=== PATIENT | female | born 1945 | race Caucasian/White ===

== ENCOUNTER 2016-06-12 14:18 | Observation (INO) | payer MEDICARE ==
[2016-06-12 16:12] LABS: BASOPHIL % 0.7 % (0.0-0.4); Granulocytes % 63.4 % (36.0-66.0); Lymphocytes % 27.2 % (24.0-44.0); Mean Cell Volume 90.8 fl (78-100); Mean Corpuscular Hemoglobin 29.2 pg (26-32); Mean Platelet Volume 9.6 fl (6-9.5); Monocytes % 7.7 % (0.0-12.0); Platelet Count 362 K/mm3 (150-450); Red Cell Distribution Width 12.6 % (11.5-14.0); White Blood Count 5.7 K/mm3 (4.0-10.5)
[2016-06-12] MEDS: ROCEPHIN 1 Gm-D5w 50 ml Bag** 50 ML IV SCH (16:35)
[2016-06-12] MEDS: Sodium Chloride 0.9% W/ 20 mEq KCl/LITER 1,000 ML IV SCH (16:36)
[2016-06-12 16:40] LABS: ALBUMIN 3.3 g/dL (3.4-5.0); ALKALINE PHOSPHATASE 83 U/L (46-116); ANION GAP 11.7 MEQ/L (5-15); BILIRUBIN,TOTAL 0.2 mg/dL (0.2-1.0); BLOOD UREA NITROGEN 15 mg/dL (9-20); CHLORIDE 104 mEq/L (98-107); Carbon Dioxide 27.9 mEq/L (21-32); Glucose 104 MG/DL (70-110); PHOSPHOROUS 2.4 mg/dL (2.6-4.7); Potassium 3.7 mEq/L (3.5-5.1); SGOT/AST 17 U/L (15-37); SGPT/ALT 12 U/L (12-78); SODIUM 140 mEq/L (136-145)
[2016-06-12] MEDS ORDERED: xanAX 0.25 MG PO PRN (16:51)
[2016-06-12] MEDS ORDERED: Ventolin Hfa MDI IH SCH (17:00)
[2016-06-12] MEDS ORDERED: MEDICATION INTERVENTION MC PRN (17:15)
[2016-06-12] MEDS: Zithromax 500 MG/ 250 ML NaCl Premix 250 ML IV SCH (18:09)
[2016-06-12] MEDS: PROVENTIL COMMON CANISTER IH SCH (19:00)
[2016-06-12] MEDS: CEPACOL SORE THROAT LOZENGE PO PRN (20:54)
[2016-06-12] MEDS: Pepcid 20 MG PO SCH (20:55)
[2016-06-12] MEDS ORDERED: NON-FORMULARY ITEM (Ropinirole Hcl [Ropinirole Hcl] 1 MG) PO SCH (22:00)
[2016-06-12] MEDS ORDERED: DESYREL 50 MG PO SCH (22:00)
[2016-06-12] MEDS ORDERED: Requip 0.5 MG PO SCH (22:00)
--- NOTE | 2016-06-12 22:23 | XRAY ---
Exam: Two-view chest from 06/12/2016. Comparison: Two-view chest from 02/16/2010. Indication: Possible pneumonia, cough, history of non-Hodgkin's lymphoma. Findings: Upright PA and lateral chest films were obtained. There is mild hyperinflation of the lungs. The heart size is normal. New mild left infrahilar airspace disease is seen which is probably due to left lower lobe pneumonia. Follow-up films are recommended to ensure complete resolution. A small calcified granuloma is seen within the peripheral left upper lung field representing no change from 02/16/2010. The remainder of the lung murray appears clear. No vascular congestion is seen. No pneumothorax or pleural effusion is seen. Mild lower thoracic dextroscoliosis is seen centered near the thoracolumbar junction. Impression: 1. New focal airspace disease is seen within the posterior left infrahilar projection, likely due to left lower lobe pneumonia. Follow-up to complete resolution is recommended. 2. There appears to be some hyperinflation of the lungs. Correlate clinically regarding COPD. 3. No other acute cardiopulmonary disease is seen.
[2016-06-13] MEDS: Sodium Chloride 0.9% W/ 20 mEq KCl/LITER 1,000 ML IV SCH (06:13)
[2016-06-13] MEDS: PROVENTIL COMMON CANISTER IH SCH ×2 (06:56→10:35)
[2016-06-13 07:14] VITALS: O2SAT 96
--- NOTE | 2016-06-13 08:51 | XRAY ---
Exam: CT of the chest without and with 80 ML's of Isovue 370 contrast from 06/12/2016. Comparison: Two-view chest from 06/12/2016. Indication: Clinical concern for pneumonia, cough, history of non-Hodgkin's lymphoma. Technique: Axial images were obtained through the chest both without and following 80 cc IV injection of Isovue-370 contrast material. Reconstructed coronal and sagittal images were created and reviewed. Findings: Some scattered small granulomatous calcifications are seen in the right side within the superior mediastinum, the AP window on the left, and the left hilum. I also note a 6 mm calcified granuloma within the left upper lobe. The thyroid gland is only partially seen but no gross abnormality is seen of the visualized portion. The central vessels enhance well. No abnormal soft tissue mediastinal or perihilar lymphadenopathy is seen. The heart size is normal without pericardial effusion. The lung murray reveal no pneumothorax or pleural effusion. The central airways appear open. Within the posterior aspect of the left lower lobe there is a small to moderate sized air space infiltrate containing air bronchograms measuring about 4.1 cm in width, 3.4 cm in AP depth, and a maximum of 7.1 cm in height on the axial and sagittal images, respectively. It is likely that this is due to left lower lobe pneumonia. I would recommend follow-up studies to ensure complete resolution and completely exclude any possibility of underlying mass lesion. There is some minimal scarring/atelectasis at the anterior left lung base. Minor biapical pleural thickening is seen. No suspicious soft tissue lung nodularity is seen. No acute process is seen within the visualized upper abdomen. The adrenal glands appear unremarkable. There is a punctate nonobstructing stone within the upper pole of the right kidney. An apparent cyst measuring +8.4 Hounsfield units on the noncontrast study and +11.0 Hounsfield units on the postcontrast study is seen within the medial aspect of the upper pole of the left kidney. No other significant abnormality is seen within the upper abdomen. The skeleton reveals mild dextroscoliosis centered near the thoracolumbar junction. There is incidental note of a vertebral body hemangioma within the right aspect of L1. Impression: 1. Focal airspace disease containing air bronchograms are seen within the posterior aspect of the left lower lobe. This is most suggestive of pneumonia. Follow-up is recommended to document complete resolution and rule out the possibility of an underlying mass. 2. Old healed granulomatous disease. 3. Nonobstructive punctate stone within the upper pole of the right kidney. 4. Apparent 2.9 cm in diameter upper pole left renal cyst.
[2016-06-13] MEDS: CEPACOL SORE THROAT LOZENGE PO PRN (09:06)
[2016-06-13] MEDS: Pepcid 20 MG PO SCH (09:06)
[2016-06-13] MEDS: ROCEPHIN 1 Gm-D5w 50 ml Bag** 50 ML IV SCH (09:07)
[2016-06-13] MEDS ORDERED: SYNTHROID 25 MCG PO SCH (10:00)
[2016-06-13] MEDS ORDERED: SYNTHROID 50 MCG PO SCH (10:00)
[2016-06-13] MEDS ORDERED: NORVASC 5 MG PO SCH (10:00)
[2016-06-13] MEDS ORDERED: NON-FORMULARY ITEM (Phentermine Hcl [Adipex-P] 37.5 MG) PO SCH (10:00)
[2016-06-13] MEDS ORDERED: NON-FORMULARY ITEM (Amlodipine Besylate [Amlodipine Besylate] 2.5 MG) PO SCH (10:00)
[2016-06-13] MEDS: Zithromax 500 MG/ 250 ML NaCl Premix 250 ML IV SCH (10:06)
--- NOTE | 2016-06-13 10:32 | PCM.SSS ---
History of Present Illness - Chief Complaint Chief Complaint: pneumonia History of Present Illness: is a 71 year old female.came to office with c/o fever, chills, left side chest wall pain and shortness of breath - Review of Systems Constitutional: No Fever, No Chills Eyes: No Symptoms Ears, Nose, & Throat: No Symptoms Respiratory: Cough, Short Of Breath, Wheezing Cardiac: Chest Pain, No Edema, No Syncope Abdominal/Gastrointestinal: No Abdominal Pain, No Nausea, No Vomiting, No Diarrhea Genitourinary Symptoms: No Dysuria Musculoskeletal: No Back Pain, No Neck Pain Skin: No Rash Neurological: No Dizziness, No Focal Weakness, No Sensory Changes Psychological: No Symptoms Endocrine: No Symptoms Hematologic/Lymphatic: No Symptoms Immunological/Allergic: No Symptoms Medications & Allergies Home Medications: Home Medication List Albuterol Sulfate [Proair Hfa] 1 puff IN QID 07/24/11 [History Confirmed ] Famotidine 20 mg [Pepcid 20 MG] 1 tab PO BID 07/24/11 [History Confirmed 06/12/16] Trazodone HCl 50 mg [Desyrel 50 mg] 100 mg PO HS 10/27/15 [History Confirmed 06/12/16] Alprazolam 0.25 mg [xanAX 0.25 MG] 0.25 mg PO DAILY PRN 06/12/16 [History Confirmed 06/12/16] Amlodipine Besylate 2.5 mg PO DAILY 06/12/16 [History Confirmed 06/12/16] Levothyroxine Sodium 25 Mcg [Synthroid 25 Mcg] 50 mcg PO DAILY 06/12/16 [ History Confirmed 06/12/16] Phentermine HCl [Adipex-P] 37.5 mg PO DAILY 06/12/16 [History Confirmed 06/12/16 ] Ropinirole HCl 1 mg PO HS 06/12/16 [History Confirmed 06/12/16] Levofloxacin [Levaquin] 500 mg PO DAILY #10 tablet 06/13/16 [Rx] Allergies/Adverse Reactions: Allergies Allergy/AdvReac Type Severity Reaction Status Date / Time No Known Drug Allergies Allergy Verified 10/27/15 08:49 - Past Medical History Past Medical History: Yes Neurological History: No Pertinent History ENT History: No Pertinent History Cardiac History: No Pertinent History Respiratory History: COPD Endocrine Medical History: Hypothyroidism Musculoskelatal History: Osteoporosis GI Medical History: GERD History: No Pertinent History Pyscho-Social History: No Pertinent History Reproductive Disorders: No Pertinent History Comment: hx of abdominal cancer 2005 - Female History Are you now?: No - Past Surgical History Past Surgical History: Yes Neuro Surgical History: No Pertinent History Cardiac History: No Pertinent History Respiratory Surgery: No Pertinent History GI Surgical History: No Pertinent History Genitourinary Surgical Hx: No Pertinent History Musculskeletal Surgical Hx: No Pertinent History Female Surgical History: Hysterectomy Other Surgical History: cvl port placed and removed, abdominal surgery for cancer - Social History Smoking Status: Never smoker Exposure to second hand smoke: Yes Alcohol: None Drug Use: none - Physical Exam Vital Signs: Vital Signs - 24 hr Temp Pulse Resp BP Pulse Ox 06/13/16 08:00 18 06/13/16 07:13 98.4 F 84 18 106/63 96 06/13/16 06:57 74 16 98 06/13/16 04:00 98.3 F 89 16 110/68 97 06/12/16 23:24 98.0 F 71 16 120/68 97 06/12/16 19:26 98.3 F 74 17 126/71 97 06/12/16 19:00 72 16 97 06/12/16 15:57 77 18 99 General Appearance: no apparent distress, alert Neurologic Exam: alert, oriented x 3, cooperative, normal mood/affect, nml cerebellar function, nml station & gait, sensation nml, No motor deficits Eye Exam: PERRL/EOMI, eyes nml inspection Ears, Nose, Throat Exam: normal ENT inspection, TMs normal, pharynx normal, moist mucous membranes Neck Exam: normal inspection, non-tender, supple, full range of motion Respiratory Exam: diminished breath sounds (left lower lobes), rhonchi, wheezing , No respiratory distress Cardiovascular Exam: regular rate/rhythm, normal heart sounds, normal peripheral pulses Gastrointestinal/Abdomen Exam: soft, normal bowel sounds, No tenderness, No mass Back Exam: normal inspection, normal range of motion, No CVA tenderness, No vertebral tenderness Extremity Exam: normal inspection, normal range of motion, pelvis stable Skin Exam: normal color, warm, dry, No rash Lymphatic Exam: No adenopathy Results - Labs Lab/Micro Results: Lab Results-Last 24 Hours 06/12/16 06/12/16 Range/Units 15:40 15:40 WBC 5.7 (4.0-10.5) K/mm3 RBC 3.80 L (4.1-5.4) M/mm3 Hgb 11.1 L (12.0-16.0) gm/dl Hct 34.5 L (35-47) % MCV 90.8 (78-100) fl MCH 29.2 (26-32) pg MCHC 32.2 (32-36) g/dl RDW 12.6 (11.5-14.0) % Plt Count 362 (150-450) K/mm3 MPV 9.6 H (6-9.5) fl Gran % 63.4 (36.0-66.0) % Lymphocytes % 27.2 (24.0-44.0) % Monocytes % 7.7 (0.0-12.0) % Eosinophils % 1.0 (0.00-5.0) % Basophils % 0.7 (0.0-0.4) % Basophils # 0.04 (0-0.4) Sodium 140 (136-145) mEq/L Potassium 3.7 (3.5-5.1) mEq/L Chloride 104 (98-107) mEq/L Carbon Dioxide 27.9 (21-32) mEq/L Anion Gap 11.7 (5-15) MEQ/L BUN 15 (9-20) mg/dL Creatinine 0.88 (0.55-1.30) mg/dl Estimated GFR > 60 ML/MIN Glucose 104 (70-110) MG/DL Calcium 8.6 (8.5-10.1) mg/dL Phosphorus 2.4 L (2.6-4.7) mg/dL Total Bilirubin 0.2 (0.2-1.0) mg/dL AST 17 (15-37) U/L ALT 12 (12-78) U/L Alkaline Phosphatase 83 (46-116) U/L Serum Total Protein 7.0 (6.4-8.2) gm/dL Albumin 3.3 L (3.4-5.0) g/dL - Radiology Impressions Radiology Exams & Impressions: Radiology Procedures Category Date Time Status CHEST 2 VIEWS (PA AND LAT) Stat Exams 06/12/16 15:57 Completed CHEST W/WO CONTRAST [CT] Urgent Exams 06/12/16 16:20 Completed - Other Procedures and Tests Respiratory Therapy 06/12/16 19:00 Respiratory MDI 07,11,15,19 Assessment/Plan (1) Pneumonia Current Visit: Yes Status: Acute Qualifiers: Pneumonia type: due to unspecified organism Laterality: left Lung location: lower lobe of lung Qualified Code(s): J18.1 - Lobar pneumonia, unspecified organism Code(s): J18.9 - PNEUMONIA, UNSPECIFIED ORGANISM Hospital Summary - Hospital Course Hospital Course: Chief Complaint Diagnosis pneumonia Allergies Allergy/AdvReac Type Severity Reaction Status Date / Time No Known Drug Allergies Allergy Verified 10/27/15 08:49 Vital Signs (Last 24 hours) Temp Pulse Resp BP Pulse Ox 06/13/16 08:00 18 06/13/16 07:13 98.4 F 84 18 106/63 96 06/13/16 06:57 74 16 98 06/13/16 04:00 98.3 F 89 16 110/68 97 06/12/16 23:24 98.0 F 71 16 120/68 97 06/12/16 19:26 98.3 F 74 17 126/71 97 06/12/16 19:00 72 16 97 06/12/16 15:57 77 18 99 Home Medications Medication Instructions Recorded Confirmed Last Taken Type Alprazolam 0.25 mg [xanAX 0.25 0.25 mg PO DAILY PRN 06/12/16 06/12/16 History MG] Amlodipine Besylate 2.5 mg PO DAILY 06/12/16 06/12/16 06/12/16 History Levothyroxine Sodium 25 Mcg 50 mcg PO DAILY 06/12/16 06/12/16 06/12/16 History [Synthroid 25 Mcg] Phentermine HCl [Adipex-P] 37.5 mg PO DAILY 06/12/16 06/12/16 06/11/16 History Ropinirole HCl 1 mg PO HS 06/12/16 06/12/16 06/11/16 History Current Medications Generic Name Dose Route Start Last Admin Trade Name Freq PRN Reason Stop Dose Admin Albuterol Sulfate 2 puff 06/12/16 19:00 06/13/16 06:56 Proventil Common Canister IH 07/12/16 18:59 2 puff QIDRT JACOB Administration Alprazolam 0.25 mg 06/12/16 16:51 Xanax 0.25 Mg PO 07/12/16 16:50 DAILY PRN ANXIETY Amlodipine Besylate 2.5 mg 06/13/16 10:00 06/13/16 09:04 Norvasc 5 Mg PO 07/13/16 09:59 2.5 mg DAILY JACOB Administration Famotidine 20 mg 06/12/16 22:00 06/13/16 09:06 Pepcid 20 Mg PO 07/12/16 21:59 20 mg BID JACOB Administration Ceftriaxone Sodium/Dextrose 50 mls @ 100 mls/hr 06/12/16 16:00 06/13/16 09:07 Rocephin 1 Gm-D5w 50 Ml Bag IV 07/12/16 15:59 100 mls/hr Q24H10 JACOB Administration Azithromycin 250 mls @ 125 mls/hr 06/12/16 16:15 06/13/16 10:06 Zithromax 500 Mg/ 250 Ml Nacl Premix IV 07/12/16 16:14 125 mls/hr DAILY JACOB Administration Potassium Chloride/Sodium Chloride 1,000 mls @ 100 mls/hr 06/12/16 16:00 06:13 Sodium Chloride 0.9% W/ 20 Meq Kcl/Liter IV 07/12/16 15:59 100 mls/hr .Q10H JACOB Administration Levothyroxine Sodium 50 mcg 06/13/16 10:00 06/13/16 09:06 Synthroid 50 Mcg PO 07/13/16 09:59 50 mcg DAILY JACOB Administration Ropinirole HCl 1 mg 06/12/16 22:00 06/12/16 20:58 Requip 0.5 Mg PO 07/12/16 21:59 Not Given HS JACOB Throat Lozenges 15 mg 06/12/16 16:46 06/13/16 09:06 Cepacol Sore Throat Lozenge PO 07/12/16 16:45 15 mg PRN PRN Administration COUGH Trazodone HCl 100 mg 06/12/16 22:00 06/12/16 20:55 Desyrel 50 Mg PO 07/12/16 21:59 100 mg HS JACOB Administration Intake & Output (Last 24 hours) 06/10/16 06/11/16 06/12/16 06/13/16 11:59 11:59 11:59 11:59 Intake Total 1257 Balance 1257 Weight 48.988 kg Microbiology Results (Last 24 hours) 06/12/16 16:20 Blood - Pending 06/12/16 16:20 Blood Blood Culture - Pending 06/12/16 15:40 Blood - Pending 06/12/16 15:40 Blood Blood Culture - Pending Laboratory Results (Last 24 hours) 06/12/16 06/12/16 15:40 15:40 WBC 5.7 RBC 3.80 L Hgb 11.1 L Hct 34.5 L MCV 90.8 MCH 29.2 MCHC 32.2 RDW 12.6 Plt Count 362 MPV 9.6 H Gran % 63.4 Lymphocytes % 27.2 Monocytes % 7.7 Eosinophils % 1.0 Basophils % 0.7 Basophils # 0.04 Sodium 140 Potassium 3.7 Chloride 104 Carbon Dioxide 27.9 Anion Gap 11.7 BUN 15 Creatinine 0.88 Estimated GFR > 60 Glucose 104 Calcium 8.6 Phosphorus 2.4 L Total Bilirubin 0.2 AST 17 ALT 12 Alkaline Phosphatase 83 Serum Total Protein 7.0 Albumin 3.3 L Orders (Last 24 hours) Category Date Time Status Up Ad [place] TOLERATED Activity 06/12/16 15:57 Active Admission/Status Order ROUTINE Care 06/12/16 15:57 Active IV Insertion ROUTINE Care 06/12/16 15:57 Active Implement Pneumonia Pathway ROUTINE Care 06/12/16 15:57 Active Miscellaneous Nursing Order ROUTINE Care 06/12/16 15:57 Active Food Specialist/Discharge Plan Cons 06/12/16 15:30 Active Nutritional Admission Screen Diet 06/12/16 15:30 Active Regular Diet Diet 06/12/16 Dinner Completed Regular Diet Diet 06/13/16 Breakfast Active CHEST 2 VIEWS (PA AND LAT) Stat Exams 06/12/16 15:57 Completed CHEST W/WO CONTRAST [CT] Urgent Exams 06/12/16 16:20 Completed BLOOD CULTURE Stat Lab 06/12/16 16:20 Received CBC W DIFF Stat Lab 06/12/16 15:40 Completed COMPREHENSIVE/RENAL Routine Lab 06/12/16 15:40 Completed Albuterol Common Canister [Proventil Common Canister Med 06/12/16 19:00 Active ] 2 puff IH QIDRT Alprazolam 0.25 mg [xanAX 0.25 MG] Med 06/12/16 16:51 Active 0.25 mg PO DAILY PRN Amlodipine Besylate 5 mg [Norvasc 5 mg] Med 06/13/16 10:00 Active 2.5 mg PO DAILY Azithromycin 500 mg/250 ml [Zithromax 500 MG/ 250 ML Med 06/12/16 16:15 Active NaCl Premix] 250 ml IV DAILY Benzocaine/Menthol [Cepacol Sore Throat Lozenge] Med 06/12/16 16:46 Active 15 mg PO PRN PRN Ceftriaxone 1 GM/50 ML PREMIX* [ROCEPHIN 1 Gm-D5w 50 ml Med 06/12/16 16:00 Active Bag] 50 ml IV Q24H10 Famotidine 20 mg [Pepcid 20 MG] Med 06/12/16 22:00 Active 20 mg PO BID Levothyroxine Sodium 50 Mcg [Synthroid 50 Mcg] Med 06/13/16 10:00 Active 50 mcg PO DAILY Medication Intervention Med 06/12/16 17:15 Active 0 each MC PRN PRN NaCl 0.9% 1000 ml + KCl 20 Meq [Sodium Chloride 0.9% W/ Med 06/12/16 16:00 Active 20 mEq KCl/LITER] 1,000 ml IV 100 mls/hr Ropinirole HCl 0.5 mg [Requip 0.5 MG] Med 06/12/16 22:00 Active 1 mg PO HS Trazodone HCl 50 mg [Desyrel 50 mg] Med 06/12/16 22:00 Active 100 mg PO HS OT Screen per Nursing Assess OT 06/12/16 15:30 Active PT Screen per Nursing Assess ONCE PT 06/12/16 15:30 Completed Respiratory MDI 07,11,15,19 RT 06/12/16 19:00 Active Respiratory Therapy Consult ROUTINE RT 06/12/16 15:[address] Screen per Nursing Assess Ther 06/12/16 15:30 Active Patient Care Notes (Last 24 hours) 06/12/16 22:35 Nursing Note by Jony Saez Pt very reluctant to drink bowel prep. Frequently encouraging pt to drink it and explaining why it is necessary. Initialized on 06/12/16 22:35 - END OF NOTE Patient wants to go home, made aware of her diagnosis of pneumonia. strongly advised to take antibiotics for next 10 days. follow up with Dr Sienna David in 1 week - Vitals & Intake/Output Vital Signs: Vital Signs Temperature 98.4 F 06/13/16 07:13 Pulse Rate 84 06/13/16 07:13 Respiratory Rate 18 06/13/16 08:00 Blood Pressure 106/63 06/13/16 07:13 O2 Sat by Pulse Oximetry 96 06/13/16 07:13 Intake & Output: Intake & Output 06/10/16 06/11/16 06/12/16 06/13/16 11:59 11:59 11:59 11:59 Intake Total 1257 Balance 1257 Weight 48.988 kg - Lab Result Diagrams: 06/12/16 15:40 06/12/16 15:40 Lab Results-Last 24 Hrs: Lab Results-Last 24 Hours 06/12/16 06/12/16 Range/Units 15:40 15:40 WBC 5.7 (4.0-10.5) K/mm3 RBC 3.80 L (4.1-5.4) M/mm3 Hgb 11.1 L (12.0-16.0) gm/dl Hct 34.5 L (35-47) % MCV 90.8 (78-100) fl MCH 29.2 (26-32) pg MCHC 32.2 (32-36) g/dl RDW 12.6 (11.5-14.0) % Plt Count 362 (150-450) K/mm3 MPV 9.6 H (6-9.5) fl Gran % 63.4 (36.0-66.0) % Lymphocytes % 27.2 (24.0-44.0) % Monocytes % 7.7 (0.0-12.0) % Eosinophils % 1.0 (0.00-5.0) % Basophils % 0.7 (0.0-0.4) % Basophils # 0.04 (0-0.4) Sodium 140 (136-145) mEq/L Potassium 3.7 (3.5-5.1) mEq/L Chloride 104 (98-107) mEq/L Carbon Dioxide 27.9 (21-32) mEq/L Anion Gap 11.7 (5-15) MEQ/L BUN 15 (9-20) mg/dL Creatinine 0.88 (0.55-1.30) mg/dl Estimated GFR > 60 ML/MIN Glucose 104 (70-110) MG/DL Calcium 8.6 (8.5-10.1) mg/dL Phosphorus 2.4 L (2.6-4.7) mg/dL Total Bilirubin 0.2 (0.2-1.0) mg/dL AST 17 (15-37) U/L ALT 12 (12-78) U/L Alkaline Phosphatase 83 (46-116) U/L Serum Total Protein 7.0 (6.4-8.2) gm/dL Albumin 3.3 L (3.4-5.0) g/dL - Radiology Exams Ordered Rad Exams-Entire Visit: Radiology Procedures Category Date Time Status CHEST 2 VIEWS (PA AND LAT) Stat Exams 06/12/16 15:57 Completed CHEST W/WO CONTRAST [CT] Urgent Exams 06/12/16 16:20 Completed - Procedures and Test Procedures and Tests throughout Hospitalization: Therapy Orders & Screens 06/12/16 15:30 OT Screen per Nursing Assess Comment: Protocol Order Physician Instructions: Greater than 3 points order OT Admission Screening Reason For Exam: Triggered on Admission Diagnosis: pneumonia Open Wound/Cellutlitis/Pressure Ulcers: No Acute Fx/ORIF/Change in wt bearing status: No Severe MUSCULOSKELETAL pain: Yes ADL Dysfunction: No Acute CVA w/Hemiparesis/Hemiplegia: No Decreased Functional Mobility/Strength: Yes Sprain/Strain: No Acute Post-op Mobility Dysfunction: No Total Points: 6 PT Screen per Nursing Assess ONCE Comment: Protocol Order Physician Instructions: Greater than 3 points order PT Admission Screenin Reason For Exam: Triggered on Admission Diagnosis: pneumonia Open Wound/Cellutlitis/Pressure Ulcers: No Acute Fx/ORIF/Change in wt bearing status: No Severe MUSCULOSKELETAL pain: Yes ADL Dysfunction: No Acute CVA w/Hemiparesis/Hemiplegia: No Decreased Functional Mobility/Strength: Yes Sprain/Strain: No Acute Post-op Mobility Dysfunction: No Total Points: 6 ST Screen per Nursing Assess Comment: Protocol Order Physician Instructions: Greater than [address] Admission Screening Reason For Exam: Triggered on Admission Diagnosis: pneumonia CVA/Dyshpagia/Aphasia: No Cognitive Deficits: No Dehydration/Nutrition Deficit: Yes Reflux: Yes Oral-Motor Difficulties: No Pneumonia: Yes Intermediate Resident: No Total Points: 13 06/12/16 15:57 Respiratory Therapy Consult ROUTINE Comment: Reason For Exam: Diagnosis: pneumonia 06/12/16 19:00 Respiratory MDI 07,,15,19 Comment: Advair 115/21 2 puffs BID Diagnosis: pneumonia - Discharge Discharge Date: 06/13/16 Disposition: Home, Self-Care Condition: Stable Prescriptions: New Levofloxacin [Levaquin] 500 mg PO DAILY #10 tablet Continue Albuterol Sulfate [Proair Hfa] 1 puff IN QID Famotidine 20 mg [Pepcid 20 MG] 1 tab PO BID Trazodone HCl 50 mg [Desyrel 50 mg] 100 mg PO HS Levothyroxine Sodium 25 Mcg [Synthroid 25 Mcg] 50 mcg PO DAILY Alprazolam 0.25 mg [xanAX 0.25 MG] 0.25 mg PO DAILY PRN PRN Reason: Anxiety Amlodipine Besylate 2.5 mg PO DAILY Ropinirole HCl 1 mg PO HS Phentermine HCl [Adipex-P] 37.5 mg PO DAILY Instructions: Pneumonia -- Adult Additional Instructions: please follow up with Dr Sienna David in 1 week. If symptoms get worse call office or go to ER Follow up with: SRINI DAVID MD [Primary Care Provider] - 1 Week
[2016-06-13 11:07] VITALS: BP 116/61; PULSE 90
== END 2016-06-13 12:30 | disposition home or self-care (01) ==
LOC: MED SURG 14:18
PROVIDERS: ADMIT General Practice; ATTEND General Practice
DX: J15.8 Pneumonia due to other specified bacteria (principal); J44.9 Chronic obstructive pulmonary disease, unspecified; C85.13 Unspecified B-cell lymphoma, intra-abdominal lymph nodes; E03.9 Hypothyroidism, unspecified; M81.0 Age-related osteoporosis without current pathological fracture; K21.9 Gastro-esophageal reflux disease without esophagitis; Z85.028 Personal history of other malignant neoplasm of stomach
CPT/HCPCS: 36415; 71020; 71270; 80053; 84100; 85025; 87040; 94640; 94760; G0378; J0456; J0696; A9270-GY

== ENCOUNTER 2018-07-11 18:31 | Emergency (ER) | payer MEDICARE ==
--- NOTE | 2018-07-11 19:16 | ERPHSYRPT ---
- History of Present Illness Time Seen by Provider: 07/11/18 19:16 Historian: patient, family Exam Limitations: no limitations Physician History: 73 y/o white female pt of dr. david presents with several day h/o constipation. pt was seen at [facility] ED on saturday07/07/18 because of associated abd pain and n/v. work up included ct scan abd/pelvis and lab work. pt was seen by pcp on 07/08/18. pt has been using once daily stool softener, mag citrate drank slowly, fleets enema and rectal suppository. pt states her pain has improved, she is able to eat and drink, she is passing small amts of stool and flatus. pt states she has vaginal and rectal prolapses intermittently. pt unsure about ever seeing a new patient escort. Timing/Duration: day(s) (several ) Activities at Onset: none Quality: cramping Abdominal Pain Onset Location: other (pelvic) Pain Radiation: no radiation Severity of Pain-Max: moderate Severity of Pain-Current: mild Modifying Factors: Improves With: nothing. Worsens With: vomiting Associated Symptoms: denies symptoms Previous symptoms: same symptoms as today Allergies/Adverse Reactions: No Known Drug Allergies Allergy (Verified 07/11/18 19:15) Home Medications: Trazodone HCl 50 mg [Desyrel 50 mg] 100 mg PO HS 10/27/15 [History] Alprazolam 0.25 mg [xanAX 0.25 MG] 0.25 mg PO DAILY PRN 06/12/16 [History] Amlodipine Besylate 2.5 mg PO DAILY 06/12/16 [History] Levothyroxine Sodium 25 Mcg [Synthroid 25 Mcg] 50 mcg PO DAILY 06/12/16 [ History] Ropinirole HCl 1 mg PO HS 06/12/16 [History] Diclofenac Sodium Gel [Voltaren GEL] 1 applic TOP UD 11/29/17 [History] Naproxen Sodium 220 mg [Aleve 220 MG] 2 tab PO DAILY PRN 11/29/17 [History ] Nitroglycerin 0.4 mg (Ed) [Nitrostat 0.4 MG (ED)] 0.4 mg SL UD 11/29/17 [ History] Omeprazole 40 mg PO DAILY 11/29/17 [History] Pregabalin 50 mg [Lyrica 50MG] 50 mg PO BID 11/29/17 [History] Hx Tetanus, Diphtheria Vaccination/Date Given: Yes Hx Influenza Vaccination/Date Given: No Hx Pneumococcal Vaccination/Date Given: No - Review of Systems Constitutional: No Symptoms Eyes: No Symptoms Ears, Nose, & Throat: No Symptoms Respiratory: No Symptoms Cardiac: No Symptoms Abdominal/Gastrointestinal: Abdominal Pain (pelvic), Constipation, No Nausea, No Vomiting Genitourinary Symptoms: No Symptoms Musculoskeletal: No Symptoms Skin: No Symptoms Neurological: No Symptoms Psychological: No Symptoms Endocrine: No Symptoms Hematologic/Lymphatic: No Symptoms Immunological/Allergic: No Symptoms All Other Systems: Reviewed and Negative - Past Medical History Pertinent Past Medical History: Yes Neurological History: No Pertinent History ENT History: No Pertinent History Cardiac History: Angina, Hypertension Respiratory History: COPD Endocrine Medical History: Hypothyroidism Musculoskeletal History: Osteoporosis GI Medical History: GERD History: No Pertinent History Psycho-Social History: Anxiety, Depression Female Reproductive Disorders: No Pertinent History Other Medical History: hx of abdominal cancer 2005. restless legs - Past Surgical History Past Surgical History: Yes Neuro Surgical History: No Pertinent History Cardiac: No Pertinent History Respiratory: No Pertinent History Gastrointestinal: No Pertinent History Genitourinary: No Pertinent History Musculoskeletal: No Pertinent History Female Surgical History: Hysterectomy, Tubal Ligation Other Surgical History: cvl port placed and removed, abdominal surgery for cancer - Social History Smoking Status: Never smoker Exposure to second hand smoke: Yes Drug Use: none - Nursing Vital Signs Nursing Vital Signs: Initial Vital Signs Temperature 98.4 F 07/11/18 19:23 Pulse Rate 63 07/11/18 19:23 Respiratory Rate 20 07/11/18 19:23 Blood Pressure 113/70 07/11/18 19:23 O2 Sat by Pulse Oximetry 100 07/11/18 19:23 Pain Scale Pain Intensity 7 - Physical Exam General Appearance: no apparent distress, alert, anxiety Eye Exam: PERRL/EOMI, eyes nml inspection Ears, Nose, Throat Exam: normal ENT inspection, moist mucous membranes Neck Exam: normal inspection, non-tender, supple, full range of motion Respiratory Exam: normal breath sounds, lungs clear, airway intact, No chest tenderness, No respiratory distress Cardiovascular Exam: regular rate/rhythm, normal heart sounds, normal peripheral pulses Gastrointestinal/Abdomen Exam: soft, normal bowel sounds, tenderness (mild suprapubic) Pelvic Exam: not done Rectal Exam: not done Back Exam: normal inspection, normal range of motion, No CVA tenderness, No vertebral tenderness Extremity Exam: normal inspection, normal range of motion, pelvis stable Neurologic Exam: alert, oriented x 3, cooperative, 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 as 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 Skin Exam: normal color, warm, dry Lymphatic Exam: No adenopathy SpO2 Interpretation: normal O2 Delivery: Room Air - Course Nursing assessment & vital signs reviewed: Yes Ordered Tests: Active Orders 24 hr Category Date Time Status Enema STAT Care 07/11/18 20:21 Active KUB Stat Exams 07/11/18 20:03 Taken Medication Summary Discontinued Medications Generic Name Dose Route Start Last Admin Trade Name Freq PRN Reason Stop Dose Admin Magnesium Citrate 296 ml 07/11/18 20:22 Citroma 296 Ml PO 07/11/18 20:23 STAT ONE Magnesium Citrate Confirm 07/11/18 20:29 Citroma 296 Ml Administered 07/11/18 20:30 Dose 296 ml .ROUTE .STK-MED ONE - Progress Progress: unchanged Progress Note: 07/11/18 20:32 kub-mod stool throughout colon; air in rectum. i reviewed the workup performed at [facility] ed on 07/07/18 07/11/18 20:33 pt sx have actually improved. no evidence of obstruction. will be more aggressive in outpt treatment of her constipation 07/11/18 20:34 Counseled pt/family regarding: diagnosis, need for follow-up, rad results - Departure Departure Disposition: Home Clinical Impression: Constipation Condition: Stable Critical Care Time: No Referrals: SRINI DAVID MD [Primary Care Provider] - Additional Instructions: be more aggressive in your treatment of your constipation. continue your stool softener. use magnesium citrate and fleets enema as discussed two times daily. continue your lubiprostone. additionally use rectal suppositories. follow up with primary doctor for further management including referral to new patient escort and physician support coordinator as needed.
[2018-07-11 19:33] VITALS: O2SAT 100
[2018-07-11] MEDS ORDERED: CITROMA 296 ML PO ONE (20:22)
[2018-07-11] MEDS ORDERED: CITROMA 296 ML ONE (20:29)
[2018-07-11 20:41] VITALS: BP 115/66; PULSE 68
--- NOTE | 2018-07-11 21:46 | XRAY ---
Indication: Constipation. Comparison: None KUB nonacute and nonobstructed with mild scattered colonic fecal debris. Solid organs unremarkable. Osseous structures intact with mild lumbar degenerative changes and dextroscoliosis. Impression: Mild fecal stasis without obstruction.
== END 2018-07-11 20:44 | disposition home or self-care (01) ==
LOC: ED 18:31
DX: K59.00 Constipation, unspecified (principal); I10 Essential (primary) hypertension; J44.9 Chronic obstructive pulmonary disease, unspecified; E03.9 Hypothyroidism, unspecified; M81.0 Age-related osteoporosis without current pathological fracture; F41.8 Other specified anxiety disorders; K21.9 Gastro-esophageal reflux disease without esophagitis; Z79.899 Other long term (current) drug therapy; Z85.038 Personal history of other malignant neoplasm of large intestine
CPT/HCPCS: 74018; 99283; A9270-GY

== ENCOUNTER 2018-07-23 11:32 | Day surgery (SDC) | payer MEDICARE ==
--- NOTE | 2018-07-23 13:40 | XRAY ---
Indication: Right SI joint injection. Intraoperative fluoroscopy was provided for 9 seconds. 2 digital spot images submitted for interpretation demonstrates posterior needle tip projecting over the inferior right SI joint. Correlate with intraoperative findings/report.
--- NOTE | 2018-07-23 13:52 | XRAY ---
9 seconds fluoroscopy time in surgery for right SI joint injection
== END 2018-07-23 13:00 | disposition home or self-care (01) ==
LOC: SDC-PAIN 11:32
PROVIDERS: ATTEND Psychiatry & Neurology Pain Medicine
DX: M46.1 Sacroiliitis, not elsewhere classified (principal); M53.3 Sacrococcygeal disorders, not elsewhere classified; J44.9 Chronic obstructive pulmonary disease, unspecified; Z79.899 Other long term (current) drug therapy
CPT/HCPCS: 72020; 77002; G0260; 27096

== ENCOUNTER 2018-08-13 13:30 | Day surgery (SDC) | payer MEDICARE ==
[2018-08-13] MEDS ORDERED: Depo-Medrol 40 MG/ML IM ONE (13:31)
[2018-08-13] MEDS ORDERED: Sodium Chloride 0.9(Preservative Free) 10 ML IJ ONE (13:31)
[2018-08-13] MEDS ORDERED: DIPRIVAN 200 MG/20 ML IV ONE (14:09)
[2018-08-13] MEDS ORDERED: Ketamine HCl 50 MG/ML ONE (14:09)
[2018-08-13] MEDS ORDERED: MORPHINE SULFATE 10 MG/ML ONE (14:30)
[2018-08-13] MEDS ORDERED: Lactated Ringers 1,000 ML IV ONE (14:34)
[2018-08-13] MEDS ORDERED: DILAUDID 2 MG INJECTION ONE (14:41)
--- NOTE | 2018-08-13 16:45 | XRAY ---
Indication: Right L4-L5 and L5-S1 transforaminal MIKAEL. Intraoperative fluoroscopy was provided for 22 seconds. 2 digital spot images submitted for interpretation demonstrates posterior needle tips projecting over the expected right L4 and L5 nerve roots. Small amount of contrast injected for needle tip placement. Correlate with intraoperative findings/report.
--- NOTE | 2018-08-13 16:46 | XRAY ---
22 seconds of fluoroscopy was used in surgery for right L4-L5 and L5-S1 transforaminal MIKAEL.
== END 2018-08-13 15:05 | disposition home or self-care (01) ==
LOC: SDC-PAIN 13:30
PROVIDERS: ATTEND Psychiatry & Neurology Pain Medicine
DX: M54.16 Radiculopathy, lumbar region (principal); J44.9 Chronic obstructive pulmonary disease, unspecified; M81.0 Age-related osteoporosis without current pathological fracture
CPT/HCPCS: 64483; 64484; 72020; 77003; 99100; J1030; J1170; J2270; J2704; Q9966

== ENCOUNTER 2019-07-06 14:46 | Observation (INO) | payer MEDICARE ==
[2019-07-06 15:55] LABS: Hematocrit 33.6 % (35-47); Hemoglobin 10.8 gm/dl (12.0-16.0); Mean Cell Volume 91.6 fl (78-100); Mean Corpuscular Hemoglobin 29.4 pg (26-32); Mean Corpuscular Hgb Concent. 32.1 g/dl (32-36); Mean Platelet Volume 10.6 fl (7.5-11.0); Platelet Count 203 K/mm3 (150-450); Red Blood Count 3.67 M/mm3 (4.1-5.4); Red Cell Distribution Width 12.7 % (11.5-14.0); White Blood Count 5.5 K/mm3 (4.0-10.5)
[2019-07-06] MEDS ORDERED: Phenergan 25 MG INJ IM PRN (16:04)
[2019-07-06] MEDS ORDERED: MORPHINE SULFATE 2 MG INJ IV PRN (16:05)
[2019-07-06] MEDS ORDERED: PHENERGAN 25 MG PO PRN (16:08)
[2019-07-06 16:11] LABS: ALBUMIN 4.1 g/dL (3.5-5.0); ALKALINE PHOSPHATASE 60 U/L (38-126); BLOOD UREA NITROGEN 24 mg/dL (7-17); CHLORIDE 102 mmol/L (98-107); Carbon Dioxide 29 mmol/L (22-30); Creatinine 1 0.64 mg/dL (0.52-1.04); Glucose 98 mg/dL (74-106); Potassium 4.1 mmol/L (3.5-5.1); SGOT/AST 21 U/L (14-36); SGPT/ALT 10 U/L (0-35); SODIUM 138 mmol/L (137-145)
[2019-07-06] MEDS: Sodium Chloride 0.9% 1000 ML 1,000 ML IV SCH (16:14)
[2019-07-06] MEDS ORDERED: Sodium Chloride 0.9% 1000 ML 1,000 ML IV SCH (16:15)
[2019-07-06] MEDS: Requip 0.5 MG PO SCH (21:03)
[2019-07-06] MEDS: DESYREL 50 MG PO SCH (21:03)
[2019-07-06] MEDS: Lyrica 50MG PO SCH (21:03)
[2019-07-06] MEDS ORDERED: NON-FORMULARY ITEM (Ropinirole Hcl [Ropinirole Hcl] 1 MG) PO SCH (22:00)
[2019-07-07] MEDS: Sodium Chloride 0.9% 1000 ML 1,000 ML IV SCH ×2 (03:08→21:25)
--- NOTE | 2019-07-07 08:54 | HP ---
CHIEF COMPLAINT: Nausea. HISTORY OF PRESENT ILLNESS: The patient is a 74 year-old white female, a patient of Dr. Pelaez, who presented to the hospital for direct admission from Dr. Paniagua's office. The patient reports she has had issues with nausea. She does have some choking with foods and has apparently history of esophageal web. She reports that she does not remember ever being dilated before but said that her chart history reports that she has had this procedure previously performed. The patient has history non-Hodgkin's lymphoma dating back to 2005 and has been in remission. She has seen Dr. Walls recently and has decided that she needs a whole body scan to be completed the patient reports next month but the patient due to her current feelings wishes to proceed with having this done now. PAST MEDICAL/SURGICAL HISTORY: Otherwise significant for hysterectomy, tonsillectomy, EGD, bronchoscopy, colonoscopy. She apparently had back surgery. She was hospitalized for pneumonia once before. HOME MEDICATIONS: Includes amlodipine 2.5 mg a day, levothyroxine 25 mcg daily, omeprazole 40 mg a day, Lyrica 100 mg b.i.d., Phenergan PRN, ropinirole 1 mg at night and trazodone 100 mg at night. ALLERGIES: NKDA. PHYSICAL EXAMINATION: HEENT: Normocephalic, atraumatic. Pupils equal round reactive to light. Extraocular movements intact. Oropharynx is pink and moist. NECK: Supple without lymphadenopathy, thyromegaly or JVD. CHEST: Clear to auscultation. HEART: Regular rate and rhythm. ABDOMEN: Soft. No palpable masses. EXTREMITIES: Without cyanosis, clubbing or edema. NEUROLOGIC: The patient is alert and oriented x3. No focal deficits were noted. LAB DATA AND TESTS: Revealed comprehensive metabolic panel which was entirely normal. She had a CBC showing a white count 5,500, hemoglobin slightly low at 10.8 and a PLT count 203,000. ASSESSMENT: A patient with nausea. She has been admitted to the hospital for surgical consultation and possible stretching of her esophageal web. Further work up will now include her whole body scan CT with and without contrast of chest, abdomen and pelvis due to history of non-Hodgkin's lymphoma worrisome for possible recurrence. We will check sedimentation rate, CRP, TSH, T4, amylase and lipase.
[2019-07-07 09:43] LABS: T4 (Thyroxine) 9.56 ug/dL (5.53-10.96); TSH, 3RD Generation 0.869 mIU/L (0.47-4.68)
[2019-07-07] MEDS ORDERED: NON-FORMULARY ITEM (Amlodipine Besylate [Amlodipine Besylate] 2.5 MG) PO SCH (10:00)
[2019-07-07] MEDS ORDERED: NON-FORMULARY ITEM (Omeprazole [Omeprazole] 40 MG) PO SCH (10:00)
[2019-07-07] MEDS ORDERED: SYNTHROID 25 MCG PO SCH (10:00)
[2019-07-07] MEDS: NORVASC 5 MG PO SCH (10:08)
[2019-07-07] MEDS: SYNTHROID 50 MCG PO SCH (10:08)
[2019-07-07] MEDS: Lyrica 50MG PO SCH ×2 (10:09→21:25)
[2019-07-07] MEDS: Protonix 40MG Tablet PO SCH (10:09)
[2019-07-07 10:23] LABS: Appearance CLEAR (CLEAR); Bacteria RARE /HPF (NEGATIVE); Bilirubin NEGATIVE (NEGATIVE); Blood NEGATIVE Ery/ul (0-5); Glucose NEGATIVE (NEGATIVE); Ketones NEGATIVE (NEGATIVE); Leukocyte Esterase NEGATIVE (NEGATIVE); Nitrite NEGATIVE (NEGATIVE); Protein,Urine Dip NEGATIVE (Negative); RBC 0-2 /HPF (0-2); Specific Gravity 1.011 (1.005-1.025); Urobilinogen NEGATIVE mg/dL (0-1); WBC 0-2 /HPF (0-5)
--- NOTE | 2019-07-07 10:32 | XRAY ---
Indication: History non-Hodgkin's lymphoma. Multiple contiguous axial images obtained through the chest prior to and following 80 cc Isovue-370 contrast as ordered. Comparison: June 12, 2016. Lungs inflated again with minimal biapical fibrosis/scarring. New minimal left base dependent atelectasis. Stable small left upper lobe and tiny right middle lobe calcified granulomas. Also stable tiny left lateral gutter noncalcified nodule probably granulomatous. No new suspicious pulmonary mass, infiltrate, or effusion. Heart is not enlarged. Aorta is normal in course and caliber. Stable small left perihilar calcified nodes. No pathologic mediastinal/hilar/axillary lymphadenopathy. Bony thorax intact again with minimal degenerative changes throughout the spine. CT abdomen/pelvis reported separately. Impression: 1. Stable minimal pulmonary fibrosis/scarring and old granulomatous disease. 2. Remaining CT chest with and without contrast exam is negative.
--- NOTE | 2019-07-07 10:40 | XRAY ---
Indication: History non-Hodgkin's lymphoma. Multiple contiguous axial images obtained through the abdomen and pelvis prior to and following 80 cc Isovue-370 contrast as ordered. Comparison: January 25, 2006. CT chest reported separately. Noncontrasted images demonstrates 4 mm nonobstructing calculus not seen on comparison study but unchanged with respect to CT chest June 12, 2016. No other pathologic visceral calcifications/calculi. Noncontrasted stomach and bowel loops appear nonobstructed. Again previous hysterectomy. No free fluid/air. Postcontrast images demonstrate normal visceral enhancement and renal excretion. Enlarging 4 cm left mid renal cyst and new 6 mm left mid renal cortical cyst. Remaining liver, gallbladder, pancreas, spleen, adrenal glands, kidneys, ureters, and bladder appear unremarkable. Minimal aortic calcifications without aneurysm/dissection. No pathologic mesenteric, retroperitoneal, or inguinal lymphadenopathy. Osseous structures intact with no mild degenerative changes throughout the lumbar spine. New mild dextrorotoscoliosis centered at L1-L2. No ventral or inguinal hernias. Impression: 1. New nonobstructing right renal micro-calculus and new/enlarging left renal cysts. Findings similar in appearance to more recent CT chest June 12, 2016. 2. New dextrorotoscoliosis. 3. Remaining CT abdomen/pelvis with and without contrast exam is negative.
[2019-07-07] MEDS ORDERED: Naprosyn 500 MG PO SCH (11:30)
[2019-07-07] MEDS ORDERED: Naprosyn 500 MG PO PRN (11:48)
[2019-07-07] MEDS: DESYREL 50 MG PO SCH (21:25)
[2019-07-07] MEDS: Requip 0.5 MG PO SCH (21:26)
[2019-07-08] MEDS ORDERED: Lactated Ringers 1,000 ML IV SCH (08:30)
[2019-07-08] MEDS ORDERED: Xylocaine-Mpf 2% 5 Ml Vial ONE (12:07)
[2019-07-08] MEDS ORDERED: DIPRIVAN 200 MG/20 ML IV ONE (12:07)
[2019-07-08 13:28] VITALS: BP 108/68; PULSE 65; O2SAT 100
--- NOTE | 2019-07-08 13:40 | OP ---
SURGERY DATE/TIME: 07/08/2019 1221 PREOPERATIVE DIAGNOSIS: Dysphagia. POSTOPERATIVE DIAGNOSIS: Dysphagia and mild gastritis. PROCEDURE: EGD. SURGEON: Patricio Jane M.D. ANESTHESIA: MAC. SPECIMENS: Antral biopsy for histology and Helicobacter pylori. INDICATIONS: The patient is a 74 year-old female complaining of abdominal pain, nausea, vomiting and dysphagia. Feels like food is getting stuck substernally. She reports these episodes occur with solid foods when she does not chew well. They have all spontaneously passed. She does not remember having a dilatation in the past. However it is documented in the chart. However, I do not have the endoscopy report. Risk of infection, bleeding, perforation, recurrence were discussed with the patient and she elected to proceed. FINDINGS: Mild to moderate antral gastritis. Biopsies taken for histology and Helicobacter pylori. Duodenum is normal. The rest of the stomach was normal. There was a small sliding-type hiatal hernia. There was no esophageal stricture. 18 balloon was passed throughout the esophagus without resistance at all. DESCRIPTION OF PROCEDURE: The patient was brought to the endoscopy suite. She was positioned. Time out was performed. MAC anesthesia was induced. Endoscope was introduced through the mouth. Cords were normal. It was advanced to the esophagus. Scope was advanced to the duodenum, D3 to D1 were normal. Antrum showed mild to moderate gastritis with erythema without ulceration. Antral biopsy was taken for histology and Helicobacter pylori. Scope was retroflexed. There were no other lesions in the stomach. The rest of the stomach was normal. The gastroesophageal junction was at about 40 cm. Z-line was at about 37 cm. There was a small sliding-type hiatal hernia. There is no esophagitis. Due to the patient's convincing symptoms, 18 mm balloon was passed and inflated. There was absolutely no resistance throughout the esophagus. There was no stricture. The esophagus was normal. The scope was advanced. The scope was then advanced to the stomach. Stomach was suctioned and then the scope withdrawn. The patient tolerated the procedure well and was then taken to recovery in stable condition.
[2019-07-08] MEDS: Lyrica 50MG PO SCH (13:51)
[2019-07-08] MEDS: NORVASC 5 MG PO SCH (13:51)
[2019-07-08] MEDS: Protonix 40MG Tablet PO SCH (13:51)
[2019-07-08] MEDS: SYNTHROID 50 MCG PO SCH (13:51)
== END 2019-07-08 14:20 | disposition home or self-care (01) ==
LOC: MED SURG 15:19
PROVIDERS: ADMIT General Practice; ATTEND Family Medicine
DX: R11.2 Nausea with vomiting, unspecified (principal); K22.2 Esophageal obstruction; R13.10 Dysphagia, unspecified; K29.70 Gastritis, unspecified, without bleeding; K44.9 Diaphragmatic hernia without obstruction or gangrene; R10.9 Unspecified abdominal pain; Z85.72 Personal history of non-Hodgkin lymphomas; Z79.899 Other long term (current) drug therapy
CPT/HCPCS: 36415; 43249; 71270; 74178; 80053; 81001; 82150; 83690; 84436; 84443; 85027; 85652; 86140; 93268; G0378; 88305; 99100; C1726; J2704; A9270-GY

== ENCOUNTER 2020-01-27 07:41 | Day surgery (SDC) | payer MEDICARE ==
[2020-01-27] MEDS ORDERED: Depo-Medrol 40 MG/ML IM ONE (07:42)
[2020-01-27] MEDS ORDERED: Sodium Chloride 0.9(Preservative Free) 10 ML IJ ONE (07:42)
[2020-01-27] MEDS ORDERED: BUPIVACAINE 0.5% VIAL IJ ONE (07:42)
[2020-01-27] MEDS ORDERED: Ketamine HCl 50 MG/ML ONE (10:47)
[2020-01-27] MEDS ORDERED: DIPRIVAN 200 MG/20 ML IV ONE (10:47)
--- NOTE | 2020-01-27 12:25 | XRAY ---
Indication: Right L4-S1 transforaminal MIKAEL. Intraoperative fluoroscopy was provided for 34 seconds. 4 digital spot images submitted for interpretation demonstrates posterior needle tips projecting over the expected right L4 and L5 nerve roots. Small amount of contrast injected for needle tip placement. Correlate with intraoperative findings/report.
--- NOTE | 2020-01-27 12:28 | XRAY ---
34 seconds fluoroscopy time in surgery for right L4-S1 transforaminal MIKAEL.
--- NOTE | 2020-01-27 12:38 | XRAY ---
19 seconds fluoroscopy time in surgery for bilateral SI joint injections.
--- NOTE | 2020-01-27 12:38 | XRAY ---
Indication: Bilateral SI joint injection. Intraoperative fluoroscopy was provided for 19 seconds. 4 digital spot images submitted for interpretation demonstrates posterior needle tip projecting over the inferior left and right SI joint. Correlate with intraoperative findings/report.
[2020-01-27] MEDS ORDERED: Lactated Ringers 1,000 ML IV ONE (16:06)
== END 2020-01-27 11:22 | disposition home or self-care (01) ==
LOC: SDC-PAIN 07:41
PROVIDERS: ATTEND Psychiatry & Neurology Pain Medicine
DX: M46.1 Sacroiliitis, not elsewhere classified (principal); M54.16 Radiculopathy, lumbar region; J44.9 Chronic obstructive pulmonary disease, unspecified; M81.0 Age-related osteoporosis without current pathological fracture; C85.90 Non-Hodgkin lymphoma, unspecified, unspecified site; Z79.899 Other long term (current) drug therapy
CPT/HCPCS: 27096; 64483; 64484; 72100; 72202; 77002; 77003; 96365; 99211; G0260; 99100; J1030; J1439; J2704; Q9966

== ENCOUNTER 2020-02-03 10:43 | Emergency (ER) | payer MEDICARE ==
--- NOTE | 2020-02-03 10:54 | ERPHSYRPT ---
- History of Present Illness Time Seen by Provider: 02/03/20 10:54 Historian: patient Exam Limitations: clinical condition Physician History: This is a 74-year-old white female who presents to the emergency department from her home with complaints of several episodes of watery diarrhea that began this morning. Patient states that she is never had anything like this before. Patient states that she has not taken any new medications. She has not had any traveling outside [place]. She does not drink well water and she has not been drinking out of lakes or streams or been camping. She is not on any antibiotics and has not been on any antibiotics recently. Patient lives alone. She has no known exposures to any individuals with similar symptoms or with fl ulike symptoms. Patient has history of gastroesophageal reflux disease, hypertension, anxiety and hypothyroidism. She has associated crampy abdominal pain. She denies vomiting. She has no shortness of breath and denies chest pain. Timing/Duration: today, sudden, worse Activities at Onset: none Quality: cramping Abdominal Pain Onset Location: generalized abdomen Pain Radiation: no radiation Severity of Pain-Max: mild Severity of Pain-Current: mild Modifying Factors: Improves With: nothing Associated Symptoms: diarrhea Previous symptoms: no prior history Allergies/Adverse Reactions: No Known Drug Allergies Allergy (Verified 01/27/20 07:57) Home Medications: Trazodone HCl 50 mg [Desyrel 50 mg] 150 mg PO HS 10/27/15 [History] Amlodipine Besylate 2.5 mg PO DAILY 06/12/16 [History] Levothyroxine Sodium 25 Mcg [Synthroid 25 Mcg] 50 mcg PO DAILY 06/12/16 [History] Ropinirole HCl 1 mg PO HS PRN PRN 06/12/16 [History] Omeprazole 40 mg PO DAILY 11/29/17 [History] Pregabalin 50 mg [Lyrica 50MG] 100 mg PO BID 11/29/17 [History] Albuterol Sulfate [Albuterol Sulfate Hfa] 2 puff IH Q4HPRN PRN 12/14/19 [History] Zoledronic Acid/Mannitol&Water [Reclast 5 mg/100 ml Solution] 5 mg IV UD 12/14/19 [History] Docusate Sodium [Dok] 100 mg PO BID 01/27/20 [History] Phentermine HCl [Adipex-P] 37.5 mg PO DAILY PRN PRN 01/27/20 [History] Hx Tetanus, Diphtheria Vaccination/Date Given: Yes Hx Influenza Vaccination/Date Given: No Hx Pneumococcal Vaccination/Date Given: No Travel Risk - International Travel Have you traveled outside of the country in past 3 weeks: No - Coronavirus Screening Are you exhibiting any of the following symptoms?: No Close contact with a COVID-19 positive Pt in past 14-21 Days: No - Review of Systems Constitutional: No Symptoms Eyes: No Symptoms Ears, Nose, & Throat: No Symptoms Respiratory: No Symptoms Cardiac: No Symptoms Abdominal/Gastrointestinal: Abdominal Pain, Diarrhea Genitourinary Symptoms: No Symptoms Musculoskeletal: No Symptoms Skin: No Symptoms Neurological: No Symptoms Psychological: No Symptoms Endocrine: No Symptoms Hematologic/Lymphatic: No Symptoms Immunological/Allergic: No Symptoms All Other Systems: Reviewed and Negative - Past Medical History Pertinent Past Medical History: Yes Neurological History: No Pertinent History ENT History: No Pertinent History Cardiac History: Angina, Hypertension Respiratory History: COPD Endocrine Medical History: Hypothyroidism Musculoskeletal History: Arthritis, Osteoporosis GI Medical History: GERD History: No Pertinent History Psycho-Social History: Anxiety, Depression Female Reproductive Disorders: No Pertinent History Other Medical History: Non-Hodjkins lymphoma in remission. restless legs - Past Surgical History Past Surgical History: Yes Neuro Surgical History: No Pertinent History Cardiac: No Pertinent History Respiratory: No Pertinent History Gastrointestinal: No Pertinent History Genitourinary: No Pertinent History Musculoskeletal: No Pertinent History Female Surgical History: Hysterectomy, Tubal Ligation Other Surgical History: cvl port placed and removed - Social History Smoking Status: Never smoker Exposure to second hand smoke: No Drug Use: none Patient Lives Alone: No - Nursing Vital Signs Nursing Vital Signs: Initial Vital Signs Temperature 98.6 F 02/03/20 10:47 Pulse Rate 84 02/03/20 10:47 Respiratory Rate 24 02/03/20 10:47 Blood Pressure 131/63 02/03/20 10:47 O2 Sat by Pulse Oximetry 100 02/03/20 10:47 Pain Scale Pain Intensity 0 - Physical Exam General Appearance: no apparent distress, alert, anxiety Eye Exam: PERRL/EOMI, eyes nml inspection Ears, Nose, Throat Exam: normal ENT inspection, moist mucous membranes Neck Exam: normal inspection, non-tender, supple, full range of motion Respiratory Exam: normal breath sounds, lungs clear, airway intact, No chest tenderness, No respiratory distress Cardiovascular Exam: regular rate/rhythm, normal heart sounds, normal peripheral pulses Gastrointestinal/Abdomen Exam: soft, normal bowel sounds, tenderness (Mild diffuse), No guarding, No rebound Pelvic Exam: not done Rectal Exam: not done Back Exam: normal inspection, normal range of motion, No CVA tenderness, No vertebral tenderness Extremity Exam: normal inspection, normal range of motion, pelvis stable Neurologic Exam: alert, oriented x 3, cooperative, rate supervisor II-XII nml as tested, normal mood/affect, nml cerebellar function, nml station & gait, sensation nml Skin Exam: normal color, warm, dry Lymphatic Exam: No adenopathy SpO2 Interpretation: normal O2 Delivery: Room Air - Course Nursing assessment & vital signs reviewed: Yes Ordered Tests: Active Orders 24 hr Category Date Time Status IV Insertion STAT Care 02/03/20 10:55 Active ABDOMEN AND PELVIS W/0 CONTRAS [CT] Stat Exams 02/03/20 11:44 Completed AMYLASE Stat Lab 02/03/20 11:00 Completed BLOOD CULTURE Stat Lab 02/03/20 10:00 Received CBC W DIFF Stat Lab 02/03/20 11:00 Completed CMP Stat Lab 02/03/20 11:00 Completed INFLUENZA A+B FRANCIS Stat Lab 02/03/20 11:58 Completed LIPASE Stat Lab 02/03/20 11:00 Completed Lactic Acid Stat Lab 02/03/20 11:14 Completed Manual Differential NC Stat Lab 02/03/20 11:00 Completed Donley Screen Stat Lab 02/03/20 Completed UA W/RFX UR CULTURE Stat Lab 02/03/20 10:55 Completed Medication Summary Generic Name Dose Route Start Last Admin Trade Name Freq PRN Reason Stop Dose Admin Sodium Chloride 1,000 mls @ 100 mls/hr 02/03/20 11:00 02/03/20 11:09 Sodium Chloride 0.9% 1000 Ml IV 03/04/20 10:59 100 mls/hr .Q10H JACOB Administration Metronidazole 500 mg 02/03/20 13:26 Flagyl 500 Mg PO 02/03/20 13:27 STAT ONE Lab/Rad Data: Laboratory Result Diagrams 02/03/20 11:00 02/03/20 11:00 Laboratory Results 1202/03/20 02/03/20 Range/Units Unknown 11:58 11:14 WBC (4.0-10.5) K/mm3 RBC (4.1-5.4) M/mm3 Hgb (12.0-16.0) gm/dl Hct (35-47) % MCV (78-100) fl MCH (26-32) pg MCHC (32-36) g/dl RDW (11.5-14.0) % Plt Count (150-450) K/mm3 MPV (7.5-11.0) fl Segmented Neutrophils (36.0-66.0) % Band Neutrophils (0.0-2.0) % Lymphocytes (Manual) (24-44) % Monocytes (Manual) (0.0-12.0) % Platelet Estimate (NORMAL) RBC Morphology Sodium (137-145) mmol/L Potassium (3.5-5.1) mmol/L Chloride (98-107) mmol/L Carbon Dioxide (22-30) mmol/L Anion Gap (5-15) MEQ/L BUN (7-17) mg/dL Creatinine (0.52-1.04) mg/dL Estimated GFR ML/MIN Glucose (74-106) mg/dL Lactic Acid 0.7 (0.4-2.0) Calcium (8.4-10.2) mg/dL Total Bilirubin (0.2-1.3) mg/dL AST (14-36) U/L ALT (0-35) U/L Alkaline Phosphatase (38-126) U/L Serum Total Protein (6.3-8.2) g/dL Albumin (3.5-5.0) g/dL Amylase (30-110) U/L Lipase (23-300) U/L Urine Color (YELLOW) Urine Appearance (CLEAR) Urine pH (5-6) Ur Specific [place] (1.005-1.025) Urine Protein (Negative) Urine Ketones (NEGATIVE) Urine Blood (0-5) Ranjeet/ul Urine Nitrite (NEGATIVE) Urine Bilirubin (NEGATIVE) Urine Urobilinogen (0-1) mg/dL Ur Leukocyte Esterase (NEGATIVE) Urine WBC (Auto) (0-5) /HPF Urine RBC (Auto) (0-2) /HPF U Epithel Cells (Auto) (FEW) /HPF Urine Bacteria (Auto) (NEGATIVE) /HPF Urine Mucus (Auto) (NEGATIVE) /HPF Urine Culture Reflexed (NO) Urine Glucose (NEGATIVE) mg/dL Monoscreen NEGATIVE (Negative) Influenza Type A Ag NEGATIVE (NEGATIVE) Influenza Type B Ag NEGATIVE (NEGATIVE) 02/03/20 02/03/20 02/03/20 Range/Units 11:00 11:00 10:55 WBC 15.9 H (4.0-10.5) K/mm3 RBC 3.82 L (4.1-5.4) M/mm3 Hgb 11.3 L (12.0-16.0) gm/dl Hct 35.0 (35-47) % MCV 91.6 (78-100) fl MCH 29.6 (26-32) pg MCHC 32.3 (32-36) g/dl RDW 13.7 (11.5-14.0) % Plt Count 213 (150-450) K/mm3 MPV 11.1 H (7.5-11.0) fl Segmented Neutrophils 83 H (36.0-66.0) % Band Neutrophils 2 (0.0-2.0) % Lymphocytes (Manual) 9 L (24-44) % Monocytes (Manual) 6 (0.0-12.0) % Platelet Estimate NORMAL (NORMAL) RBC Morphology NORMAL Sodium 137 (137-145) mmol/L Potassium 3.7 (3.5-5.1) mmol/L Chloride 106 (98-107) mmol/L Carbon Dioxide 24 (22-30) mmol/L Anion Gap 10.0 (5-15) MEQ/L BUN 18 H (7-17) mg/dL Creatinine 0.65 (0.52-1.04) mg/dL Estimated GFR > 60.0 ML/MIN Glucose 103 (74-106) mg/dL Lactic Acid (0.4-2.0) Calcium 8.6 (8.4-10.2) mg/dL Total Bilirubin 0.60 (0.2-1.3) mg/dL AST 22 (14-36) U/L ALT 11 (0-35) U/L Alkaline Phosphatase 79 (38-126) U/L Serum Total Protein 7.2 (6.3-8.2) g/dL Albumin 4.3 (3.5-5.0) g/dL Amylase 82 (30-110) U/L Lipase 100 (23-300) U/L Urine Color YELLOW (YELLOW) Urine Appearance CLEAR (CLEAR) Urine pH 5.0 (5-6) Ur Specific [place] 1.013 (1.005-1.025) Urine Protein NEGATIVE (Negative) Urine Ketones NEGATIVE (NEGATIVE) Urine Blood MODERATE (0-5) Ranjeet/ul Urine Nitrite NEGATIVE (NEGATIVE) Urine Bilirubin NEGATIVE (NEGATIVE) Urine Urobilinogen NEGATIVE (0-1) mg/dL Ur Leukocyte Esterase NEGATIVE (NEGATIVE) Urine WBC (Auto) 0-2 (0-5) /HPF Urine RBC (Auto) 3-5 (0-2) /HPF U Epithel Cells (Auto) NONE (FEW) /HPF Urine Bacteria (Auto) NONE (NEGATIVE) /HPF Urine Mucus (Auto) SLIGHT (NEGATIVE) /HPF Urine Culture Reflexed NO (NO) Urine Glucose NEGATIVE (NEGATIVE) mg/dL Monoscreen (Negative) Influenza Type A Ag (NEGATIVE) Influenza Type B Ag (NEGATIVE) - Progress Progress: improved, re-examined Progress Note: 02/03/20 13:27 CAT scan of the abdomen pelvis shows mild fluid distended distal small bowel loops with: And fluid leveling ileus versus enterocolitis. Counseled pt/family regarding: lab results, diagnosis, need for follow-up - Departure Departure Disposition: Home Clinical Impression: Enterocolitis Condition: Stable Critical Care Time: No Referrals: SRINI DAVID MD [Primary Care Provider] - Additional Instructions: Drink plenty of fluids. Take your medication as prescribed. Follow-up with the lab at the [facility] with your stool specimen. Prescriptions: Metronidazole 500 mg [Flagyl 500 MG] 500 mg PO TID #21 tablet
[2020-02-03 10:55] VITALS: BP 131/63; O2SAT 100
[2020-02-03] MEDS ORDERED: Sodium Chloride 0.9% 1000 ML 1,000 ML IV SCH (11:00)
[2020-02-03] MEDS ORDERED: Sodium Chloride 0.9% 1000 ML 1,000 ML ONE (11:01)
[2020-02-03 11:22] LABS: ALBUMIN 4.3 g/dL (3.5-5.0); ALKALINE PHOSPHATASE 79 U/L (38-126); AMYLASE 82 U/L (30-110); BLOOD UREA NITROGEN 18 mg/dL (7-17); CHLORIDE 106 mmol/L (98-107); Calcium 8.6 mg/dL (8.4-10.2); Carbon Dioxide 24 mmol/L (22-30); Creatinine 1 0.65 mg/dL (0.52-1.04); EST GLOMERULAR FILTRATION RATE > 60.0 ML/MIN; Glucose 103 mg/dL (74-106); LIPASE 100 U/L (23-300); Potassium 3.7 mmol/L (3.5-5.1); SGOT/AST 22 U/L (14-36); SGPT/ALT 11 U/L (0-35); SODIUM 137 mmol/L (137-145); Total Protein 7.2 g/dL (6.3-8.2)
[2020-02-03 11:24] LABS: Hemoglobin 11.3 gm/dl (12.0-16.0); Mean Cell Volume 91.6 fl (78-100); Mean Corpuscular Hemoglobin 29.6 pg (26-32); Mean Corpuscular Hgb Concent. 32.3 g/dl (32-36); Mean Platelet Volume 11.1 fl (7.5-11.0); Platelet Count 213 K/mm3 (150-450); Red Blood Count 3.82 M/mm3 (4.1-5.4); Red Cell Distribution Width 13.7 % (11.5-14.0); White Blood Count 15.9 K/mm3 (4.0-10.5)
--- NOTE | 2020-02-03 11:57 | XRAY ---
Indication: Constant diarrhea. Multiple contiguous axial images obtained through the abdomen and pelvis without contrast as ordered. Comparison: July 07, 2019. Lung bases are clear. Heart is not enlarged. Noncontrasted stomach and bowel loops appear nonobstructed. Appendix not seen. There is now mild fluid distended distal small bowel loops and colon with fluid leveling, ileus versus enterocolitis. No free fluid/air. Stable nonobstructing right renal micro-calculus, 4 cm left renal cyst, and previous hysterectomy. Remaining liver, gallbladder, pancreas, spleen, adrenal glands, kidneys, ureters, and bladder appear unremarkable for noncontrast exam. Stable minimal aortic calcifications without AAA. Osseous structures intact again with mild degenerative changes throughout the spine and mild dextroscoliosis. Impression: 1. New mild fluid distended distal small bowel loops and colon with fluid leveling, ileus versus enterocolitis. 2. Stable nonobstructing right renal micro-calculus, left renal cyst, and chronic bony findings. 3. Remaining CT abdomen/pelvis without contrast exam is negative.
[2020-02-03 12:20] LABS: BAND 2 % (0.0-2.0); Lymphocytes 9 % (24-44); Monocyte 6 % (0.0-12.0); Neutrophils 83 % (36.0-66.0); Platelet Estimate NORMAL (NORMAL); Total Cells Counted 100
[2020-02-03 12:35] LABS: INFLUENZA A NEGATIVE (NEGATIVE); INFLUENZA B NEGATIVE (NEGATIVE)
[2020-02-03 12:58] LABS: Appearance CLEAR (CLEAR); Bilirubin NEGATIVE (NEGATIVE); Blood MODERATE Ery/ul (0-5); Glucose NEGATIVE (NEGATIVE); Ketones NEGATIVE (NEGATIVE); Leukocyte Esterase NEGATIVE (NEGATIVE); Mucus SLIGHT /HPF (NEGATIVE); Nitrite NEGATIVE (NEGATIVE); Protein,Urine Dip NEGATIVE (Negative); Specific Gravity 1.013 (1.005-1.025); Urobilinogen NEGATIVE mg/dL (0-1); WBC 0-2 /HPF (0-5)
[2020-02-03 13:02] VITALS: PULSE 78
[2020-02-03] MEDS ORDERED: Flagyl 500 MG PO ONE (13:26)
[2020-02-03] MEDS ORDERED: Flagyl 500 MG ONE (13:28)
== END 2020-02-03 13:57 | disposition home or self-care (01) ==
LOC: ED 10:43
DX: K52.9 Noninfective gastroenteritis and colitis, unspecified (principal); E03.9 Hypothyroidism, unspecified; Z79.899 Other long term (current) drug therapy; I10 Essential (primary) hypertension; F41.9 Anxiety disorder, unspecified; J44.9 Chronic obstructive pulmonary disease, unspecified; M81.0 Age-related osteoporosis without current pathological fracture
CPT/HCPCS: 36000; 36415; 74176; 80053; 81001; 82150; 83605; 83690; 85025; 86308; 87040; 87400; 96360; 96361; 99284; A9270-GY

== ENCOUNTER 2020-02-16 07:20 | Emergency (ER) | payer MEDICARE ==
--- NOTE | 2020-02-16 07:34 | ERPHSYRPT ---
- History of Present Illness Time Seen by Provider: 02/16/20 07:34 Source: patient Exam Limitations: no limitations Physician History: This is a 74-year-old white female who was seen here on 02/03/2020 with complaints of diarrhea and was diagnosed with distal small bowel enterocolitis. She was treated with Flagyl. She specifically states that she no longer has the diarrhea. The patient now states that she has had body aches for over 2 months. During her visit here in the emergency department on 02/03/2020, she had a negative mono screen, a negative influenza a and B screening. Patient has not been exposed to anyone with COVID-19 as far as she is aware. Patient denies chest pain. She denies cough. She denies fever. She did not follow-up with her primary care physician as instructed but did keep an appointment with her pain specialist on 02/11/2020. Patient has a history of hypothyroidism, hypertension, COPD, gastroesophageal reflux disease, anxiety issues and restless leg syndrome. Patient states that nothing has changed in her medication regimen. Timing/Duration: other (At least 2 months) Cough Quality/Degree: no cough Possible Cause: chronic episodes Modifying Factors: Improves With: nothing Associated Symptoms: muscle aches, No fever, No chills, No chest pain/soreness, No cough, No shortness of breath Allergies/Adverse Reactions: No Known Drug Allergies Allergy (Verified 01/27/20 07:57) Home Medications: Trazodone HCl 50 mg [Desyrel 50 mg] 150 mg PO HS 10/27/15 [History] Amlodipine Besylate 2.5 mg PO DAILY 06/12/16 [History] Levothyroxine Sodium 25 Mcg [Synthroid 25 Mcg] 50 mcg PO DAILY 06/12/16 [History] Ropinirole HCl 1 mg PO HS PRN PRN 06/12/16 [History] Omeprazole 40 mg PO DAILY 11/29/17 [History] Pregabalin 50 mg [Lyrica 50MG] 100 mg PO BID 11/29/17 [History] Albuterol Sulfate [Albuterol Sulfate Hfa] 2 puff IH Q4HPRN PRN 12/14/19 [History] Zoledronic Acid/Mannitol&Water [Reclast 5 mg/100 ml Solution] 5 mg IV UD 12/14/19 [History] Docusate Sodium [Dok] 100 mg PO BID 01/27/20 [History] Phentermine HCl [Adipex-P] 37.5 mg PO DAILY PRN PRN 01/27/20 [History] Hx Tetanus, Diphtheria Vaccination/Date Given: Yes Hx Influenza Vaccination/Date Given: No Hx Pneumococcal Vaccination/Date Given: No Travel Risk - International Travel Have you traveled outside of the country in past 3 weeks: No - Coronavirus Screening Are you exhibiting any of the following symptoms?: No Close contact with a COVID-19 positive Pt in past 14-21 Days: No - Review of Systems Constitutional: No Symptoms Eyes: No Symptoms Ears, Nose, & Throat: No Symptoms Respiratory: No Symptoms Cardiac: No Symptoms Abdominal/Gastrointestinal: No Symptoms Genitourinary Symptoms: No Symptoms Musculoskeletal: Arthralgias, Myalgias Skin: No Symptoms Neurological: No Symptoms Psychological: No Symptoms Endocrine: No Symptoms Hematologic/Lymphatic: No Symptoms Immunological/Allergic: No Symptoms All Other Systems: Reviewed and Negative - Past Medical History Pertinent Past Medical History: Yes Neurological History: No Pertinent History ENT History: No Pertinent History Cardiac History: Angina, Hypertension Respiratory History: COPD Endocrine Medical History: Hypothyroidism Musculoskeletal History: Arthritis, Osteoporosis GI Medical History: GERD History: No Pertinent History Psycho-Social History: Anxiety, Depression Female Reproductive Disorders: No Pertinent History Other Medical History: Non-Hodjkins lymphoma in remission. restless legs - Past Surgical History Past Surgical History: Yes Neuro Surgical History: No Pertinent History Cardiac: No Pertinent History Respiratory: No Pertinent History Gastrointestinal: No Pertinent History Genitourinary: No Pertinent History Musculoskeletal: No Pertinent History Female Surgical History: Hysterectomy, Tubal Ligation Other Surgical History: cvl port placed and removed - Social History Smoking Status: Never smoker Exposure to second hand smoke: No Drug Use: none Patient Lives Alone: No - Nursing Vital Signs Nursing Vital Signs: Initial Vital Signs Temperature 99.0 F 02/16/20 07:50 Pulse Rate 84 02/16/20 07:50 Respiratory Rate 20 02/16/20 07:50 Blood Pressure 110/78 02/16/20 07:50 O2 Sat by Pulse Oximetry 100 02/16/20 07:50 Pain Scale Pain Intensity [Anterior/ 4 Posterior Generalized] Pain Intensity 0 - Physical Exam General Appearance: no apparent distress, alert, anxiety Eye Exam: PERRL/EOMI, eyes nml inspection Ears, Nose, Throat Exam: normal ENT inspection, moist mucous membranes Neck Exam: normal inspection, non-tender, supple, full range of motion Respiratory Exam: normal breath sounds, lungs clear, airway intact, No chest tenderness, No respiratory distress Cardiovascular Exam: regular rate/rhythm, normal heart sounds, normal peripheral pulses Gastrointestinal/Abdomen Exam: soft, normal bowel sounds, No tenderness Pelvic Exam: not done Rectal Exam: not done Back Exam: normal inspection, normal range of motion, No CVA tenderness, No vertebral tenderness Extremity Exam: normal inspection, normal range of motion, pelvis stable Neurologic Exam: alert, oriented x 3, cooperative, music adapter II-XII nml as tested, nml cerebellar function, nml station & gait, sensation nml Skin Exam: normal color, warm, dry Lymphatic Exam: No adenopathy SpO2 Interpretation: normal O2 Delivery: Room Air - Course Nursing assessment & vital signs reviewed: Yes Ordered Tests: Active Orders 24 hr Category Date Time Status IV Insertion STAT Care 02/16/20 07:53 Active AMYLASE Stat Lab 02/16/20 08:00 Completed CBC W DIFF Stat Lab 02/16/20 08:00 Completed CMP Stat Lab 02/16/20 08:00 Completed LIPASE Stat Lab 02/16/20 08:00 Completed Lactic Acid Stat Lab 02/16/20 07:53 Completed T4 (Thyroxine) Stat Lab 02/16/20 08:00 Completed TSH [TSH, 3RD Generation] Stat Lab 02/16/20 08:00 Completed UA W/RFX UR CULTURE Stat Lab 02/16/20 09:59 Completed Medication Summary Discontinued Medications Generic Name Dose Route Start Last Admin Trade Name Davon PRN Reason Stop Dose Admin Sodium Chloride 1,000 mls @ 999 mls/hr 02/16/20 07:53 02/16/20 09:03 Sodium Chloride 0.9% 1000 Ml IV 02/16/20 08:53 Infused .Q1H1M STA Infusion Sodium Chloride Confirm 02/16/20 07:58 Sodium Chloride 0.9% 1000 Ml Administered 02/16/20 07:59 Dose 1,000 mls @ ud .ROUTE .STK-MED ONE Lab/Rad Data: Laboratory Result Diagrams 02/16/20 08:00 02/16/20 08:00 Laboratory Results 02/16/20 02/16/2020 Range/Units 09:59 08:00 08:00 WBC (4.0-10.5) K/mm3 RBC (4.1-5.4) M/mm3 Hgb (12.0-16.0) gm/dl Hct (35-47) % MCV (78-100) fl MCH (26-32) pg MCHC (32-36) g/dl RDW (11.5-14.0) % Plt Count (150-450) K/mm3 MPV (7.5-11.0) fl Gran % (36.0-66.0) % Eos # (Auto) (0-0.5) Absolute Lymphs (auto) (1.0-4.6) Absolute Monos (auto) (0.0-1.3) Lymphocytes % (24.0-44.0) % Monocytes % (0.0-12.0) % Eosinophils % (0.00-5.0) % Basophils % (0.0-0.4) % Absolute Granulocytes (1.4-6.9) Basophils # (0-0.4) Sodium (137-145) mmol/L Potassium (3.5-5.1) mmol/L Chloride (98-107) mmol/L Carbon Dioxide (22-30) mmol/L Anion Gap (5-15) MEQ/L BUN (7-17) mg/dL Creatinine (0.52-1.04) mg/dL Estimated GFR ML/MIN Glucose (74-106) mg/dL Lactic Acid (0.4-2.0) Calcium (8.4-10.2) mg/dL Total Bilirubin (0.2-1.3) mg/dL AST (14-36) U/L ALT (0-35) U/L Alkaline Phosphatase (38-126) U/L Serum Total Protein (6.3-8.2) g/dL Albumin (3.5-5.0) g/dL Amylase (30-110) U/L Lipase (23-300) U/L Thyroxine (T4) 9.78 (5.53-10.96) ug/dL TSH 3rd Generation 0.577 (0.47-4.68) mIU/L Urine Color YELLOW (YELLOW) Urine Appearance CLEAR (CLEAR) Urine pH 6.0 (5-6) Ur Specific [place] 1.011 (1.005-1.025) Urine Protein NEGATIVE (Negative) Urine Ketones NEGATIVE (NEGATIVE) Urine Blood SMALL (0-5) Ranjeet/ul Urine Nitrite NEGATIVE (NEGATIVE) Urine Bilirubin NEGATIVE (NEGATIVE) Urine Urobilinogen NEGATIVE (0-1) mg/dL Ur Leukocyte Esterase SMALL (NEGATIVE) Urine WBC (Auto) 0-2 (0-5) /HPF Urine RBC (Auto) 0-2 (0-2) /HPF U Epithel Cells (Auto) RARE (FEW) /HPF Urine Bacteria (Auto) NONE (NEGATIVE) /HPF Urine Mucus (Auto) SLIGHT (NEGATIVE) /HPF Urine Culture Reflexed NO (NO) Urine Glucose NEGATIVE (NEGATIVE) mg/dL 02/16/20 02/16/20 02/16/20 Range/Units 08:00 08:00 07:53 WBC 4.9 (4.0-10.5) K/mm3 RBC 4.30 (4.1-5.4) M/mm3 Hgb 12.9 (12.0-16.0) gm/dl Hct 40.3 (35-47) % MCV 93.7 (78-100) fl MCH 30.0 (26-32) pg MCHC 32.0 (32-36) g/dl RDW 15.2 H (11.5-14.0) % Plt Count 174 (150-450) K/mm3 MPV 10.5 (7.5-11.0) fl Gran % 64.0 (36.0-66.0) % Eos # (Auto) 0.07 (0-0.5) Absolute Lymphs (auto) 1.23 (1.0-4.6) Absolute Monos (auto) 0.46 (0.0-1.3) Lymphocytes % 24.9 (24.0-44.0) % Monocytes % 9.3 (0.0-12.0) % Eosinophils % 1.4 (0.00-5.0) % Basophils % 0.4 (0.0-0.4) % Absolute Granulocytes 3.15 (1.4-6.9) Basophils # 0.02 (0-0.4) Sodium 138 (137-145) mmol/L Potassium 4.0 (3.5-5.1) mmol/L Chloride 104 (98-107) mmol/L Carbon Dioxide 30 (22-30) mmol/L Anion Gap 7.8 (5-15) MEQ/L BUN 20 H (7-17) mg/dL Creatinine 0.71 (0.52-1.04) mg/dL Estimated GFR > 60.0 ML/MIN Glucose 95 (74-106) mg/dL Lactic Acid 0.9 (0.4-2.0) Calcium 8.5 (8.4-10.2) mg/dL Total Bilirubin 0.40 (0.2-1.3) mg/dL AST 23 (14-36) U/L ALT 21 (0-35) U/L Alkaline Phosphatase 46 (38-126) U/L Serum Total Protein 7.0 (6.3-8.2) g/dL Albumin 4.1 (3.5-5.0) g/dL Amylase 94 (30-110) U/L Lipase 196 (23-300) U/L Thyroxine (T4) (5.53-10.96) ug/dL TSH 3rd Generation (0.47-4.68) mIU/L Urine Color (YELLOW) Urine Appearance (CLEAR) Urine pH (5-6) Ur Specific [place] (1.005-1.025) Urine Protein (Negative) Urine Ketones (NEGATIVE) Urine Blood (0-5) Ranjeet/ul Urine Nitrite (NEGATIVE) Urine Bilirubin (NEGATIVE) Urine Urobilinogen (0-1) mg/dL Ur Leukocyte Esterase (NEGATIVE) Urine WBC (Auto) (0-5) /HPF Urine RBC (Auto) (0-2) /HPF U Epithel Cells (Auto) (FEW) /HPF Urine Bacteria (Auto) (NEGATIVE) /HPF Urine Mucus (Auto) (NEGATIVE) /HPF Urine Culture Reflexed (NO) Urine Glucose (NEGATIVE) mg/dL - Progress Progress: unchanged Air Movement: good Blood Culture(s) Obtained: No Antibiotics given: No Counseled pt/family regarding: lab results, diagnosis, need for follow-up - Departure Departure Disposition: Home Clinical Impression: Generalized body aches Condition: Stable Critical Care Time: No Referrals: SRINI DAVID MD [Primary Care Provider] - Additional Instructions: Drink plenty of fluids. Call your primary care doctor today to make arrangements for follow-up appointment. Quarantine yourself until you receive the results of your COVID-19 test. Use Tylenol and ibuprofen for pain control if you are not allergic or there is no contraindications to taking these medications.
[2020-02-16] MEDS ORDERED: Sodium Chloride 0.9% 1000 ML 1,000 ML IV STA (07:53)
[2020-02-16] MEDS ORDERED: Sodium Chloride 0.9% 1000 ML 1,000 ML ONE (07:58)
[2020-02-16 08:26] LABS: Absolute Neutrophil Ct (ANC) 3.15 (1.4-6.9); BASOPHIL % 0.4 % (0.0-0.4); Basophil (Absolute #) 0.02 (0-0.4); Eosinophil % 1.4 % (0.00-5.0); Eosinophil (Absolute #) 0.07 (0-0.5); Hematocrit 40.3 % (35-47); Hemoglobin 12.9 gm/dl (12.0-16.0); Lymphocyte (Absolute #) 1.23 (1.0-4.6); Lymphocytes % 24.9 % (24.0-44.0); Mean Cell Volume 93.7 fl (78-100); Mean Platelet Volume 10.5 fl (7.5-11.0); Monocyte (Absolute #) 0.46 (0.0-1.3); Monocytes % 9.3 % (0.0-12.0); Platelet Count 174 K/mm3 (150-450); Red Cell Distribution Width 15.2 % (11.5-14.0); White Blood Count 4.9 K/mm3 (4.0-10.5)
[2020-02-16 08:34] LABS: ALBUMIN 4.1 g/dL (3.5-5.0); ALKALINE PHOSPHATASE 46 U/L (38-126); AMYLASE 94 U/L (30-110); ANION GAP 7.8 MEQ/L (5-15); BLOOD UREA NITROGEN 20 mg/dL (7-17); CHLORIDE 104 mmol/L (98-107); Calcium 8.5 mg/dL (8.4-10.2); Carbon Dioxide 30 mmol/L (22-30); Creatinine 1 0.71 mg/dL (0.52-1.04); EST GLOMERULAR FILTRATION RATE > 60.0 ML/MIN; Glucose 95 mg/dL (74-106); LIPASE 196 U/L (23-300); SGOT/AST 23 U/L (14-36); SGPT/ALT 21 U/L (0-35); SODIUM 138 mmol/L (137-145)
[2020-02-16 10:04] VITALS: BP 101/66; PULSE 59; O2SAT 94
[2020-02-16 10:17] LABS: Appearance CLEAR (CLEAR); Bilirubin NEGATIVE (NEGATIVE); Blood SMALL Ery/ul (0-5); Epithelial Cells RARE /HPF (FEW); Glucose NEGATIVE (NEGATIVE); Ketones NEGATIVE (NEGATIVE); Leukocyte Esterase SMALL (NEGATIVE); Mucus SLIGHT /HPF (NEGATIVE); Nitrite NEGATIVE (NEGATIVE); Protein,Urine Dip NEGATIVE (Negative); RBC 0-2 /HPF (0-2); Specific Gravity 1.011 (1.005-1.025); Urobilinogen NEGATIVE mg/dL (0-1); WBC 0-2 /HPF (0-5)
== END 2020-02-16 10:45 | disposition home or self-care (01) ==
LOC: ED 07:20
DX: M79.18 Myalgia, other site (principal); I10 Essential (primary) hypertension; E03.9 Hypothyroidism, unspecified; J44.9 Chronic obstructive pulmonary disease, unspecified; K21.9 Gastro-esophageal reflux disease without esophagitis; F41.9 Anxiety disorder, unspecified; G25.81 Restless legs syndrome; Z79.899 Other long term (current) drug therapy
CPT/HCPCS: 36000; 36415; 80053; 81001; 82150; 83605; 83690; 84436; 84443; 85025; 96360; 99284; U0003; 96374

== ENCOUNTER 2020-12-28 11:49 | Day surgery (SDC) | payer MEDICARE ==
[2020-12-28] MEDS ORDERED: Depo-Medrol 40 MG/ML IM ONE (11:50)
[2020-12-28] MEDS ORDERED: BUPIVACAINE 0.5% VIAL IJ ONE (11:50)
[2020-12-28] MEDS ORDERED: DIPRIVAN 200 MG/20 ML IV ONE (14:30)
[2020-12-28] MEDS ORDERED: Lactated Ringers 1,000 ML IV ONE (14:39)
--- NOTE | 2020-12-28 15:01 | XRAY ---
Indication: Bilateral SI joint injections. Intraoperative fluoroscopy provided for 19 seconds. 4 digital spot images submitted for interpretation demonstrates posterior needle tip projecting over the inferior left and right SI joint. Correlate with intraoperative findings/report.
--- NOTE | 2020-12-28 15:18 | XRAY ---
19 seconds fluoroscopy time in surgery for injections of both SI joints.
== END 2020-12-28 14:53 | disposition home or self-care (01) ==
LOC: SDC-PAIN 11:49
PROVIDERS: ATTEND Psychiatry & Neurology Pain Medicine
DX: M46.1 Sacroiliitis, not elsewhere classified (principal); Z79.899 Other long term (current) drug therapy
CPT/HCPCS: 27096; 72202; 77002; G0260; 99100; J1030; J2704

== ENCOUNTER 2021-01-25 12:27 | Day surgery (SDC) | payer MEDICARE ==
[2021-01-25] MEDS ORDERED: Depo-Medrol 40 MG/ML IM ONE (12:28)
[2021-01-25] MEDS ORDERED: BUPIVACAINE 0.5% VIAL IJ ONE (12:28)
[2021-01-25] MEDS ORDERED: DIPRIVAN 200 MG/20 ML IV ONE (14:26)
[2021-01-25] MEDS ORDERED: Lactated Ringers 1,000 ML IV ONE (15:01)
--- NOTE | 2021-01-25 16:44 | XRAY ---
Indication: Bilateral SI joint injection. Intraoperative fluoroscopy provided for 17 seconds. 4 digital spot image submitted for interpretation demonstrates posterior needle tip projecting over the inferior left and right SI joint. Correlate with intraoperative findings/report.
--- NOTE | 2021-01-25 16:44 | XRAY ---
17 seconds fluoroscopy time in surgery for bilateral injections of the SI joints.
== END 2021-01-25 14:50 | disposition home or self-care (01) ==
LOC: SDC-PAIN 12:27
PROVIDERS: ATTEND Psychiatry & Neurology Pain Medicine
DX: M46.1 Sacroiliitis, not elsewhere classified (principal); I10 Essential (primary) hypertension; J44.9 Chronic obstructive pulmonary disease, unspecified; Z79.899 Other long term (current) drug therapy
CPT/HCPCS: 27096; 72202; 77002; G0260; 99100; J1030; J2704

== ENCOUNTER 2021-04-03 10:19 | Day surgery (SDC) | payer MEDICARE ==
--- NOTE | 2021-04-03 08:21 | HP ---
DATE OF SURGERY: 04/03/2021 HISTORY OF PRESENT ILLNESS: The patient is a 75-year-old with history of non-Hodgkin's lymphoma, has had some upper abdomen/epigastric area pain. Given the lymphoma and history of epigastric pain, she is in need of follow up upper endoscopy for further evaluation. PAST MEDICAL HISTORY: Hypothyroidism, depression, anxiety, asthma, arthritis, chronic obstructive pulmonary disease. History of mesentery mass and history of non-Hodgkin's lymphoma diagnosed in the past. PAST SURGICAL HISTORY: Hysterectomy. Port in the past. Bronchoscopy in the past. Back surgery in the past. Tubal ligation. Hysterectomy. MEDICATIONS: Sulcralfate, omeprazole, Claritin, amlodipine, ProAir HFA, Reclast, olanzapine, levothyroxine, vitamin B12, Linzess. ALLERGIES: NKDA. FAMILY HISTORY: Negative for stomach or esophageal cancer. SOCIAL HISTORY: Alcohol use but denies abuse. REVIEW OF SYSTEMS: Fourteen systems reviewed per admission assessment. No chest pain or palpitations. Other systems negative or noncontributory as above and per preadmission questionnaire. PHYSICAL EXAMINATION: GENERAL: No acute distress. HEENT: Sclerae nonicteric. NECK: No JVD. CHEST: Equal excursion. CVS: Regular rate and rhythm. ABDOMEN: Soft. No peritoneal signs. EXTREMITIES: No significant edema. NEURO: Alert, oriented, moving extremities symmetrically. PSYCH: Appropriate mood and affect. IMPRESSION: Epigastric pain, history of non-Hodgkin's lymphoma. She is in need of upper endoscopy possible biopsy. Risks and benefits explained in detail including but not limited to bleeding or infection, risk of bowel injury or perforation possibly requiring open procedure, risk of missed or nondiagnosis or incomplete exam possibly requiring barium swallow, other studies or procedures. General risk of anesthesia or sedation, but not limited to, consent obtained. Will proceed with EGD possible biopsy as an outpatient under MAC anesthesia.
[2021-04-03] MEDS ORDERED: Lactated Ringers 1,000 ML IV ONE (10:55)
[2021-04-03] MEDS ORDERED: Lactated Ringers 1,000 ML IV SCH (11:00)
[2021-04-03] MEDS ORDERED: Xylocaine-Mpf 2% 5 Ml Vial ONE (11:46)
[2021-04-03] MEDS ORDERED: DIPRIVAN 200 MG/20 ML IV ONE (11:46)
[2021-04-03 13:55] VITALS: BP 141/85; PULSE 78; O2SAT 99
--- NOTE | 2021-04-04 08:03 | OP ---
SURGERY DATE/TIME: 04/03/2021 1145 PREOPERATIVE DIAGNOSES: 1) History of non-Hodgkin's lymphoma. 2) Epigastric pain, need for upper endoscopy. 3) ASA Class III. POSTOPERATIVE DIAGNOSES: 1) Mild gastric erythema, path pending for Helicobacter pylori. 2) Small gastric polyp. 3) Small raised lesion distal esophagus above a normal appearing Z-line. PROCEDURES: 1) EGD with cold biopsy of small bowel to evaluate for celiac sprue. 2) Cold biopsy of the antrum to evaluate for Helicobacter pylori and path. 3) Cold biopsy of the gastric body and small gastric polyp. 4) Cold biopsy of raised lesion distal esophagus. 5) Random cold biopsies of mid esophagus to evaluate for eosinophilic esophagitis. SURGEON: Dr. Chidi Storm. ANESTHESIA: MAC. ESTIMATED BLOOD LOSS: Minimal. INDICATIONS: As noted above. Risks and benefits explained in detail and not limited to and consent obtained. DESCRIPTION OF PROCEDURE AND FINDINGS: The patient is taken to the endoscopy room. MAC anesthesia introduced. After official time out and no disagreement with planned procedure, a bite block positioned. Video gastroscope easily passed down the esophagus to the third portion of duodenum. Third, second and first portion of the duodenum fairly unremarkable. No signs of any ulcers or masses, maybe a little bit of flattening of the fold. Cold biopsy taken to evaluate for celiac sprue to evaluate other causes of her epigastric pain. The scope is pulled back in the stomach. She had some mild gastric erythema. There were no signs of any ulcers or erosions. Cold biopsy taken to evaluate for path and Helicobacter pylori. On retroflex the gastroesophageal junction is fairly snug against the scope. There is no evidence of any large hiatal hernia. The scope is straightened. Small gastric polyp in the gastric body. Cold biopsy taken to remove the gastric polyp and biopsy for path. Good hemostasis noted. The scope is pulled back up to the gastroesophageal junction about 37 cm. On the esophageal side there is just a small, vague, raised lesion which is removed with cold biopsy forceps. Good hemostasis noted. The remainder of the esophagus is grossly unremarkable, some random cold biopsies with no gross mucosal lesions. Random cold biopsies taken in the mid esophagus to evaluate for eosinophilic esophagitis. There was no family in the waiting room to discuss the findings with when I finished the case. I will see her back in the office next week.
== END 2021-04-03 12:55 | disposition home or self-care (01) ==
LOC: SDC 10:19
PROVIDERS: ATTEND Surgery
DX: K31.89 Other diseases of stomach and duodenum (principal); K31.7 Polyp of stomach and duodenum; Z85.72 Personal history of non-Hodgkin lymphomas; K29.50 Unspecified chronic gastritis without bleeding
CPT/HCPCS: 88305; 99100; J2704

== ENCOUNTER 2021-04-26 11:48 | Day surgery (SDC) | payer MEDICARE ==
[2021-04-26] MEDS ORDERED: BUPIVACAINE 0.5% VIAL IJ ONE (11:49)
[2021-04-26] MEDS ORDERED: Sodium Chloride 0.9(Preservative Free) 10 ML IJ ONE (11:49)
[2021-04-26] MEDS ORDERED: Depo-Medrol 40 MG/ML IM ONE (11:49)
[2021-04-26] MEDS ORDERED: DIPRIVAN 200 MG/20 ML IV ONE (14:07)
[2021-04-26] MEDS ORDERED: Lactated Ringers 1,000 ML IV ONE (14:07)
--- NOTE | 2021-04-26 16:55 | XRAY ---
Indication: Right SI joint injection. Intraoperative fluoroscopy provided for 15 seconds. 2 digital spot image submitted for interpretation demonstrates posterior needle tip projecting over the inferior right SI joint. Correlate with intraoperative findings/report. Incidental retained colonic barium from recent esophagram.
--- NOTE | 2021-04-26 16:55 | XRAY ---
Indication: Right L4-S1 transforaminal MIKAEL. Intraoperative fluoroscopy provided for 33 seconds. 4 digital spot image submitted for interpretation demonstrates posterior needle tips projecting over the expected right L4 and L5 nerve roots. Small amount of contrast injected for needle tip placement. Correlate with intraoperative findings/report.
--- NOTE | 2021-04-26 17:04 | XRAY ---
33 seconds fluoroscopy time in surgery for L4-S1 transforaminal MIKAEL.
--- NOTE | 2021-04-26 17:05 | XRAY ---
15 seconds fluoroscopy time in surgery for injection of the right SI joint.
== END 2021-04-26 14:40 | disposition home or self-care (01) ==
LOC: SDC-PAIN 11:48
PROVIDERS: ATTEND Psychiatry & Neurology Pain Medicine
DX: M54.16 Radiculopathy, lumbar region (principal); M46.1 Sacroiliitis, not elsewhere classified; Z79.899 Other long term (current) drug therapy
CPT/HCPCS: 27096; 64483; 64484; 72020; 72100; 77002; 77003; G0260; 99100; J1030; J2704; Q9966

== ENCOUNTER 2021-05-11 10:14 | Observation (INO) | payer MEDICARE ==
[2021-05-11] MEDS ORDERED: BABY ASPIRIN 81 MG CHEW PO ONE (10:20)
[2021-05-11] MEDS ORDERED: Ativan 2 MG/1 ML VIAL IV ONE (10:27)
[2021-05-11] MEDS ORDERED: BABY ASPIRIN 81 MG CHEW ONE (10:28)
[2021-05-11] MEDS ORDERED: Ativan 2 MG/1 ML VIAL ONE (10:28)
[2021-05-11 10:40] LABS: INR 0.98 (0.8-3.0); PROTIME 11.6 SECONDS (9.4-12.5)
[2021-05-11 10:43] LABS: PTT 28.3 SECONDS (25.1-36.5)
--- NOTE | 2021-05-11 10:46 | XRAY ---
Indication: Chest pain and short of breath. Comparison: June 12, 2016. Portable chest again demonstrates normal heart and lungs with incidental tiny left upper lung calcified granulomas. Bony thorax intact again with mild osteopenia and degenerative changes. No new/acute findings.
--- NOTE | 2021-05-11 10:50 | ERPHSYRPT ---
- History of Present Illness Historian: patient Exam Limitations: no limitations Patient Subjective Stated Complaint: Chest pain Triage Nursing Assessment: Patient brought back to ED via w/c and transferred self to bed. Patient A+O X3. Patient's skin pink, warm and dry. Patient complains of mid chest pain constant sharp pain 10/10. Patient states she also has pain to her head and right ear. Lungs clear a/p vicki. Heart tones audible. Physician History: 76 yo wf w mid-sternal sharp chest pain x 90 minutes. Pain is 10 on scale accompanied by dyspnea wo N/V/Diaphoresis. Pt denies h/o DE but does have mild CAD per recent cath. Pt has HTN but denies hyperlipidemia/DM/tobacco use. Pain does not radiate, and nothing makes it better or worse. Timing/Duration: other (90 min) Activities at Onset: emotional stress Quality: sharpness, stabbing Location: substernal Chest Pain Radiation: no radiation Severity of Pain-Max: severe Severity of Pain-Current: severe Modifying Factors: Worsens With: antacids, breathing, coughing, defecating, eating, exertion, lying down, morphine, movement, nitroglycerin, oxygen, palpation, rest, aspirin, sitting up, change in position Associated Symptoms: shortness of breath, No nausea, No vomiting, No palpitations, No heartburn, No abdominal pain, No cough, No hurts to breathe, No diaphoresis, No chills, No fever, No fatigue, No weakness, No swelling/lump in chest, No syncope, No rash, No headache, No dizziness, No edema, No back pain Prior Chest Pain/Cardiac Workup: cardiac cath Nitro Today/Relief: no nitro taken today Aspirin Treatment Today: no aspirin today Allergies/Adverse Reactions: No Known Drug Allergies Allergy (Verified 05/11/21 10:36) Home Medications: Amlodipine Besylate 2.5 mg PO DAILY 06/12/16 [History] Omeprazole 40 mg PO DAILY 11/29/17 [History] Albuterol Sulfate [Albuterol Sulfate Hfa] 2 puff IH Q4HPRN PRN 12/14/19 [Hist ory] Docusate Sodium [Dok] 100 mg PO BID 01/27/20 [History] Nitroglycerin 0.4 mg Tablet [Nitrostat 0.4 MG Tablet] 0.4 mg SL Q5MIN PRN MR X 3 PRN 03/29/21 [History] AMITRIPTYLINE HCL 50 mg Tab [AMITRIPTYLINE HCL 50 mg Tablet] 50 mg PO HS 04/03/21 [History] Hx Tetanus, Diphtheria Vaccination/Date Given: Yes Hx Influenza Vaccination/Date Given: No Hx Pneumococcal Vaccination/Date Given: No Immunizations Up to Date: Yes Travel Risk - International Travel Have you traveled outside of the country in past 3 weeks: No - Coronavirus Screening Are you exhibiting any of the following symptoms?: No Close contact with a COVID-19 positive Pt in past 14-21 Days: No - Vaccine Status Have you recieved a Covid-19 vaccination: No - Review of Systems Constitutional: No Symptoms Eyes: No Symptoms Ears, Nose, & Throat: No Symptoms Respiratory: No Symptoms Cardiac: Chest Pain Abdominal/Gastrointestinal: No Symptoms Genitourinary Symptoms: No Symptoms Musculoskeletal: No Symptoms Skin: No Symptoms Neurological: No Symptoms Psychological: No Symptoms Endocrine: No Symptoms Hematologic/Lymphatic: No Symptoms Immunological/Allergic: No Symptoms - Past Medical History Pertinent Past Medical History: Yes Neurological History: No Pertinent History ENT History: No Pertinent History Cardiac History: Angina, Hypertension Respiratory History: COPD Endocrine Medical History: Hypothyroidism Musculoskeletal History: Arthritis, Osteoporosis GI Medical History: GERD History: No Pertinent History Psycho-Social History: Anxiety, Depression Female Reproductive Disorders: No Pertinent History Other Medical History: Non-Hodjkins lymphoma in remission. restless legs - Past Surgical History Past Surgical History: Yes Neuro Surgical History: No Pertinent History Cardiac: No Pertinent History, Cardiac Catheterization Respiratory: No Pertinent History Gastrointestinal: No Pertinent History Genitourinary: No Pertinent History Musculoskeletal: No Pertinent History Female Surgical History: Hysterectomy, Tubal Ligation Other Surgical History: cvl port placed and removed. heart cath no stents placed 2020 - Social History Smoking Status: Never smoker Exposure to second hand smoke: Yes Drug Use: none Patient Lives Alone: Yes Significant Family History: no pertinent family hx - Nursing Vital Signs Nursing Vital Signs: Initial Vital Signs Temperature 98.2 F 05/11/21 10:16 Pulse Rate 92 H 05/11/21 10:16 Respiratory Rate 18 05/11/21 10:16 Blood Pressure 126/90 05/11/21 10:16 O2 Sat by Pulse Oximetry 100 05/11/21 10:16 Pain Scale Pain Intensity 0 WNL - Physical Exam General Appearance: no apparent distress, anxiety (Very anxious) Eye Exam: PERRL/EOMI, eyes nml inspection Ears, Nose, Throat Exam: normal ENT inspection, TMs normal, pharynx normal, mo ist mucous membranes Neck Exam: normal inspection, non-tender, supple, full range of motion, No meningismus, No mass, No Brudzinski, No Kernig's, No carotid bruit Respiratory Exam: normal breath sounds, lungs clear, airway intact, No respiratory distress Cardiovascular Exam: regular rate/rhythm, normal heart sounds, normal peripheral pulses, capillary refill <2 sec, No murmur Gastrointestinal/Abdomen Exam: soft, normal bowel sounds, No tenderness Back Exam: normal inspection, normal range of motion, No CVA tenderness Extremity Exam: normal inspection, normal range of motion Neurologic Exam: alert, oriented x 3, cooperative, entertainment dancer II-XII nml as tested, normal mood/affect, nml cerebellar function, sensation nml Skin Exam: normal color, warm, dry Lymphatic Exam: No adenopathy SpO2 Interpretation: normal SpO2: 100 O2 Delivery: Room Air - Course Nursing assessment & vital signs reviewed: Yes EKG Interpreted by Me: RATE (NSR/R94/Qwaves 3-AVF/Borderline prolonged QTc/No acute ST segment changes) - Radiology Exams Chest X-ray Interpretation: Discussed w/ radiologist (CXR neg per Rad) Ordered Tests: Active Orders 24 hr Category Date Time Status EKG-ER Only STAT Care 05/11/21 10:20 Completed IV Insertion STAT Care 05/11/21 10:20 Completed Heart-Healthy Diet Diet 05/11/21 Dinner Active CHEST 1 VIEW (PORTABLE) Stat Exams 05/11/21 10:20 Completed CBC W DIFF Stat Lab 05/11/21 10:27 Completed CMP Stat Lab 05/11/21 10:27 Completed LIPID PROFILE AM.LAB Lab 05/12/21 04:00 Ordered NT PRO BNP Stat Lab 05/11/21 10:27 Completed PROTIME WITH INR Stat Lab 05/11/21 10:27 Completed PTT Stat Lab 05/11/21 10:27 Completed TROPONIN Q3H Lab 05/11/21 10:30 Completed TROPONIN Q3H Lab 05/11/21 13:05 Completed TROPONIN Q3H Lab 05/11/21 16:28 Completed TROPONIN Q3H Lab 05/11/21 19:30 Ordered TROPONIN Q3H Lab 05/11/21 22:30 Ordered Transfer Order Routine Transfer 05/11/21 Completed Medication Summary Generic Name Dose Route Start Last Admin Trade Name Freq PRN Reason Stop Dose Admin Acetaminophen 650 mg 05/11/21 13:55 Acetaminophen 325 Mg Tablet PO 06/10/21 13:54 Q4H PRN PRN PAIN AND/OR FEVER Al Hydrox/Mg Hydrox/Simethicone 30 ml 05/11/21 13:55 Mag Hydrox/Al Hydrox/Simeth 30 Ml Udcup PO 06/10/21 13:54 Q4H PRN PRN INDIGESTION Albuterol Sulfate 2 puff 05/11/21 17:09 Albuterol Common Canister Inhaler IH 06/10/21 17:08 Q4HPRN PRN SHORTNESS OF BREATH Amitriptyline HCl 50 mg 05/11/21 22:00 Amitriptyline Hcl 50 Mg Tablet PO 06/10/21 21:59 HS JACOB Amlodipine Besylate 2.5 mg 05/12/21 10:00 Amlodipine Besylate 5 Mg Tablet PO 06/11/21 09:59 DAILY JACOB Aspirin 325 mg 05/12/21 10:00 Aspirin 325 Mg Tablet.Ec PO 06/11/21 09:59 DAILY JACOB Enoxaparin Sodium 40 mg 05/11/21 16:00 05/11/21 17:25 Enoxaparin Sodium 40 Mg/0.4 Ml Syringe SQ 06/10/21 15:59 40 mg DAILY JACOB Administration Magnesium Hydroxide 30 - 60 ml 05/11/21 13:55 Magnesium Hydroxide 30 Ml Udcup PO 06/10/21 13:54 QDP PRN CONSTIPATION Morphine Sulfate 2 mg 05/11/21 13:55 Morphine Sulfate 2 Mg/Ml Inj IV 05/16/21 13:54 .Q15MIN PRN PRN CHEST PAIN Nitroglycerin 0.4 mg 05/11/21 13:55 Nitroglycerin 0.4 Mg Tablet Bottle SL 06/10/21 13:54 .Q5MIN PRN CHEST PAIN Nitroglycerin 0.4 mg 05/11/21 17:00 Nitroglycerin 0.4 Mg Tablet Bottle SL 06/10/21 16:59 Q5MIN PRN MR X 3 PRN CHEST PAIN Ondansetron HCl 4 mg 05/11/21 13:55 Ondansetron Hcl 4 Mg/2 Ml Vial IV 06/10/21 13:54 Q4H PRN PRN NAUSEA/VOMITING Pantoprazole Sodium 40 mg 05/12/21 10:00 Protonix (Pantoprazole) 40 Mg Tablet PO 06/11/21 09:59 DAILY JACOB Senna/Docusate Sodium 2 udtab 05/11/21 13:55 Senna/Docusate Sodium 1 Udtab Tablet PO 06/10/21 13:54 BID PRN PRN CONSTIPATION Discontinued Medications Generic Name Dose Route Start Last Admin Trade Name Freq PRN Reason Stop Dose Admin Aspirin 324 mg 05/11/21 10:20 05/11/21 10:30 Aspirin 81 Mg Tab.Chew PO 05/11/21 10:21 324 mg STAT ONE Administration Aspirin Confirm 05/11/21 10:28 Aspirin 81 Mg Tab.Chew Administered 05/11/21 10:29 Dose 324 mg .ROUTE .STK-MED ONE Lorazepam 0.5 mg 05/11/21 10:27 05/11/21 10:30 Lorazepam 2 Mg/1 Ml 2 Mg Vial IV 05/11/21 10:28 0.5 mg STAT ONE Administration Lorazepam Confirm 05/11/21 10:28 Lorazepam 2 Mg/1 Ml 2 Mg Vial Administered 05/11/21 10:29 Dose 2 mg .ROUTE .STK-MED ONE Lab/Rad Data: Laboratory Result Diagrams 05/11/21 10:27 05/11/21 10:27 Laboratory Results 05/11/21 05/11/21 05/11/21 Range/Units 14:03 13:05 10:30 WBC (4.0-10.5) K/mm3 RBC (4.1-5.4) M/mm3 Hgb (12.0-16.0) gm/dl Hct (35-47) % MCV (78-100) fl MCH (26-32) pg MCHC (32-36) g/dl RDW (11.5-14.0) % Plt Count (150-450) K/mm3 MPV (7.5-11.0) fl Gran % (36.0-66.0) % Eos # (Auto) (0-0.5) Absolute Lymphs (auto) (1.0-4.6) Absolute Monos (auto) (0.0-1.3) Lymphocytes % (24.0-44.0) % Monocytes % (0.0-12.0) % Eosinophils % (0.00-5.0) % Basophils % (0.0-0.4) % Absolute Granulocytes (1.4-6.9) Basophils # (0-0.4) PT (9.4-12.5) SECONDS INR (0.8-3.0) APTT (25.1-36.5) SECONDS Sodium (137-145) mmol/L Potassium (3.5-5.1) mmol/L Chloride (98-107) mmol/L Carbon Dioxide (22-30) mmol/L Anion Gap (5-15) MEQ/L BUN (7-17) mg/dL Creatinine (0.52-1.04) mg/dL Estimated GFR ML/MIN Glucose (74-106) mg/dL Calcium (8.4-10.2) mg/dL Total Bilirubin (0.2-1.3) mg/dL AST (14-36) U/L ALT (0-35) U/L Alkaline Phosphatase (38-126) U/L Troponin I < 0.012 < 0.012 (0.000-0.034) ng/mL NT-Pro-B Natriuret Pep (0-1800) pg/mL Serum Total Protein (6.3-8.2) g/dL Albumin (3.5-5.0) g/dL Influenza Type A Ag NEGATIVE (NEGATIVE) Influenza Type B Ag NEGATIVE (NEGATIVE) RSV (PCR) NEGATIVE (Negative) SARS-CoV-2 (PCR) NEGATIVE (NEGATIVE) 05/11/21 05/11/21 05/11/21 Range/Units 10:27 10:27 10:27 WBC 8.7 (4.0-10.5) K/mm3 RBC 4.17 (4.1-5.4) M/mm3 Hgb 13.2 (12.0-16.0) gm/dl Hct 40.2 (35-47) % MCV 96.4 (78-100) fl MCH 31.7 (26-32) pg MCHC 32.8 (32-36) g/dl RDW 13.1 (11.5-14.0) % Plt Count 273 (150-450) K/mm3 MPV 10.8 (7.5-11.0) fl Gran % 72.6 H (36.0-66.0) % Eos # (Auto) 0.07 (0-0.5) Absolute Lymphs (auto) 1.66 (1.0-4.6) Absolute Monos (auto) 0.65 (0.0-1.3) Lymphocytes % 19.0 L (24.0-44.0) % Monocytes % 7.4 (0.0-12.0) % Eosinophils % 0.8 (0.00-5.0) % Basophils % 0.2 (0.0-0.4) % Absolute Granulocytes 6.34 (1.4-6.9) Basophils # 0.02 (0-0.4) PT 11.6 (9.4-12.5) SECONDS INR 0.98 (0.8-3.0) APTT 28.3 (25.1-36.5) SECONDS Sodium 141 (137-145) mmol/L Potassium 4.1 (3.5-5.1) mmol/L Chloride 109 H (98-107) mmol/L Carbon Dioxide 25 (22-30) mmol/L Anion Gap 11.8 (5-15) MEQ/L BUN 17 (7-17) mg/dL Creatinine 0.67 (0.52-1.04) mg/dL Estimated GFR > 60.0 ML/MIN Glucose 94 (74-106) mg/dL Calcium 9.1 (8.4-10.2) mg/dL Total Bilirubin 0.70 (0.2-1.3) mg/dL AST 22 (14-36) U/L ALT 15 (0-35) U/L Alkaline Phosphatase 101 (38-126) U/L Troponin I (0.000-0.034) ng/mL NT-Pro-B Natriuret Pep 256 (0-1800) pg/mL Serum Total Protein 6.9 (6.3-8.2) g/dL Albumin 4.2 (3.5-5.0) g/dL Influenza Type A Ag (NEGATIVE) Influenza Type B Ag (NEGATIVE) RSV (PCR) (Negative) SARS-CoV-2 (PCR) (NEGATIVE) - Progress Progress: improved Air Movement: good Progress Note: 05/11/21 13:[address] P[place]agua 324 ASA po upon arrival 0.5 IV Ativan 05/11/21 18:27 Pain greatly improved before admit Counseled pt/family regarding: lab results, diagnosis, need for follow-up, rad results - Departure Departure Disposition: Observation Clinical Impression: Chest pain Qualifiers: Chest pain type: precordial pain Qualified Code(s): R07.2 - Precordial pain Condition: Stable Critical Care Time: Yes Critical Care Time(excluding separately billable procedures): Critical 30-74 mins
[2021-05-11 10:52] LABS: Absolute Neutrophil Ct (ANC) 6.34 (1.4-6.9); Basophil (Absolute #) 0.02 (0-0.4); Eosinophil % 0.8 % (0.00-5.0); Eosinophil (Absolute #) 0.07 (0-0.5); Hematocrit 40.2 % (35-47); Hemoglobin 13.2 gm/dl (12.0-16.0); Lymphocyte (Absolute #) 1.66 (1.0-4.6); Mean Cell Volume 96.4 fl (78-100); Mean Corpuscular Hemoglobin 31.7 pg (26-32); Mean Corpuscular Hgb Concent. 32.8 g/dl (32-36); Mean Platelet Volume 10.8 fl (7.5-11.0); Monocyte (Absolute #) 0.65 (0.0-1.3); Monocytes % 7.4 % (0.0-12.0); Neutrophil % 72.6 % (36.0-66.0); Platelet Count 273 K/mm3 (150-450); Red Blood Count 4.17 M/mm3 (4.1-5.4); Red Cell Distribution Width 13.1 % (11.5-14.0); White Blood Count 8.7 K/mm3 (4.0-10.5)
[2021-05-11 10:59] LABS: ALBUMIN 4.2 g/dL (3.5-5.0); ALKALINE PHOSPHATASE 101 U/L (38-126); ANION GAP 11.8 MEQ/L (5-15); BLOOD UREA NITROGEN 17 mg/dL (7-17); CHLORIDE 109 mmol/L (98-107); Calcium 9.1 mg/dL (8.4-10.2); Carbon Dioxide 25 mmol/L (22-30); Creatinine 1 0.67 mg/dL (0.52-1.04); EST GLOMERULAR FILTRATION RATE > 60.0 ML/MIN; Glucose 94 mg/dL (74-106); NT PRO BNP 256 pg/mL (0-1800); Potassium 4.1 mmol/L (3.5-5.1); SGOT/AST 22 U/L (14-36); SGPT/ALT 15 U/L (0-35); SODIUM 141 mmol/L (137-145); Total Protein 6.9 g/dL (6.3-8.2)
[2021-05-11] MEDS ORDERED: TYLENOL 325 MG PO PRN (13:55)
[2021-05-11] MEDS ORDERED: Senokot-S Tablet PO PRN (13:55)
[2021-05-11] MEDS ORDERED: Zofran 4 MG/2 ML VIAL IV PRN (13:55)
[2021-05-11] MEDS ORDERED: MILK OF MAGNESIA 30 ML PO PRN (13:55)
[2021-05-11] MEDS ORDERED: MAALOX ES 30 ML UNIT DOSE PO PRN (13:55)
[2021-05-11] MEDS ORDERED: MORPHINE SULFATE 2 MG INJ IV PRN (13:55)
[2021-05-11] MEDS ORDERED: Nitrostat 0.4 MG Tablet SL PRN ×2 (13:55→17:00)
[2021-05-11 14:42] LABS: INFLUENZA A NEGATIVE (NEGATIVE); INFLUENZA B NEGATIVE (NEGATIVE); RESPIRATORY SYNCTIAL VIRUS NEGATIVE (Negative); SARS-CoV-2 Xpert Express NEGATIVE (NEGATIVE)
[2021-05-11] MEDS ORDERED: Ventolin Hfa MDI IH PRN (17:00)
[2021-05-11] MEDS ORDERED: VENTOLIN COMMON CANISTER IH PRN (17:09)
[2021-05-11] MEDS: ENOXAPARIN SODIUM SQ SCH (17:25)
--- NOTE | 2021-05-11 18:15 | PCM.HP ---
History of Present Illness - Chief Complaint Chief Complaint: chest pain rule out, PR History of Present Illness: is a 76 year old female.c/o mid-sternal sharp chest pain x 90 minutes. Pain is 10 on scale accompanied by dyspnea wo N/V/Diaphoresis. Pt denies h/o PR but does have mild CAD per recent cath. Pt has HTN but denies hyperlipidemia/DM/tobacco use. Pain does not radiate, and nothing makes it better or worse. Timing/Duration: other (90 min) Activities at Onset: emotional stress Quality: sharpness, stabbing Location: substernal Chest Pain Radiation: no radiation Severity of Pain-Max: severe Severity of Pain-Current: severe Modifying Factors: Worsens With: antacids, breathing, coughing, defecating, eating, exertion, lying down, morphine, movement, nitroglycerin, oxygen, palpation, rest, aspirin, sitting up, change in position Associated Symptoms: shortness of breath, No nausea, No vomiting, No palpitations, No heartburn, No abdominal pain, No cough, No hurts to breathe, No diaphoresis, No chills, No fever, No fatigue, No weakness, No swelling/lump in chest, No syncope, No rash, No headache, No dizziness, No edema, No back pain Prior Chest Pain/Cardiac Workup: cardiac cath Nitro Today/Relief: no nitro taken today Aspirin Treatment Today: no aspirin today - Review of Systems Constitutional: No Fever, No Chills Eyes: No Symptoms Ears, Nose, & Throat: No Symptoms Respiratory: No Cough, No Short Of Breath Cardiac: Chest Pain, No Edema, No Syncope Abdominal/Gastrointestinal: No Abdominal Pain, No Nausea, No Vomiting, No Diarrhea Genitourinary Symptoms: No Dysuria Musculoskeletal: No Back Pain, No Neck Pain Skin: No Rash Neurological: No Dizziness, No Focal Weakness, No Sensory Changes Psychological: No Symptoms Endocrine: No Symptoms Hematologic/Lymphatic: No Symptoms Immunological/Allergic: No Symptoms Medications & Allergies Home Medications: Home Medication List Amlodipine Besylate 2.5 mg PO DAILY 06/12/16 [History Confirmed 05/11/21] Omeprazole 40 mg PO DAILY 11/29/17 [History Confirmed 05/11/21] Albuterol Sulfate [Albuterol Sulfate Hfa] 2 puff IH Q4HPRN PRN 12/14/19 [History Confirmed 05/11/21] Docusate Sodium [Dok] 100 mg PO BID 01/27/20 [History Confirmed 05/11/21] Nitroglycerin 0.4 mg Tablet [Nitrostat 0.4 MG Tablet] 0.4 mg SL Q5MIN PRN MR X 3 PRN 03/29/21 [History Confirmed 05/11/21] AMITRIPTYLINE HCL 50 mg Tab [AMITRIPTYLINE HCL 50 mg Tablet] 50 mg PO HS 04/03/21 [History Confirmed 05/11/21] Allergies/Adverse Reactions: Allergies Allergy/AdvReac Type Severity Reaction Status Date / Time No Known Drug Allergies Allergy Verified 05/11/21 10:36 - Past Medical History Past Medical History: Yes Neurological History: No Pertinent History ENT History: No Pertinent History Cardiac History: Angina, Hypertension Respiratory History: COPD Endocrine Medical History: No Pertinent History Musculoskelatal History: Arthritis, Osteoporosis GI Medical History: GERD History: No Pertinent History Pyscho-Social History: Anxiety, Depression Reproductive Disorders: No Pertinent History Comment: Non-Hodjkins lymphoma in remission. restless legs. cataract surgery - 2 years ago - Female History Are you now?: No - Past Surgical History Past Surgical History: Yes Neuro Surgical History: No Pertinent History Cardiac History: No Pertinent History, Cardiac Catheterization Respiratory Surgery: No Pertinent History GI Surgical History: No Pertinent History Genitourinary Surgical Hx: No Pertinent History Musculskeletal Surgical Hx: No Pertinent History Female Surgical History: Hysterectomy, Tubal Ligation Other Surgical History: cvl port placed and removed. heart cath no stents placed 2020 - Social History Smoking Status: Never smoker Exposure to second hand smoke: Yes Alcohol: Daily Drug Use: none Significant Family History: no pertinent family hx - Physical Exam Vital Signs: Vital Signs - 24 hr Temp Pulse Resp BP Pulse Ox 05/11/21 15:22 98.2 F 82 18 113/66 98 05/11/21 15:19 97.5 F 75 20 114/68 99 05/11/21 15:09 82 18 113/66 98 05/11/21 13:57 100 05/11/21 13:05 91 H 22 105/81 05/11/21 12:03 77 23 105/81 98 05/11/21 11:18 77 22 108/78 98 05/11/21 10:16 98.2 F 92 H 18 126/90 100 General Appearance: no apparent distress, alert Neurologic Exam: alert, oriented x 3, cooperative, normal mood/affect, nml cerebellar function, nml station & gait, sensation nml, No motor deficits Eye Exam: PERRL/EOMI, eyes nml inspection Ears, Nose, Throat Exam: normal ENT inspection, TMs normal, pharynx normal, moist mucous membranes Neck Exam: normal inspection, non-tender, supple, full range of motion Respiratory Exam: normal breath sounds, lungs clear, No respiratory distress Cardiovascular Exam: regular rate/rhythm, normal heart sounds, normal peripheral pulses Gastrointestinal/Abdomen Exam: soft, normal bowel sounds, No tenderness, No mass Back Exam: normal inspection, normal range of motion, No CVA tenderness, No vertebral tenderness Extremity Exam: normal inspection, normal range of motion, pelvis stable Skin Exam: normal color, warm, dry, No rash Lymphatic Exam: No adenopathy Results - Labs Lab/Micro Results: Lab Results-Last 24 Hours 05/11/21 05/11/21 05/11/21 Range/Units 10:27 10:27 10:27 WBC 8.7 (4.0-10.5) K/mm3 RBC 4.17 (4.1-5.4) M/mm3 Hgb 13.2 (12.0-16.0) gm/dl Hct 40.2 (35-47) % MCV 96.4 (78-100) fl MCH 31.7 (26-32) pg MCHC 32.8 (32-36) g/dl RDW 13.1 (11.5-14.0) % Plt Count 273 (150-450) K/mm3 MPV 10.8 (7.5-11.0) fl Gran % 72.6 H (36.0-66.0) % Eos # (Auto) 0.07 (0-0.5) Absolute Lymphs (auto) 1.66 (1.0-4.6) Absolute Monos (auto) 0.65 (0.0-1.3) Lymphocytes % 19.0 L (24.0-44.0) % Monocytes % 7.4 (0.0-12.0) % Eosinophils % 0.8 (0.00-5.0) % Basophils % 0.2 (0.0-0.4) % Absolute Granulocytes 6.34 (1.4-6.9) Basophils # 0.02 (0-0.4) PT 11.6 (9.4-12.5) SECONDS INR 0.98 (0.8-3.0) APTT 28.3 (25.1-36.5) SECONDS Sodium 141 (137-145) mmol/L Potassium 4.1 (3.5-5.1) mmol/L Chloride 109 H (98-107) mmol/L Carbon Dioxide 25 (22-30) mmol/L Anion Gap 11.8 (5-15) MEQ/L BUN 17 (7-17) mg/dL Creatinine 0.67 (0.52-1.04) mg/dL Estimated GFR > 60.0 ML/MIN Glucose 94 (74-106) mg/dL Calcium 9.1 (8.4-10.2) mg/dL Total Bilirubin 0.70 (0.2-1.3) mg/dL AST 22 (14-36) U/L ALT 15 (0-35) U/L Alkaline Phosphatase 101 (38-126) U/L Troponin I (0.000-0.034) ng/mL NT-Pro-B Natriuret Pep 256 (0-1800) pg/mL Serum Total Protein 6.9 (6.3-8.2) g/dL Albumin 4.2 (3.5-5.0) g/dL Influenza Type A Ag (NEGATIVE) Influenza Type B Ag (NEGATIVE) RSV (PCR) (Negative) SARS-CoV-2 (PCR) (NEGATIVE) 05/11/21 05/11/21 05/11/21 Range/Units 10:30 13:05 14:03 WBC (4.0-10.5) K/mm3 RBC (4.1-5.4) M/mm3 Hgb (12.0-16.0) gm/dl Hct (35-47) % MCV (78-100) fl MCH (26-32) pg MCHC (32-36) g/dl RDW (11.5-14.0) % Plt Count (150-450) K/mm3 MPV (7.5-11.0) fl Gran % (36.0-66.0) % Eos # (Auto) (0-0.5) Absolute Lymphs (auto) (1.0-4.6) Absolute Monos (auto) (0.0-1.3) Lymphocytes % (24.0-44.0) % Monocytes % (0.0-12.0) % Eosinophils % (0.00-5.0) % Basophils % (0.0-0.4) % Absolute Granulocytes (1.4-6.9) Basophils # (0-0.4) PT (9.4-12.5) SECONDS INR (0.8-3.0) APTT (25.1-36.5) SECONDS Sodium (137-145) mmol/L Potassium (3.5-5.1) mmol/L Chloride (98-107) mmol/L Carbon Dioxide (22-30) mmol/L Anion Gap (5-15) MEQ/L BUN (7-17) mg/dL Creatinine (0.52-1.04) mg/dL Estimated GFR ML/MIN Glucose (74-106) mg/dL Calcium (8.4-10.2) mg/dL Total Bilirubin (0.2-1.3) mg/dL AST (14-36) U/L ALT (0-35) U/L Alkaline Phosphatase (38-126) U/L Troponin I < 0.012 < 0.012 (0.000-0.034) ng/mL NT-Pro-B Natriuret Pep (0-1800) pg/mL Serum Total Protein (6.3-8.2) g/dL Albumin (3.5-5.0) g/dL Influenza Type A Ag NEGATIVE (NEGATIVE) Influenza Type B Ag NEGATIVE (NEGATIVE) RSV (PCR) NEGATIVE (Negative) SARS-CoV-2 (PCR) NEGATIVE (NEGATIVE) 05/11/21 Range/Units 16:28 WBC (4.0-10.5) K/mm3 RBC (4.1-5.4) M/mm3 Hgb (12.0-16.0) gm/dl Hct (35-47) % MCV (78-100) fl MCH (26-32) pg MCHC (32-36) g/dl RDW (11.5-14.0) % Plt Count (150-450) K/mm3 MPV (7.5-11.0) fl Gran % (36.0-66.0) % Eos # (Auto) (0-0.5) Absolute Lymphs (auto) (1.0-4.6) Absolute Monos (auto) (0.0-1.3) Lymphocytes % (24.0-44.0) % Monocytes % (0.0-12.0) % Eosinophils % (0.00-5.0) % Basophils % (0.0-0.4) % Absolute Granulocytes (1.4-6.9) Basophils # (0-0.4) PT (9.4-12.5) SECONDS INR (0.8-3.0) APTT (25.1-36.5) SECONDS Sodium (137-145) mmol/L Potassium (3.5-5.1) mmol/L Chloride (98-107) mmol/L Carbon Dioxide (22-30) mmol/L Anion Gap (5-15) MEQ/L BUN (7-17) mg/dL Creatinine (0.52-1.04) mg/dL Estimated GFR ML/MIN Glucose (74-106) mg/dL Calcium (8.4-10.2) mg/dL Total Bilirubin (0.2-1.3) mg/dL AST (14-36) U/L ALT (0-35) U/L Alkaline Phosphatase (38-126) U/L Troponin I < 0.012 (0.000-0.034) ng/mL NT-Pro-B Natriuret Pep (0-1800) pg/mL Serum Total Protein (6.3-8.2) g/dL Albumin (3.5-5.0) g/dL Influenza Type A Ag (NEGATIVE) Influenza Type B Ag (NEGATIVE) RSV (PCR) (Negative) SARS-CoV-2 (PCR) (NEGATIVE) - Radiology Impressions Radiology Exams & Impressions: Radiology Procedures Category Date Time Status CHEST 1 VIEW (PORTABLE) Stat Exams 05/11/21 10:20 Completed - Other Procedures and Tests Respiratory Therapy 05/11/21 17:20 Respiratory Therapy Assessment DAILY 05/11/21 18:15 EKG ROUTINE 05/12/21 05:00 EKG ROUTINE 05/13/21 05:00 EKG ROUTINE 05/14/21 05:00 EKG ROUTINE Assessment/Plan (1) Chest pain Current Visit: Yes Status: Acute Qualifiers: Chest pain type: precordial pain Qualified Code(s): R07.2 - Precordial pain Assessment & Plan: Chief Complaint Diagnosis chest pain rule out, anxiety Allergies Allergy/AdvReac Type Severity Reaction Status Date / Time No Known Drug Allergies Allergy Verified 05/11/21 10:36 Vital Signs (Last 24 hours) Temp Pulse Resp BP Pulse Ox 05/11/21 15:22 98.2 F 82 18 113/66 98 05/11/21 15:19 97.5 F 75 20 114/68 99 05/11/21 15:09 82 18 113/66 98 05/11/21 13:57 100 05/11/21 13:05 91 H 22 105/81 05/11/21 12:03 77 23 105/81 98 05/11/21 11:18 77 22 108/78 98 05/11/21 10:16 98.2 F 92 H 18 126/90 100 Current Medications Generic Name Dose Route Start Last Admin Trade Name Freq PRN Reason Stop Dose Admin Acetaminophen 650 mg 05/11/21 13:55 Acetaminophen 325 Mg Tablet PO 06/10/21 13:54 Q4H PRN PRN PAIN AND/OR FEVER Al Hydrox/Mg Hydrox/Simethicone 30 ml 05/11/21 13:55 Mag Hydrox/Al Hydrox/Simeth 30 Ml Udcup PO 06/10/21 13:54 Q4H PRN PRN INDIGESTION Albuterol Sulfate 2 puff 05/11/21 17:09 Albuterol Common Canister Inhaler IH 06/10/21 17:08 Q4HPRN PRN SHORTNESS OF BREATH Amitriptyline HCl 50 mg 05/11/21 22:00 Amitriptyline Hcl 50 Mg Tablet PO 06/10/21 21:59 HS JACOB Amlodipine Besylate 2.5 mg 05/12/21 10:00 Amlodipine Besylate 5 Mg Tablet PO 06/11/21 09:59 DAILY JACOB Aspirin 325 mg 05/12/21 10:00 Aspirin 325 Mg Tablet.Ec PO 06/11/21 09:59 DAILY JACOB Enoxaparin Sodium 40 mg 05/11/21 16:00 05/11/21 17:25 Enoxaparin Sodium 40 Mg/0.4 Ml Syringe SQ 06/10/21 15:59 40 mg DAILY JACOB Administration Magnesium Hydroxide 30 - 60 ml 05/11/21 13:55 Magnesium Hydroxide 30 Ml Udcup PO 06/10/21 13:54 QDP PRN CONSTIPATION Morphine Sulfate 2 mg 05/11/21 13:55 Morphine Sulfate 2 Mg/Ml Inj IV 05/16/21 13:54 .Q15MIN PRN PRN CHEST PAIN Nitroglycerin 0.4 mg 05/11/21 13:55 Nitroglycerin 0.4 Mg Tablet Bottle 06/10/21 13:54 .Q5MIN PRN CHEST PAIN Nitroglycerin 0.4 mg 05/11/21 17:00 Nitroglycerin 0.4 Mg Tablet Bottle 06/10/21 16:59 Q5MIN PRN MR X 3 PRN CHEST PAIN Ondansetron HCl 4 mg 05/11/21 13:55 Ondansetron Hcl 4 Mg/2 Ml Vial IV 06/10/21 13:54 Q4H PRN PRN NAUSEA/VOMITING Pantoprazole Sodium 40 mg 05/12/21 10:00 Protonix (Pantoprazole) 40 Mg Tablet PO 06/11/21 09:59 DAILY JACOB Senna/Docusate Sodium 2 udtab 05/11/21 13:55 Senna/Docusate Sodium 1 Udtab Tablet PO 06/10/21 13:54 BID PRN PRN CONSTIPATION Discontinued Medications Generic Name Dose Route Start Last Admin Trade Name Javedq PRN Reason Stop Dose Admin Aspirin 324 mg 05/11/21 10:20 05/11/21 10:30 Aspirin 81 Mg Tab.Chew PO 05/11/21 10:21 324 mg STAT ONE Administration Aspirin Confirm 05/11/21 10:28 Aspirin 81 Mg Tab.Chew Administered 05/11/21 10:29 Dose 324 mg .ROUTE .STK-MED ONE Lorazepam 0.5 mg 05/11/21 10:27 05/11/21 10:30 Lorazepam 2 Mg/1 Ml 2 Mg Vial IV 05/11/21 10:28 0.5 mg STAT ONE Administration Lorazepam Confirm 05/11/21 10:28 Lorazepam 2 Mg/1 Ml 2 Mg Vial Administered 05/11/21 10:29 Dose 2 mg .ROUTE .STK-MED ONE Intake & Output (Last 24 hours) 05/09/21 05/10/21 05/11/21 05/12/21 11:59 11:59 11:59 11:59 Intake Total 240 Balance 240 Weight 62 kg 62 kg Laboratory Results (Last 24 hours) 05/11/21 05/11/21 05/11/21 16:28 14:03 13:05 WBC RBC Hgb Hct MCV MCH MCHC RDW Plt Count MPV Gran % Eos # (Auto) Absolute Lymphs (auto) Absolute Monos (auto) Lymphocytes % Monocytes % Eosinophils % Basophils % Absolute Granulocytes Basophils # PT INR APTT Sodium Potassium Chloride Carbon Dioxide Anion Gap BUN Creatinine Estimated GFR Glucose Calcium Total Bilirubin AST ALT Alkaline Phosphatase Troponin I < 0.012 < 0.012 NT-Pro-B Natriuret Pep Serum Total Protein Albumin Influenza Type A Ag NEGATIVE Influenza Type B Ag NEGATIVE RSV (PCR) NEGATIVE SARS-CoV-2 (PCR) NEGATIVE 05/11/21 05/11/21 05/11/21 10:30 10:27 10:27 WBC RBC Hgb Hct MCV MCH MCHC RDW Plt Count MPV Gran % Eos # (Auto) Absolute Lymphs (auto) Absolute Monos (auto) Lymphocytes % Monocytes % Eosinophils % Basophils % Absolute Granulocytes Basophils # PT 11.6 INR 0.98 APTT 28.3 Sodium 141 Potassium 4.1 Chloride 109 H Carbon Dioxide 25 Anion Gap 11.8 BUN 17 Creatinine 0.67 Estimated GFR > 60.0 Glucose 94 Calcium 9.1 Total Bilirubin 0.70 AST 22 ALT 15 Alkaline Phosphatase 101 Troponin I < 0.012 NT-Pro-B Natriuret Pep 256 Serum Total Protein 6.9 Albumin 4.2 Influenza Type A Ag Influenza Type B Ag RSV (PCR) SARS-CoV-2 (PCR) 05/11/21 10:27 WBC 8.7 RBC 4.17 Hgb 13.2 Hct 40.2 MCV 96.4 MCH 31.7 MCHC 32.8 RDW 13.1 Plt Count 273 MPV 10.8 Gran % 72.6 H Eos # (Auto) 0.07 Absolute Lymphs (auto) 1.66 Absolute Monos (auto) 0.65 Lymphocytes % 19.0 L Monocytes % 7.4 Eosinophils % 0.8 Basophils % 0.2 Absolute Granulocytes 6.34 Basophils # 0.02 PT INR APTT Sodium Potassium Chloride Carbon Dioxide Anion Gap BUN Creatinine Estimated GFR Glucose Calcium Total Bilirubin AST ALT Alkaline Phosphatase Troponin I NT-Pro-B Natriuret Pep Serum Total Protein Albumin Influenza Type A Ag Influenza Type B Ag RSV (PCR) SARS-CoV-2 (PCR) Orders (Last 24 hours) Category Date Time Status Bedrest with BRP/BSC ROUTINE Activity 05/11/21 13:55 Active Code Status Order ROUTINE Care 05/11/21 13:55 Active EKG-ER Only STAT Care 05/11/21 10:20 Completed IV Care Q6H Care 05/11/21 13:55 Active IV Insertion STAT Care 05/11/21 10:20 Completed Implement Chest Pain Pathway ROUTINE Care 05/11/21 13:[address] in Observation ROUTINE Care 05/11/21 13:55 Active Leeroy Johnson, Apply ROUTINE Care 05/11/21 13:55 Active Telemetry q4h Care 05/11/21 16:07 Active Vital Signs Q4H Care 05/11/21 13:55 Active Weight,Daily 0600 Care 05/11/21 13:55 Active Heart-Healthy Diet Diet 05/11/21 Dinner Active CHEST 1 VIEW (PORTABLE) Stat Exams 05/11/21 10:20 Completed CBC W DIFF Stat Lab 05/11/21 10:27 Completed CMP Stat Lab 05/11/21 10:27 Completed LIPID PROFILE AM.LAB Lab 05/12/21 04:00 Ordered NT PRO BNP Stat Lab 05/11/21 10:27 Completed PROTIME WITH INR Stat Lab 05/11/21 10:27 Completed PTT Stat Lab 05/11/21 10:27 Completed TROPONIN Q3H Lab 05/11/21 10:30 Completed TROPONIN Q3H Lab 05/11/21 13:05 Completed TROPONIN Q3H Lab 05/11/21 16:28 Completed TROPONIN Q3H Lab 05/11/21 19:30 Ordered TROPONIN Q3H Lab 05/11/21 22:30 Ordered AMITRIPTYLINE HCL 50 mg Tab [AMITRIPTYLINE HCL 50 mg Med 05/11/21 22:00 Active Tablet] 50 mg PO HS Acetaminophen 325 mg [Tylenol 325 mg] Med 05/11/21 13:55 Active 650 mg PO Q4H PRN PRN Albuterol Common Canister [Ventolin Common Canister* Med 05/11/21 17:09 Active ] 2 puff IH Q4HPRN PRN Amlodipine Besylate 5 mg [Norvasc 5 mg] Med 05/12/21 10:00 Active 2.5 mg PO DAILY Aspirin 81 gm Chew [Baby Aspirin 81 mg Chew] Med 05/11/21 10:28 Discontinued 324 mg .ROUTE .STK-MED ONE Aspirin 81 gm Chew [Baby Aspirin 81 mg Chew] Med 05/11/21 10:20 Discontinued 324 mg PO STAT ONE Aspirin EC 325 mg [Ecotrin 325 MG] Med 05/12/21 10:00 Active 325 mg PO DAILY Enoxaparin Sodium [Enoxaparin Sodium] Med 05/11/21 16:00 Active 40 mg SQ DAILY Lorazepam 2 mg/1 ml [Ativan 2 MG/1 ML VIAL] Med 05/11/21 10:27 D iscontinued 0.5 mg IV STAT ONE Lorazepam 2 mg/1 ml [Ativan 2 MG/1 ML VIAL] Med 05/11/21 10:28 Discontinued 2 mg .ROUTE .STK-MED ONE Mag Hydrox/Al Hydrox/Simeth [Maalox Es 30 ml Unit Med 05/11/21 13:55 Active Dose] 30 ml PO Q4H PRN PRN Magnesium Hydroxide 30 ml [Milk of Magnesia 30 ml Med 05/11/21 13:55 Active ] 30 - 60 ml PO QDP PRN Morphine Sulfate 2 mg Inj Med 05/11/21 13:55 Active 2 mg IV .Q15MIN PRN PRN Nitroglycerin 0.4 mg Tablet [Nitrostat 0.4 MG Tablet Med 05/11/21 13:55 Active ] 0.4 mg SL .Q5MIN PRN Nitroglycerin 0.4 mg Tablet [Nitrostat 0.4 MG Tablet Med 05/11/21 17:00 Active ] 0.4 mg SL Q5MIN PRN MR X 3 PRN Ondansetron HCl 4 mg/2 ml [Zofran 4 MG/2 ML VIAL] Med 05/11/21 13:55 Active 4 mg IV Q4H PRN PRN PANTOPRAZOLE 40 mg Tablet [Protonix 40MG Tablet] Med 05/12/21 10:00 Active 40 mg PO DAILY Senna/Docusate Sodium Tab [Senokot-S Tablet] Med 05/11/21 13:55 Active 2 udtab PO BID PRN PRN EKG Q8HX2,QAMX3,PRN RT 05/11/21 13:55 Completed EKG ROUTINE RT 05/11/21 18:15 Active EKG ROUTINE RT 05/12/21 05:00 Active EKG ROUTINE RT 05/13/21 05:00 Active EKG ROUTINE RT 05/14/21 05:00 Active Pulse Oximetry Q4H RT 05/11/21 13:55 Completed Respiratory Therapy Assessment DAILY RT 05/11/21 17:20 Active Transfer Order Routine Transfer 05/11/21 Completed Code(s): R07.9 - CHEST PAIN, UNSPECIFIED
[2021-05-12 06:07] LABS: Risk Ratio 3.4
[2021-05-12 08:43] VITALS: O2SAT 96
[2021-05-12] MEDS ORDERED: MORPHINE SULFATE 2 MG INJ IV PRN (08:45)
[2021-05-12] MEDS: ENOXAPARIN SODIUM SQ SCH (09:52)
[2021-05-12] MEDS ORDERED: Protonix 40MG Tablet PO SCH (10:00)
[2021-05-12] MEDS ORDERED: NON-FORMULARY ITEM (Omeprazole [Omeprazole] 40 MG Capsule.Dr) PO SCH (10:00)
[2021-05-12] MEDS ORDERED: NORVASC 5 MG PO SCH (10:00)
[2021-05-12] MEDS ORDERED: NON-FORMULARY ITEM (Amlodipine Besylate [Amlodipine Besylate] 2.5 MG Tablet) PO SCH (10:00)
[2021-05-12] MEDS ORDERED: Ecotrin 325 MG PO SCH (10:00)
--- NOTE | 2021-05-12 12:57 | PCM.DS ---
Discharge Summary Date of Admission: 05/11/21 15:17 Admitting Physician: SRINI DAVID Primary Care Provider: SRINI DAVID Allergies Allergies No Known Drug Allergies Allergy (Verified 05/11/21 10:36) Hospital Summary - Hospital Course Hospital Course: Chief Complaint Diagnosis chest pain rule out, [place] Allergies Allergy/AdvReac Type Severity Reaction Status Date / Time No Known Drug Allergies Allergy Verified 05/11/21 10:36 Vital Signs (Last 24 hours) Temp Pulse Resp BP Pulse Ox 05/12/21 08:00 97.5 F 80 15 120/71 96 05/12/21 07:21 72 16 94 L 05/12/21 04:00 97.8 F 71 16 113/67 98 05/12/21 00:00 97.2 F 69 16 108/61 96 05/11/21 23:00 97.4 F 78 19 114/65 97 05/11/21 19:00 97.4 F 78 19 114/65 97 05/11/21 18:45 77 16 97 05/11/21 18:29 100 05/11/21 15:22 98.2 F 82 18 113/66 98 05/11/21 15:19 97.5 F 75 20 114/68 99 05/11/21 15:09 82 18 113/66 98 05/11/21 13:05 91 H 22 105/81 Home Medications Medication Instructions Recorded Confirmed Last Taken Type AMITRIPTYLINE HCL 50 mg Tab 50 mg PO HS 30 Days #30 tablet 05/12/21 Unknown Rx [AMITRIPTYLINE HCL 50 mg Tablet] Nitroglycerin 0.4 mg Tablet 0.4 mg SL Q5MIN PRN MR X 3 PRN 30 05/12/21 Unknown Rx [Nitrostat 0.4 MG Tablet] Days #30 Current Medications Generic Name Dose Route Start Last Admin Trade Name Freq PRN Reason Stop Dose Admin Acetaminophen 650 mg 05/11/21 13:55 Acetaminophen 325 Mg Tablet PO 06/10/21 13:54 Q4H PRN PRN PAIN AND/OR FEVER Al Hydrox/Mg Hydrox/Simethicone 30 ml 05/11/21 13:55 Mag Hydrox/Al Hydrox/Simeth 30 Ml Udcup PO 06/10/21 13:54 Q4H PRN PRN INDIGESTION Albuterol Sulfate 2 puff 05/11/21 17:09 Albuterol Common Canister Inhaler IH 06/10/21 17:08 Q4HPRN PRN SHORTNESS OF BREATH Amitriptyline HCl 50 mg 05/11/21 22:00 05/11/21 22:18 Amitriptyline Hcl 50 Mg Tablet PO 06/10/21 21:59 50 mg HS JACOB Administration Amlodipine Besylate 2.5 mg 05/12/21 10:00 05/12/21 09:52 Amlodipine Besylate 5 Mg Tablet PO 06/11/21 09:59 2.5 mg DAILY JACOB Administration Aspirin 325 mg 05/12/21 10:00 05/12/21 09:53 Aspirin 325 Mg Tablet.Ec PO 06/11/21 09:59 Not Given DAILY JACOB Enoxaparin Sodium 40 mg 05/11/21 16:00 05/12/21 09:52 Enoxaparin Sodium 40 Mg/0.4 Ml Syringe SQ 06/10/21 15:59 Not Given DAILY [facility] Magnesium Hydroxide 30 - 60 ml 05/11/21 13:55 Magnesium Hydroxide 30 Ml Udcup PO 06/10/21 13:54 QDP PRN CONSTIPATION Morphine Sulfate 2 mg 05/12/21 08:45 05/12/21 09:03 Morphine Sulfate 2 Mg/Ml Inj IV 05/17/21 08:44 2 mg .Q15MIN PRN PRN Administration CHEST PAIN Nitroglycerin 0.4 mg 05/11/21 13:55 Nitroglycerin 0.4 Mg Tablet Bottle 06/10/21 13:54 .Q5MIN PRN CHEST PAIN Nitroglycerin 0.4 mg 05/11/21 17:00 Nitroglycerin 0.4 Mg Tablet Bottle 06/10/21 16:59 Q5MIN PRN MR X 3 PRN CHEST PAIN Ondansetron HCl 4 mg 05/11/21 13:55 Ondansetron Hcl 4 Mg/2 Ml Vial IV 06/10/21 13:54 Q4H PRN PRN NAUSEA/VOMITING Pantoprazole Sodium 40 mg 05/12/21 10:00 05/12/21 09:53 Protonix (Pantoprazole) 40 Mg Tablet PO 06/11/21 09:59 40 mg DAILY JACOB Administration Senna/Docusate Sodium 2 udtab 05/11/21 13:55 Senna/Docusate Sodium 1 Udtab Tablet PO 06/10/21 13:54 BID PRN PRN CONSTIPATION Discontinued Medications Generic Name Dose Route Start Last Admin Trade Name Davon PRN Reason Stop Dose Admin Aspirin 324 mg 05/11/21 10:20 05/11/21 10:30 Aspirin 81 Mg Tab.Chew PO 05/11/21 10:21 324 mg STAT ONE Administration Aspirin Confirm 05/11/21 10:28 Aspirin 81 Mg Tab.Chew Administered 05/11/21 10:29 Dose 324 mg .ROUTE .STK-MED ONE Lorazepam 0.5 mg 05/11/21 10:27 05/11/21 10:30 Lorazepam 2 Mg/1 Ml 2 Mg Vial IV 05/11/21 10:28 0.5 mg STAT ONE Administration Lorazepam Confirm 05/11/21 10:28 Lorazepam 2 Mg/1 Ml 2 Mg Vial Administered 05/11/21 10:29 Dose 2 mg .ROUTE .STK-MED ONE Morphine Sulfate 2 mg 05/11/21 13:55 Morphine Sulfate 2 Mg/Ml Inj IV 05/16/21 13:54 .Q15MIN PRN PRN CHEST PAIN Intake & Output (Last 24 hours) 05/10/21 05/11/21 05/12/21 05/13/21 11:59 11:59 11:59 11:59 Intake Total 720 Balance 720 Weight 62 kg 62 kg Laboratory Results (Last 24 hours) 05/12/21 05/11/21 05/11/21 05:15 22:00 19:24 Troponin I < 0.012 < 0.012 Triglycerides 140 Cholesterol 176 LDL Cholesterol 94 HDL Cholesterol 51 Heart Disease Risk Ratio 3.4 Influenza Type A Ag Influenza Type B Ag RSV (PCR) SARS-CoV-2 (PCR) 05/11/21 05/11/21 05/11/21 16:28 14:03 13:05 Troponin I < 0.012 < 0.012 Triglycerides Cholesterol LDL Cholesterol HDL Cholesterol Heart Disease Risk Ratio Influenza Type A Ag NEGATIVE Influenza Type B Ag NEGATIVE RSV (PCR) NEGATIVE SARS-CoV-2 (PCR) NEGATIVE Orders (Last 24 hours) Category Date Time Status Bedrest with BRP/BSC ROUTINE Activity 05/11/21 13:55 Active Code Status Order ROUTINE Care 05/11/21 13:55 Active IV Care Q6H Care 05/11/21 13:55 Active Implement Chest Pain Pathway ROUTINE Care 05/11/21 13:[address] in Observation ROUTINE Care 05/11/21 13:55 Active Leeroy OpaledsonRory ROUTINE Care 05/11/21 13:55 Active Telemetry q4h Care 05/11/21 16:07 Active Vital Signs Q4H Care 05/11/21 13:55 Active Weight,Daily 0600 Care 05/11/21 13:55 Active Heart-Healthy Diet Diet 05/11/21 Dinner Active Discharge Routine Discharge 05/12/21 Ordered LIPID PROFILE AM.LAB Lab 05/12/21 05:15 Completed TROPONIN Q3H Lab 05/11/21 13:05 Completed TROPONIN Q3H Lab 05/11/21 16:28 Completed TROPONIN Q3H Lab 05/11/21 19:24 Completed TROPONIN Q3H Lab 05/11/21 22:00 Completed AMITRIPTYLINE HCL 50 mg Tab [AMITRIPTYLINE HCL 50 mg Med 05/11/21 22:00 Active Tablet] 50 mg PO HS Acetaminophen 325 mg [Tylenol 325 mg] Med 05/11/21 13:55 Active 650 mg PO Q4H PRN PRN Albuterol Common Canister [Ventolin Common Canister* Med 05/11/21 17:09 Active ] 2 puff IH Q4HPRN PRN Amlodipine Besylate 5 mg [Norvasc 5 mg] Med 05/12/21 10:00 Active 2.5 mg PO DAILY Aspirin EC 325 mg [Ecotrin 325 MG] Med 05/12/21 10:00 Active 325 mg PO DAILY Enoxaparin Sodium [Enoxaparin Sodium] Med 05/11/21 16:00 Active 40 mg SQ DAILY Mag Hydrox/Al Hydrox/Simeth [Maalox Es 30 ml Unit Med 05/11/21 13:55 Active Dose] 30 ml PO Q4H PRN PRN Magnesium Hydroxide 30 ml [Milk of Magnesia 30 ml Med 05/11/21 13:55 Active ] 30 - 60 ml PO QDP PRN Morphine Sulfate 2 mg Inj Med 05/11/21 13:55 Discontinued 2 mg IV .Q15MIN PRN PRN Morphine Sulfate 2 mg Inj Med 05/12/21 08:45 Active 2 mg IV .Q15MIN PRN PRN Nitroglycerin 0.4 mg Tablet [Nitrostat 0.4 MG Tablet Med 05/11/21 13:55 Active ] 0.4 mg SL .Q5MIN PRN Nitroglycerin 0.4 mg Tablet [Nitrostat 0.4 MG Tablet Med 05/11/21 17:00 Active ] 0.4 mg SL Q5MIN PRN MR X 3 PRN Ondansetron HCl 4 mg/2 ml [Zofran 4 MG/2 ML VIAL] Med 05/11/21 13:55 Active 4 mg IV Q4H PRN PRN PANTOPRAZOLE 40 mg Tablet [Protonix 40MG Tablet] Med 05/12/21 10:00 Active 40 mg PO DAILY Senna/Docusate Sodium Tab [Senokot-S Tablet] Med 05/11/21 13:55 Active 2 udtab PO BID PRN PRN EKG Q8HX2,QAMX3,PRN RT 05/11/21 13:55 Completed EKG ROUTINE RT 05/11/21 18:15 Completed EKG ROUTINE RT 05/12/21 05:00 Completed EKG ROUTINE RT 05/13/21 05:00 Active EKG ROUTINE RT 05/14/21 05:00 Active Pulse Oximetry .spot check RT 05/11/21 19:57 Active Pulse Oximetry Q4H RT 05/11/21 13:55 Completed Respiratory Therapy Assessment DAILY RT 05/11/21 17:20 Active - Vitals & Intake/Output Vital Signs: Vital Signs Temperature 97.5 F 05/12/21 08:00 Pulse Rate 80 05/12/21 08:00 Respiratory Rate 15 05/12/21 08:00 Blood Pressure 120/71 05/12/21 08:00 O2 Sat by Pulse Oximetry 96 05/12/21 08:00 Intake & Output: Intake & Output 05/10/21 05/11/21 05/12/21 05/13/21 11:59 11:59 11:59 11:59 Intake Total 720 Balance 720 Weight 62 kg 62 kg - Lab Result Diagrams: 05/11/21 10:27 05/11/21 10:27 Lab Results-Last 24 Hrs: Lab Results-Last 24 Hours 05/11/21 05/11/21 05/11/21 Range/Units 13:05 14:03 16:28 Troponin I < 0.012 < 0.012 (0.000-0.034) ng/mL Triglycerides (30-150) mg/dL Cholesterol (50-200) mg/dL LDL Cholesterol (30-100) mg/dL HDL Cholesterol (40-60) mg/dL Heart Disease Risk Ratio Influenza Type A Ag NEGATIVE (NEGATIVE) Influenza Type B Ag NEGATIVE (NEGATIVE) RSV (PCR) NEGATIVE (Negative) SARS-CoV-2 (PCR) NEGATIVE (NEGATIVE) 05/11/21 05/11/21 05/12/21 Range/Units 19:24 22:00 05:15 Troponin I < 0.012 < 0.012 (0.000-0.034) ng/mL Triglycerides 140 (30-150) mg/dL Cholesterol 176 (50-200) mg/dL LDL Cholesterol 94 (30-100) mg/dL HDL Cholesterol 51 (40-60) mg/dL Heart Disease Risk Ratio 3.4 Influenza Type A Ag (NEGATIVE) Influenza Type B Ag (NEGATIVE) RSV (PCR) (Negative) SARS-CoV-2 (PCR) (NEGATIVE) - Radiology Exams Ordered Rad Exams-Entire Visit: Radiology Procedures Category Date Time Status CHEST 1 VIEW (PORTABLE) Stat Exams 05/11/21 10:20 Completed - Procedures and Test Procedures and Tests throughout Hospitalization: Therapy Orders & Screens 05/11/21 13:55 EKG Q8HX2,QAMX3,PRN Comment: 05/11/21 17:20 Respiratory Therapy Assessment DAILY Comment: Diagnosis: chest pain rule out, anxiety 05/11/21 18:15 EKG ROUTINE Comment: Diagnosis: chest pain rule out, anxiety 05/12/21 05:00 EKG ROUTINE Comment: Diagnosis: chest pain rule out, anxiety 05/13/21 05:00 EKG ROUTINE Comment: Diagnosis: chest pain rule out, anxiety 05/14/21 05:00 EKG ROUTINE Comment: Diagnosis: chest pain rule out, anxiety Discharge Exam General Appearance: no apparent distress, alert Neurologic Exam: alert, oriented x 3, cooperative, normal mood/affect, nml cerebellar function, sensation nml, No motor deficits Eye Exam: PERRL, EOMI, eyes nml inspection Ears, Nose, Throat Exam: normal ENT inspection, pharynx normal, moist mucous membranes Neck Exam: normal inspection, non-tender, supple, full range of motion Respiratory Exam: normal breath sounds, lungs clear, No respiratory distress Cardiovascular Exam: regular rate/rhythm, normal heart sounds Gastrointestinal/Abdomen Exam: soft, No tenderness, No mass Pelvic Exam: deferred Rectal Exam: deferred Back Exam: normal inspection, normal range of motion, No CVA tenderness, No vertebral tenderness Extremity Exam: normal inspection, normal range of motion Skin Exam: normal color, warm, dry Final Diagnosis/Problem List - Final Discharge Diagnosis/Problem (1) Chest pain Current Visit: Yes Status: Resolved Code(s): R07.9 - CHEST PAIN, UNSPECIFIED - Discharge Discharge Date: 05/12/21 Disposition: Home, Self-Care Condition: Stable Prescriptions: Continue Amlodipine Besylate 2.5 mg PO DAILY Omeprazole 40 mg PO DAILY Albuterol Sulfate [Albuterol Sulfate Hfa] 2 puff IH Q4HPRN PRN PRN Reason: Shortness Of Breath Docusate Sodium [Dok] 100 mg PO BID Nitroglycerin 0.4 mg Tablet [Nitrostat 0.4 MG Tablet] 0.4 mg SL Q5MIN PRN MR X 3 PRN 30 Days #30 PRN Reason: Chest Pain AMITRIPTYLINE HCL 50 mg Tab [AMITRIPTYLINE HCL 50 mg Tablet] 50 mg PO HS 30 Days #30 tablet Instructions: Angina Follow up with: SRINI DAVID MD [Primary Care Provider] - 05/25/21 10:12 am Forms: Discharge Instructions
[2021-05-12 14:17] VITALS: BP 111/69; PULSE 77
== END 2021-05-12 12:55 | disposition home or self-care (01) ==
LOC: ED 10:14 → MED SURG 15:17
PROVIDERS: ADMIT General Practice; ATTEND General Practice
DX: R07.9 Chest pain, unspecified (principal); I25.10 Atherosclerotic heart disease of native coronary artery without angina pectoris; I10 Essential (primary) hypertension; J44.9 Chronic obstructive pulmonary disease, unspecified; Z79.899 Other long term (current) drug therapy; Z20.828 Contact with and (suspected) exposure to other viral communicable diseases
CPT/HCPCS: 0241U; 36000; 36415; 71045; 80053; 80061; 83721; 83880; 84484; 85025; 85610; 85730; 93005; 94760; 96374; 99285; 99291; J1650; J2060; J2270; A9270-GY

== ENCOUNTER 2021-06-28 11:01 | Observation (INO) | payer MEDICARE ==
[2021-06-28] MEDS ORDERED: Ativan 2 MG/1 ML VIAL IV ONE (11:06)
[2021-06-28] MEDS ORDERED: Ativan 2 MG/1 ML VIAL ONE (11:08)
[2021-06-28 11:21] LABS: Absolute Neutrophil Ct (ANC) 5.09 (1.4-6.9); Basophil (Absolute #) 0.02 (0-0.4); Eosinophil % 1.1 % (0.00-5.0); Eosinophil (Absolute #) 0.09 (0-0.5); Hematocrit 39.4 % (35-47); Hemoglobin 13.1 gm/dl (12.0-16.0); Lymphocyte (Absolute #) 2.25 (1.0-4.6); Lymphocytes % 28.2 % (24.0-44.0); Mean Cell Volume 95.6 fl (78-100); Mean Corpuscular Hemoglobin 31.8 pg (26-32); Mean Corpuscular Hgb Concent. 33.2 g/dl (32-36); Mean Platelet Volume 11.3 fl (7.5-11.0); Monocyte (Absolute #) 0.52 (0.0-1.3); Monocytes % 6.5 % (0.0-12.0); Neutrophil % 63.9 % (36.0-66.0); Platelet Count 243 K/mm3 (150-450); Red Blood Count 4.12 M/mm3 (4.1-5.4); Red Cell Distribution Width 12.9 % (11.5-14.0)
[2021-06-28 11:25] LABS: ALBUMIN 4.3 g/dL (3.5-5.0); ALKALINE PHOSPHATASE 105 U/L (38-126); ANION GAP 15.4 MEQ/L (5-15); BLOOD UREA NITROGEN 20 mg/dL (7-17); CHLORIDE 107 mmol/L (98-107); Calcium 9.7 mg/dL (8.4-10.2); Carbon Dioxide 23 mmol/L (22-30); Creatinine 1 0.71 mg/dL (0.52-1.04); EST GLOMERULAR FILTRATION RATE > 60.0 ML/MIN; Glucose 97 mg/dL (74-106); Potassium 3.9 mmol/L (3.5-5.1); SGOT/AST 33 U/L (14-36); SGPT/ALT 11 U/L (0-35); SODIUM 141 mmol/L (137-145); Total Protein 7.4 g/dL (6.3-8.2)
[2021-06-28 11:30] LABS: INR 1.01 (0.8-3.0); PROTIME 11.9 SECONDS (9.4-12.5)
[2021-06-28 11:33] LABS: PTT 30.5 SECONDS (25.1-36.5)
[2021-06-28] MEDS ORDERED: BABY ASPIRIN 81 MG CHEW PO ONE (11:34)
[2021-06-28] MEDS ORDERED: BABY ASPIRIN 81 MG CHEW ONE (11:34)
[2021-06-28] MEDS ORDERED: Nitrostat 0.4 MG (ED) SL ONE (11:36)
[2021-06-28] MEDS ORDERED: Nitrostat 0.4 MG Tablet SL ONE (11:36)
--- NOTE | 2021-06-28 11:46 | XRAY ---
Indication: Short of breath. Comparison: May 11, 2021. Portable chest remains clear again with a few incidental tiny calcified granulomas. Heart not enlarged. No new/acute findings.
[2021-06-28] MEDS ORDERED: MORPHINE SULFATE 2 MG INJ IV ONE (12:48)
[2021-06-28] MEDS ORDERED: Zofran 4 MG/2 ML VIAL IV ONE (12:48)
--- NOTE | 2021-06-28 12:59 | ERPHSYRPT ---
- History of Present Illness Source: patient Exam Limitations: no limitations Patient Subjective Stated Complaint: Pt was at [facility], [facility] in the Radiology waiting room to have an MRI done on her ankle when she was observed by Jessica Yañez in Respiratory holding her chest and having a hard time breathing, she was instantly brought over to the ER Triage Nursing Assessment: Pt brought self to the ER but her daughter is here with her and drives, vitals wnl, rates right sided chest pain and abdomen pain as 5/10, shaking in the bed, pulses normal, gall bladder removed in May, skin n/w/d, wearing a brace to the right ankle, gave Ativan and does appear calmer Physician History: 76 yo wf who was waiting for a MRI of her ankle developed Mid-sternal chest pain w radiation to the R infra-mammilary area. Pain described as an ache and 5/10 upon ER arrival. Pt states that she was dyspneic wo N/V/diaphoresis. Cough/fever were denied. She has HTN and has had a cath in the past wo stent placement. DM/Hyperlipidemia/Tobacco use all denied. Timing/Duration: other (Stareted about 9:30 ) Quality: aching Location: substernal Severity of Pain-Max: moderate Severity of Pain-Current: moderate Modifying Factors: Worsens With: antacids, breathing, coughing, defecating, eating, exertion, lying down, morphine, movement, nitroglycerin, oxygen, palpation, rest, aspirin, sitting up Nitro Today/Relief: 0.4 mg x 1 (Pt states that she took 1SL NTG last night wo relief) Aspirin Treatment Today: no aspirin today Associated Symptoms: shortness of breath, No nausea, No vomiting, No abdominal pain, No heartburn, No diaphoresis, No cough, No chills, No chest pain, No fever, No headaches, No loss of appetite, No malaise, No rash, No syncope, No seizure, No weakness Prior Chest Pain/Cardiac Workup: cardiac cath Allergies/Adverse Reactions: No Known Drug Allergies Allergy (Verified 06/28/21 16:41) Home Medications: Amlodipine Besylate 2.5 mg PO DAILY 06/12/16 [History] Omeprazole 40 mg PO BID 11/29/17 [History] Albuterol Sulfate [Albuterol Sulfate Hfa] 2 puff IH Q4HPRN PRN 12/14/19 [History] Docusate Sodium [Dok] 100 mg PO BID 01/27/20 [History] Hx Tetanus, Diphtheria Vaccination/Date Given: Yes Hx Influenza Vaccination/Date Given: No Hx Pneumococcal Vaccination/Date Given: No Travel Risk - International Travel Have you traveled outside of the country in past 3 weeks: No - Coronavirus Screening Are you exhibiting any of the following symptoms?: No Close contact with a COVID-19 positive Pt in past 14-21 Days: No - Vaccine Status Have you recieved a Covid-19 vaccination: No - Review of Systems Constitutional: No Symptoms Eyes: No Symptoms Ears, Nose, & Throat: No Symptoms Respiratory: No Symptoms, Dyspnea Cardiac: No Symptoms, Chest Pain Abdominal/Gastrointestinal: No Symptoms Genitourinary Symptoms: No Symptoms Musculoskeletal: No Symptoms Skin: No Symptoms Neurological: No Symptoms Psychological: No Symptoms Endocrine: No Symptoms Hematologic/Lymphatic: No Symptoms Immunological/Allergic: No Symptoms - Past Medical History Pertinent Past Medical History: Yes Neurological History: No Pertinent History ENT History: No Pertinent History Cardiac History: Angina, Hypertension Respiratory History: COPD Endocrine Medical History: Hypothyroidism Musculoskeletal History: Arthritis, Osteoporosis GI Medical History: GERD History: No Pertinent History Psycho-Social History: Anxiety, Depression Female Reproductive Disorders: No Pertinent History Other Medical History: Non-Hodjkins lymphoma in remission. restless legs - Past Surgical History Past Surgical History: Yes Neuro Surgical History: No Pertinent History Cardiac: No Pertinent History, Cardiac Catheterization Respiratory: No Pertinent History Gastrointestinal: Cholecystectomy Genitourinary: No Pertinent History Musculoskeletal: No Pertinent History Female Surgical History: Hysterectomy, Tubal Ligation Other Surgical History: cvl port placed and removed. heart cath no stents placed 2020 - Social History Smoking Status: Never smoker Exposure to second hand smoke: Yes Drug Use: none Patient Lives Alone: Yes Significant Family History: no pertinent family hx - Nursing Vital Signs Nursing Vital Signs: Initial Vital Signs Temperature 98.4 F 06/28/21 11:15 Pulse Rate 85 06/28/21 11:15 Respiratory Rate 32 H 06/28/21 11:15 Blood Pressure 138/94 06/28/21 11:15 O2 Sat by Pulse Oximetry 99 06/28/21 11:15 Pain Scale Pain Intensity 8 - Physical Exam General Appearance: no apparent distress, anxiety Eye Exam: PERRL/EOMI, eyes nml inspection Ears, Nose, Throat Exam: normal ENT inspection, TMs normal, pharynx normal, moist mucous membranes Neck Exam: normal inspection, non-tender, supple, full range of motion, No meningismus, No mass, No Brudzinski, No Kernig's Respiratory Exam: normal breath sounds, lungs clear, airway intact Cardiovascular Exam: regular rate/rhythm, normal heart sounds, capillary refill <2 sec, No murmur Gastrointestinal/Abdomen Exam: soft, normal bowel sounds, No tenderness Back Exam: normal inspection, normal range of motion, No CVA tenderness, No vertebral tenderness Extremity Exam: normal inspection, normal range of motion Neurologic Exam: alert, oriented x 3, cooperative, document management analyst II-XII nml as tested, normal mood/affect, nml cerebellar function, nml station & gait, sensation nml, No motor deficits, No sensory deficit Skin Exam: normal color, warm, dry Lymphatic Exam: No adenopathy SpO2 Interpretation: normal SpO2: 98 O2 Delivery: Room Air - Course Nursing assessment & vital signs reviewed: Yes EKG Interpreted by Me: RATE (NSR/R90/Prolonged QTc/Tall R wave V2No acute ST segment changes/Tall Rwave V2) - Radiology Exams Chest X-ray Interpretation: Discussed w/ radiologist (NAD per Rad) Ordered Tests: Active Orders 24 hr Category Date Time Status EKG-ER Only STAT Care 06/28/21 11:10 Completed Heart-Healthy Diet Diet 06/28/21 Dinner Completed CHEST 1 VIEW (PORTABLE) Stat Exams 06/28/21 11:18 Completed CBC W DIFF Stat Lab 06/28/21 11:17 Completed CMP Stat Lab 06/28/21 11:17 Completed LIPID PROFILE AM.LAB Lab 06/29/21 04:00 Ordered PROTIME WITH INR Stat Lab 06/28/21 11:17 Completed PTT Stat Lab 06/28/21 11:17 Completed TROPONIN Q3H Lab 06/28/21 11:17 Completed TROPONIN Q3H Lab 06/28/21 13:45 Completed TROPONIN Q3H Lab 06/28/21 17:25 Completed TROPONIN Q3H Lab 06/28/21 19:50 Completed TROPONIN Q3H Lab 06/28/21 23:00 Received Transfer Order Routine Transfer 06/28/21 Completed Medication Summary Generic Name Dose Route Start Last Admin Trade Name Freq PRN Reason Stop Dose Admin Acetaminophen 650 mg 06/28/21 14:46 Acetaminophen 325 Mg Tablet PO 07/28/21 14:45 Q4H PRN PRN PAIN AND/OR FEVER Al Hydrox/Mg Hydrox/Simethicone 30 ml 06/28/21 14:46 Mag Hydrox/Al Hydrox/Simeth 30 Ml Udcup PO 07/28/21 14:45 Q4H PRN PRN INDIGESTION Amitriptyline HCl 50 mg 06/28/21 22:00 06/28/21 22:37 Amitriptyline Hcl 50 Mg Tablet PO 07/28/21 21:59 50 mg HS JACOB Administration Amlodipine Besylate 2.5 mg 06/29/21 10:00 Amlodipine Besylate 5 Mg Tablet PO 07/29/21 09:59 DAILY JACOB Aspirin 325 mg 06/29/21 10:00 Aspirin 325 Mg Tablet.Ec PO 07/29/21 09:59 DAILY JACOB Docusate Sodium 100 mg 06/28/21 22:00 06/28/21 22:37 Docusate Sodium 100 Mg Capsule PO 07/28/21 21:59 100 mg BID JACOB Administration Enoxaparin Sodium 40 mg 06/28/21 17:00 06/28/21 17:02 Enoxaparin Sodium 40 Mg/0.4 Ml Syringe SQ 07/28/21 16:59 40 mg DAILY JACOB Administration Magnesium Hydroxide 30 - 60 ml 06/28/21 14:46 Magnesium Hydroxide 30 Ml Udcup PO 07/28/21 14:45 QDP PRN CONSTIPATION Morphine Sulfate 2 mg 06/28/21 14:46 Morphine Sulfate 2 Mg/Ml Inj IV 07/03/21 14:45 .Q15MIN PRN PRN CHEST PAIN Nitroglycerin 1 gm 06/28/21 17:00 06/28/21 22:37 Nitroglycerin 1 Gm Packet TOP 07/28/21 16:59 1 gm Q8HT JACOB Administration Nitroglycerin 0.4 mg 06/28/21 17:14 Nitroglycerin 0.4 Mg Tablet Bottle SL 07/28/21 17:13 Q5MIN PRN MR X 3 PRN CHEST PAIN Ondansetron HCl 4 mg 06/28/21 14:46 Ondansetron Hcl 4 Mg/2 Ml Vial IV 07/28/21 14:45 Q4H PRN PRN NAUSEA/VOMITING Pantoprazole Sodium 40 mg 06/28/21 22:00 06/28/21 22:37 Protonix (Pantoprazole) 40 Mg Tablet PO 07/28/21 21:59 40 mg BID JACOB Administration Senna/Docusate Sodium 2 udtab 06/28/21 14:46 Senna/Docusate Sodium 1 Udtab Tablet PO 07/28/21 14:45 BID PRN PRN CONSTIPATION Discontinued Medications Generic Name Dose Route Start Last Admin Trade Name Freq PRN Reason Stop Dose Admin Albuterol Sulfate 2 puff 06/28/21 17:18 Albuterol Common Canister Inhaler IH 07/28/21 17:17 Q4HPRN PRN SHORTNESS OF BREATH Aspirin 324 mg 06/28/21 11:34 06/28/21 11:35 Aspirin 81 Mg Tab.Chew PO 06/28/21 11:35 324 mg STAT ONE Administration Aspirin Confirm 06/28/21 11:34 Aspirin 81 Mg Tab.Chew Administered 06/28/21 11:35 Dose 324 mg .ROUTE .STK-MED ONE Lorazepam 1 mg 06/28/21 11:06 06/28/21 11:15 Lorazepam 2 Mg/1 Ml 2 Mg Vial IV 06/28/21 11:07 1 mg STAT ONE Administration Lorazepam Confirm 06/28/21 11:08 Lorazepam 2 Mg/1 Ml 2 Mg Vial Administered 06/28/21 11:09 Dose 2 mg .ROUTE .STK-MED ONE Morphine Sulfate 2 mg 06/28/21 12:48 06/28/21 13:06 Morphine Sulfate 2 Mg/Ml Inj IV 06/28/21 12:49 2 mg STAT ONE Administration Morphine Sulfate Confirm 06/28/21 13:05 Morphine Sulfate 2 Mg/Ml Inj Administered 06/28/21 13:06 Dose 2 mg .ROUTE .STK-MED ONE Morphine Sulfate 4 mg 06/28/21 14:38 06/28/21 14:43 Morphine Sulfate 4 Mg/Ml Injection IV 06/28/21 14:39 4 mg STAT ONE Administration Morphine Sulfate Confirm 06/28/21 14:42 Morphine Sulfate 4 Mg/Ml Injection Administered 06/28/21 14:43 Dose 4 mg .ROUTE .STK-MED ONE Nitroglycerin 0.4 mg 06/28/21 11:36 06/28/21 11:36 Nitroglycerin 0.4 Mg Tablet Bottle SL 06/28/21 11:37 0.4 mg STAT ONE Administration Nitroglycerin Confirm 06/28/21 11:36 Nitroglycerin 0.4 Mg (Ed) 0.4 Mg Tab.Subl Administered 06/28/21 11:37 Dose 0.4 mg SL .STK-MED ONE Ondansetron HCl 4 mg 06/28/21 12:48 06/28/21 13:06 Ondansetron Hcl 4 Mg/2 Ml Vial IV 06/28/21 12:49 4 mg STAT ONE Administration Ondansetron HCl Confirm 06/28/21 13:05 Ondansetron Hcl 4 Mg/2 Ml Vial Administered 06/28/21 13:06 Dose 4 mg .ROUTE .STK-MED ONE Pantoprazole Sodium 40 mg 06/28/21 15:00 06/28/21 15:12 Pantoprazole 40 Mg Vial IV 07/28/21 14:59 40 mg Q24H JACOB Administration Lab/Rad Data: Laboratory Result Diagrams 06/28/21 11:17 06/28/21 11:17 Laboratory Results 06/28/21 06/28/21 06/28/21 Range/Units 14:55 13:45 11:17 WBC (4.0-10.5) K/mm3 RBC (4.1-5.4) M/mm3 Hgb (12.0-16.0) gm/dl Hct (35-47) % MCV (78-100) fl MCH (26-32) pg MCHC (32-36) g/dl RDW (11.5-14.0) % Plt Count (150-450) K/mm3 MPV (7.5-11.0) fl Gran % (36.0-66.0) % Eos # (Auto) (0-0.5) Absolute Lymphs (auto) (1.0-4.6) Absolute Monos (auto) (0.0-1.3) Lymphocytes % (24.0-44.0) % Monocytes % (0.0-12.0) % Eosinophils % (0.00-5.0) % Basophils % (0.0-0.4) % Absolute Granulocytes (1.4-6.9) Basophils # (0-0.4) PT (9.4-12.5) SECONDS INR (0.8-3.0) APTT (25.1-36.5) SECONDS Sodium (137-145) mmol/L Potassium (3.5-5.1) mmol/L Chloride (98-107) mmol/L Carbon Dioxide (22-30) mmol/L Anion Gap (5-15) MEQ/L BUN (7-17) mg/dL Creatinine (0.52-1.04) mg/dL Estimated GFR ML/MIN Glucose (74-106) mg/dL Calcium (8.4-10.2) mg/dL Total Bilirubin (0.2-1.3) mg/dL AST (14-36) U/L ALT (0-35) U/L Alkaline Phosphatase (38-126) U/L Troponin I < 0.012 < 0.012 (0.000-0.034) ng/mL Serum Total Protein (6.3-8.2) g/dL Albumin (3.5-5.0) g/dL Influenza Type A Ag NEGATIVE (NEGATIVE) Influenza Type B Ag NEGATIVE (NEGATIVE) RSV (PCR) NEGATIVE (Negative) SARS-CoV-2 (PCR) NEGATIVE (NEGATIVE) 06/28/21 06/28/21 06/28/21 Range/Units 11:17 11:17 11:17 WBC 8.0 (4.0-10.5) K/mm3 RBC 4.12 (4.1-5.4) M/mm3 Hgb 13.1 (12.0-16.0) gm/dl Hct 39.4 (35-47) % MCV 95.6 (78-100) fl MCH 31.8 (26-32) pg MCHC 33.2 (32-36) g/dl RDW 12.9 (11.5-14.0) % Plt Count 243 (150-450) K/mm3 MPV 11.3 H (7.5-11.0) fl Gran % 63.9 (36.0-66.0) % Eos # (Auto) 0.09 (0-0.5) Absolute Lymphs (auto) 2.25 (1.0-4.6) Absolute Monos (auto) 0.52 (0.0-1.3) Lymphocytes % 28.2 (24.0-44.0) % Monocytes % 6.5 (0.0-12.0) % Eosinophils % 1.1 (0.00-5.0) % Basophils % 0.3 (0.0-0.4) % Absolute Granulocytes 5.09 (1.4-6.9) Basophils # 0.02 (0-0.4) PT 11.9 (9.4-12.5) SECONDS INR 1.01 (0.8-3.0) APTT 30.5 (25.1-36.5) SECONDS Sodium 141 (137-145) mmol/L Potassium 3.9 (3.5-5.1) mmol/L Chloride 107 (98-107) mmol/L Carbon Dioxide 23 (22-30) mmol/L Anion Gap 15.4 H (5-15) MEQ/L BUN 20 H (7-17) mg/dL Creatinine 0.71 (0.52-1.04) mg/dL Estimated GFR > 60.0 ML/MIN Glucose 97 (74-106) mg/dL Calcium 9.7 (8.4-10.2) mg/dL Total Bilirubin 0.90 (0.2-1.3) mg/dL AST 33 (14-36) U/L ALT 11 (0-35) U/L Alkaline Phosphatase 105 (38-126) U/L Troponin I (0.000-0.034) ng/mL Serum Total Protein 7.4 (6.3-8.2) g/dL Albumin 4.3 (3.5-5.0) g/dL Influenza Type A Ag (NEGATIVE) Influenza Type B Ag (NEGATIVE) RSV (PCR) (Negative) SARS-CoV-2 (PCR) (NEGATIVE) - Progress Air Movement: good Progress Note: 06/28/21 13:11 1mg IV Ativan for anxiety 324 ASA po SL NTG wo relief of pain 06/28/21 14:[address] P[place]agua 06/28/21 14:43 2mg IV Morphine/4mg IV Zofran wo relief 4mg IV Morphine Discussed with : Lu Counseled pt/family regarding: lab results, diagnosis, need for follow-up, rad results - Departure Departure Disposition: Observation Clinical Impression: Chest pain Condition: Stable Critical Care Time: No
[2021-06-28] MEDS ORDERED: Zofran 4 MG/2 ML VIAL ONE (13:05)
[2021-06-28] MEDS ORDERED: MORPHINE SULFATE 2 MG INJ ONE (13:05)
[2021-06-28] MEDS ORDERED: MORPHINE SULFATE 4 MG INJ IV ONE (14:38)
[2021-06-28] MEDS ORDERED: MORPHINE SULFATE 4 MG INJ ONE (14:42)
[2021-06-28] MEDS ORDERED: MILK OF MAGNESIA 30 ML PO PRN (14:46)
[2021-06-28] MEDS ORDERED: Senokot-S Tablet PO PRN (14:46)
[2021-06-28] MEDS ORDERED: TYLENOL 325 MG PO PRN (14:46)
[2021-06-28] MEDS ORDERED: MAALOX ES 30 ML UNIT DOSE PO PRN (14:46)
[2021-06-28] MEDS ORDERED: Zofran 4 MG/2 ML VIAL IV PRN (14:46)
[2021-06-28] MEDS ORDERED: MORPHINE SULFATE 2 MG INJ IV PRN (14:46)
[2021-06-28] MEDS ORDERED: PROTONIX 40 MG IV IV SCH (15:00)
[2021-06-28 15:34] LABS: INFLUENZA A NEGATIVE (NEGATIVE); INFLUENZA B NEGATIVE (NEGATIVE); RESPIRATORY SYNCTIAL VIRUS NEGATIVE (Negative); SARS-CoV-2 Xpert Express NEGATIVE (NEGATIVE)
[2021-06-28] MEDS: NITRO-BID 2% UD PACKETS TOP SCH ×2 (17:02→22:37)
[2021-06-28] MEDS: ENOXAPARIN SODIUM SQ SCH (17:02)
[2021-06-28] MEDS ORDERED: Nitrostat 0.4 MG Tablet SL PRN (17:14)
[2021-06-28] MEDS ORDERED: Ventolin Hfa MDI IH PRN (17:14)
[2021-06-28] MEDS ORDERED: VENTOLIN COMMON CANISTER IH PRN (17:18)
[2021-06-28] MEDS ORDERED: NON-FORMULARY ITEM (Omeprazole [Omeprazole] 40 MG Capsule.Dr) PO SCH (22:00)
[2021-06-28] MEDS ORDERED: DOCUSATE SODIUM 100 MG PO SCH (22:00)
[2021-06-28] MEDS: Docusate Sodium 100 MG PO SCH (22:37)
[2021-06-28] MEDS: Protonix 40MG Tablet PO SCH (22:37)
[2021-06-29 05:38] LABS: Risk Ratio 4.2
[2021-06-29] MEDS: NITRO-BID 2% UD PACKETS TOP SCH (05:53)
[2021-06-29] MEDS ORDERED: NON-FORMULARY ITEM (Amlodipine Besylate [Amlodipine Besylate] 2.5 MG Tablet) PO SCH (10:00)
[2021-06-29] MEDS ORDERED: Ecotrin 325 MG PO SCH (10:00)
[2021-06-29] MEDS ORDERED: NORVASC 5 MG PO SCH (10:00)
[2021-06-29] MEDS: Docusate Sodium 100 MG PO SCH (10:28)
[2021-06-29] MEDS: ENOXAPARIN SODIUM SQ SCH (10:28)
[2021-06-29] MEDS: Protonix 40MG Tablet PO SCH (10:28)
[2021-06-29 12:14] VITALS: O2SAT 95
[2021-06-29 12:18] VITALS: BP 90/51; PULSE 83
--- NOTE | 2021-06-29 15:55 | PCM.SSS ---
History of Present Illness - Chief Complaint Chief Complaint: c/o chest pain for 3 hours History of Present Illness: is a 76 year old female.developed Mid-sternal chest pain w radiation to the R infra-mammilary area. Pain described as an ache and 5/10 upon ER arrival. Pt states that she was dyspneic wo N/V/diaphoresis. Cough/fever were denied. She has HTN and has had a cath in the past wo stent placement. DM/Hyperlipidemia/Tobacco use all denied. - Review of Systems Constitutional: No Fever, No Chills Eyes: No Symptoms Ears, Nose, & Throat: No Symptoms Respiratory: No Cough, No Short Of Breath Cardiac: Chest Pain, No Edema, No Syncope Abdominal/Gastrointestinal: No Abdominal Pain, No Nausea, No Vomiting, No Diarrhea Genitourinary Symptoms: No Dysuria Musculoskeletal: No Back Pain, No Neck Pain Skin: No Rash Neurological: No Dizziness, No Focal Weakness, No Sensory Changes Psychological: No Symptoms Endocrine: No Symptoms Hematologic/Lymphatic: No Symptoms Immunological/Allergic: No Symptoms Medications & Allergies Home Medications: Home Medication List Amlodipine Besylate 2.5 mg PO DAILY 06/12/16 [History Confirmed 06/28/21] Omeprazole 40 mg PO BID 11/29/17 [History Confirmed 06/28/21] Albuterol Sulfate [Albuterol Sulfate Hfa] 2 puff IH Q4HPRN PRN 12/14/19 [History Confirmed 06/28/21] Docusate Sodium [Dok] 100 mg PO BID 01/27/20 [History Confirmed 06/28/21] AMITRIPTYLINE HCL 50 mg Tab [AMITRIPTYLINE HCL 50 mg Tablet] 50 mg PO HS 30 Days #30 tablet 05/12/21 [Rx Confirmed 06/28/21] Nitroglycerin 0.4 mg Tablet [Nitrostat 0.4 MG Tablet] 0.4 mg SL Q5MIN PRN MR X 3 PRN 30 Days #30 05/12/21 [Rx Confirmed 06/28/21] Allergies/Adverse Reactions: Allergies Allergy/AdvReac Type Severity Reaction Status Date / Time No Known Drug Allergies Allergy Verified 06/28/21 16:41 - Past Medical History Past Medical History: Yes Neurological History: No Pertinent History ENT History: No Pertinent History Cardiac History: Angina, Hypertension Respiratory History: COPD Endocrine Medical History: Hypothyroidism Musculoskelatal History: Arthritis, Osteoporosis GI Medical History: GERD History: No Pertinent History Pyscho-Social History: Anxiety, Depression Reproductive Disorders: No Pertinent History Comment: Non-Hodjkins lymphoma in remission. restless legs - Past Surgical History Past Surgical History: Yes Neuro Surgical History: No Pertinent History Cardiac History: No Pertinent History, Cardiac Catheterization Respiratory Surgery: No Pertinent History GI Surgical History: Cholecystectomy Genitourinary Surgical Hx: No Pertinent History Musculskeletal Surgical Hx: No Pertinent History Female Surgical History: Hysterectomy, Tubal Ligation Other Surgical History: cvl port placed and removed. heart cath no stents placed 2020 - Social History Smoking Status: Never smoker Exposure to second hand smoke: Yes Alcohol: None, Daily Drug Use: none Significant Family History: no pertinent family hx - Physical Exam Vital Signs: Vital Signs - 24 hr Temp Pulse Resp BP Pulse Ox 06/29/21 12:17 98.5 F 83 16 90/51 95 06/29/21 11:00 95 06/29/21 10:00 76 18 94/52 06/29/21 07:53 98.6 F 60 16 100/61 97 06/29/21 07:25 97 06/29/21 05:40 97 06/29/21 04:00 97.8 F 72 16 89/54 98 06/29/21 02:00 96 06/28/21 23:40 97.4 F 84 22 88/54 97 06/28/21 23:32 98 06/28/21 22:00 97 06/28/21 19:42 98.0 F 71 18 88/55 98 06/28/21 18:20 96 06/28/21 16:19 97.9 F 76 16 99/60 98 General Appearance: no apparent distress, alert Neurologic Exam: alert, oriented x 3, cooperative, normal mood/affect, nml cerebellar function, nml station & gait, sensation nml, No motor deficits Eye Exam: PERRL/EOMI, eyes nml inspection Ears, Nose, Throat Exam: normal ENT inspection, TMs normal, pharynx normal, moist mucous membranes Neck Exam: normal inspection, non-tender, supple, full range of motion Respiratory Exam: normal breath sounds, lungs clear, No respiratory distress Cardiovascular Exam: regular rate/rhythm, normal heart sounds, normal peripheral pulses Gastrointestinal/Abdomen Exam: soft, normal bowel sounds, No tenderness, No mass Back Exam: normal inspection, normal range of motion, No CVA tenderness, No vertebral tenderness Extremity Exam: normal inspection, normal range of motion, pelvis stable Skin Exam: normal color, warm, dry, No rash Lymphatic Exam: No adenopathy Results - Labs Lab/Micro Results: Lab Results-Last 24 Hours 06/28/21 06/28/21 06/28/21 Range/Units 17:25 19:50 23:00 Troponin I < 0.012 < 0.012 < 0.012 (0.000-0.034) ng/mL Triglycerides (30-150) mg/dL Cholesterol (50-200) mg/dL LDL Cholesterol (30-100) mg/dL HDL Cholesterol (40-60) mg/dL Heart Disease Risk Ratio 06/29/21 Range/Units 04:35 Troponin I (0.000-0.034) ng/mL Triglycerides 169 H (30-150) mg/dL Cholesterol 145 (50-200) mg/dL LDL Cholesterol 73 (30-100) mg/dL HDL Cholesterol 35 L (40-60) mg/dL Heart Disease Risk Ratio 4.2 - Radiology Impressions Radiology Exams & Impressions: Radiology Procedures Category Date Time Status CHEST 1 VIEW (PORTABLE) Stat Exams 06/28/21 11:18 Completed Assessment/Plan (1) Chest pain Status: Acute Qualifiers: Chest pain type: other chest pain Qualified Code(s): R07.89 - Other chest pain; R07.8 - Other chest pain Code(s): R07.9 - CHEST PAIN, UNSPECIFIED Hospital Summary - Hospital Course Hospital Course: Chief Complaint Diagnosis Cp r/o Allergies Allergy/AdvReac Type Severity Reaction Status Date / Time No Known Drug Allergies Allergy Verified 06/28/21 16:41 Vital Signs (Last 24 hours) Temp Pulse Resp BP Pulse Ox 06/29/21 12:17 98.5 F 83 16 90/51 95 06/29/21 11:00 95 06/29/21 10:00 76 18 94/52 06/29/21 07:53 98.6 F 60 16 100/61 97 06/29/21 07:25 97 06/29/21 05:40 97 06/29/21 04:00 97.8 F 72 16 89/54 98 06/29/21 02:00 96 06/28/21 23:40 97.4 F 84 22 88/54 97 06/28/21 23:32 98 06/28/21 22:00 97 06/28/21 19:42 98.0 F 71 18 88/55 98 06/28/21 18:20 96 06/28/21 16:19 97.9 F 76 16 99/60 98 Current Medications Discontinued Medications Generic Name Dose Route Start Last Admin Trade Name Freq PRN Reason Stop Dose Admin Acetaminophen 650 mg 06/28/21 14:46 06/29/21 10:35 Acetaminophen 325 Mg Tablet PO 07/28/21 14:45 650 mg Q4H PRN PRN Administration PAIN AND/OR FEVER Al Hydrox/Mg Hydrox/Simethicone 30 ml 06/28/21 14:46 Mag Hydrox/Al Hydrox/Simeth 30 Ml Udcup PO 07/28/21 14:45 Q4H PRN PRN INDIGESTION Albuterol Sulfate 2 puff 06/28/21 17:18 Albuterol Common Canister Inhaler IH 07/28/21 17:17 Q4HPRN PRN SHORTNESS OF BREATH Amitriptyline HCl 50 mg 06/28/21 22:00 06/28/21 22:37 Amitriptyline Hcl 50 Mg Tablet PO 07/28/21 21:59 50 mg HS JACOB Administration Amlodipine Besylate 2.5 mg 06/29/21 10:00 06/29/21 10:29 Amlodipine Besylate 5 Mg Tablet PO 07/29/21 09:59 Not Given DAILY JACOB Aspirin 324 mg 06/28/21 11:34 06/28/21 11:35 Aspirin 81 Mg Tab.Chew PO 06/28/21 11:35 324 mg STAT ONE Administration Aspirin Confirm 06/28/21 11:34 Aspirin 81 Mg Tab.Chew Administered 06/28/21 11:35 Dose 324 mg .ROUTE .STK-MED ONE Aspirin 325 mg 06/29/21 10:00 06/29/21 10:28 Aspirin 325 Mg Tablet.Ec PO 07/29/21 09:59 325 mg DAILY JACOB Administration Docusate Sodium 100 mg 06/28/21 22:00 06/29/21 10:28 Docusate Sodium 100 Mg Capsule PO 07/28/21 21:59 100 mg BID JACOB Administration Enoxaparin Sodium 40 mg 06/28/21 17:00 06/29/21 10:28 Enoxaparin Sodium 40 Mg/0.4 Ml Syringe SQ 07/28/21 16:59 40 mg DAILY JACOB Administration Lorazepam 1 mg 06/28/21 11:06 06/28/21 11:15 Lorazepam 2 Mg/1 Ml 2 Mg Vial IV 06/28/21 11:07 1 mg STAT ONE Administration Lorazepam Confirm 06/28/21 11:08 Lorazepam 2 Mg/1 Ml 2 Mg Vial Administered 06/28/21 11:09 Dose 2 mg .ROUTE .STK-MED ONE Magnesium Hydroxide 30 - 60 ml 06/28/21 14:46 Magnesium Hydroxide 30 Ml Udcup PO 07/28/21 14:45 QDP PRN CONSTIPATION Morphine Sulfate 2 mg 06/28/21 12:48 06/28/21 13:06 Morphine Sulfate 2 Mg/Ml Inj IV 06/28/21 12:49 2 mg STAT ONE Administration Morphine Sulfate Confirm 06/28/21 13:05 Morphine Sulfate 2 Mg/Ml Inj Administered 06/28/21 13:06 Dose 2 mg .ROUTE .STK-MED ONE Morphine Sulfate 4 mg 06/28/21 14:38 06/28/21 14:43 Morphine Sulfate 4 Mg/Ml Injection IV 06/28/21 14:39 4 mg STAT ONE Administration Morphine Sulfate Confirm 06/28/21 14:42 Morphine Sulfate 4 Mg/Ml Injection Administered 06/28/21 14:43 Dose 4 mg .ROUTE .STK-MED ONE Morphine Sulfate 2 mg 06/28/21 14:46 Morphine Sulfate 2 Mg/Ml Inj IV 07/03/21 14:45 .Q15MIN PRN PRN CHEST PAIN Nitroglycerin 0.4 mg 06/28/21 11:36 06/28/21 11:36 Nitroglycerin 0.4 Mg Tablet Bottle SL 06/28/21 11:37 0.4 mg STAT ONE Administration Nitroglycerin Confirm 06/28/21 11:36 Nitroglycerin 0.4 Mg (Ed) 0.4 Mg Tab.Subl Administered 06/28/21 11:37 Dose 0.4 mg SL .STK-MED ONE Nitroglycerin 1 gm 06/28/21 17:00 06/29/21 05:53 Nitroglycerin 1 Gm Packet TOP 07/28/21 16:59 1 gm Q8HT JACOB Administration Nitroglycerin 0.4 mg 06/28/21 17:14 Nitroglycerin 0.4 Mg Tablet Bottle SL 07/28/21 17:13 Q5MIN PRN MR X 3 PRN CHEST PAIN Ondansetron HCl 4 mg 06/28/21 12:48 06/28/21 13:06 Ondansetron Hcl 4 Mg/2 Ml Vial IV 06/28/21 12:49 4 mg STAT ONE Administration Ondansetron HCl Confirm 06/28/21 13:05 Ondansetron Hcl 4 Mg/2 Ml Vial Administered 06/28/21 13:06 Dose 4 mg .ROUTE .STK-MED ONE Ondansetron HCl 4 mg 06/28/21 14:46 Ondansetron Hcl 4 Mg/2 Ml Vial IV 07/28/21 14:45 Q4H PRN PRN NAUSEA/VOMITING Pantoprazole Sodium 40 mg 06/28/21 15:00 06/28/21 15:12 Pantoprazole 40 Mg Vial IV 07/28/21 14:59 40 mg Q24H JACOB Administration Pantoprazole Sodium 40 mg 06/28/21 22:00 06/29/21 10:28 Protonix (Pantoprazole) 40 Mg Tablet PO 07/28/21 21:59 40 mg BID JACOB Administration Senna/Docusate Sodium 2 udtab 06/28/21 14:46 Senna/Docusate Sodium 1 Udtab Tablet PO 07/28/21 14:45 BID PRN PRN CONSTIPATION Intake & Output (Last 24 hours) 06/27/21 06/28/21 06/29/21 06/30/21 11:59 11:59 11:59 11:59 Intake Total 800 240 Balance 800 240 Weight 63.503 kg 67.3 kg Laboratory Results (Last 24 hours) 06/29/21 06/28/21 06/28/21 04:35 23:00 19:50 Troponin I < 0.012 < 0.012 Triglycerides 169 H Cholesterol 145 LDL Cholesterol 73 HDL Cholesterol 35 L Heart Disease Risk Ratio 4.2 06/28/21 17:25 Troponin I < 0.012 Triglycerides Cholesterol LDL Cholesterol HDL Cholesterol Heart Disease Risk Ratio Orders (Last 24 hours) Category Date Time Status Heart-Healthy Diet Diet 06/28/21 Dinner Completed House Regular Diet Diet 06/28/21 Dinner Completed Discharge Routine Discharge 06/29/21 Ordered COVID/FLU/RSV Panel Stat Lab 06/28/21 14:55 Completed LIPID PROFILE AM.LAB Lab 06/29/21 04:35 Completed TROPONIN Q3H Lab 06/28/21 17:25 Completed TROPONIN Q3H Lab 06/28/21 19:50 Completed TROPONIN Q3H Lab 06/28/21 23:00 Completed AMITRIPTYLINE HCL 50 mg Tab [AMITRIPTYLINE HCL 50 mg Med 06/28/21 22:00 Discontinued Tablet] 50 mg PO HS Albuterol Common Canister [Ventolin Common Canister* Med 06/28/21 17:18 Discontinued ] 2 puff IH Q4HPRN PRN Amlodipine Besylate 5 mg [Norvasc 5 mg] Med 06/29/21 10:00 Discontinued 2.5 mg PO DAILY Aspirin EC 325 mg [Ecotrin 325 MG] Med 06/29/21 10:00 Discontinued 325 mg PO DAILY Docusate Sodium 100 mg [Docusate Sodium 100 MG] Med 06/28/21 22:00 Discontinued 100 mg PO BID Enoxaparin Sodium [Enoxaparin Sodium] Med 06/28/21 17:00 Discontinued 40 mg SQ DAILY Nitroglycerin 0.4 mg Tablet [Nitrostat 0.4 MG Tablet Med 06/28/21 17:14 Discontinued ] 0.4 mg SL Q5MIN PRN MR X 3 PRN Nitroglycerin 2 %Ointment [Nitro-Bid 2% Ud Packets Med 06/28/21 17:00 Discontinued *] 1 gm TOP Q8HT PANTOPRAZOLE 40 mg Tablet [Protonix 40MG Tablet] Med 06/28/21 22:00 Discontinued 40 mg PO BID Pantoprazole 40 mg [Protonix 40 mg IV] Med 06/28/21 15:00 Discontinued 40 mg IV Q24H EKG ONCE RT 06/28/21 19:00 Completed EKG ONCE RT 06/29/21 05:00 Completed EKG ONCE RT 06/30/21 05:00 Completed EKG ONCE RT 07/01/21 05:00 Completed Oxygen NASAL CANNULA 2 lpm RT 06/28/21 16:35 Completed Patient Care Notes (Last 24 hours) 06/29/21 14:07 Discharge Note by Faiza Abarca Discharge instructions, summary of care, home meds reviewed with pt and verbalized understanding/teach back done. Pt escorted to car and left in care of daughter. Outpatient MRI rescheduled for July 10 at 1500. Initialized on 06/29/21 14:07 - END OF NOTE 06/29/21 10:00 (created 06/29/21 11:44) Nursing Note by Faiza Abarca BP 94/52. No c/o dizziness, chest pain, or SOB. Norvasc held at this time. Initialized on 06/29/21 11:44 - END OF NOTE - Vitals & Intake/Output Vital Signs: Vital Signs Temperature 98.5 F 06/29/21 12:17 Pulse Rate 83 06/29/21 12:17 Respiratory Rate 16 06/29/21 12:17 Blood Pressure 90/51 06/29/21 12:17 O2 Sat by Pulse Oximetry 95 06/29/21 12:17 Intake & Output: Intake & Output 06/27/21 06/28/21 06/29/21 06/30/21 11:59 11:59 11:59 11:59 Intake Total 800 240 Balance 800 240 Weight 63.503 kg 67.3 kg - Lab Result Diagrams: 06/28/21 11:17 06/28/21 11:17 Lab Results-Last 24 Hrs: Lab Results-Last 24 Hours 06/28/21 06/28/21 06/28/21 Range/Units 17:25 19:50 23:00 Troponin I < 0.012 < 0.012 < 0.012 (0.000-0.034) ng/mL Triglycerides (30-150) mg/dL Cholesterol (50-200) mg/dL LDL Cholesterol (30-100) mg/dL HDL Cholesterol (40-60) mg/dL Heart Disease Risk Ratio 06/29/21 Range/Units 04:35 Troponin I (0.000-0.034) ng/mL Triglycerides 169 H (30-150) mg/dL Cholesterol 145 (50-200) mg/dL LDL Cholesterol 73 (30-100) mg/dL HDL Cholesterol 35 L (40-60) mg/dL Heart Disease Risk Ratio 4.2 - Radiology Exams Ordered Rad Exams-Entire Visit: Radiology Procedures Category Date Time Status CHEST 1 VIEW (PORTABLE) Stat Exams 06/28/21 11:18 Completed - Procedures and Test Procedures and Tests throughout Hospitalization: Therapy Orders & Screens 06/28/21 14:46 EKG Q8HX2,QAMX3,PRN Comment: 06/28/21 16:35 Oxygen NASAL CANNULA 2 lpm Comment: 06/28/21 19:00 EKG ONCE Comment: 06/29/21 05:00 EKG ONCE Comment: 06/30/21 05:00 EKG ONCE Comment: 07/01/21 05:00 EKG ONCE Comment: - Discharge Discharge Date: 06/29/21 Disposition: Home, Self-Care Condition: Stable Prescriptions: Continue Amlodipine Besylate 2.5 mg PO DAILY Omeprazole 40 mg PO BID Albuterol Sulfate [Albuterol Sulfate Hfa] 2 puff IH Q4HPRN PRN PRN Reason: Shortness Of Breath Docusate Sodium [Dok] 100 mg PO BID Nitroglycerin 0.4 mg Tablet [Nitrostat 0.4 MG Tablet] 0.4 mg SL Q5MIN PRN MR X 3 PRN 30 Days #30 PRN Reason: Chest Pain AMITRIPTYLINE HCL 50 mg Tab [AMITRIPTYLINE HCL 50 mg Tablet] 50 mg PO HS 30 Days #30 tablet Instructions: Chest Pain (DC) Additional Instructions: Outpatient MRI rescheduled for July 10 at 3pm. Follow up with: SRINI DAVID MD [Primary Care Provider] - 5 Days Forms: Discharge Instructions
== END 2021-06-29 13:50 | disposition home or self-care (01) ==
LOC: EDSTATUS 11:01 → ED 11:01 → MED SURG 16:18
PROVIDERS: ADMIT General Practice; ATTEND General Practice
DX: R07.9 Chest pain, unspecified (principal); I10 Essential (primary) hypertension; M25.571 Pain in right ankle and joints of right foot; Z79.899 Other long term (current) drug therapy; Z20.828 Contact with and (suspected) exposure to other viral communicable diseases
CPT/HCPCS: 0241U; 36415; 71045; 80053; 80061; 83721; 84484; 85025; 85610; 85730; 93005; 94760; 96374; 96375; 96376; 99285; 93268; J1650; J2060; J2270; J2405; A9270-GY; G0378

== ENCOUNTER 2023-02-14 17:28 | Emergency (ER) | payer MEDICARE ==
--- NOTE | 2023-02-14 17:53 | ERPHSYRPT ---
- History of Present Illness Historian: patient, family Exam Limitations: no limitations Timing/Duration: day(s) (4 to 5 days ago), worse Activities at Onset: none Pain Radiation: no radiation Severity of Pain-Max: none Severity of Pain-Current: none Modifying Factors: Improves With: vomiting Associated Symptoms: loss of appetite, nausea, shortness of breath, vomiting, weakness Previous symptoms: no prior history, no recent treatment Hx Tetanus, Diphtheria Vaccination/Date Given: Yes Hx Influenza Vaccination/Date Given: No Hx Pneumococcal Vaccination/Date Given: No <DEYA LEYVA - Last Filed: 02/14/23 18:49> <RUBEN MUNGUIA - Last Filed: 02/14/23 19:44> - History of Present Illness Time Seen by Provider: 02/14/23 17:52 Physician History: This is a 77-year-old white female patient of Dr. David. She is had complaints of diarrhea, loss of taste and smell, vomiting, cough and shortness of breath. She denies chest pain. The symptoms have been worsening per her report. Patient has had a cardiac catheterization in the year 2020 and no cardiac stents were placed. Patient has a history of gastroesophageal reflux disease, hypertension, COPD, chronic angina, arthritis, hypothyroidism and non- Hodgkin's lymphoma (patient in remission). (DEYA LEYVA) Allergies/Adverse Reactions: No Known Drug Allergies Allergy (Verified 06/28/21 16:41) Home Medications: Amlodipine Besylate 2.5 mg PO DAILY 06/12/16 [History] Omeprazole 40 mg PO BID 11/29/17 [History] Albuterol Sulfate [Albuterol Sulfate Hfa] 2 puff IH Q4HPRN PRN 12/14/19 [History] Docusate Sodium [Dok] 100 mg PO BID 01/27/20 [History] Travel Risk - International Travel Have you traveled outside of the country in past 3 weeks: No - Coronavirus Screening Are you exhibiting any of the following symptoms?: No Close contact with a COVID-19 positive Pt in past 14-21 Days: No - Vaccine Status Have you recieved a Covid-19 vaccination: No <DEYA LEYVA - Last Filed: 02/14/23 18:49> - Review of Systems Constitutional: Weakness Eyes: No Symptoms Ears, Nose, & Throat: No Symptoms Respiratory: Cough, Dyspnea Cardiac: No Symptoms Abdominal/Gastrointestinal: Nausea, Vomiting Genitourinary Symptoms: No Symptoms Musculoskeletal: Arthralgias, Myalgias <DEYA LEYVA - Last Filed: 02/14/23 18:49> - Past Medical History Pertinent Past Medical History: Yes Neurological History: No Pertinent History ENT History: No Pertinent History Cardiac History: Angina, Hypertension Respiratory History: COPD Endocrine Medical History: Hypothyroidism Musculoskeletal History: Arthritis, Osteoporosis GI Medical History: GERD History: No Pertinent History Psycho-Social History: Anxiety, Depression Female Reproductive Disorders: No Pertinent History Other Medical History: Non-Hodjkins lymphoma in remission. restless legs - Past Surgical History Past Surgical History: Yes Neuro Surgical History: No Pertinent History Cardiac: No Pertinent History, Cardiac Catheterization Respiratory: No Pertinent History Gastrointestinal: Cholecystectomy Genitourinary: No Pertinent History Musculoskeletal: No Pertinent History Female Surgical History: Hysterectomy, Tubal Ligation Other Surgical History: cvl port placed and removed. heart cath no stents placed 2020 - Social History Smoking Status: Never smoker Exposure to second hand smoke: Yes Drug Use: none Patient Lives Alone: Yes Significant Family History: no pertinent family hx <DEYA LEYVA - Last Filed: 02/14/23 18:49> - Nursing Vital Signs Nursing Vital Signs: Initial Vital Signs Pulse Rate 79 02/14/23 17:50 Respiratory Rate 17 02/14/23 17:50 Blood Pressure 143/101 02/14/23 17:50 O2 Sat by Pulse Oximetry 98 02/14/23 17:50 Pain Scale Pain Intensity 0 - Course Nursing assessment & vital signs reviewed: Yes EKG Interpreted by Me: RATE (80), LAFB, prolonged QT interval (Borderline), NO RMAL QRS, Other (No acute ischemic changes on today's twelve-lead EKG. I disagree with the ST elevation comment of the computer readout in the inferior leads.) <DEYA LEYVA - Last Filed: 02/14/23 18:49> - Radiology Exams Shoulder X-ray Interpretation: Interpreted by me, Negative Chest X-ray Interpretation: Interpreted by me, Negative <RUBEN MUNGUIA - Last Filed: 02/14/23 19:44> Ordered Tests: Active Orders 24 hr Category Date Time Status EKG-ER Only STAT Care 02/14/23 17:58 Active IV Insertion STAT Care 02/14/23 17:58 Active CHEST 1 VIEW (PORTABLE) Stat Exams 02/14/23 17:58 Taken SHOULDER Stat Exams 02/14/23 18:16 Taken AMYLASE Stat Lab 02/14/23 18:10 Completed CBC W DIFF Stat Lab 02/14/23 18:10 Completed CMP Stat Lab 02/14/23 18:10 Completed LIPASE Stat Lab 02/14/23 18:10 Completed Lactic Acid Stat Lab 02/14/23 18:12 Completed MONO SCREEN Stat Lab 02/14/23 18:10 Completed TROPONIN Q4H Lab 02/14/23 18:10 Completed TROPONIN Q4H Lab 02/14/23 22:00 Ordered TROPONIN Q4H Lab 02/15/23 02:00 Ordered UA W/RFX UR CULTURE Stat Lab 02/14/23 17:58 Ordered Medication Summary Generic Name Dose Route Start Last Admin Trade Name Freq PRN Reason Stop Dose Admin Sodium Chloride 1,000 mls @ 100 mls/hr 02/14/23 18:00 02/14/23 18:18 Sodium Chloride 0.9% 1000 Ml IV 03/16/23 17:59 100 mls/hr .Q10H JACOB Administration Discontinued Medications Generic Name Dose Route Start Last Admin Trade Name Freq PRN Reason Stop Dose Admin Al Hydrox/Mg Hydrox/Simethicone Confirm 02/14/23 18:57 Mag Hydrox/Al Hydrox/Simeth 30 Ml Udcup Administered 02/14/23 18:58 Dose 30 ml .ROUTE .STK-MED ONE Lidocaine HCl Confirm 02/14/23 18:57 Lidocaine Hcl 2% Viscous 15 Ml Udcup Administered 02/14/23 18:58 Dose 15 ml .ROUTE .STK-MED ONE Magnesium Hydroxide 45 ml 02/14/23 18:52 02/14/23 19:01 Mag Hydrx/Alum Hyd/Simeth/Lido 45 Ml Bottle PO 02/14/23 18:53 45 ml STAT ONE Administration Ondansetron HCl 4 mg 02/14/23 17:58 02/14/23 18:17 Ondansetron Hcl 4 Mg/2 Ml Vial IV 02/14/23 17:59 4 mg STAT ONE Administration Ondansetron HCl Confirm 02/14/23 18:15 Ondansetron Hcl 4 Mg/2 Ml Vial Administered 02/14/23 18:16 Dose 4 mg .ROUTE .STK-MED ONE Pantoprazole Sodium 40 mg 02/14/23 18:52 02/14/23 19:02 Pantoprazole 40 Mg Vial IV 02/14/23 18:53 40 mg STAT ONE Administration Pantoprazole Sodium Confirm 02/14/23 18:57 Pantoprazole 40 Mg Vial Administered 02/14/23 18:58 Dose 40 mg IV .STK-MED ONE Lab/Rad Data: Laboratory Result Diagrams 02/14/23 18:10 02/14/23 18:10 Laboratory Results 02/14/23 02/14/23 02/14/23 Range/Units 18:12 18:10 18:10 WBC (4.0-10.5) x10^3/uL RBC (4.1-5.4) x10^6/uL Hgb (12.0-16.0) g/dL Hct (35-47) % MCV (78-100) fL MCH (26-32) pg MCHC (32-36) g/dL RDW (11.5-14.0) % Plt Count (150-450) x10^3/uL MPV (7.5-11.0) fL Gran % (36.0-66.0) % Immature Gran % (Auto) (0.00-0.4) % Nucleat RBC Rel Count (0.00-0.1) % Eos # (Auto) (0-0.5) x10^3/uL Immature Gran # (Auto) (0.00-0.03) x10^3u/L Absolute Lymphs (auto) (1.0-4.6) x10^3/uL Absolute Monos (auto) (0.0-1.3) x10^3/uL Absolute Nucleated RBC (0.00-0.01) x10^3u/L Lymphocytes % (24.0-44.0) % Monocytes % (0.0-12.0) % Eosinophils % (0.00-5.0) % Basophils % (0.0-0.4) % Absolute Granulocytes (1.4-6.9) x10^3/uL Basophils # (0-0.4) x10^3/uL Sodium (137-145) mmol/L Potassium (3.5-5.1) mmol/L Chloride (98-107) mmol/L Carbon Dioxide (22-30) mmol/L Anion Gap (5-15) MEQ/L BUN (7-17) mg/dL Creatinine (0.52-1.04) mg/dL Estimated GFR ML/MIN Glucose (74-106) mg/dL Lactic Acid 1.2 (0.4-2.0) Calcium (8.4-10.2) mg/dL Total Bilirubin (0.2-1.3) mg/dL AST (14-36) U/L ALT (0-35) U/L Alkaline Phosphatase (38-126) U/L Troponin I (0.000-0.034) ng/mL Serum Total Protein (6.3-8.2) g/dL Albumin (3.5-5.0) g/dL Amylase (30-110) U/L Lipase (23-300) U/L Monoscreen NEGATIVE (NEGATIVE) Influenza Type A Ag NEGATIVE (NEGATIVE) Influenza Type B Ag NEGATIVE (NEGATIVE) RSV (PCR) NEGATIVE (NEGATIVE) SARS-CoV-2 (PCR) NEGATIVE (NEGATIVE) 02/14/23 02/14/23 02/14/23 Range/Units 18:10 18:10 18:10 WBC 6.3 (4.0-10.5) x10^3/uL RBC 4.30 (4.1-5.4) x10^6/uL Hgb 12.8 (12.0-16.0) g/dL Hct 38.3 (35-47) % MCV 89.1 (78-100) fL MCH 29.8 (26-32) pg MCHC 33.4 (32-36) g/dL RDW 12.1 (11.5-14.0) % Plt Count 286 (150-450) x10^3/uL MPV 11.2 H (7.5-11.0) fL Gran % 51.5 (36.0-66.0) % Immature Gran % (Auto) 0.3 (0.00-0.4) % Nucleat RBC Rel Count 0.0 (0.00-0.1) % Eos # (Auto) 0.08 (0-0.5) x10^3/uL Immature Gran # (Auto) 0.02 (0.00-0.03) x10^3u/L Absolute Lymphs (auto) 2.45 (1.0-4.6) x10^3/uL Absolute Monos (auto) 0.50 (0.0-1.3) x10^3/uL Absolute Nucleated RBC 0.00 (0.00-0.01) x10^3u/L Lymphocytes % 38.7 (24.0-44.0) % Monocytes % 7.9 (0.0-12.0) % Eosinophils % 1.3 (0.00-5.0) % Basophils % 0.3 (0.0-0.4) % Absolute Granulocytes 3.26 (1.4-6.9) x10^3/uL Basophils # 0.02 (0-0.4) x10^3/uL Sodium 141 (137-145) mmol/L Potassium 3.7 (3.5-5.1) mmol/L Chloride 109 H (98-107) mmol/L Carbon Dioxide 22 (22-30) mmol/L Anion Gap 14.6 (5-15) MEQ/L BUN 22 H (7-17) mg/dL Creatinine 0.64 (0.52-1.04) mg/dL Estimated GFR 91.0 ML/MIN Glucose 109 H (74-106) mg/dL Lactic Acid (0.4-2.0) Calcium 9.2 (8.4-10.2) mg/dL Total Bilirubin 0.60 (0.2-1.3) mg/dL AST 28 (14-36) U/L ALT 16 (0-35) U/L Alkaline Phosphatase 87 (38-126) U/L Troponin I < 0.012 (0.000-0.034) ng/mL Serum Total Protein 7.4 (6.3-8.2) g/dL Albumin 2.7 L (3.5-5.0) g/dL Amylase 85 (30-110) U/L Lipase 143 (23-300) U/L Monoscreen (NEGATIVE) Influenza Type A Ag (NEGATIVE) Influenza Type B Ag (NEGATIVE) RSV (PCR) (NEGATIVE) SARS-CoV-2 (PCR) (NEGATIVE) - Progress Progress: re-examined <DEYA LEYVA - Last Filed: 02/14/23 18:49> - Progress Progress: improved <RUBEN MUNGUIA - Last Filed: 02/14/23 19:44> - Progress Progress Note: 02/14/23 18:50 This patient's medical issue is 1 of moderate complexity. The level of complexity in the workup performed is based on review of the patient's past medical history, review of the patient's medication list, review of the p atient's drug allergy list, history present illness and physical findings on examination. Workup in this patient includes twelve-lead EKG, chest x-ray, troponin level, CMP, CBC, viral swabs, mono swabs and urinalysis. The patient care is being transferred to Dr. Ruben Munguia at shift change. He w ill follow-up on the results of the studies performed and make final disposition. (DEYA LEYVA) Medical Desision Making - Diagnostic Testing Diagnostic test were ordered, analyzed, and reviewed by me: Yes Radiological Interpretation: Interpreted by me - Risk of complications Low Risk: Low risk of morbidity from additional dx testing or treatment <RUBEN MUNGUIA - Last Filed: 02/14/23 19:44> - Departure Departure Disposition: Home Critical Care Time: No <DEYA LEYVA - Last Filed: 02/14/23 18:49> - Departure Critical Care Time: No <RUBEN MUNGUIA - Last Filed: 02/14/23 19:44> - Departure Clinical Impression: Vomiting, GERD (gastroesophageal reflux disease), Bronchitis Condition: Fair Referrals: SRINI DAVID MD [Primary Care Provider] - Follow up/PCP as directed Prescriptions: Cephalexin Mh 500 mg [Keflex 500 mg] 500 mg PO TID 7 Days #21 cap PANTOPRAZOLE 40 mg Tablet [Protonix 40MG Tablet] 40 mg PO QAM 30 Days #30 tab
[2023-02-14 17:56] VITALS: TEMP 98.3
[2023-02-14] MEDS ORDERED: Zofran 4 MG/2 ML VIAL IV ONE (17:58)
[2023-02-14] MEDS ORDERED: Sodium Chloride 0.9% 1000 ML 1,000 ML IV SCH (18:00)
[2023-02-14 18:13] LABS: Absolute Neutrophil Ct (ANC) 3.26 x10^3/uL (1.4-6.9); BASOPHIL % 0.3 % (0.0-0.4); Basophil (Absolute #) 0.02 x10^3/uL (0-0.4); Eosinophil % 1.3 % (0.00-5.0); Eosinophil (Absolute #) 0.08 x10^3/uL (0-0.5); Hematocrit 38.3 % (35-47); Hemoglobin 12.8 g/dL (12.0-16.0); IMMATURE GRAN # 0.02 x10^3u/L (0.00-0.03); IMMATURE GRAN % 0.3 % (0.00-0.4); Lymphocyte (Absolute #) 2.45 x10^3/uL (1.0-4.6); Lymphocytes % 38.7 % (24.0-44.0); Mean Cell Volume 89.1 fL (78-100); Mean Corpuscular Hemoglobin 29.8 pg (26-32); Mean Corpuscular Hgb Concent. 33.4 g/dL (32-36); Mean Platelet Volume 11.2 fL (7.5-11.0); Monocytes % 7.9 % (0.0-12.0); Neutrophil % 51.5 % (36.0-66.0); Platelet Count 286 x10^3/uL (150-450); Red Cell Distribution Width 12.1 % (11.5-14.0); White Blood Count 6.3 x10^3/uL (4.0-10.5)
[2023-02-14] MEDS ORDERED: Sodium Chloride 0.9% 1000 ML 1,000 ML ONE (18:15)
[2023-02-14] MEDS ORDERED: Zofran 4 MG/2 ML VIAL ONE (18:15)
[2023-02-14 18:22] VITALS: O2SAT 99
[2023-02-14 18:27] LABS: ANION GAP 14.6 MEQ/L (5-15); BILIRUBIN,TOTAL 0.6 mg/dL (0.2-1.3); Calcium 9.2 mg/dL (8.4-10.2); Creatinine 1 0.64 mg/dL (0.52-1.04); Potassium 3.7 mmol/L (3.5-5.1); Total Protein 7.4 g/dL (6.3-8.2)
[2023-02-14 18:39] VITALS: BP 134/79; PULSE 75; RESP 32
[2023-02-14 18:51] LABS: INFLUENZA A NEGATIVE (NEGATIVE); INFLUENZA B NEGATIVE (NEGATIVE); RESPIRATORY SYNCTIAL VIRUS NEGATIVE (NEGATIVE); SARS-CoV-2 Xpert Express NEGATIVE (NEGATIVE)
[2023-02-14] MEDS ORDERED: GI COCKTAIL 45 ML (Maalox/Lidocaine) PO ONE ×3 (18:52→20:16)
[2023-02-14] MEDS ORDERED: PROTONIX 40 MG IV IV ONE ×2 (18:52→18:57)
[2023-02-14] MEDS ORDERED: XYLOCAINE VISCOUS 2% 15 ML CUP ONE ×2 (18:57→20:17)
[2023-02-14] MEDS ORDERED: MAALOX ES 30 ML UNIT DOSE ONE ×2 (18:57→20:18)
--- NOTE | 2023-02-15 08:50 | XRAY ---
Indication: Pain following fall months ago. Comparison: None 3 view right shoulder demonstrates osteopenia and mild AC degenerative changes. High riding humeral head commonly seen with rotator cuff tear. No other bony, articular, or soft tissue abnormalities.
--- NOTE | 2023-02-15 08:50 | XRAY ---
Indication: Cough and short of breath. Comparison: January 30, 2023 Portable chest is now underinflated and grossly clear again with incidental tiny left lung calcified granuloma. Heart not enlarged. Bony thorax intact again with osteopenia, mild degenerative changes, and mild scoliosis. Impression: Nonacute underinflated chest with chronic features.
[2023-02-19 21:25] LABS: ALBUMIN 4.1 g/dL (3.5-5.0)
== END 2023-02-14 20:33 | disposition home or self-care (01) ==
LOC: ED 17:28
DX: R11.10 Vomiting, unspecified (principal); K21.9 Gastro-esophageal reflux disease without esophagitis; J40 Bronchitis, not specified as acute or chronic; R19.7 Diarrhea, unspecified; R05.9 Cough, unspecified; R06.02 Shortness of breath; I10 Essential (primary) hypertension; Z79.899 Other long term (current) drug therapy; Z28.310 Unvaccinated for COVID-19; Z20.828 Contact with and (suspected) exposure to other viral communicable diseases
CPT/HCPCS: 0241U; 36000; 36415; 71045; 73030; 80053; 82150; 83605; 83690; 84484; 85025; 86308; 93005; 96360; 96374; 96375; 99284; J2405; A9270-GY

== ENCOUNTER 2023-07-29 10:27 | Observation (INO) | payer MEDICARE ==
[2023-07-29] MEDS: Sodium Chloride 0.9% 1000 ML 1,000 ML IV STA (11:03)
[2023-07-29] MEDS ORDERED: Sodium Chloride 0.9% 1000 ML 1,000 ML ONE (11:03)
[2023-07-29 11:14] LABS: Absolute Neutrophil Ct (ANC) 3.96 x10^3/uL (1.4-6.9); BASOPHIL % 0.6 % (0.0-0.4); Basophil (Absolute #) 0.04 x10^3/uL (0-0.4); Eosinophil % 1.1 % (0.00-5.0); Eosinophil (Absolute #) 0.07 x10^3/uL (0-0.5); Hematocrit 34.6 % (35-47); Hemoglobin 11.5 g/dL (12.0-16.0); IMMATURE GRAN # 0.02 x10^3u/L (0.00-0.03); IMMATURE GRAN % 0.3 % (0.00-0.4); Lymphocyte (Absolute #) 1.82 x10^3/uL (1.0-4.6); Lymphocytes % 28.8 % (24.0-44.0); Mean Cell Volume 89.6 fL (78-100); Mean Corpuscular Hemoglobin 29.8 pg (26-32); Mean Corpuscular Hgb Concent. 33.2 g/dL (32-36); Mean Platelet Volume 10.9 fL (7.5-11.0); Monocyte (Absolute #) 0.41 x10^3/uL (0.0-1.3); Monocytes % 6.5 % (0.0-12.0); Neutrophil % 62.7 % (36.0-66.0); Platelet Count 213 x10^3/uL (150-450); Red Blood Count 3.86 x10^6/uL (4.1-5.4); White Blood Count 6.3 x10^3/uL (4.0-10.5)
--- NOTE | 2023-07-29 11:23 | ERPHSYRPT ---
- History of Present Illness Time Seen by Provider: 07/29/23 10:45 Source: patient, family Exam Limitations: no limitations Patient Subjective Stated Complaint: Patient c/o increased weakness for the past 2-3 days. Indicates it is her entire body being weak, not a particular limb. Indicates fatigue is making it hard to ambulate around her home. Denies falls or injuries. Triage Nursing Assessment: Patient brought back to ER in a W/C. Assisted from chair to bed by one staff; patient bears weight to BLE without any difficulties. She is alert and oriented. S[place] WNL. No cough. No SOB present at this time. Physician History: Patient is a 78-year-old white female who presents to the ER with complaint of generalized nonspecific nonlocalized weakness. This has been present for 2 to 3 days. She denies any localized weakness. She says she has had a headache for about 5 days which is generalized in location and pounding in character. She also has abdominal pain which is chronic in nature. She says thatThat has been worse particularly for the past 2 days.She denies fever chills or sweats nausea vomiting or diarrhea. Severity: moderate Associated Symptoms: nausea, abdominal pain, headaches Allergies/Adverse Reactions: No Known Drug Allergies Allergy (Verified 07/29/23 10:37) Home Medications: Amlodipine Besylate 2.5 mg PO DAILY 06/12/16 [History] Omeprazole 40 mg PO BID 11/29/17 [History] Albuterol Sulfate [Albuterol Sulfate Hfa] 2 puff IH Q4HPRN PRN 12/14/19 [History] Atorvastatin Calcium [Lipitor 20MG Tablet] 20 mg PO HS 07/29/23 [History] Famotidine 20 mg [Pepcid 20 MG] 20 mg PO BID 07/29/23 [History] Isosorbide Mononitrate 30 mg [Imdur 30 MG] 30 mg PO DAILY 07/29/23 [History] Linaclotide [Linzess] 290 mcg PO DAILY 07/29/23 [History] Trazodone HCl 50 mg [Desyrel 50 mg] 150 mg PO DAILY 07/29/23 [History] Hx Tetanus, Diphtheria Vaccination/Date Given: Yes Hx Influenza Vaccination/Date Given: No Hx Pneumococcal Vaccination/Date Given: No Immunizations Up to Date: Yes Travel Risk - International Travel Have you traveled outside of the country in past 3 weeks: No - Emerging Infectious Disease Are you exhibiting symptoms associated with any current EIDs: Yes Symptoms: Headaches/Body Aches/ Comment: fatigue - Review of Systems Constitutional: Weakness - Past Medical History Pertinent Past Medical History: Yes Neurological History: No Pertinent History ENT History: No Pertinent History Cardiac History: Hypertension, Other Respiratory History: COPD Endocrine Medical History: No Pertinent History Musculoskeletal History: Osteoarthritis GI Medical History: GERD, Gallbladder Disease History: No Pertinent History Psycho-Social History: Anxiety, Depression Female Reproductive Disorders: No Pertinent History Other Medical History: NON-HODGKINS LYMPHOMA - Past Surgical History Past Surgical History: Yes Neuro Surgical History: No Pertinent History Cardiac: No Pertinent History, Cardiac Catheterization Respiratory: No Pertinent History Gastrointestinal: Cholecystectomy Genitourinary: No Pertinent History Musculoskeletal: No Pertinent History Female Surgical History: Hysterectomy, Tubal Ligation Other Surgical History: cvl port placed and removed Significant Family History: no pertinent family hx - Social History Smoking Status: Never smoker Exposure to second hand smoke: No Drug Use: none Patient Lives Alone: Yes - Social Determinants of Health Will the patient participate in the screening: Yes Do you worry about a steady place to live?: No Do you have any problems with any of the following?: No known problems In the past 12 months,have you had to go without utilities?: No Transportation Issues: No Has anyone in your support network made you feel unsafe?: No Have you or anyone in your house had to go without enough: No - Nursing Vital Signs Nursing Vital Signs: Initial Vital Signs Pulse Rate 74 07/29/23 10:35 Respiratory Rate 18 07/29/23 10:35 Blood Pressure 108/68 07/29/23 10:35 O2 Sat by Pulse Oximetry 96 07/29/23 10:35 Pain Scale Pain Intensity 8 - Physical Exam General Appearance: mild distress, alert, other (Generalized weakness) Eye Exam: PERRL/EOMI, eyes nml inspection Ears, Nose, Throat Exam: normal ENT inspection, TMs normal, pharynx normal, moist mucous membranes Neck Exam: normal inspection, non-tender, supple, full range of motion Respiratory Exam: normal breath sounds, lungs clear, No respiratory distress Cardiovascular Exam: regular rate/rhythm, normal heart sounds, normal peripheral pulses Gastrointestinal/Abdomen Exam: soft, normal bowel sounds, No tenderness, No mass Back Exam: normal inspection, normal range of motion, No CVA tenderness, No vertebral tenderness Extremity Exam: normal inspection, normal range of motion, pelvis stable Neurologic Exam: alert, oriented x 3, cooperative, normal mood/affect, nml cerebellar function, nml station & gait, sensation nml, motor weakness, No motor deficits Skin Exam: normal color, warm, dry, No rash Lymphatic Exam: No adenopathy SpO2: 96 - Course Nursing assessment & vital signs reviewed: Yes EKG Interpreted by Me: RATE (74), Sinus Rhythm, LAFB, Non-specific ST Changes, Other (Left ventricular hypertrophy) Ordered Tests: Active Orders 24 hr Category Date Time Status Clean Catch Urine Specimen STAT Care 07/29/23 10:46 Active EKG-ER Only STAT Care 07/29/23 10:46 Active IV Insertion STAT Care 07/29/23 10:46 Active Orthostatic Vital Signs STAT Care 07/29/23 13:31 Active ABDOMEN AND PELVIS W/0 CONTRAS [CT] Stat Exams 07/29/23 10:47 Completed CHEST 1 VIEW (PORTABLE) Stat Exams 07/29/23 10:47 Completed HEAD WITHOUT CONTRAST [CT] Stat Exams 07/29/23 10:52 Completed CBC W DIFF Stat Lab 07/29/23 11:05 Completed CK-Creatinine Phosphokinase Stat Lab 07/29/23 11:05 Completed CMP Stat Lab 07/29/23 11:05 Completed CULTURE,URINE Stat Lab 07/29/23 13:25 Received LIPASE Stat Lab 07/29/23 11:05 Completed Lactic Acid Stat Lab 07/29/23 10:58 Completed PROTIME WITH INR Stat Lab 07/29/23 11:05 Completed PTT Stat Lab 07/29/23 11:05 Completed SED RATE [Erythrocyte Sedimentation Rate] Stat Lab 07/29/23 11:05 Completed TROPONIN Q4H Lab 07/29/23 11:05 Completed TROPONIN Q4H Lab 07/29/23 15:00 Ordered TROPONIN Q4H Lab 07/29/23 19:00 Ordered UA W/RFX UR CULTURE Stat Lab 07/29/23 13:25 Completed Urine Triage Profile Stat Lab 07/29/23 13:25 Completed Medication Summary Discontinued Medications Generic Name Dose Route Start Last Admin Trade Name Freq PRN Reason Stop Dose Admin Sodium Chloride 1,000 mls @ 999 mls/hr 07/29/23 10:46 07/29/23 12:08 Sodium Chloride 0.9% 1000 Ml IV 07/29/23 11:46 Infused .Q1H1M STA Infusion Sodium Chloride Confirm 07/29/23 11:03 Sodium Chloride 0.9% 1000 Ml Administered 07/29/23 11:04 Dose 1,000 mls @ ud .ROUTE .STK-MED ONE Ketorolac Tromethamine 30 mg 07/29/23 12:41 07/29/23 12:47 Ketorolac Tromethamine 30 Mg/Ml Inj IV 07/29/23 12:42 30 mg STAT ONE Administration Ketorolac Tromethamine Confirm 07/29/23 12:43 Ketorolac Tromethamine 30 Mg/Ml Inj Administered 07/29/23 12:44 Dose 30 mg .ROUTE .STK-MED ONE Lab/Rad Data: Laboratory Result Diagrams 07/29/23 11:05 07/29/23 11:05 Laboratory Results 07/29/23 07/29/23 07/29/23 Range/Units 13:25 13:25 11:05 WBC (4.0-10.5) x10^3/uL RBC (4.1-5.4) x10^6/uL Hgb (12.0-16.0) g/dL Hct (35-47) % MCV (78-100) fL MCH (26-32) pg MCHC (32-36) g/dL RDW (11.5-14.0) % Plt Count (150-450) x10^3/uL MPV (7.5-11.0) fL Gran % (36.0-66.0) % Immature Gran % (Auto) (0.00-0.4) % Nucleat RBC Rel Count (0.00-0.1) % Eos # (Auto) (0-0.5) x10^3/uL Immature Gran # (Auto) (0.00-0.03) x10^3u/L Absolute Lymphs (auto) (1.0-4.6) x10^3/uL Absolute Monos (auto) (0.0-1.3) x10^3/uL Absolute Nucleated RBC (0.00-0.01) x10^3u/L Lymphocytes % (24.0-44.0) % Monocytes % (0.0-12.0) % Eosinophils % (0.00-5.0) % Basophils % (0.0-0.4) % Absolute Granulocytes (1.4-6.9) x10^3/uL Basophils # (0-0.4) x10^3/uL ESR (0-20) mm/hr PT (9.4-12.5) SECONDS INR (0.8-3.0) APTT (25.1-36.5) SECONDS Sodium (135-145) mmol/L Potassium (3.5-5.1) mmol/L Chloride (98-107) mmol/L Carbon Dioxide (22-30) mmol/L Anion Gap (5-15) MEQ/L BUN (7-17) mg/dL Creatinine (0.52-1.04) mg/dL Estimated GFR ML/MIN Glucose (74-106) mg/dL Lactic Acid (0.4-2.0) Calcium (8.4-10.2) mg/dL Total Bilirubin (0.2-1.3) mg/dL AST (14-36) U/L ALT (0-35) U/L Alkaline Phosphatase (38-126) U/L Creatine Kinase (30-135) U/L Troponin I < 0.012 (0.000-0.033) ng/mL Serum Total Protein (6.3-8.2) g/dL Albumin (3.5-5.0) g/dL Lipase (23-300) U/L Urine Color Yellow (Yellow) Urine Appearance Cloudy A (Clear) Urine pH 5.5 (4.6-8.0) Ur Specific [place] 1.020 (1.005-1.030) Urine Protein Negative (Negative) Urine Glucose (UA) Negative (Negative) mg/dL Urine Ketones Trace A (Negative) Urine Blood Small A (Negative) Urine Nitrite Positive A (Negative) Urine Bilirubin Negative (Negative) Urine Urobilinogen 0.2 (0.2) mg/dL Ur Leukocyte Esterase Moderate A (Negative) U Hyaline Cast (Auto) 3-5 A (0-2) /LPF Urine Microscopic RBC 11-20 A (0-5) /HPF Urine Microscopic WBC 51-100 A (0-5) /HPF Ur Epithelial Cells Few (None Seen) /HPF Urine Bacteria Many A (None Seen) /HPF Urine Culture Reflexed YES (NO) Urine Opiates Level NEGATIVE (NEGATIVE) Ur Methadone NEGATIVE (NEGATIVE) Urine Barbiturates NEGATIVE (NEGATIVE) Ur Phencyclidine (PCP) NEGATIVE (NEGATIVE) Urine Amphetamine POSITIVE A (NEGATIVE) U Benzodiazepine Level NEGATIVE (NEGATIVE) Urine Cocaine NEGATIVE (NEGATIVE) Urine Marijuana (THC) NEGATIVE (NEGATIVE) 07/29/23 07/29/23 07/29/23 Range/Units 11:05 11:05 11:05 WBC (4.0-10.5) x10^3/uL RBC (4.1-5.4) x10^6/uL Hgb (12.0-16.0) g/dL Hct (35-47) % MCV (78-100) fL MCH (26-32) pg MCHC (32-36) g/dL RDW (11.5-14.0) % Plt Count (150-450) x10^3/uL MPV (7.5-11.0) fL Gran % (36.0-66.0) % Immature Gran % (Auto) (0.00-0.4) % Nucleat RBC Rel Count (0.00-0.1) % Eos # (Auto) (0-0.5) x10^3/uL Immature Gran # (Auto) (0.00-0.03) x10^3u/L Absolute Lymphs (auto) (1.0-4.6) x10^3/uL Absolute Monos (auto) (0.0-1.3) x10^3/uL Absolute Nucleated RBC (0.00-0.01) x10^3u/L Lymphocytes % (24.0-44.0) % Monocytes % (0.0-12.0) % Eosinophils % (0.00-5.0) % Basophils % (0.0-0.4) % Absolute Granulocytes (1.4-6.9) x10^3/uL Basophils # (0-0.4) x10^3/uL ESR 6 (0-20) mm/hr PT 10.9 (9.4-12.5) SECONDS INR 1.00 (0.8-3.0) APTT 25.4 (25.1-36.5) SECONDS Sodium 139 (135-145) mmol/L Potassium 3.6 (3.5-5.1) mmol/L Chloride 106 (98-107) mmol/L Carbon Dioxide 25 (22-30) mmol/L Anion Gap 11.0 (5-15) MEQ/L BUN 31 H (7-17) mg/dL Creatinine 1.16 H (0.52-1.04) mg/dL Estimated GFR 48.3 ML/MIN Glucose 103 (74-106) mg/dL Lactic Acid (0.4-2.0) Calcium 9.8 (8.4-10.2) mg/dL Total Bilirubin 0.90 (0.2-1.3) mg/dL AST 22 (14-36) U/L ALT 13 (0-35) U/L Alkaline Phosphatase 76 (38-126) U/L Creatine Kinase 45 (30-135) U/L Troponin I (0.000-0.033) ng/mL Serum Total Protein 7.0 (6.3-8.2) g/dL Albumin 4.2 (3.5-5.0) g/dL Lipase 105 (23-300) U/L Urine Color (Yellow) Urine Appearance (Clear) Urine pH (4.6-8.0) Ur Specific [place] (1.005-1.030) Urine Protein (Negative) Urine Glucose (UA) (Negative) mg/dL Urine Ketones (Negative) Urine Blood (Negative) Urine Nitrite (Negative) Urine Bilirubin (Negative) Urine Urobilinogen (0.2) mg/dL Ur Leukocyte Esterase (Negative) U Hyaline Cast (Auto) (0-2) /LPF Urine Microscopic RBC (0-5) /HPF Urine Microscopic WBC (0-5) /HPF Ur Epithelial Cells (None Seen) /HPF Urine Bacteria (None Seen) /HPF Urine Culture Reflexed (NO) Urine Opiates Level (NEGATIVE) Ur Methadone (NEGATIVE) Urine Barbiturates (NEGATIVE) Ur Phencyclidine (PCP) (NEGATIVE) Urine Amphetamine (NEGATIVE) U Benzodiazepine Level (NEGATIVE) Urine Cocaine (NEGATIVE) Urine Marijuana (THC) (NEGATIVE) 07/29/23 07/29/23 Range/Units 11:05 10:58 WBC 6.3 (4.0-10.5) x10^3/uL RBC 3.86 L (4.1-5.4) x10^6/uL Hgb 11.5 L (12.0-16.0) g/dL Hct 34.6 L (35-47) % MCV 89.6 (78-100) fL MCH 29.8 (26-32) pg MCHC 33.2 (32-36) g/dL RDW 12.0 (11.5-14.0) % Plt Count 213 (150-450) x10^3/uL MPV 10.9 (7.5-11.0) fL Gran % 62.7 (36.0-66.0) % Immature Gran % (Auto) 0.3 (0.00-0.4) % Nucleat RBC Rel Count 0.0 (0.00-0.1) % Eos # (Auto) 0.07 (0-0.5) x10^3/uL Immature Gran # (Auto) 0.02 (0.00-0.03) x10^3u/L Absolute Lymphs (auto) 1.82 (1.0-4.6) x10^3/uL Absolute Monos (auto) 0.41 (0.0-1.3) x10^3/uL Absolute Nucleated RBC 0.00 (0.00-0.01) x10^3u/L Lymphocytes % 28.8 (24.0-44.0) % Monocytes % 6.5 (0.0-12.0) % Eosinophils % 1.1 (0.00-5.0) % Basophils % 0.6 (0.0-0.4) % Absolute Granulocytes 3.96 (1.4-6.9) x10^3/uL Basophils # 0.04 (0-0.4) x10^3/uL ESR (0-20) mm/hr PT (9.4-12.5) SECONDS INR (0.8-3.0) APTT (25.1-36.5) SECONDS Sodium (135-145) mmol/L Potassium (3.5-5.1) mmol/L Chloride (98-107) mmol/L Carbon Dioxide (22-30) mmol/L Anion Gap (5-15) MEQ/L BUN (7-17) mg/dL Creatinine (0.52-1.04) mg/dL Estimated GFR ML/MIN Glucose (74-106) mg/dL Lactic Acid 0.8 (0.4-2.0) Calcium (8.4-10.2) mg/dL Total Bilirubin (0.2-1.3) mg/dL AST (14-36) U/L ALT (0-35) U/L Alkaline Phosphatase (38-126) U/L Creatine Kinase (30-135) U/L Troponin I (0.000-0.033) ng/mL Serum Total Protein (6.3-8.2) g/dL Albumin (3.5-5.0) g/dL Lipase (23-300) U/L Urine Color (Yellow) Urine Appearance (Clear) Urine pH (4.6-8.0) Ur Specific [place] (1.005-1.030) Urine Protein (Negative) Urine Glucose (UA) (Negative) mg/dL Urine Ketones (Negative) Urine Blood (Negative) Urine Nitrite (Negative) Urine Bilirubin (Negative) Urine Urobilinogen (0.2) mg/dL Ur Leukocyte Esterase (Negative) U Hyaline Cast (Auto) (0-2) /LPF Urine Microscopic RBC (0-5) /HPF Urine Microscopic WBC (0-5) /HPF Ur Epithelial Cells (None Seen) /HPF Urine Bacteria (None Seen) /HPF Urine Culture Reflexed (NO) Urine Opiates Level (NEGATIVE) Ur Methadone (NEGATIVE) Urine Barbiturates (NEGATIVE) Ur Phencyclidine (PCP) (NEGATIVE) Urine Amphetamine (NEGATIVE) U Benzodiazepine Level (NEGATIVE) Urine Cocaine (NEGATIVE) Urine Marijuana (THC) (NEGATIVE) - Progress Progress: unchanged Discussed with Dr.: Tripathi Medical Desision Making - Independent Historian Additional History obtained from: Family - Discussion of managment Care discussed with:: hospitalist Reviewed:: Test results, Need for additional workup Agreed on:: Treatment plan, decision to admit Will see patient: in hospital - Diagnostic Testing Diagnostic test were ordered, analyzed, and reviewed by me: Yes Radiological Interpretation: Reviewed by me - Risk of complications The pt has a mod risk of morbidity or mortality based on: Need for prescription drug management - Departure Departure Disposition: Observation Clinical Impression: Orthostatic hypotension, Urinary tract infection Condition: Stable Critical Care Time: No Referrals: SRINI DAVID MD [Primary Care Provider] - Follow up/PCP as directed
[2023-07-29 11:25] LABS: ALBUMIN 4.2 g/dL (3.5-5.0); BILIRUBIN,TOTAL 0.9 mg/dL (0.2-1.3); Calcium 9.8 mg/dL (8.4-10.2); Creatinine 1 1.16 mg/dL (0.52-1.04); EST GLOMERULAR FILTRATION RATE 48.3 ML/MIN; PROTIME 10.9 SECONDS (9.4-12.5); PTT 25.4 SECONDS (25.1-36.5); Potassium 3.6 mmol/L (3.5-5.1)
--- NOTE | 2023-07-29 11:49 | XRAY ---
Indication: Chest pain. Comparison: February 14, 2023 Portable chest again demonstrates normal heart and lungs with incidental left upper lobe calcified granuloma and tortuous descending aorta. Bony thorax intact again with osteopenia, degenerative changes, scoliosis. No new/acute findings.
--- NOTE | 2023-07-29 12:28 | XRAY ---
Indication: Headache, bodyache, and fatigue. Multiple contiguous axial images obtained through the head without contrast. Comparison: None Age-appropriate global atrophy with minimal periventricular degenerative micro-ischemia bilaterally. No acute intracranial hemorrhage, abnormal extra-axial fluid collection, or mass effect. Fourth ventricle is midline without hydrocephalus. Bony calvarium intact. Visualized paranasal sinuses and mastoid air cells are clear. Impression: Nonacute senile brain.
--- NOTE | 2023-07-29 12:30 | XRAY ---
Indication: Headache, bodyache, and fatigue. Multiple contiguous axial images obtained through the abdomen and pelvis without contrast. Comparison: May 15, 2022 Lung bases do not demonstrate mild dependent atelectasis. Heart not enlarged. Stable small hiatal hernia. Noncontrasted stomach and bowel loops appear nonobstructed with normal appendix. There is again mild diffuse scattered colonic fecal debris greatest in ascending and transverse colon. Stable nonobstructing right renal micro-calculus, left renal cysts, cholecystectomy, and hysterectomy. No free fluid/air. Remaining liver, pancreas, spleen, adrenal glands, kidneys, ureters, and bladder are unremarkable for noncontrast exam. Again minimal aortoiliac calcifications without AAA. Osseous structures intact again with mild degenerative changes throughout the spine, mild dextroscoliosis, and L1 vertebral hemangioma. Impression: Again mild diffuse fecal stasis, small hiatal hernia, nonobstructing right renal micro-calculus, left renal cysts, and chronic bony findings. No new/acute findings on this noncontrast exam.
[2023-07-29] MEDS ORDERED: TORAdol 30 mg Injection ONE (12:43)
[2023-07-29] MEDS: TORAdol 30 mg Injection IV ONE (12:47)
[2023-07-29 13:54] LABS: Amphetamine,Urine POSITIVE (NEGATIVE); Barbiturate,Urine NEGATIVE (NEGATIVE); Benzodiazepine,Urine NEGATIVE (NEGATIVE); Cocaine,Urine NEGATIVE (NEGATIVE); Methadone,Urine NEGATIVE (NEGATIVE); Opiate,Urine NEGATIVE (NEGATIVE); PCP,Urine NEGATIVE (NEGATIVE); THC,Urine NEGATIVE (NEGATIVE)
[2023-07-29 13:59] LABS: Appearance Cloudy (Clear); Bacteria Many /HPF (None Seen); Bilirubin Negative (Negative); Blood Small (Negative); Epithelial Cells Few /HPF (None Seen); Glucose, Urine Negative (Negative); Ketones Trace (Negative); Leukocyte Esterase Moderate (Negative); Nitrite Positive (Negative); Ph 5.5 (4.6-8.0); Protein,Urine Dip Negative (Negative); Urobilinogen 0.2 mg/dL (0.2); WBC 51-100 /HPF (0-5)
[2023-07-29 14:06] LABS: ADD URINE CULTURE? YES (NO)
--- NOTE | 2023-07-29 15:49 | PCM.HP ---
History of Present Illness - Chief Complaint Chief Complaint: Orthostatic hypotension Date: 07/29/23 History of Present Illness: is a 78 year old female with PMHX of HTN, COPD, OA, GERD, Anxiety, depression. and Non-Hodgkin lymphoma. Patient is a 78-year-old white female who presents to the ER with complaint of generalized nonspecific nonlocalized weakness. This has been present for 2 to 3 days. She denies any localized weakness. She says she has had a headache for about 5 days which is frontal and pounding in character. Nothing makes it worse or better. She also has abdominal pain which is chronic in nature of LLQ and RLQ. She says that it has been worse particularly for the past 2 days. She denies fever chills or sweats nausea vomiting or diarrhea. In ER she was found to have a UTI, orthostatic hypotension, and dehydration. She was gave 1 L fluid bolus in ER and will continue IVF IP. Rocephin started for UTI. Will hold BP meds for now as BP appears to be lower than average. She admits to chronic Cp in center of chest for many years that comes and goes. She recently had an echo [address] Gilliam- will obtain records. - Review of Systems Constitutional: Weakness, No Fever, No Chills Eyes: No Symptoms Ears, Nose, & Throat: No Symptoms Respiratory: Cough, Short Of Breath Cardiac: Chest Pain, Edema, No Syncope Abdominal/Gastrointestinal: Abdominal Pain, No Nausea, No Vomiting, No Diarrhea Genitourinary Symptoms: No Dysuria Musculoskeletal: No Back Pain, No Neck Pain Skin: No Rash Neurological: Headache, No Dizziness, No Focal Weakness, No Sensory Changes Psychological: No Symptoms Endocrine: No Symptoms Hematologic/Lymphatic: No Symptoms Immunological/Allergic: No Symptoms Medications & Allergies Home Medications: Home Medication List Amlodipine Besylate 2.5 mg PO DAILY 06/12/16 [History Confirmed 07/29/23] Omeprazole 40 mg PO BID 11/29/17 [History Confirmed 07/29/23] Albuterol Sulfate [Albuterol Sulfate Hfa] 2 puff IH Q4HPRN PRN 12/14/19 [History Confirmed 07/29/23] AMITRIPTYLINE HCL 50 mg Tab [AMITRIPTYLINE HCL 50 mg Tablet] 50 mg PO HS 30 Days #30 tablet 05/12/21 [Rx Confirmed 07/29/23] Nitroglycerin 0.4 mg Tablet [Nitrostat 0.4 MG Tablet] 0.4 mg SL Q5MIN PRN MR X 3 PRN 30 Days #30 05/12/21 [Rx Confirmed 07/29/23] Atorvastatin Calcium [Lipitor 20MG Tablet] 20 mg PO HS 07/29/23 [History Confirmed 07/29/23] Famotidine 20 mg [Pepcid 20 MG] 20 mg PO BID 07/29/23 [History Confirmed 07/29/23] Isosorbide Mononitrate 30 mg [Imdur 30 MG] 30 mg PO DAILY 07/29/23 [History Confirmed 07/29/23] Linaclotide [Linzess] 290 mcg PO DAILY 07/29/23 [History Confirmed 07/29/23] Phentermine HCl [Adipex-P] 37.5 mg PO DAILY 07/29/23 [History Confirmed 07/29/23] Trazodone HCl 50 mg [Desyrel 50 mg] 150 mg PO DAILY PRN 07/29/23 [History Confirmed 07/29/23] Allergies/Adverse Reactions: Allergies Allergy/AdvReac Type Severity Reaction Status Date / Time No Known Drug Allergies Allergy Verified 07/29/23 15:56 - Past Medical History Past Medical History: Yes Neurological History: No Pertinent History ENT History: No Pertinent History Cardiac History: Hypertension, Other Respiratory History: COPD Endocrine Medical History: No Pertinent History Musculoskelatal History: Osteoarthritis GI Medical History: GERD, Gallbladder Disease History: No Pertinent History Pyscho-Social History: Anxiety, Depression Reproductive Disorders: No Pertinent History Comment: NON-HODGKINS LYMPHOMA - Past Surgical History Past Surgical History: Yes Neuro Surgical History: No Pertinent History Cardiac History: No Pertinent History, Cardiac Catheterization Respiratory Surgery: No Pertinent History GI Surgical History: Cholecystectomy Genitourinary Surgical Hx: No Pertinent History Musculskeletal Surgical Hx: No Pertinent History Female Surgical History: Hysterectomy, Tubal Ligation Other Surgical History: cvl port placed and removed Significant Family History: no pertinent family hx - Social History Smoking Status: Never smoker Exposure to second hand smoke: No Alcohol: Rarely Drug Use: none - Social Determinants of Health Will the patient participate in the screening: Yes Do you worry about a steady place to live?: No Do you have any problems with any of the following?: No known problems In the past 12 months,have you had to go without utilities?: No Have you or anyone in your house had to go without enough: No Transportation Issues: No Has anyone in your support network made you feel unsafe?: No - Physical Exam Vital Signs: Vital Signs - 24 hr Temp Pulse Resp BP BP Pulse Ox 07/29/23 14:30 73 20 96/58 98 07/29/23 14:15 96 07/29/23 14:00 75 23 99/64 99 07/29/23 13:57 79 16 89/61 07/29/23 13:56 88 18 112/77 07/29/23 13:54 81 16 107/66 07/29/23 13:30 69 12 120/74 93 L 07/29/23 13:28 79 18 111/72 97 07/29/23 13:27 80 17 134/88 100 07/29/23 13:26 80 21 140/76 96 07/29/23 13:00 67 15 116/66 97 07/29/23 12:44 68 16 109/59 97 07/29/23 11:30 69 31 H 121/79 97 07/29/23 11:00 71 26 H 94/63 97 07/29/23 10:40 97.5 F 79 22 108/68 96 07/29/23 10:35 74 18 108/68 96 General Appearance: no apparent distress, alert Neurologic Exam: alert, oriented x 3, cooperative, normal mood/affect, nml cerebellar function, nml station & gait, sensation nml, No motor deficits Eye Exam: PERRL/EOMI, eyes nml inspection Ears, Nose, Throat Exam: normal ENT inspection, TMs normal, pharynx normal, moist mucous membranes Neck Exam: normal inspection, non-tender, supple, full range of motion Respiratory Exam: normal breath sounds, lungs clear, No respiratory distress Cardiovascular Exam: regular rate/rhythm, normal heart sounds, normal peripheral pulses, edema (non -pitting) Gastrointestinal/Abdomen Exam: soft, normal bowel sounds, tenderness (RLQ, LLQ with palpation), No mass Back Exam: normal inspection, normal range of motion, No CVA tenderness, No vertebral tenderness Extremity Exam: normal inspection, normal range of motion, pelvis stable Skin Exam: normal color, warm, dry, No rash Lymphatic Exam: No adenopathy Results - Labs Lab/Micro Results: Lab Results-Last 24 Hours 07/29/23 07/29/23 07/29/23 Range/Units 10:58 11:05 11:05 WBC 6.3 (4.0-10.5) x10^3/uL RBC 3.86 L (4.1-5.4) x10^6/uL Hgb 11.5 L (12.0-16.0) g/dL Hct 34.6 L (35-47) % MCV 89.6 (78-100) fL MCH 29.8 (26-32) pg MCHC 33.2 (32-36) g/dL RDW 12.0 (11.5-14.0) % Plt Count 213 (150-450) x10^3/uL MPV 10.9 (7.5-11.0) fL Gran % 62.7 (36.0-66.0) % Immature Gran % (Auto) 0.3 (0.00-0.4) % Nucleat RBC Rel Count 0.0 (0.00-0.1) % Eos # (Auto) 0.07 (0-0.5) x10^3/uL Immature Gran # (Auto) 0.02 (0.00-0.03) x10^3u/L Absolute Lymphs (auto) 1.82 (1.0-4.6) x10^3/uL Absolute Monos (auto) 0.41 (0.0-1.3) x10^3/uL Absolute Nucleated RBC 0.00 (0.00-0.01) x10^3u/L Lymphocytes % 28.8 (24.0-44.0) % Monocytes % 6.5 (0.0-12.0) % Eosinophils % 1.1 (0.00-5.0) % Basophils % 0.6 (0.0-0.4) % Absolute Granulocytes 3.96 (1.4-6.9) x10^3/uL Basophils # 0.04 (0-0.4) x10^3/uL ESR (0-20) mm/hr PT (9.4-12.5) SECONDS INR (0.8-3.0) APTT (25.1-36.5) SECONDS Sodium 139 (135-145) mmol/L Potassium 3.6 (3.5-5.1) mmol/L Chloride 106 (98-107) mmol/L Carbon Dioxide 25 (22-30) mmol/L Anion Gap 11.0 (5-15) MEQ/L BUN 31 H (7-17) mg/dL Creatinine 1.16 H (0.52-1.04) mg/dL Estimated GFR 48.3 ML/MIN Glucose 103 (74-106) mg/dL Lactic Acid 0.8 (0.4-2.0) Calcium 9.8 (8.4-10.2) mg/dL Total Bilirubin 0.90 (0.2-1.3) mg/dL AST 22 (14-36) U/L ALT 13 (0-35) U/L Alkaline Phosphatase 76 (38-126) U/L Creatine Kinase 45 (30-135) U/L Troponin I (0.000-0.033) ng/mL Serum Total Protein 7.0 (6.3-8.2) g/dL Albumin 4.2 (3.5-5.0) g/dL Lipase 105 (23-300) U/L Urine Color (Yellow) Urine Appearance (Clear) Urine pH (4.6-8.0) Ur Specific [place] (1.005-1.030) Urine Protein (Negative) Urine Glucose (UA) (Negative) mg/dL Urine Ketones (Negative) Urine Blood (Negative) Urine Nitrite (Negative) Urine Bilirubin (Negative) Urine Urobilinogen (0.2) mg/dL Ur Leukocyte Esterase (Negative) U Hyaline Cast (Auto) (0-2) /LPF Urine Microscopic RBC (0-5) /HPF Urine Microscopic WBC (0-5) /HPF Ur Epithelial Cells (None Seen) /HPF Urine Bacteria (None Seen) /HPF Urine Culture Reflexed (NO) Urine Opiates Level (NEGATIVE) Ur Methadone (NEGATIVE) Urine Barbiturates (NEGATIVE) Ur Phencyclidine (PCP) (NEGATIVE) Urine Amphetamine (NEGATIVE) U Benzodiazepine Level (NEGATIVE) Urine Cocaine (NEGATIVE) Urine Marijuana (THC) (NEGATIVE) 07/29/23 07/29/23 07/29/23 Range/Units 11:05 11:05 11:05 WBC (4.0-10.5) x10^3/uL RBC (4.1-5.4) x10^6/uL Hgb (12.0-16.0) g/dL Hct (35-47) % MCV (78-100) fL MCH (26-32) pg MCHC (32-36) g/dL RDW (11.5-14.0) % Plt Count (150-450) x10^3/uL MPV (7.5-11.0) fL Gran % (36.0-66.0) % Immature Gran % (Auto) (0.00-0.4) % Nucleat RBC Rel Count (0.00-0.1) % Eos # (Auto) (0-0.5) x10^3/uL Immature Gran # (Auto) (0.00-0.03) x10^3u/L Absolute Lymphs (auto) (1.0-4.6) x10^3/uL Absolute Monos (auto) (0.0-1.3) x10^3/uL Absolute Nucleated RBC (0.00-0.01) x10^3u/L Lymphocytes % (24.0-44.0) % Monocytes % (0.0-12.0) % Eosinophils % (0.00-5.0) % Basophils % (0.0-0.4) % Absolute Granulocytes (1.4-6.9) x10^3/uL Basophils # (0-0.4) x10^3/uL ESR 6 (0-20) mm/hr PT 10.9 (9.4-12.5) SECONDS INR 1.00 (0.8-3.0) APTT 25.4 (25.1-36.5) SECONDS Sodium (135-145) mmol/L Potassium (3.5-5.1) mmol/L Chloride (98-107) mmol/L Carbon Dioxide (22-30) mmol/L Anion Gap (5-15) MEQ/L BUN (7-17) mg/dL Creatinine (0.52-1.04) mg/dL Estimated GFR ML/MIN Glucose (74-106) mg/dL Lactic Acid (0.4-2.0) Calcium (8.4-10.2) mg/dL Total Bilirubin (0.2-1.3) mg/dL AST (14-36) U/L ALT (0-35) U/L Alkaline Phosphatase (38-126) U/L Creatine Kinase (30-135) U/L Troponin I < 0.012 (0.000-0.033) ng/mL Serum Total Protein (6.3-8.2) g/dL Albumin (3.5-5.0) g/dL Lipase (23-300) U/L Urine Color (Yellow) Urine Appearance (Clear) Urine pH (4.6-8.0) Ur Specific [place] (1.005-1.030) Urine Protein (Negative) Urine Glucose (UA) (Negative) mg/dL Urine Ketones (Negative) Urine Blood (Negative) Urine Nitrite (Negative) Urine Bilirubin (Negative) Urine Urobilinogen (0.2) mg/dL Ur Leukocyte Esterase (Negative) U Hyaline Cast (Auto) (0-2) /LPF Urine Microscopic RBC (0-5) /HPF Urine Microscopic WBC (0-5) /HPF Ur Epithelial Cells (None Seen) /HPF Urine Bacteria (None Seen) /HPF Urine Culture Reflexed (NO) Urine Opiates Level (NEGATIVE) Ur Methadone (NEGATIVE) Urine Barbiturates (NEGATIVE) Ur Phencyclidine (PCP) (NEGATIVE) Urine Amphetamine (NEGATIVE) U Benzodiazepine Level (NEGATIVE) Urine Cocaine (NEGATIVE) Urine Marijuana (THC) (NEGATIVE) 07/29/23 07/29/23 07/29/23 Range/Units 13:25 13:25 14:48 WBC (4.0-10.5) x10^3/uL RBC (4.1-5.4) x10^6/uL Hgb (12.0-16.0) g/dL Hct (35-47) % MCV (78-100) fL MCH (26-32) pg MCHC (32-36) g/dL RDW (11.5-14.0) % Plt Count (150-450) x10^3/uL MPV (7.5-11.0) fL Gran % (36.0-66.0) % Immature Gran % (Auto) (0.00-0.4) % Nucleat RBC Rel Count (0.00-0.1) % Eos # (Auto) (0-0.5) x10^3/uL Immature Gran # (Auto) (0.00-0.03) x10^3u/L Absolute Lymphs (auto) (1.0-4.6) x10^3/uL Absolute Monos (auto) (0.0-1.3) x10^3/uL Absolute Nucleated RBC (0.00-0.01) x10^3u/L Lymphocytes % (24.0-44.0) % Monocytes % (0.0-12.0) % Eosinophils % (0.00-5.0) % Basophils % (0.0-0.4) % Absolute Granulocytes (1.4-6.9) x10^3/uL Basophils # (0-0.4) x10^3/uL ESR (0-20) mm/hr PT (9.4-12.5) SECONDS INR (0.8-3.0) APTT (25.1-36.5) SECONDS Sodium (135-145) mmol/L Potassium (3.5-5.1) mmol/L Chloride (98-107) mmol/L Carbon Dioxide (22-30) mmol/L Anion Gap (5-15) MEQ/L BUN (7-17) mg/dL Creatinine (0.52-1.04) mg/dL Estimated GFR ML/MIN Glucose (74-106) mg/dL Lactic Acid (0.4-2.0) Calcium (8.4-10.2) mg/dL Total Bilirubin (0.2-1.3) mg/dL AST (14-36) U/L ALT (0-35) U/L Alkaline Phosphatase (38-126) U/L Creatine Kinase (30-135) U/L Troponin I < 0.012 (0.000-0.033) ng/mL Serum Total Protein (6.3-8.2) g/dL Albumin (3.5-5.0) g/dL Lipase (23-300) U/L Urine Color Yellow (Yellow) Urine Appearance Cloudy A (Clear) Urine pH 5.5 (4.6-8.0) Ur Specific [place] 1.020 (1.005-1.030) Urine Protein Negative (Negative) Urine Glucose (UA) Negative (Negative) mg/dL Urine Ketones Trace A (Negative) Urine Blood Small A (Negative) Urine Nitrite Positive A (Negative) Urine Bilirubin Negative (Negative) Urine Urobilinogen 0.2 (0.2) mg/dL Ur Leukocyte Esterase Moderate A (Negative) U Hyaline Cast (Auto) 3-5 A (0-2) /LPF Urine Microscopic RBC 11-20 A (0-5) /HPF Urine Microscopic WBC 51-100 A (0-5) /HPF Ur Epithelial Cells Few (None Seen) /HPF Urine Bacteria Many A (None Seen) /HPF Urine Culture Reflexed YES (NO) Urine Opiates Level NEGATIVE (NEGATIVE) Ur Methadone NEGATIVE (NEGATIVE) Urine Barbiturates NEGATIVE (NEGATIVE) Ur Phencyclidine (PCP) NEGATIVE (NEGATIVE) Urine Amphetamine POSITIVE A (NEGATIVE) U Benzodiazepine Level NEGATIVE (NEGATIVE) Urine Cocaine NEGATIVE (NEGATIVE) Urine Marijuana (THC) NEGATIVE (NEGATIVE) - Radiology Impressions Radiology Exams & Impressions: Radiology Procedures Category Date Time Status ABDOMEN AND PELVIS W/0 CONTRAS [CT] Stat Exams 07/29/23 10:47 Completed CHEST 1 VIEW (PORTABLE) Stat Exams 07/29/23 10:47 Completed HEAD WITHOUT CONTRAST [CT] Stat Exams 07/29/23 10:52 Completed Assessment/Plan (1) UTI (urinary tract infection) Current Visit: Yes Status: Acute Assessment & Plan: - UC pending - Rocephin IV - IVF Code(s): N39.0 - URINARY TRACT INFECTION, SITE NOT SPECIFIED (2) RHINA (acute kidney injury) Current Visit: Yes Status: Acute Assessment & Plan: - creat 1.16- baseline normal- trend - IVF Code(s): N17.9 - ACUTE KIDNEY FAILURE, UNSPECIFIED (3) Weakness Current Visit: Yes Status: Acute Assessment & Plan: - PT/OT - 2:2 dehydration, UTI Code(s): R53.1 - WEAKNESS (4) Orthostatic hypotension Current Visit: Yes Status: Acute Assessment & Plan: - Ortho stats in AM - IVF Code(s): I95.1 - ORTHOSTATIC HYPOTENSION (5) Dehydration Current Visit: Yes Status: Acute Assessment & Plan: - hold adipex Code(s): E86.0 - DEHYDRATION (6) HTN (hypertension) Current Visit: Yes Status: Chronic Assessment & Plan: - BP stable - hold BP meds Code(s): I10 - ESSENTIAL (PRIMARY) HYPERTENSION (7) Anxiety and depression Current Visit: Yes Status: Chronic Assessment & Plan: - Continue amitriptyline and trazadone Code(s): F41.9 - ANXIETY DISORDER, UNSPECIFIED; F32.A - DEPRESSION, UNSPECIFIED (8) Chronic chest pain Current Visit: Yes Status: Chronic Assessment & Plan: - Follows Dr. Gilliam- cardiology - recent echo 2 months ago per pt- will obtain records. - Trend trops - Chronic intermittent CP, center of chest w/o radiation - Continue Imdur - Chest XR: Portable chest again demonstrates normal heart and lungs with incidental left upper lobe calcified granuloma and tortuous descending aorta. Bony thorax intact again with osteopenia, degenerative changes, scoliosis. No new/acute findings. Code(s): R07.9 - CHEST PAIN, UNSPECIFIED; G89.29 - OTHER CHRONIC PAIN (9) Constipation Current Visit: Yes Status: Acute Assessment & Plan: - likley cause of abd pain - CT abd 07/29/23 Impression: Again mild diffuse fecal stasis, small hiatal hernia, nonobstructing right renal micro-calculus, left renal cysts, and chronic bony findings. No new/acute findings on this noncontrast exam. - Miralax Code(s): K59.00 - CONSTIPATION, UNSPECIFIED (10) Chronic headaches Current Visit: Yes Status: Acute Assessment & Plan: - acute on chronic - CT head negative for acute concern - TYlenol for pain - restarted amitriptyline Code(s): R51.9 - HEADACHE, UNSPECIFIED; G89.29 - OTHER CHRONIC PAIN (11) GERD (gastroesophageal reflux disease) Current Visit: No Status: Chronic Assessment & Plan: - continue omeprazole VTE: Lovenox PPI: omeprazole Next of KIN: Serena Arriola [phone] D/C plan: 1-2 days Code status: Full Code(s): K21.9 - GASTRO-ESOPHAGEAL REFLUX DISEASE WITHOUT ESOPHAGITIS Telemedicine Encounter - Telemedicine Encounter Telemedicine Encounter: The entirety of this encounter was performed via Telemedicine" This visit was performed using real-time audio and video connection between my location and thepatients locationwith the assistance of a surrogateat the patients location. Written or verbal consent was obtained from the patient/guardian to perform this visit [facility] technology. Any patient questions regarding the telemedicine interaction were answered.
[2023-07-29] MEDS ORDERED: VENTOLIN COMMON CANISTER IH PRN (16:04)
[2023-07-29] MEDS ORDERED: MEDICATION INTERVENTION MC SCH (16:15)
[2023-07-29 16:45] VITALS: RESP 16
[2023-07-29] MEDS: Sodium Chloride 0.9% 1000 ML 1,000 ML IV SCH (16:58)
[2023-07-29] MEDS: ROCEPHIN 1 GM / 100 ML NaCl 1 GM/100 ML IVPB IV SCH (16:58)
[2023-07-29] MEDS: ENOXAPARIN SODIUM SQ SCH (16:58)
[2023-07-29] MEDS: Miralax Powder 17GM PACKET PO SCH ×2 (17:15→21:27)
[2023-07-29] MEDS: Desyrel 150 MG PO PRN (21:24)
[2023-07-29] MEDS: Protonix 40MG Tablet PO SCH (21:25)
[2023-07-29] MEDS: ZOCOR 20MG PO SCH (21:25)
[2023-07-29] MEDS: Pepcid 20 MG PO SCH (21:25)
[2023-07-30 04:41] LABS: Hemoglobin 10.5 g/dL (12.0-16.0); Mean Cell Volume 90.4 fL (78-100); Mean Corpuscular Hemoglobin 29.7 pg (26-32); Mean Corpuscular Hgb Concent. 32.8 g/dL (32-36); Mean Platelet Volume 10.5 fL (7.5-11.0); Platelet Count 181 x10^3/uL (150-450); Red Blood Count 3.54 x10^6/uL (4.1-5.4); Red Cell Distribution Width 12.2 % (11.5-14.0); White Blood Count 4.2 x10^3/uL (4.0-10.5)
[2023-07-30 05:07] LABS: ALBUMIN 3.3 g/dL (3.5-5.0); ANION GAP 10.9 MEQ/L (5-15); BILIRUBIN,TOTAL 0.4 mg/dL (0.2-1.3); Calcium 8.4 mg/dL (8.4-10.2); Creatinine 1 0.8 mg/dL (0.52-1.04); EST GLOMERULAR FILTRATION RATE 75.4 ML/MIN; Potassium 3.5 mmol/L (3.5-5.1); Total Protein 5.8 g/dL (6.3-8.2)
[2023-07-30 07:25] VITALS: PULSE 74
[2023-07-30] MEDS: Imdur 30 MG PO SCH (09:28)
[2023-07-30] MEDS ORDERED: NON-FORMULARY ITEM (Linaclotide [Linzess] 290 MCG Capsule) PO SCH (10:00)
[2023-07-30] MEDS: Naprosyn 500 MG PO ONE (10:34)
[2023-07-30 11:47] VITALS: BP 107/64; TEMP 97.4; O2SAT 96
--- NOTE | 2023-07-30 11:54 | PCM.DS ---
Discharge Summary Date of Admission: 07/29/23 15:35 Date of Discharge: 07/30/23 Admitting Physician: JOSE RAMIREZ MD Primary Care Provider: SRINI DAVID Allergies Allergies No Known Drug Allergies Allergy (Verified 07/29/23 15:56) Hospital Summary - Hospital Course Hospital Course: 07/28 is a 78 year old female with PMHX of HTN, COPD, OA, GERD, Anxiety, depression. and Non-Hodgkin lymphoma. Patient is a 78-year-old white female who presents to the ER with complaint of generalized nonspecific nonlocalized weakness. This has been present for 2 to 3 days. She denies any localized weakness. She says she has had a headache for about 5 days which is frontal and pounding in character. Nothing makes it worse or better. She also has abdominal pain which is chronic in nature of LLQ and RLQ. She says that it has been worse particularly for the past 2 days. She denies fever chills or sweats nausea vomiting or diarrhea. In ER she was found to have a UTI, orthostatic hypotension, and dehydration. She was gave 1 L fluid bolus in ER and will continue IVF IP. Rocephin started for UTI. Will hold BP meds for now as BP appears to be lower than average. She admits to chronic Cp in center of chest for many years that comes and goes. She recently had an echo [address] Flores- will obtain records. 07/29 Pt resting in bed. She did not have a BM overnight and did not receive Miralax as ordered last night. Pt to work with PT today for evaluation of home needs. RHINA has resolved. Orthostats negative this AM. She is feeling overall better except a slight H/A. She states Aleve helps this at home, this was ordered x1 now. Pt would like to go home today. Discussed urine culture results and will continue to follow OP. - Vitals & Intake/Output Vital Signs: Vital Signs Temperature 97.4 F 07/30/23 11:46 Pulse Rate 74 07/30/23 11:46 Respiratory Rate 16 07/30/23 11:46 Blood Pressure 107/64 07/30/23 11:46 O2 Sat by Pulse Oximetry 96 07/30/23 11:46 Intake & Output: Intake & Output 06/0107/28/23 07/29/23 07/30/23 11:59 11:59 11:59 11:59 Intake Total 770 Output Total 200 Balance 570 Weight 67.4 kg 68.2 kg - Lab Result Diagrams: 07/30/23 04:33 07/30/23 04:33 Lab Results-Last 24 Hrs: Lab Results-Last 24 Hours 07/29/23 07/29/23 07/29/23 Range/Units 13:25 13:25 14:48 WBC (4.0-10.5) x10^3/uL RBC (4.1-5.4) x10^6/uL Hgb (12.0-16.0) g/dL Hct (35-47) % MCV (78-100) fL MCH (26-32) pg MCHC (32-36) g/dL RDW (11.5-14.0) % Plt Count (150-450) x10^3/uL MPV (7.5-11.0) fL Sodium (135-145) mmol/L Potassium (3.5-5.1) mmol/L Chloride (98-107) mmol/L Carbon Dioxide (22-30) mmol/L Anion Gap (5-15) MEQ/L BUN (7-17) mg/dL Creatinine (0.52-1.04) mg/dL Estimated GFR ML/MIN Glucose (74-106) mg/dL Calcium (8.4-10.2) mg/dL Total Bilirubin (0.2-1.3) mg/dL AST (14-36) U/L ALT (0-35) U/L Alkaline Phosphatase (38-126) U/L Troponin I < 0.012 (0.000-0.033) ng/mL Serum Total Protein (6.3-8.2) g/dL Albumin (3.5-5.0) g/dL Urine Color Yellow (Yellow) Urine Appearance Cloudy A (Clear) Urine pH 5.5 (4.6-8.0) Ur Specific [place] 1.020 (1.005-1.030) Urine Protein Negative (Negative) Urine Glucose (UA) Negative (Negative) mg/dL Urine Ketones Trace A (Negative) Urine Blood Small A (Negative) Urine Nitrite Positive A (Negative) Urine Bilirubin Negative (Negative) Urine Urobilinogen 0.2 (0.2) mg/dL Ur Leukocyte Esterase Moderate A (Negative) U Hyaline Cast (Auto) 3-5 A (0-2) /LPF Urine Microscopic RBC 11-20 A (0-5) /HPF Urine Microscopic WBC 51-100 A (0-5) /HPF Ur Epithelial Cells Few (None Seen) /HPF Urine Bacteria Many A (None Seen) /HPF Urine Culture Reflexed YES (NO) Urine Opiates Level NEGATIVE (NEGATIVE) Ur Methadone NEGATIVE (NEGATIVE) Urine Barbiturates NEGATIVE (NEGATIVE) Ur Phencyclidine (PCP) NEGATIVE (NEGATIVE) Urine Amphetamine POSITIVE A (NEGATIVE) U Benzodiazepine Level NEGATIVE (NEGATIVE) Urine Cocaine NEGATIVE (NEGATIVE) Urine Marijuana (THC) NEGATIVE (NEGATIVE) 07/29/23 07/30/23 07/30/23 Range/Units 19:00 04:33 04:33 WBC 4.2 (4.0-10.5) x10^3/uL RBC 3.54 L (4.1-5.4) x10^6/uL Hgb 10.5 L (12.0-16.0) g/dL Hct 32.0 L (35-47) % MCV 90.4 (78-100) fL MCH 29.7 (26-32) pg MCHC 32.8 (32-36) g/dL RDW 12.2 (11.5-14.0) % Plt Count 181 (150-450) x10^3/uL MPV 10.5 (7.5-11.0) fL Sodium 141 (135-145) mmol/L Potassium 3.5 (3.5-5.1) mmol/L Chloride 112 H (98-107) mmol/L Carbon Dioxide 21 L (22-30) mmol/L Anion Gap 10.9 (5-15) MEQ/L BUN 21 H (7-17) mg/dL Creatinine 0.80 (0.52-1.04) mg/dL Estimated GFR 75.4 ML/MIN Glucose 93 (74-106) mg/dL Calcium 8.4 (8.4-10.2) mg/dL Total Bilirubin 0.40 (0.2-1.3) mg/dL AST 20 (14-36) U/L ALT 11 (0-35) U/L Alkaline Phosphatase 62 (38-126) U/L Troponin I < 0.012 (0.000-0.033) ng/mL Serum Total Protein 5.8 L (6.3-8.2) g/dL Albumin 3.3 L (3.5-5.0) g/dL Urine Color (Yellow) Urine Appearance (Clear) Urine pH (4.6-8.0) Ur Specific [place] (1.005-1.030) Urine Protein (Negative) Urine Glucose (UA) (Negative) mg/dL Urine Ketones (Negative) Urine Blood (Negative) Urine Nitrite (Negative) Urine Bilirubin (Negative) Urine Urobilinogen (0.2) mg/dL Ur Leukocyte Esterase (Negative) U Hyaline Cast (Auto) (0-2) /LPF Urine Microscopic RBC (0-5) /HPF Urine Microscopic WBC (0-5) /HPF Ur Epithelial Cells (None Seen) /HPF Urine Bacteria (None Seen) /HPF Urine Culture Reflexed (NO) Urine Opiates Level (NEGATIVE) Ur Methadone (NEGATIVE) Urine Barbiturates (NEGATIVE) Ur Phencyclidine (PCP) (NEGATIVE) Urine Amphetamine (NEGATIVE) U Benzodiazepine Level (NEGATIVE) Urine Cocaine (NEGATIVE) Urine Marijuana (THC) (NEGATIVE) Micro Results-Entire Visit: Microbiology 07/29/23 13:25 Urine Culture - Preliminary Urine, Void GRAM NEGATIVE ID AND SENSITIVITY PENDING - Radiology Exams Ordered Rad Exams-Entire Visit: Radiology Procedures Category Date Time Status ABDOMEN AND PELVIS W/0 CONTRAS [CT] Stat Exams 07/29/23 10:47 Completed CHEST 1 VIEW (PORTABLE) Stat Exams 07/29/23 10:47 Completed HEAD WITHOUT CONTRAST [CT] Stat Exams 07/29/23 10:52 Completed - Procedures and Test Procedures and Tests throughout Hospitalization: Therapy Orders & Screens 07/29/23 15:48 PT Eval & Treat (MD Order) ONCE Reason for Eval:: weakness Diagnosis: Orthostatic hypotension OT Eval and Treat (MD Order) ONCE Comment: Physician Instructions: Reason For Exam: Diagnosis: Orthostatic hypotension 07/29/23 16:40 Respiratory Therapy Assessment DAILY Comment: Diagnosis: Orthostatic hypotension Discharge Exam General Appearance: no apparent distress, alert Neurologic Exam: alert, oriented x 3, cooperative, normal mood/affect, nml cerebellar function, sensation nml, No motor deficits Eye Exam: PERRL, EOMI, eyes nml inspection Ears, Nose, Throat Exam: normal ENT inspection, pharynx normal, moist mucous membranes Neck Exam: normal inspection, non-tender, supple, full range of motion Respiratory Exam: normal breath sounds, lungs clear, No respiratory distress Cardiovascular Exam: regular rate/rhythm, normal heart sounds Gastrointestinal/Abdomen Exam: soft, No tenderness, No mass Pelvic Exam: deferred Rectal Exam: deferred Back Exam: normal inspection, normal range of motion, No CVA tenderness, No vertebral tenderness Extremity Exam: normal inspection, normal range of motion Skin Exam: normal color, warm, dry Final Diagnosis/Problem List - Final Discharge Diagnosis/Problem (1) UTI (urinary tract infection) Current Visit: Yes Status: Acute Code(s): N39.0 - URINARY TRACT INFECTION, SITE NOT SPECIFIED (2) RHINA (acute kidney injury) Current Visit: Yes Status: Acute Code(s): N17.9 - ACUTE KIDNEY FAILURE, UNSPECIFIED (3) Weakness Current Visit: Yes Status: Acute Code(s): R53.1 - WEAKNESS (4) Orthostatic hypotension Current Visit: Yes Status: Acute Code(s): I95.1 - ORTHOSTATIC HYPOTENSION (5) Dehydration Current Visit: Yes Status: Acute Code(s): E86.0 - DEHYDRATION (6) HTN (hypertension) Current Visit: Yes Status: Chronic Code(s): I10 - ESSENTIAL (PRIMARY) HYPERTENSION (7) Anxiety and depression Current Visit: Yes Status: Chronic Code(s): F41.9 - ANXIETY DISORDER, UNSPECIFIED; F32.A - DEPRESSION, UNSPECIFIED (8) Chronic chest pain Current Visit: Yes Status: Chronic Code(s): R07.9 - CHEST PAIN, UNSPECIFIED; G89.29 - OTHER CHRONIC PAIN (9) Constipation Current Visit: Yes Status: Acute Code(s): K59.00 - CONSTIPATION, UNSPECIFIED (10) Chronic headaches Current Visit: Yes Status: Acute Code(s): R51.9 - HEADACHE, UNSPECIFIED; G89.29 - OTHER CHRONIC PAIN (11) GERD (gastroesophageal reflux disease) Current Visit: No Status: Chronic Assessment & Plan: (1) UTI (urinary tract infection) Current Visit: Yes Status: Acute Assessment & Plan: - UC pending - Rocephin IV - IVF 6/4 - UC gram negative- sensitivity pending- temitope continue to follow culture OP - Will d/c with antibiotics Code(s): N39.0 - URINARY TRACT INFECTION, SITE NOT SPECIFIED (2) RHINA (acute kidney injury) Current Visit: Yes Status: Acute Assessment & Plan: - creat 1.16- baseline normal- trend - IVF 07/29 -resolved Code(s): N17.9 - ACUTE KIDNEY FAILURE, UNSPECIFIED (3) Weakness Current Visit: Yes Status: Acute Assessment & Plan: - PT/OT - 2:2 dehydration, UTI 07/29 - PT eval recommended walker - May need possible F/u op with neurology per PT- Will let PCP determine - F/U for OP PT- case mgnt to set up Code(s): R53.1 - WEAKNESS (4) Orthostatic hypotension Current Visit: Yes Status: Acute Assessment & Plan: - Ortho stats in AM - IVF 07/29 - Orthostats negative Code(s): I95.1 - ORTHOSTATIC HYPOTENSION (5) Dehydration Current Visit: Yes Status: Acute Assessment & Plan: - hold adipex Code(s): E86.0 - DEHYDRATION (6) HTN (hypertension) Current Visit: Yes Status: Chronic Assessment & Plan: - BP stable - hold BP meds Code(s): I10 - ESSENTIAL (PRIMARY) HYPERTENSION (7) Anxiety and depression Current Visit: Yes Status: Chronic Assessment & Plan: - Continue amitriptyline and trazadone Code(s): F41.9 - ANXIETY DISORDER, UNSPECIFIED; F32.A - DEPRESSION, UNSPECIFIED (8) Chronic chest pain Current Visit: Yes Status: Chronic Assessment & Plan: - Follows Dr. Flores- cardiology - recent echo 2 months ago per pt- will obtain records. - Trend trops - Chronic intermittent CP, center of chest w/o radiation - Continue Imdur - Chest XR: Portable chest again demonstrates normal heart and lungs with incidental left upper lobe calcified granuloma and tortuous descending aorta. Bony thorax intact again with osteopenia, degenerative changes, scoliosis. No new/acute findings. Code(s): R07.9 - CHEST PAIN, UNSPECIFIED; G89.29 - OTHER CHRONIC PAIN (9) Constipation Current Visit: Yes Status: Acute Assessment & Plan: - likley cause of abd pain - CT abd 07/29/23 Impression: Again mild diffuse fecal stasis, small hiatal hernia, nonobstructing right renal micro-calculus, left renal cysts, and chronic bony findings. No new/acute findings on this noncontrast exam. - Miralax / - for some reasion Miralax not given last night. - no BM last night - Miralax gave today- will d/c after BM Code(s): K59.00 - CONSTIPATION, UNSPECIFIED (10) Chronic headaches Current Visit: Yes Status: Acute Assessment & Plan: - acute on chronic - CT head negative for acute concern - Tylenol for pain - restarted amitriptyline 07/29 - Aleve gave for H/A today Code(s): R51.9 - HEADACHE, UNSPECIFIED; G89.29 - OTHER CHRONIC PAIN (11) GERD (gastroesophageal reflux disease) Current Visit: No Status: Chronic Assessment & Plan: - continue omeprazole Code(s): K21.9 - GASTRO-ESOPHAGEAL REFLUX DISEASE WITHOUT ESOPHAGITIS - Discharge Discharge Date: 07/30/23 Disposition: Home, Self-Care Condition: Stable Prescriptions: New Cefuroxime Axetil 500 mg [Ceftin 500 mg] 500 mg PO BID 7 Days #14 tablet Continue Amlodipine Besylate 2.5 mg PO DAILY Omeprazole 40 mg PO BID Albuterol Sulfate [Albuterol Sulfate Hfa] 2 puff IH Q4HPRN PRN PRN Reason: Shortness Of Breath Nitroglycerin 0.4 mg Tablet [Nitrostat 0.4 MG Tablet] 0.4 mg SL Q5MIN PRN MR X 3 PRN 30 Days #30 PRN Reason: Chest Pain AMITRIPTYLINE HCL 50 mg Tab [AMITRIPTYLINE HCL 50 mg Tablet] 50 mg PO HS 30 Days #30 tablet Famotidine 20 mg [Pepcid 20 MG] 20 mg PO BID Trazodone HCl 50 mg [Desyrel 50 mg] 150 mg PO DAILY PRN PRN Reason: Insomnia Isosorbide Mononitrate 30 mg [Imdur 30 MG] 30 mg PO DAILY Atorvastatin Calcium [Lipitor 20MG Tablet] 20 mg PO HS Linaclotide [Linzess] 290 mcg PO DAILY Phentermine HCl [Adipex-P] 37.5 mg PO DAILY Outpatient Orders: Physical Therapy Eval & Treat Facility: [facility], Location: PHYSICAL THERAPY Follow up with: KYLE CHISHOLM MD [CONSULTING PHYSICIAN] - TERESA FLORES [CONSULTING PHYSICIAN] - SRINI DAVID MD [Primary Care Provider] -
[2023-07-30] MEDS: TYLENOL 325 MG PO PRN (14:21)
== END 2023-07-30 16:19 | disposition home or self-care (01) ==
LOC: ED 10:27 → MED SURG 15:35
PROVIDERS: ADMIT Internal Medicine; ATTEND Internal Medicine
DX: N39.0 Urinary tract infection, site not specified (principal); N17.9 Acute kidney failure, unspecified; R53.1 Weakness; I95.1 Orthostatic hypotension; E86.0 Dehydration; I10 Essential (primary) hypertension; F41.9 Anxiety disorder, unspecified; R07.9 Chest pain, unspecified; K59.00 Constipation, unspecified; R51.9 Headache, unspecified; G89.29 Other chronic pain; K21.9 Gastro-esophageal reflux disease without esophagitis; Z79.899 Other long term (current) drug therapy; Z85.72 Personal history of non-Hodgkin lymphomas
CPT/HCPCS: 36000; 36415; 70450; 71045; 74176; 80053; 80307; 81001; 82550; 83605; 83690; 84484; 85025; 85027; 85610; 85652; 85730; 87077; 87086; 87186; 93005; 94760; 96360; 96372; 96374; 99285; G0378; J0696; J1650; J1885; A9270-GY

== ENCOUNTER 2023-08-01 07:27 | Observation (INO) | payer MEDICARE ==
--- NOTE | 2023-08-01 08:06 | ERPHSYRPT ---
- History of Present Illness Time Seen by Provider: 08/01/23 07:55 Historian: patient, family Exam Limitations: no limitations Patient Subjective Stated Complaint: C/O headache and abdominal pain. Patient and daughter state patient is having all of the same symptoms as when she was in the ER on 07/29/23. Triage Nursing Assessment: Patient brought back to ER in a W/C. Patient transferred from chair to bed with one staff member; patient is unsteady. She is alert and oriented. No SOB. Denies falls or injuries. Denies N/V. Physician History: 78 years old female presented in the ER with complaints of generalized headache and abdominal pain for the last 5 days. Patient was evaluated in the ER recently with a negative CT head and was admitted for UTI, generalized weakness. Patient reports still feeling weak fatigued tired and no energy to do her routine activities. For the last 5 days she is having difficulty ambulation with leaning to 1 side or the other as if she is going to fall down. Patient denies any actual fall. Reports having headache all over mild to moderate with no significant aggravating or relieving factors. No focal numbness tingling/weakness/difficulty speech or visual disturbance. Has chronic abdominal pain which is also getting worse for the last few days and does not have any bowel movement for almost 4 days. Has nausea but no vomiting. Patient is currently on cefuroxime for UTI. Allergies/Adverse Reactions: No Known Drug Allergies Allergy (Verified 08/01/23 07:37) Home Medications: Amlodipine Besylate 2.5 mg PO DAILY 06/12/16 [History] Omeprazole 40 mg PO BID 11/29/17 [History] Albuterol Sulfate [Albuterol Sulfate Hfa] 2 puff IH Q4HPRN PRN 12/14/19 [History] Atorvastatin Calcium [Lipitor 20MG Tablet] 20 mg PO HS 07/29/23 [History] Famotidine 20 mg [Pepcid 20 MG] 20 mg PO BID 07/29/23 [History] Isosorbide Mononitrate 30 mg [Imdur 30 MG] 30 mg PO DAILY 07/29/23 [History] Linaclotide [Linzess] 290 mcg PO DAILY 07/29/23 [History] Phentermine HCl [Adipex-P] 37.5 mg PO DAILY 07/29/23 [History] Trazodone HCl 50 mg [Desyrel 50 mg] 150 mg PO DAILY PRN 07/29/23 [History] Hx Tetanus, Diphtheria Vaccination/Date Given: Yes Hx Influenza Vaccination/Date Given: No Hx Pneumococcal Vaccination/Date Given: No Immunizations Up to Date: Yes Travel Risk - International Travel Have you traveled outside of the country in past 3 weeks: No - Emerging Infectious Disease Are you exhibiting symptoms associated with any current EIDs: Yes Symptoms: Abdominal Pain, Headaches/Body Aches/ Comment: fatigue - Review of Systems Constitutional: Fatigue, Weakness Eyes: No Symptoms Ears, Nose, & Throat: No Symptoms Respiratory: No Symptoms Cardiac: No Symptoms Abdominal/Gastrointestinal: Abdominal Pain, Nausea, Constipation Genitourinary Symptoms: No Symptoms Musculoskeletal: Arthralgias Skin: No Symptoms Neurological: Headache Endocrine: No Symptoms Hematologic/Lymphatic: No Symptoms - Past Medical History Pertinent Past Medical History: Yes Neurological History: No Pertinent History ENT History: No Pertinent History Cardiac History: Hypertension, Other Respiratory History: COPD Endocrine Medical History: No Pertinent History Musculoskeletal History: Osteoarthritis GI Medical History: GERD, Gallbladder Disease History: No Pertinent History Psycho-Social History: Anxiety, Depression Female Reproductive Disorders: No Pertinent History Other Medical History: NON-HODGKINS LYMPHOMA - Past Surgical History Past Surgical History: Yes Neuro Surgical History: No Pertinent History Cardiac: Cardiac Catheterization Respiratory: No Pertinent History Gastrointestinal: Cholecystectomy Genitourinary: No Pertinent History Musculoskeletal: No Pertinent History Female Surgical History: Hysterectomy, Tubal Ligation Other Surgical History: cvl port placed and removed Significant Family History: no pertinent family hx - Social History Smoking Status: Never smoker Exposure to second hand smoke: No Drug Use: none Patient Lives Alone: Yes - Social Determinants of Health Will the patient participate in the screening: Yes Do you worry about a steady place to live?: No Do you have any problems with any of the following?: No known problems In the past 12 months,have you had to go without utilities?: No Transportation Issues: No Has anyone in your support network made you feel unsafe?: No Have you or anyone in your house had to go without enough: No - Nursing Vital Signs Nursing Vital Signs: Initial Vital Signs Pulse Rate 78 08/01/23 07:38 Respiratory Rate 18 08/01/23 07:38 Blood Pressure 100/71 08/01/23 07:38 O2 Sat by Pulse Oximetry 94 L 08/01/23 07:38 Pain Scale Pain Intensity 8 - Physical Exam General Appearance: no apparent distress, alert Eye Exam: PERRL/EOMI Ears, Nose, Throat Exam: normal ENT inspection, TMs normal, pharynx normal, moist mucous membranes Neck Exam: normal inspection, non-tender, supple, full range of motion Respiratory Exam: normal breath sounds, lungs clear Cardiovascular Exam: regular rate/rhythm, normal heart sounds Gastrointestinal/Abdomen Exam: soft, normal bowel sounds, tenderness ( Generalized more on the left flank and left lower quadrant) Back Exam: normal inspection Extremity Exam: normal inspection, normal range of motion Neurologic Exam: alert, oriented x 3, cooperative, car scrubber II-XII nml as tested, nml cerebellar function, sensation nml, motor deficits, No normal mood/affect (Anxious), No nml station & gait Skin Exam: normal color SpO2 Interpretation: normal SpO2: 96 O2 Delivery: Room Air Ordered Tests: Active Orders 24 hr Category Date Time Status Heel Cutter STAT Care 08/01/23 07:56 Active IV Insertion STAT Care 08/01/23 07:55 Active NPO (ED) STAT Care 08/01/23 07:56 Active Orthostatic Vital Signs STAT Care 08/01/23 08:32 Active ABDOMEN AND PELVIS W/0 CONTRAS [CT] Stat Exams 08/01/23 07:57 Completed HEAD WITHOUT CONTRAST [CT] Stat Exams 08/01/23 10:58 Completed CBC W DIFF Stat Lab 08/01/23 08:08 Completed CMP Stat Lab 08/01/23 08:08 Completed LIPASE Stat Lab 08/01/23 08:08 Completed Lactic Acid Urgent Lab 08/01/23 07:55 Completed TROPONIN Q4H Lab 08/01/23 08:08 Completed TROPONIN Q4H Lab 08/01/23 12:04 Received TROPONIN Q4H Lab 08/01/23 16:00 Ordered UA W/RFX UR CULTURE Stat Lab 08/01/23 10:53 Completed Medication Summary Generic Name Dose Route Start Last Admin Trade Name Freq PRN Reason Stop Dose Admin Sodium Chloride 1,000 mls @ 100 mls/hr 08/01/23 08:00 08/01/23 08:21 Sodium Chloride 0.9% 1000 Ml IV 08/31/23 07:59 100 mls/hr .Q10H JACOB Administration Discontinued Medications Generic Name Dose Route Start Last Admin Trade Name Davon PRN Reason Stop Dose Admin Acetaminophen 975 mg 08/01/23 07:55 08/01/23 08:16 Acetaminophen 325 Mg Tablet PO 08/01/23 07:56 975 mg STAT ONE Administration Acetaminophen Confirm 08/01/23 08:11 Acetaminophen 325 Mg Tablet Administered 08/01/23 08:12 Dose 975 mg .ROUTE .STK-MED ONE Diphenhydramine HCl 25 mg 08/01/23 07:55 08/01/23 08:22 Diphenhydramine Hcl 50 Mg/Ml Vial IV 08/01/23 07:56 25 mg STAT ONE Administration Diphenhydramine HCl Confirm 08/01/23 08:11 Diphenhydramine Hcl 50 Mg/Ml Vial Administered 08/01/23 08:12 Dose 50 mg .ROUTE .STK-MED ONE Metoclopramide HCl 10 mg 08/01/23 07:55 08/01/23 08:22 Metoclopramide Hcl 10 Mg/2 Ml Vial IV 08/01/23 07:56 10 mg STAT ONE Administration Metoclopramide HCl Confirm 08/01/23 08:11 Metoclopramide Hcl 10 Mg/2 Ml Vial Administered 08/01/23 08:12 Dose 10 mg .ROUTE .STK-MED ONE Lab/Rad Data: Laboratory Result Diagrams 08/01/23 08:08 08/01/23 08:08 Laboratory Results 08/01/23 08/01/23 08/01/23 Range/Units 10:53 08:08 08:08 WBC (4.0-10.5) x10^3/uL RBC (4.1-5.4) x10^6/uL Hgb (12.0-16.0) g/dL Hct (35-47) % MCV (78-100) fL MCH (26-32) pg MCHC (32-36) g/dL RDW (11.5-14.0) % Plt Count (150-450) x10^3/uL MPV (7.5-11.0) fL Gran % (36.0-66.0) % Immature Gran % (Auto) (0.00-0.4) % Nucleat RBC Rel Count (0.00-0.1) % Eos # (Auto) (0-0.5) x10^3/uL Immature Gran # (Auto) (0.00-0.03) x10^3u/L Absolute Lymphs (auto) (1.0-4.6) x10^3/uL Absolute Monos (auto) (0.0-1.3) x10^3/uL Absolute Nucleated RBC (0.00-0.01) x10^3u/L Lymphocytes % (24.0-44.0) % Monocytes % (0.0-12.0) % Eosinophils % (0.00-5.0) % Basophils % (0.0-0.4) % Absolute Granulocytes (1.4-6.9) x10^3/uL Basophils # (0-0.4) x10^3/uL Sodium 139 (135-145) mmol/L Potassium 3.7 (3.5-5.1) mmol/L Chloride 108 H (98-107) mmol/L Carbon Dioxide 25 (22-30) mmol/L Anion Gap 8.6 (5-15) MEQ/L BUN 15 (7-17) mg/dL Creatinine 0.88 (0.52-1.04) mg/dL Estimated GFR 67.2 ML/MIN Glucose 90 (74-106) mg/dL Lactic Acid (0.4-2.0) Calcium 8.9 (8.4-10.2) mg/dL Total Bilirubin 0.60 (0.2-1.3) mg/dL AST 22 (14-36) U/L ALT 12 (0-35) U/L Alkaline Phosphatase 67 (38-126) U/L Troponin I < 0.012 (0.000-0.033) ng/mL Serum Total Protein 6.5 (6.3-8.2) g/dL Albumin 3.7 (3.5-5.0) g/dL Lipase 56 (23-300) U/L Urine Color Yellow (Yellow) Urine Appearance Clear (Clear) Urine pH 5.5 (4.6-8.0) Ur Specific [place] 1.010 (1.005-1.030) Urine Protein Negative (Negative) Urine Glucose (UA) Negative (Negative) mg/dL Urine Ketones Negative (Negative) Urine Blood Negative (Negative) Urine Nitrite Negative (Negative) Urine Bilirubin Negative (Negative) Urine Urobilinogen 0.2 (0.2) mg/dL Ur Leukocyte Esterase Small A (Negative) U Hyaline Cast (Auto) NONE SEEN (0-2) /LPF Urine Microscopic RBC 0-2 (0-5) /HPF Urine Microscopic WBC 6-10 A (0-5) /HPF Ur Epithelial Cells Rare (None Seen) /HPF Urine Bacteria None Seen (None Seen) /HPF Urine Culture Reflexed NO (NO) 08/01/23 08/01/23 Range/Units 08:08 07:55 WBC 6.0 (4.0-10.5) x10^3/uL RBC 3.70 L (4.1-5.4) x10^6/uL Hgb 11.2 L (12.0-16.0) g/dL Hct 33.4 L (35-47) % MCV 90.3 (78-100) fL MCH 30.3 (26-32) pg MCHC 33.5 (32-36) g/dL RDW 12.0 (11.5-14.0) % Plt Count 205 (150-450) x10^3/uL MPV 10.5 (7.5-11.0) fL Gran % 63.9 (36.0-66.0) % Immature Gran % (Auto) 0.2 (0.00-0.4) % Nucleat RBC Rel Count 0.0 (0.00-0.1) % Eos # (Auto) 0.10 (0-0.5) x10^3/uL Immature Gran # (Auto) 0.01 (0.00-0.03) x10^3u/L Absolute Lymphs (auto) 1.65 (1.0-4.6) x10^3/uL Absolute Monos (auto) 0.38 (0.0-1.3) x10^3/uL Absolute Nucleated RBC 0.00 (0.00-0.01) x10^3u/L Lymphocytes % 27.4 (24.0-44.0) % Monocytes % 6.3 (0.0-12.0) % Eosinophils % 1.7 (0.00-5.0) % Basophils % 0.5 (0.0-0.4) % Absolute Granulocytes 3.86 (1.4-6.9) x10^3/uL Basophils # 0.03 (0-0.4) x10^3/uL Sodium (135-145) mmol/L Potassium (3.5-5.1) mmol/L Chloride (98-107) mmol/L Carbon Dioxide (22-30) mmol/L Anion Gap (5-15) MEQ/L BUN (7-17) mg/dL Creatinine (0.52-1.04) mg/dL Estimated GFR ML/MIN Glucose (74-106) mg/dL Lactic Acid 0.8 (0.4-2.0) Calcium (8.4-10.2) mg/dL Total Bilirubin (0.2-1.3) mg/dL AST (14-36) U/L ALT (0-35) U/L Alkaline Phosphatase (38-126) U/L Troponin I (0.000-0.033) ng/mL Serum Total Protein (6.3-8.2) g/dL Albumin (3.5-5.0) g/dL Lipase (23-300) U/L Urine Color (Yellow) Urine Appearance (Clear) Urine pH (4.6-8.0) Ur Specific [place] (1.005-1.030) Urine Protein (Negative) Urine Glucose (UA) (Negative) mg/dL Urine Ketones (Negative) Urine Blood (Negative) Urine Nitrite (Negative) Urine Bilirubin (Negative) Urine Urobilinogen (0.2) mg/dL Ur Leukocyte Esterase (Negative) U Hyaline Cast (Auto) (0-2) /LPF Urine Microscopic RBC (0-5) /HPF Urine Microscopic WBC (0-5) /HPF Ur Epithelial Cells (None Seen) /HPF Urine Bacteria (None Seen) /HPF Urine Culture Reflexed (NO) - Progress Progress: unchanged, re-examined Progress Note: 08/01/23 12:18 78 years old is evaluated in the ER for abdominal pain, headache along with generalized weakness and difficulty ambulation. Patient started on gentle hydration. Has orthostatic bradycardia with standing dropping to 37 with signi ficant dizziness. She is given symptomatic treatment for headache with Benadryl and Reglan and Tylenol and feeling much better. Abdominal pain is better as well. Workup showed normal white count, fairly unremarkable chemistries. Still have mild UTI which is much improved as compared to previous UA. She is still on and a biotics. CT head is negative for any acute intracranial findings. CT abdomen pelvis showed mild epigastric mesenteric panniculitis but no other acute abdominal pelvic findings. Patient was pretty independent/ambulatory before all this started and needed 2 people help to go to the bathroom while in the ER. She needs further evaluation for this dizziness and orthostatic drop in heart rate. I have discussed with Dr. Murphy, reviewed history, workup and agreed with observation admission. I have shared the results of workup with patient and family who understand and agree with readmission Discussed with Dr.: Deuce Will see patient in: hospital (observation) Counseled pt/family regarding: lab results, diagnosis, rad results Medical Desision Making - Discussion of managment Care discussed with:: hospitalist Reviewed:: Test results Agreed on:: Treatment plan, place in obs Will see patient: in hospital - Diagnostic Testing Diagnostic test were ordered, analyzed, and reviewed by me: Yes Radiological Interpretation: Reviewed by me, Teleradiologist Report - Risk of complications The pt has a mod risk of morbidity or mortality based on: Need for prescription drug management The pt has a high risk of morbidity or mortality based on: Decision regarding hospitilization or escalation of hosp level of care - Departure Departure Disposition: Observation Clinical Impression: Orthostatic dizziness, Urinary tract infection, Generalized weakness, Generali zed abdominal pain Condition: Stable Critical Care Time: No Referrals: SRINI DAVID MD [Primary Care Provider] - Follow up/PCP as directed
[2023-08-01] MEDS ORDERED: BENADRYL 50 MG/ML ONE (08:11)
[2023-08-01] MEDS ORDERED: Reglan 10 MG/2 ML ONE (08:11)
[2023-08-01] MEDS ORDERED: TYLENOL 325 MG ONE (08:11)
[2023-08-01 08:15] LABS: Absolute Neutrophil Ct (ANC) 3.86 x10^3/uL (1.4-6.9); BASOPHIL % 0.5 % (0.0-0.4); Basophil (Absolute #) 0.03 x10^3/uL (0-0.4); Eosinophil % 1.7 % (0.00-5.0); Hematocrit 33.4 % (35-47); Hemoglobin 11.2 g/dL (12.0-16.0); IMMATURE GRAN # 0.01 x10^3u/L (0.00-0.03); IMMATURE GRAN % 0.2 % (0.00-0.4); Lymphocyte (Absolute #) 1.65 x10^3/uL (1.0-4.6); Lymphocytes % 27.4 % (24.0-44.0); Mean Cell Volume 90.3 fL (78-100); Mean Corpuscular Hemoglobin 30.3 pg (26-32); Mean Corpuscular Hgb Concent. 33.5 g/dL (32-36); Mean Platelet Volume 10.5 fL (7.5-11.0); Monocyte (Absolute #) 0.38 x10^3/uL (0.0-1.3); Monocytes % 6.3 % (0.0-12.0); Neutrophil % 63.9 % (36.0-66.0); Platelet Count 205 x10^3/uL (150-450)
[2023-08-01] MEDS: TYLENOL 325 MG PO ONE (08:16)
[2023-08-01] MEDS: Sodium Chloride 0.9% 1000 ML 1,000 ML IV SCH (08:21)
[2023-08-01] MEDS: Reglan 10 MG/2 ML IV ONE (08:22)
[2023-08-01] MEDS: BENADRYL 50 MG/ML IV ONE (08:22)
[2023-08-01 09:06] LABS: ALBUMIN 3.7 g/dL (3.5-5.0); ANION GAP 8.6 MEQ/L (5-15); BILIRUBIN,TOTAL 0.6 mg/dL (0.2-1.3); Calcium 8.9 mg/dL (8.4-10.2); Creatinine 1 0.88 mg/dL (0.52-1.04); EST GLOMERULAR FILTRATION RATE 67.2 ML/MIN; Potassium 3.7 mmol/L (3.5-5.1); Total Protein 6.5 g/dL (6.3-8.2)
--- NOTE | 2023-08-01 10:00 | XRAY ---
CLINICAL HISTORY: abd pain COMPARISON: None TECHNIQUE: A CT scan of the abdomen and pelvis was performed without IV contrast. Coronal and sagittal reconstructive images were also obtained. DLP 323.16 mGy.cm. One of the following dose reduction techniques was utilized for this exam: Automated exposure control, adjustment of the mA and/or kV according to patient size, use of iterative reconstruction? FINDINGS: Lower chest cuts show hiatus hernia, bilateral minimal pleural reaction, and right basal subpleural band. Elevated right diaphragmatic copula, could be eventration. Abdomen: Evidence of mesenteric panniculitis was noted in the epigastric region evident by focal andres mesenteric fat, with multiple mesenteric nodes. The liver is normal in size. No focal or diffuse parenchymal abnormality. The portal vein, intrahepatic biliary radicals, and the bile ducts are normal. The spleen, pancreas, and adrenal glands are unremarkable. The kidneys are normal in size and shape. Right upper pole dense calculus is seen measuring 6x4 mm, with an estimated density of 598 HU. No hydronephrosis. Left cortical cyst measuring 34.5x31 mm. The gallbladder is surgically removed with dense surgical clips. Redundant low-lying transverse colon. The ascending colon, the descending colon, visualized small bowel loops are unremarkable. Non visualized appendix. There is no evidence of significant enlargement of the mesenteric or retroperitoneal lymph nodes. Small left paraumbilical hernia, its defect measures 10 mm passing omental fat. Pelvis: The urinary bladder is unremarkable. The rectosigmoid colon is unremarkable. Non-visualized female pelvic organs likely surgically removed No evidence of pelvic lymphadenopathy. The osseous structures show spondylosis with dextroscoliosis. L1 focal hemangioma. IMPRESSION: 1. Mild epigastric mesneteric panniculitis. 2. Right renal non-obstructing calculus. 3. Left renal cortical cyst. 4. Small left paraumbilical hernia, passing omental fat. 5. Redundant low lying transverse colon. 6. Spondylosis with dextroscoliosis noted. Electronically Signed by: Mariano Morse MD. (08/01/2023 09:55:49 EDT)
[2023-08-01 11:03] LABS: Appearance Clear (Clear); Bacteria None Seen /HPF (None Seen); Bilirubin Negative (Negative); Blood Negative (Negative); Epithelial Cells Rare /HPF (None Seen); Glucose, Urine Negative (Negative); Hyaline Casts NONE SEEN /LPF (0-2); Ketones Negative (Negative); Leukocyte Esterase Small (Negative); Nitrite Negative (Negative); Ph 5.5 (4.6-8.0); Protein,Urine Dip Negative (Negative); RBC 0-2 /HPF (0-5); Urobilinogen 0.2 mg/dL (0.2)
[2023-08-01 11:13] LABS: ADD URINE CULTURE? NO (NO)
--- NOTE | 2023-08-01 12:06 | XRAY ---
CLINICAL HISTORY: Headache COMPARISON: None TECHNIQUE: Axial non-contrast enhanced CT scan of the brain was performed from the skull base to the high parietal region. CTDI: 53.92, DLP:964.1. one of the following dose reduction techniques were utilized for this exam: Automated exposure control, adjustment of the mA and/or kV according to patient size, use of iterative reconstruction. FINDINGS: Prominent ventricular system and extra-axial CSF spaces suggesting involutional brain changes. Atherosclerotic vascular calcifications noted. Exaggerated white matter hypo density denotes mild microvascular ischemic changes. The visualized brain parenchyma shows normal appearance. No focal parenchymal abnormalities are demonstrated. [place]-white matter differentiation is maintained. No midline shifts or deformity. No intracerebral or extra axial hematoma. Normal size and configuration of the cerebral ventricles. Normal CT appearance of the posterior fossa structures namely the cerebellar hemispheres, brainstem and cerebellar peduncles. The IACs are unremarkable. The cerebello-pontine angles are clear. The pituitary gland, the pineal gland, the optic chiasm is unremarkable. The osseous structures in the skull base are unremarkable. No definite calvarium fractures. Scanned paranasal sinuses are clear. IMPRESSION: 1. Prominent ventricular system and extra-axial CSF spaces suggesting involutional brain changes. 2. White matter microvascular ischemic changes. 3. Otherwise, Unremarkable CT study for the brain. Electronically Signed by: Mariano Morse MD. (08/01/2023 12:02:57 EDT)
[2023-08-01] MEDS ORDERED: TORAdol 30 mg Injection ONE (13:05)
[2023-08-01] MEDS: TORAdol 30 mg Injection IV ONE (13:06)
--- NOTE | 2023-08-01 13:22 | PCM.NOTE ---
Date and Time: 08/01/23 1317 Subjective Assessment: is a 78 year old female with PMHX of HTN, COPD, OA, GERD, Anxiety, depression. and Non-Hodgkin lymphoma. Today she presented in the ER with complaints of generalized headache and abdominal pain for the last 5 days. Daughter state patient is having all of the same symptoms as when she was in the ER on 07/29/23. Last visit she was evaluated and admitted she has a negative CT head and was admitted for UTI, orthostatic hypotension and generalized weakness that had resolved and then discharged on 07/29. Patient reports still feeling weak fatigued tired and no energy to do her routine activities. For the last 5 days she is having difficulty ambulation with leaning to 1 side or the other as if she is going to fall down. Patient denies any actual fall. Reports having headache all over mild to moderate with no significant aggravating or relieving factors. No focal numbness tingling /weakness/difficulty speech or visual disturbance. She has chronic abdominal pain which is also getting worse for the last few days and does not have any bowel movement for almost [address] abd does not show constipation but does show mesenteric paniculitis. Steriods ordered and she refuses to take them as she feels it will make her fat. Shealso takes apipex for weight loss and appetite suppressant. This was stopped d/t her sxs. Consider eating disorder as dx, will order nutrition consult. She has nausea but no vomiting. Patient is currently on cefuroxime for UTI with e-coli. UA greatly improved form last visit. Echo ordered as ER states HR drops with standing in the 30's, however this was not documented. Will check orthostats. Echo ffrom 03/11/23 Showed EF 55- 60%. Cardiology consulted for further evaluation. CT head shows: Prominent ventricular system and extra-axial CSF spaces suggesting involutional brain changes. Also white matter microvascular ischemic changes. MRI ordered for further evaluation. Will have PT work with pt. Consider placement at d/c. She denies CP, SOB, N/V/D. - Review of Systems Constitutional: Weakness, No Fever, No Chills Eyes: No Symptoms Ears, Nose, & Throat: No Symptoms Respiratory: No Cough, No Short Of Breath Cardiac: No Chest Pain, No Edema, No Syncope Abdominal/Gastrointestinal: Abdominal Pain, No Nausea, No Vomiting, No Diarrhea Genitourinary Symptoms: No Dysuria Musculoskeletal: No Back Pain, No Neck Pain Skin: No Rash Neurological: Headache, No Dizziness, No Focal Weakness, No Sensory Changes Psychological: No Symptoms, Other (States " I will not take steriods as they will make me fat."- Taken adipex for years.) Endocrine: No Symptoms Hematologic/Lymphatic: No Symptoms Immunological/Allergic: No Symptoms Objective Exam General Appearance: no apparent distress (epigastric), alert Neurologic Exam: alert, oriented x 3, cooperative, normal mood/affect, nml cerebellar function, sensation nml, motor weakness, other (irritable), No motor deficits Skin Exam: normal color, warm, dry Eye Exam: PERRL, EOMI, eyes nml inspection Ears, Nose, Throat Exam: normal ENT inspection, pharynx normal, moist mucous membranes Neck Exam: normal inspection, non-tender, supple, full range of motion Respiratory Exam: normal breath sounds, lungs clear, No respiratory distress Cardiovascular Exam: regular rate/rhythm, normal heart sounds Gastrointestinal/Abdomen Exam: soft, tenderness (generalized), No mass Extremity Exam: normal inspection, normal range of motion Back Exam: normal inspection, normal range of motion, No CVA tenderness, No vertebral tenderness Pelvic Exam: deferred Rectal Exam: deferred Objective Data Vital Signs: Vital Signs - 24 hr Temp Pulse Resp BP BP Pulse Ox 08/01/23 12:45 64 26 H 101/71 97 08/01/23 12:30 65 19 99/66 96 08/01/23 12:27 64 20 115/65 93 L 08/01/23 12:24 96 08/01/23 11:15 79 18 96/55 93 L 08/01/23 11:00 71 21 92/61 96 08/01/23 10:54 69 24 96/60 97 08/01/23 10:52 83 29 H 08/01/23 10:30 103/64 08/01/23 10:15 74 15 100/58 94 L 08/01/23 10:00 72 16 93/59 96 08/01/23 09:45 70 24 101/60 96 08/01/23 09:30 73 18 97/58 94 L 08/01/23 09:15 73 16 95/62 92 L 08/01/23 09:00 74 15 102/62 93 L 08/01/23 08:59 73 16 94/60 93 L 08/01/23 08:20 100/66 08/01/23 08:19 72 17 99/79 96 08/01/23 08:18 79 17 105/68 95 08/01/23 08:00 78 15 103/69 93 L 08/01/23 07:39 98.8 F 81 26 H 100/71 96 08/01/23 07:38 78 18 100/71 94 L Pain Assessment - Last Documented Pain Intensity 6 Pain Scale Used 0-10 Pain Scale Intake and Output: Intake & Output 07/30/23 07/31/23 08/01/23 08/02/23 11:59 11:59 11:59 11:59 Weight 70.9 kg Lab Results: Lab Results-Last 24 Hours 08/01/23 08/01/23 08/01/23 Range/Units 07:55 08:08 08:08 WBC 6.0 (4.0-10.5) x10^3/uL RBC 3.70 L (4.1-5.4) x10^6/uL Hgb 11.2 L (12.0-16.0) g/dL Hct 33.4 L (35-47) % MCV 90.3 (78-100) fL MCH 30.3 (26-32) pg MCHC 33.5 (32-36) g/dL RDW 12.0 (11.5-14.0) % Plt Count 205 (150-450) x10^3/uL MPV 10.5 (7.5-11.0) fL Gran % 63.9 (36.0-66.0) % Immature Gran % (Auto) 0.2 (0.00-0.4) % Nucleat RBC Rel Count 0.0 (0.00-0.1) % Eos # (Auto) 0.10 (0-0.5) x10^3/uL Immature Gran # (Auto) 0.01 (0.00-0.03) x10^3u/L Absolute Lymphs (auto) 1.65 (1.0-4.6) x10^3/uL Absolute Monos (auto) 0.38 (0.0-1.3) x10^3/uL Absolute Nucleated RBC 0.00 (0.00-0.01) x10^3u/L Lymphocytes % 27.4 (24.0-44.0) % Monocytes % 6.3 (0.0-12.0) % Eosinophils % 1.7 (0.00-5.0) % Basophils % 0.5 (0.0-0.4) % Absolute Granulocytes 3.86 (1.4-6.9) x10^3/uL Basophils # 0.03 (0-0.4) x10^3/uL Sodium 139 (135-145) mmol/L Potassium 3.7 (3.5-5.1) mmol/L Chloride 108 H (98-107) mmol/L Carbon Dioxide 25 (22-30) mmol/L Anion Gap 8.6 (5-15) MEQ/L BUN 15 (7-17) mg/dL Creatinine 0.88 (0.52-1.04) mg/dL Estimated GFR 67.2 ML/MIN Glucose 90 (74-106) mg/dL Lactic Acid 0.8 (0.4-2.0) Calcium 8.9 (8.4-10.2) mg/dL Total Bilirubin 0.60 (0.2-1.3) mg/dL AST 22 (14-36) U/L ALT 12 (0-35) U/L Alkaline Phosphatase 67 (38-126) U/L Troponin I (0.000-0.033) ng/mL Serum Total Protein 6.5 (6.3-8.2) g/dL Albumin 3.7 (3.5-5.0) g/dL Lipase 56 (23-300) U/L Urine Color (Yellow) Urine Appearance (Clear) Urine pH (4.6-8.0) Ur Specific [place] (1.005-1.030) Urine Protein (Negative) Urine Glucose (UA) (Negative) mg/dL Urine Ketones (Negative) Urine Blood (Negative) Urine Nitrite (Negative) Urine Bilirubin (Negative) Urine Urobilinogen (0.2) mg/dL Ur Leukocyte Esterase (Negative) U Hyaline Cast (Auto) (0-2) /LPF Urine Microscopic RBC (0-5) /HPF Urine Microscopic WBC (0-5) /HPF Ur Epithelial Cells (None Seen) /HPF Urine Bacteria (None Seen) /HPF Urine Culture Reflexed (NO) 06/06/24 06/06/24 06/06/24 Range/Units 08:08 10:53 12:04 WBC (4.0-10.5) x10^3/uL RBC (4.1-5.4) x10^6/uL Hgb (12.0-16.0) g/dL Hct (35-47) % MCV (78-100) fL MCH (26-32) pg MCHC (32-36) g/dL RDW (11.5-14.0) % Plt Count (150-450) x10^3/uL MPV (7.5-11.0) fL Gran % (36.0-66.0) % Immature Gran % (Auto) (0.00-0.4) % Nucleat RBC Rel Count (0.00-0.1) % Eos # (Auto) (0-0.5) x10^3/uL Immature Gran # (Auto) (0.00-0.03) x10^3u/L Absolute Lymphs (auto) (1.0-4.6) x10^3/uL Absolute Monos (auto) (0.0-1.3) x10^3/uL Absolute Nucleated RBC (0.00-0.01) x10^3u/L Lymphocytes % (24.0-44.0) % Monocytes % (0.0-12.0) % Eosinophils % (0.00-5.0) % Basophils % (0.0-0.4) % Absolute Granulocytes (1.4-6.9) x10^3/uL Basophils # (0-0.4) x10^3/uL Sodium (135-145) mmol/L Potassium (3.5-5.1) mmol/L Chloride (98-107) mmol/L Carbon Dioxide (22-30) mmol/L Anion Gap (5-15) MEQ/L BUN (7-17) mg/dL Creatinine (0.52-1.04) mg/dL Estimated GFR ML/MIN Glucose (74-106) mg/dL Lactic Acid (0.4-2.0) Calcium (8.4-10.2) mg/dL Total Bilirubin (0.2-1.3) mg/dL AST (14-36) U/L ALT (0-35) U/L Alkaline Phosphatase (38-126) U/L Troponin I < 0.012 < 0.012 (0.000-0.033) ng/mL Serum Total Protein (6.3-8.2) g/dL Albumin (3.5-5.0) g/dL Lipase (23-300) U/L Urine Color Yellow (Yellow) Urine Appearance Clear (Clear) Urine pH 5.5 (4.6-8.0) Ur Specific [place] 1.010 (1.005-1.030) Urine Protein Negative (Negative) Urine Glucose (UA) Negative (Negative) mg/dL Urine Ketones Negative (Negative) Urine Blood Negative (Negative) Urine Nitrite Negative (Negative) Urine Bilirubin Negative (Negative) Urine Urobilinogen 0.2 (0.2) mg/dL Ur Leukocyte Esterase Small A (Negative) U Hyaline Cast (Auto) NONE SEEN (0-2) /LPF Urine Microscopic RBC 0-2 (0-5) /HPF Urine Microscopic WBC 6-10 A (0-5) /HPF Ur Epithelial Cells Rare (None Seen) /HPF Urine Bacteria None Seen (None Seen) /HPF Urine Culture Reflexed NO (NO) Radiology Exams: Radiology Procedures Category Date Time Status ABDOMEN AND PELVIS W/0 CONTRAS [CT] Stat Exams 08/01/23 07:57 Completed HEAD WITHOUT CONTRAST [CT] Stat Exams 08/01/23 10:58 Completed Assessment/Plan (1) Generalized weakness Current Visit: Yes Status: Chronic Assessment & Plan: - chronic and worsening - consider placement at d/c - MRI brain - CT brain IMPRESSION: 1. Prominent ventricular system and extra-axial CSF spaces suggesting involutional brain changes. 2. White matter microvascular ischemic changes. 3. Otherwise, Unremarkable CT study for the brain. - PT/OT eval and treat Code(s): R53.1 - WEAKNESS (2) Mesenteric panniculitis Current Visit: Yes Status: Acute Assessment & Plan: - Prednisone 20mg BID daily - will need to continue OP- Pt refuses to take medication as she states it will make her fat. - Seen on CT Code(s): K65.4 - SCLEROSING MESENTERITIS (3) Generalized abdominal pain Current Visit: Yes Status: Acute Assessment & Plan: - CT abd IMPRESSION: 1. Mild epigastric mesneteric panniculitis. 2. Right renal non-obstructing calculus. 3. Left renal cortical cyst. 4. Small left paraumbilical hernia, passing omental fat. 5. Redundant low lying transverse colon. 6. Spondylosis with dextroscoliosis noted. - Toradol gave in ER w/o relief - Steroids for mesneteric panniculitis started - tylenol for pain PRN Code(s): R10.84 - GENERALIZED ABDOMINAL PAIN (4) Orthostatic dizziness Current Visit: Yes Status: Acute Assessment & Plan: - Echo - EKG - cardiology consult - orthostats - Echo from 03/11/23 EF 55-60% - Stop Adipex - HR dropped into 30's per ER staff when standing - TEDS - TELE - TSH, vitamin b12, cortisol - consider OP Holter Monitor - Consider midodrine - may be 2:2 dementia - Nutrition consult for possible eating disorder- has taken adipex for years, will not take steroids " they will make me fat" Code(s): R42 - DIZZINESS AND GIDDINESS (5) UTI (urinary tract infection) Current Visit: Yes Status: Acute Assessment & Plan: - recently admitted and treated - UC from last visit + for e-coli - Continue oral antibiotics Code(s): N39.0 - URINARY TRACT INFECTION, SITE NOT SPECIFIED (6) HTN (hypertension) Current Visit: No Status: Chronic Assessment & Plan: - BP stable - Continue BP meds VTE: SCD's PPI: pepcid Next of KIN:daughter D/C plan: tomorrow Code status: Full Code(s): I10 - ESSENTIAL (PRIMARY) HYPERTENSION
[2023-08-01] MEDS ORDERED: VENTOLIN COMMON CANISTER IH PRN (13:46)
[2023-08-01] MEDS ORDERED: TYLENOL 325 MG PO PRN (13:53)
[2023-08-01] MEDS ORDERED: MEDICATION INTERVENTION MC SCH (14:15)
--- NOTE | 2023-08-01 17:03 | XRAY ---
CLINICAL HISTORY: changes seen on MRi, weakness COMPARISON: CT done on the same day is reviewed. TECHNIQUE: Different pulse sequences were performed in different planes with and without GD-DTPA injection for the brain. Images were sent through PACs for interpretation. FINDINGS: There are multiple hyperintense T2/FLAIR foci seen in the bilateral periventricular location. Some of these hyperintensities are also noted at the callososeptal interface perpendicular to the long axis of the ventricles and undersurface of the corpus callosum. A tiny Flair hyperintense focus is also seen in the katherine. No evidence of restricted diffusion or post-contrast enhancement is seen in any of them. Mild prominence of intra and extra-axial CSF spaces consistent with senile involutionary changes. No intracerebral or extra-axial hematomas or masses. No infarctions could be depicted. Normal MRI appearance of the cerebellar parenchymal signals. Normal MRI appearance of the central palma matter aggregates. Normal MRI appearance of the rest of the brain stem namely the midbrain, Katherine, medulla oblongata. Normal MRI appearance of the petrous temporal bones, brainstem, vestibule cochlear nerves, cerebellopontine angles, and pituitary gland with no definite masses. No shift of midline structures. Normal MRI appearance of orbital structures, both globes, optic nerves, and optic chiasm. IMPRESSION: 1. Multiple deep white matter T2/FLAIR hyperintense foci are seen in the periventricular, callososeptal interface and undersurface of corpus callosum p[rependicular to the long axis of the lateral ventricle not showing any restricted diffusion or postcontrast enhancement, raising the possibility of demyelinating disease (MS) with differential of advanced microangiopathic changes, requiring clinical correlation. 2. No acute intracranial abnormality is identified. 3. Senile involutionary changes in the brain. Electronically Signed by: Mariano Morse MD. (08/01/2023 16:58:06 EDT)
--- NOTE | 2023-08-01 18:35 | XRAY ---
Indication: Orthostatic hypotension. Weakness. 2-dimensional sonogram and color Doppler imaging carotid arteries of the neck performed. Comparison: None Examination right carotid circulation demonstrates tortuous common carotid artery. Very minimal eccentric calcified plaquing scattered in common carotid and carotid bulb. Widely patent external carotid and external carotid arteries. PSV CCA is 43 cm/s. PSV ICA is 47 cm/s. ICA/CCA ratio is 1.1. Normal antegrade vertebral artery flow. Examination left carotid circulation demonstrates widely patent common carotid, carotid bulb, internal carotid, and external carotid arteries. Distal internal carotid artery tortuous. PSV CCA is 49 cm/s. PSV ICA is 40 cm/s. ICA/CCA ratio is 0.8. Normal antegrade vertebral artery flow. Impression: Minimal arteriosclerotic disease right carotid circulation. Widely patent left carotid circulation. Velocity measurements and ratios negative for hemodynamically significant flow-limiting stenosis.
[2023-08-01] MEDS: VENTOLIN COMMON CANISTER IH SCH (18:43)
[2023-08-01] MEDS: CEFTIN 500 MG PO SCH (21:22)
[2023-08-01] MEDS: Pepcid 20 MG PO SCH (21:23)
[2023-08-01] MEDS: ZOCOR 20MG PO SCH (21:23)
[2023-08-01] MEDS: Protonix 40MG Tablet PO SCH (21:23)
[2023-08-01] MEDS: DELTASONE 20 MG PO SCH (21:26)
[2023-08-01] MEDS ORDERED: NON-FORMULARY ITEM (Omeprazole [Omeprazole] 40 MG Capsule.Dr) PO SCH (22:00)
[2023-08-01] MEDS ORDERED: NON-FORMULARY ITEM (Atorvastatin Calcium 20 MG Tab) PO SCH (22:00)
[2023-08-02 07:11] VITALS: RESP 16
[2023-08-02 07:54] LABS: Hematocrit 34.8 % (34.1-44.9); Hemoglobin 11.5 g/dL (11.2-15.7); Mean Cell Volume 91.1 fL (79.4-94.8); Mean Corpuscular Hemoglobin 30.1 pg (25.6-32.2); Mean Platelet Volume 11.8 fL (9.4-12.3); Platelet Count 225 x10^3/uL (182-369); Red Blood Count 3.82 x10^6/uL (3.93-5.22); Red Cell Distribution Width 12.1 % (11.7-14.4)
[2023-08-02 08:42] LABS: ANION GAP 11.2 MEQ/L (5-15); Calcium 8.5 mg/dL (8.4-10.2); Creatinine 1 0.74 mg/dL (0.52-1.04); EST GLOMERULAR FILTRATION RATE 82.8 ML/MIN; Potassium 4.2 mmol/L (3.5-5.1)
[2023-08-02] MEDS: Imdur 30 MG PO SCH (09:02)
[2023-08-02] MEDS: NORVASC 5 MG PO SCH (09:02)
[2023-08-02] MEDS ORDERED: NON-FORMULARY ITEM (Amlodipine Besylate [Amlodipine Besylate] 2.5 MG Tablet) PO SCH (10:00)
[2023-08-02] MEDS ORDERED: NON-FORMULARY ITEM (Linaclotide [Linzess] 290 MCG Capsule) PO SCH (10:00)
--- NOTE | 2023-08-02 11:03 | PCM.CONS ---
History of Present Illness - Reason for Consult Chief Complaint: Orthostatic dizziness, UTI, generalized weakness Date of Consultation Date: 08/02/23 Requesting Provider: JOSE RAMIREZ MD Consulting Provider: SHELLI JOHNSON MD History of Present Illness: Physician Signature This document was electronically signed by: Shelli Johnson MD 08/02/2023 11:01 AM Consult Cover Page FROM: [employer], Call Back Number: [phone] SUBJECT: Consult Recommendations Date and Time of Report: 08/02/2023 11:01 AM ET Items Contained in this Document: Neurology Consult Note Consult Information Member Facility: [facility] Facility Consult ID: [id number] Facility Time Zone: ET Date and Time of Request: 08-01-2023 06:29 PM ET Requesting Clinician: Nancy BELLA Patient Name: LILIANA ROBLEDO Date of : 1945 Gender: Female Patient identity was confirmed at the beginning of the consult with the patient/family/staff using two personal identifiers: Patient name and Reason for Consult Reason for Consult: Inpatient General Chief Complaint: MRI findings Patient Location and Admission Status: Inpatient Family Members and Medical Staff Present During Exam: patient's daughter, Serena IRENE Davis History of Present Illness: Ms. Robledo is a78 yo F w/pmhx of HTN, COPD, OA, GERD, anxiety, depression and non-hodgkins lymphoma in remission who presented to the hospital on 07/30 for c/o generalized PATHAK,abdominal pain for the last 5 days. She also visited the ED on 07/28 for the same symptoms at which time she underwent CTH which was negative for any acute pathology and she was admitted for a UTI , orthostatic hypotension and generalized weakness and was dc'ed on 07/29. Of note, patient denied any focal symptoms to primary team on initial ev aluation. CT abdomen showed mesenteric paniculitis and patient initially refused steroids for that but was amenable to starting them and received her first dose yesterday. She underwent MRIB w/contrast on 07/31 which showed hyperintense T2/FLAIR foci in bl periventricular location, one small FLAIR signal in the reggie, with no enhancement or restricted diffusion, ddx includes demyelinating disease vs. microangiopathy. The patient endorses that she has had an awful PATHAK and feels very low energy. She reports that PATHAK started a few weeks ago and is located frontally and band like distribution around her head. Denies any vision changes, speech changes, nausea, vomiting, jaw claudication, photophobia, phonophobia, numbness, tingling. Denies any other sx with her PATHAK. The PATHAK pain has been steady and is constant. Alleviating factors include taking tylenol or aleeve. She usually takes two aleeve a day everyday for the past few weeks. She denies ever having this PATHAK before. The pain is about 5/10 and it can get up to a 6. She reports that pain in her RUE that has been ongoing for weeks. THe pain is in her shoulder blade. She reports that her RLE is weaker for the past few weeks and she has prog ressively felt weaker over the last few weeks to the point where she is "scooching" everywhere. Number of Documented HPI Elements: 4+ Medical History Other Medical History: as noted in HPI Other Past Procedures: abdominal surgery many years ago Other Family History: CAD, DM Allergies Allergies: NKDA Medications Anti-Coagulants: None Anti-Platelets: None Other Medications: trazadone PRN and daily atapex omeprazole bid linzest imdur pepcid bid lipitor amlodipine albuterol inhaler amitryptiline qhs cefuroxime nitroglycerine Social History Alcohol Use: Current Drug Use: None Tobacco Use: None Vital Signs Temperature: Afebrile Blood Pressure (mmHg): 111/86 Heart Rate (bpm): 76 Respiration Rate (/min): 16 O2 Sat (%): 98 Date and Time: 08/02/2023 10:36:09 AM ET Review Of Systems General, Constitutional: See HPI Neurological: See HPI Psychiatric: See HPI Cardiovascular: See HPI Ears, Nose, Throat: See HPI Respiratory: See HPI Gastrointestinal: See HPI Genitourinary: See HPI Musculoskeletal: See HPI Endocrine: See HPI Hematologic, Lymphatic: See HPI Integumentary: See HPI Ophthalmology: See HPI Allergy, Immunology: See HPI Exam Exam: Mental Status: Awake, alert, and oriented to time, place and situation. Attention is intact. Speech is fluid with appropriate sentence construction. Language shows normal naming, comprehension, fluency, and repetition. Cranial Nerves: Pupils are equal and reactive to light. Fundoscopic exam unable to be performed due to tele encounter. Extraocular movements intact. Visual murray are full to confrontation. Facial sensation is intact. Facial activation is symmetric. Hearing is intact to conversation. There is no dysarthria. Tongue is midline. Palate elevates symmetrically. Shoulder shrug is symmetric. Motor: Has 3-4/5 strength in RLE, 4/5 in LLE. Reflexes: Cannot be performed due to televisit Sensory: Intact to light touch throughout Coordination: No dysmetria on finger to nose or heel to rdz. Clinician assisting with exam: IRENE Davis Labs and Imaging Labs available?: Yes WBC (mcL): 6 HGB (g/dL): 11.5 PLT (mcL): 225 Na (mEq/L): 141 K (mEq/L): 4.2 Cr (mg/dL): 0.74 CT Brain Findings: No acute changes Other MRI Findings : hyperintense T2/FLAIR foci in bl periventricular location, one small FLAIR signal in the reggie, with no enhancement or restricted diffusion, ddx includes demyelinating disease vs. microangiopathy. Assessment and Recommendations Assessment: Ms. Robledo is a78 yo F w/pmhx of HTN, COPD, OA, GERD, anxiety, depression and non-hodgkins lymphoma in remission who presented to the hospital on 07/30 for c/o PATHAK, abdominal pain and bl LE weakness, RLE> LLE that has been ongoing for weeks. MRIB done showing small foci of abnormalities located in reggie, periventricular that are c/f demyelinating dz vs. microangiopathy. My suspicion is that these are likely due to microangiopathy but patient does endorse weeks of bl LE weakness, RLE>LLE that has been worsening along w/pers istent PATHAK. She has not been found to have any hemorrhage, stroke, mass, infection on her imaging. She denies any symptoms concerning for GCA. Recommendations: At this time, I recommend obtaining an MRI C-spine and L-spine w/w/o contrast to evaluate for spondylosis vs. plaques vs. pathology to explain weakness. We discussed pursuing possible LP if indicated but patient is hesitant at this time. Also recommend obtaining MRA Head given persistent new onset headache and r/o vascular anomaly Patient has been overusing tylenol and aleeve for a number of weeks and this may be contributing to her current ongoing PATHAK. She has been started on steroids which may help break her out of a potential PATHAK overuse cycle. Please consult neurology when testing is complete. Disposition: Continue current admission status Synchronous Audio-Visual Visit: Patient Consent ObtainedThis visit was performed using real-time audio and video connection between my location and the patients location with the assistance of a surrogate at the patients location. Written or verbal consent was obtained from the patient/guardian to perform this visit using synchronous telemedicine technology. Any patient questions regarding the telemedicine interaction were answered. Thank you for allowing us to participate in this patient's care. Please call [facility] with questions, concerns of change in the patient's neurological condition. This consult was done via secure telemedicine audio/visual platform. Patient identity verified and consent was obtained. Staff that participated with the visit included: Diandra Rae NP Diagnosis Impression: Other Diagnosis Other: headache Case discussed with: Diandra Rae ICD-10 Code ICD-10 Code (Primary): R51.9 : Headache, unspecified ICD-10 Code: G83.10 : Monoplegia of lower limb affecting unspecified side ICD-10 Code: R93.0 : Abnormal findings on diagnostic imaging of skull and head, not elsewhere classified Attestation Interaction Mode: Video Only Time of Video Call : 08-02-2023 10:27 AM ET Interaction Attestation: Clinical telemedicine services delivered using HIPAA - compliant interactive video-audio telecommunications while the patient and the rendering provider were not in the same physical location. Written report was provided to the requesting provider. Evaluation Duration (mins): 50 Vick Timer Summary Date and Time of Request: 08-01-2023 06:29 PM ET Physician Signature This document was electronically signed by: Shelli Johnson MD 08/02/2023 11:01 AM Medications & Allergies Home Medications: Home Medication List Amlodipine Besylate 2.5 mg PO DAILY 06/12/16 [History Confirmed 08/01/23] Omeprazole 40 mg PO BID 11/29/17 [History Confirmed 08/01/23] Albuterol Sulfate [Albuterol Sulfate Hfa] 2 puff IH Q4HPRN PRN 12/14/19 [History Confirmed 08/01/23] AMITRIPTYLINE HCL 50 mg Tab [AMITRIPTYLINE HCL 50 mg Tablet] 50 mg PO HS 30 Days #30 tablet 05/12/21 [Rx Confirmed 08/01/23] Nitroglycerin 0.4 mg Tablet [Nitrostat 0.4 MG Tablet] 0.4 mg SL Q5MIN PRN MR X 3 PRN 30 Days #30 05/12/21 [Rx Confirmed 08/01/23] Atorvastatin Calcium [Lipitor 20MG Tablet] 20 mg PO HS 07/29/23 [History Confirmed 08/01/23] Famotidine 20 mg [Pepcid 20 MG] 20 mg PO BID 07/29/23 [History Confirmed 08/01/23] Isosorbide Mononitrate 30 mg [Imdur 30 MG] 30 mg PO DAILY 07/29/23 [History Confirmed 08/01/23] Linaclotide [Linzess] 290 mcg PO DAILY 07/29/23 [History Confirmed 08/01/23] Phentermine HCl [Adipex-P] 37.5 mg PO DAILY 07/29/23 [History Confirmed 08/01/23] Trazodone HCl 50 mg [Desyrel 50 mg] 150 mg PO DAILY PRN 07/29/23 [History Confirmed 08/01/23] Cefuroxime Axetil 500 mg [Ceftin 500 mg] 500 mg PO BID 7 Days #14 tablet 07/30/23 [Rx Confirmed 08/01/23] Allergies/Adverse Reactions: Allergies Allergy/AdvReac Type Severity Reaction Status Date / Time No Known Drug Allergies Allergy Verified 08/01/23 07:37 - Past Medical History Past Medical History: Yes Neurological History: No Pertinent History ENT History: No Pertinent History Cardiac History: Hypertension, Other Respiratory History: COPD Endocrine Medical History: No Pertinent History Musculoskelatal History: Osteoarthritis GI Medical History: GERD, Gallbladder Disease History: No Pertinent History Pyscho-Social History: Anxiety, Depression Reproductive Disorders: No Pertinent History Comment: NON-HODGKINS LYMPHOMA - Past Surgical History Past Surgical History: Yes Neuro Surgical History: No Pertinent History Cardiac History: Cardiac Catheterization Respiratory Surgery: No Pertinent History GI Surgical History: Cholecystectomy Genitourinary Surgical Hx: No Pertinent History Musculskeletal Surgical Hx: No Pertinent History Female Surgical History: Hysterectomy, Tubal Ligation Other Surgical History: cvl port placed and removed Significant Family History: no pertinent family hx - Social History Smoking Status: Never smoker Exposure to second hand smoke: No Alcohol: Rarely Drug Use: none - Social Determinants of Health Will the patient participate in the screening: Yes Do you worry about a steady place to live?: No Do you have any problems with any of the following?: No known problems In the past 12 months,have you had to go without utilities?: No Have you or anyone in your house had to go without enough: No Transportation Issues: No Has anyone in your support network made you feel unsafe?: No Does the patient want assistance with any of the above?: No - Physical Exam Vital Signs: Vital Signs - 24 hr Temp Pulse Resp BP BP Pulse Ox 08/02/23 07:25 76 16 96 08/02/23 07:10 97.2 F 106 H 16 111/86 98 08/02/23 04:00 97.2 F 73 19 121/56 95 08/01/23 23:37 97.0 F 75 18 110/62 96 08/01/23 19:34 97.7 F 78 18 108/59 93 L 08/01/23 18:43 84 14 93 L 08/01/23 16:44 76 14 94 L 08/01/23 16:00 97.8 F 101 H 20 114/65 96 08/01/23 14:07 94 L 08/01/23 13:38 97.1 F 70 18 115/64 94 L 08/01/23 12:45 64 26 H 101/71 97 08/01/23 12:30 65 19 99/66 96 08/01/23 12:27 64 20 115/65 93 L 08/01/23 12:24 96 08/01/23 11:15 79 18 96/55 93 L Results - Labs Lab/Micro Results: Lab Results-Last 24 Hours 08/01/23 08/01/23 08/01/23 Range/Units 10:53 12:04 16:35 WBC (3.98-10.04) x10^3/uL RBC (3.93-5.22) x10^6/uL Hgb (11.2-15.7) g/dL Hct (34.1-44.9) % MCV (79.4-94.8) fL MCH (25.6-32.2) pg MCHC (32.2-35.5) g/dL RDW (11.7-14.4) % Plt Count (182-369) x10^3/uL MPV (9.4-12.3) fL Sodium (135-145) mmol/L Potassium (3.5-5.1) mmol/L Chloride (98-107) mmol/L Carbon Dioxide (22-30) mmol/L Anion Gap (5-15) MEQ/L BUN (7-17) mg/dL Creatinine (0.52-1.04) mg/dL Estimated GFR ML/MIN Glucose (74-106) mg/dL Calcium (8.4-10.2) mg/dL Troponin I < 0.012 < 0.012 (0.000-0.033) ng/mL Vitamin B12 (239-931) pg/mL TSH 3rd Generation (0.470-4.680) mIU/L Urine Color Yellow (Yellow) Urine Appearance Clear (Clear) Urine pH 5.5 (4.6-8.0) Ur Specific [place] 1.010 (1.005-1.030) Urine Protein Negative (Negative) Urine Glucose (UA) Negative (Negative) mg/dL Urine Ketones Negative (Negative) Urine Blood Negative (Negative) Urine Nitrite Negative (Negative) Urine Bilirubin Negative (Negative) Urine Urobilinogen 0.2 (0.2) mg/dL Ur Leukocyte Esterase Small A (Negative) U Hyaline Cast (Auto) NONE SEEN (0-2) /LPF Urine Microscopic RBC 0-2 (0-5) /HPF Urine Microscopic WBC 6-10 A (0-5) /HPF Ur Epithelial Cells Rare (None Seen) /HPF Urine Bacteria None Seen (None Seen) /HPF Urine Culture Reflexed NO (NO) 08/01/23 08/02/23 08/02/23 Range/Units 16:35 04:38 04:38 WBC 6.0 (3.98-10.04) x10^3/uL RBC 3.82 L (3.93-5.22) x10^6/uL Hgb 11.5 (11.2-15.7) g/dL Hct 34.8 (34.1-44.9) % MCV 91.1 (79.4-94.8) fL MCH 30.1 (25.6-32.2) pg MCHC 33.0 (32.2-35.5) g/dL RDW 12.1 (11.7-14.4) % Plt Count 225 (182-369) x10^3/uL MPV 11.8 (9.4-12.3) fL Sodium (135-145) mmol/L Potassium (3.5-5.1) mmol/L Chloride (98-107) mmol/L Carbon Dioxide (22-30) mmol/L Anion Gap (5-15) MEQ/L BUN (7-17) mg/dL Creatinine (0.52-1.04) mg/dL Estimated GFR ML/MIN Glucose (74-106) mg/dL Calcium (8.4-10.2) mg/dL Troponin I (0.000-0.033) ng/mL Vitamin B12 317 (239-931) pg/mL TSH 3rd Generation 3.669 (0.470-4.680) mIU/L Urine Color (Yellow) Urine Appearance (Clear) Urine pH (4.6-8.0) Ur Specific [place] (1.005-1.030) Urine Protein (Negative) Urine Glucose (UA) (Negative) mg/dL Urine Ketones (Negative) Urine Blood (Negative) Urine Nitrite (Negative) Urine Bilirubin (Negative) Urine Urobilinogen (0.2) mg/dL Ur Leukocyte Esterase (Negative) U Hyaline Cast (Auto) (0-2) /LPF Urine Microscopic RBC (0-5) /HPF Urine Microscopic WBC (0-5) /HPF Ur Epithelial Cells (None Seen) /HPF Urine Bacteria (None Seen) /HPF Urine Culture Reflexed (NO) 08/02/23 Range/Units 04:38 WBC (3.98-10.04) x10^3/uL RBC (3.93-5.22) x10^6/uL Hgb (11.2-15.7) g/dL Hct (34.1-44.9) % MCV (79.4-94.8) fL MCH (25.6-32.2) pg MCHC (32.2-35.5) g/dL RDW (11.7-14.4) % Plt Count (182-369) x10^3/uL MPV (9.4-12.3) fL Sodium 141 (135-145) mmol/L Potassium 4.2 (3.5-5.1) mmol/L Chloride 112 H (98-107) mmol/L Carbon Dioxide 22 (22-30) mmol/L Anion Gap 11.2 (5-15) MEQ/L BUN 14 (7-17) mg/dL Creatinine 0.74 (0.52-1.04) mg/dL Estimated GFR 82.8 ML/MIN Glucose 132 H (74-106) mg/dL Calcium 8.5 (8.4-10.2) mg/dL Troponin I (0.000-0.033) ng/mL Vitamin B12 (239-931) pg/mL TSH 3rd Generation (0.470-4.680) mIU/L Urine Color (Yellow) Urine Appearance (Clear) Urine pH (4.6-8.0) Ur Specific [place] (1.005-1.030) Urine Protein (Negative) Urine Glucose (UA) (Negative) mg/dL Urine Ketones (Negative) Urine Blood (Negative) Urine Nitrite (Negative) Urine Bilirubin (Negative) Urine Urobilinogen (0.2) mg/dL Ur Leukocyte Esterase (Negative) U Hyaline Cast (Auto) (0-2) /LPF Urine Microscopic RBC (0-5) /HPF Urine Microscopic WBC (0-5) /HPF Ur Epithelial Cells (None Seen) /HPF Urine Bacteria (None Seen) /HPF Urine Culture Reflexed (NO) - Radiology Impressions Radiology Exams & Impressions: Radiology Procedures Category Date Time Status ABDOMEN AND PELVIS W/0 CONTRAS [CT] Stat Exams 08/01/23 07:57 Completed CAROTID BILATERAL [US] Routine Exams 08/01/23 13:55 Completed ECHO W/2D AND DOPPLER [US] Routine Exams 08/01/23 13:24 Taken HEAD WITHOUT CONTRAST [CT] Stat Exams 08/01/23 10:58 Completed MRA BRAIN WITHOUT CONTRAST [MRI] Routine Exams 08/02/23 10:54 Ordered MRI BRAIN WITH CONTRAST [MRI] Stat Exams 08/01/23 13:24 Completed MRI C-SPINE W & WO CONTRAST [MRI] Routine Exams 08/02/23 10:54 Ordered MRI L-SPINE W & W/O CONTRAST [MRI] Routine Exams 08/02/23 10:54 Ordered - Other Procedures and Tests Respiratory Therapy 08/01/23 16:41 Respiratory Therapy Assessment DAILY
--- NOTE | 2023-08-02 12:23 | PCM.NOTE ---
Date and Time: 08/02/23 1210 Subjective Assessment: 08/01/23 is a 78 year old female with PMHX of HTN, COPD, OA, GERD, Anxiety, depression. and Non-Hodgkin lymphoma. Today she presented in the ER with complaints of generalized headache and abdominal pain for the last 5 days. Daughter state patient is having all of the same symptoms as when she was in the ER on 07/29/23. Last visit she was evaluated and admitted she has a negative CT head and was admitted for UTI, orthostatic hypotension and generalized weakness that had resolved and then discharged on 07/29. Patient reports still feeling weak fatigued tired and no energy to do her routine activities. For the last 5 days she is having difficulty ambulation with leaning to 1 side or the other as if she is going to fall down. Patient denies any actual fall. Reports having headache all over mild to moderate with no significant aggravating or relieving factors. No focal numbness t ingling/weakness/difficulty speech or visual disturbance. She has chronic abdominal pain which is also getting worse for the last few days and does not have any bowel movement for almost [address] abd does not show constipation but does show mesenteric paniculitis. Steriods ordered and she refuses to take them as she feels it will make her fat. Shealso takes apipex for weight loss and appetite suppressant. This was stopped d/t her sxs. Consider eating disorder as dx, will order nutrition consult. She has nausea but no vomiting. Patient is currently on cefuroxime for UTI with e-coli. UA greatly improved form last visit. Echo ordered as ER states HR drops with standing in the 30's, however this was not documented. Will check orthostats. Echo ffrom 03/11/23 Showed EF 55- 60%. Cardiology consulted for further evaluation. CT head shows: Prominent ventricular system and extra-axial CSF spaces suggesting involutional brain changes. Also white matter microvascular ischemic changes. MRI ordered for further evaluation. Will have PT work with pt. Consider placement at d/c. She denies CP, SOB, N/V/D. 08/02/23 Pt resting in bed. H/A and abd pain have improved today. Tele- neurology consult completed and MRI recommendations ordered. They would like called back after results are completed. Pt not willing to take steroids fpc d/t weight gain. Will continue steroids for 2 weeks as a compromise. After discussion with CM she is agreeable to rehab placement. Likely will be here over the weekend for rehab placement. She denies CP, SOB, abd. pain, N/V/D. Per PT exam abnormal evaluation- see note. - Review of Systems Constitutional: Weakness, No Fever, No Chills Eyes: No Symptoms Ears, Nose, & Throat: No Symptoms Respiratory: No Cough, No Short Of Breath Cardiac: No Chest Pain, No Edema, No Syncope Abdominal/Gastrointestinal: No Abdominal Pain, No Nausea, No Vomiting, No Diarrhea Genitourinary Symptoms: No Dysuria Musculoskeletal: No Back Pain, No Neck Pain Skin: No Rash Neurological: Headache (intermittent), No Dizziness, No Focal Weakness, No Sensory Changes Psychological: No Symptoms Endocrine: No Symptoms Hematologic/Lymphatic: No Symptoms Immunological/Allergic: No Symptoms Objective Exam General Appearance: no apparent distress, alert Neurologic Exam: alert, oriented x 3, cooperative, normal mood/affect, nml cereb ellar function, sensation nml, motor weakness, abnormal gait, No motor deficits Skin Exam: normal color, warm, dry Eye Exam: PERRL, EOMI, eyes nml inspection Ears, Nose, Throat Exam: normal ENT inspection, pharynx normal, moist mucous membranes Neck Exam: normal inspection, non-tender, supple, full range of motion Respiratory Exam: normal breath sounds, lungs clear, No respiratory distress Cardiovascular Exam: regular rate/rhythm, normal heart sounds Gastrointestinal/Abdomen Exam: soft, No tenderness, No mass Extremity Exam: normal inspection, normal range of motion Back Exam: normal inspection, normal range of motion, No CVA tenderness, No vertebral tenderness Pelvic Exam: deferred Rectal Exam: deferred Objective Data Vital Signs: Vital Signs - 24 hr Temp Pulse Resp BP BP Pulse Ox 08/02/23 07:25 76 16 96 08/02/23 07:10 97.2 F 106 H 16 111/86 98 08/02/23 04:00 97.2 F 73 19 121/56 95 08/01/23 23:37 97.0 F 75 18 110/62 96 08/01/23 19:34 97.7 F 78 18 108/59 93 L 08/01/23 18:43 84 14 93 L 08/01/23 16:44 76 14 94 L 08/01/23 16:00 97.8 F 101 H 20 114/65 96 08/01/23 14:07 94 L 08/01/23 13:38 97.1 F 70 18 115/64 94 L 08/01/23 12:45 64 26 H 101/71 97 08/01/23 12:30 65 19 99/66 96 08/01/23 12:27 64 20 115/65 93 L 08/01/23 12:24 96 Pain Assessment - Last Documented Pain Intensity 6 Pain Scale Used 0-10 Pain Scale Intake and Output: Intake & Output 07/31/23 08/01/23 08/02/23 08/03/23 11:59 11:59 11:59 11:59 Intake Total 1878 Balance 1878 Weight 70.9 kg 67.7 kg Lab Results: Lab Results-Last 24 Hours 08/01/23 08/01/23 08/01/23 Range/Units 12:04 16:35 16:35 WBC (3.98-10.04) x10^3/uL RBC (3.93-5.22) x10^6/uL Hgb (11.2-15.7) g/dL Hct (34.1-44.9) % MCV (79.4-94.8) fL MCH (25.6-32.2) pg MCHC (32.2-35.5) g/dL RDW (11.7-14.4) % Plt Count (182-369) x10^3/uL MPV (9.4-12.3) fL Sodium (135-145) mmol/L Potassium (3.5-5.1) mmol/L Chloride (98-107) mmol/L Carbon Dioxide (22-30) mmol/L Anion Gap (5-15) MEQ/L BUN (7-17) mg/dL Creatinine (0.52-1.04) mg/dL Estimated GFR ML/MIN Glucose (74-106) mg/dL Calcium (8.4-10.2) mg/dL Troponin I < 0.012 < 0.012 (0.000-0.033) ng/mL Vitamin B12 317 (239-931) pg/mL TSH 3rd Generation (0.470-4.680) mIU/L 08/02/23 08/02/23 08/02/23 Range/Units 04:38 04:38 04:38 WBC 6.0 (3.98-10.04) x10^3/uL RBC 3.82 L (3.93-5.22) x10^6/uL Hgb 11.5 (11.2-15.7) g/dL Hct 34.8 (34.1-44.9) % MCV 91.1 (79.4-94.8) fL MCH 30.1 (25.6-32.2) pg MCHC 33.0 (32.2-35.5) g/dL RDW 12.1 (11.7-14.4) % Plt Count 225 (182-369) x10^3/uL MPV 11.8 (9.4-12.3) fL Sodium 141 (135-145) mmol/L Potassium 4.2 (3.5-5.1) mmol/L Chloride 112 H (98-107) mmol/L Carbon Dioxide 22 (22-30) mmol/L Anion Gap 11.2 (5-15) MEQ/L BUN 14 (7-17) mg/dL Creatinine 0.74 (0.52-1.04) mg/dL Estimated GFR 82.8 ML/MIN Glucose 132 H (74-106) mg/dL Calcium 8.5 (8.4-10.2) mg/dL Troponin I (0.000-0.033) ng/mL Vitamin B12 (239-931) pg/mL TSH 3rd Generation 3.669 (0.470-4.680) mIU/L Radiology Exams: Radiology Procedures Category Date Time Status ABDOMEN AND PELVIS W/0 CONTRAS [CT] Stat Exams 08/01/23 07:57 Completed CAROTID BILATERAL [US] Routine Exams 08/01/23 13:55 Completed ECHO W/2D AND DOPPLER [US] Routine Exams 08/01/23 13:24 Taken HEAD WITHOUT CONTRAST [CT] Stat Exams 08/01/23 10:58 Completed MRA BRAIN WITHOUT CONTRAST [MRI] Routine Exams 08/02/23 10:54 Taken MRI BRAIN WITH CONTRAST [MRI] Stat Exams 08/01/23 13:24 Completed MRI C-SPINE W & WO CONTRAST [MRI] Routine Exams 08/02/23 10:54 Taken MRI L-SPINE W & W/O CONTRAST [MRI] Routine Exams 08/02/23 10:54 Taken Multi-Disciplinary Progress Notes: Multi-Disciplinary Progress Notes 08/02/23 12:00 OT Plan of Care Note by Yvette Mcneill OT Eval OT Inpatient Eval and POC Start: 08/01/23 13:44 Freq: ONCE Status: Complete Protocol: Created 08/01/23 13:45 [facility] (Rec: 08/01/23 13:45 [facility] -[id number]) Document 08/02/23 11:28 KA (Rec: 08/02/23 11:59 KA [id number]) OT Evaluation Subjective Kimberly and daughter present in room, and patient is agreeable to OT evaluation. Upon OT arrival, daughter assisting patient out of bed ( alarm on bed was on) as patient urgently trying to go to bathroom. Pertinent Past Medical History Recent admission: Patient was admitted on 07/30/23 due to head aches, orthostatic hypotention, UTI, and generalized weakness. She was discharged home to follow up with primary care physician regarding neuro related impairements. PMH: HTN, COPD, OA, GERD, Anxiety, depression, and non- hodgkin lymphoma Current admission: Kimberly had readmission due to ungoing headaches, and generalized weakness. She does report recent fall, but observed with confusion throughout session (forgetfullness, "I can't remember, but everyone does". Prior Level of Function Lives alone in 2 story house ( mainly resides on main level), has 5-6 steps to enter home, bilateral hand rail, owns walker, and independent with meal management (mainly heats up meals as daughter brings her food), laundry, light house cleaning tasks, drives, and daughter organizes her medication into pill organizer , and then she takes meds 2x/ day. Kimberly reports that she spends alot of time outside, had a recent fall in her garden, but does not recall other falls (poor short term memory noted throughout). She reports sleeping in a bed, and a morning person so she wakes up early to make coffee and her son will stop by to visit. However, she recalled earlier in the evaluation that she does not drink coffee anymore because she does not like it. She is unable to explain why she doesn't like it (caffeine, taste, etc.). Equipment at Home Prior to Admission Walker Home Setup [id number] Comment daughter reports that shower is too small for shower chair Date 08/02/23 Feeding WFL Comment Set up assist Grooming Impaired Comment Min assist,set up assist, and assist for thoroughness Bathing Impaired Comment Mod assist Dressing Impaired Comment Min assist Toileting Impaired Comment Min assist IADLS (If indicated) Homemaking,etc Impaired Bed Mobility WFL Comment HOB elevated and use of hand rail Toilet Transfers Impaired Comment Min assist Functional Transfers Impaired Comment Mod assist due to poor safety insight and impulsivity. Patient noted with shuffling gait, poor safety insight with impulsivity with forward leaning/rushing as LE rigid with shuffling. Range of Motion WFL Comment Limitations noted with bilateral shoulder abduction Coordination Finger Opposition: WFL UE MARGOTH: mild impairments with writhering noted. LE MARGOTH: WFL Patient noted with writhering movement at mouth, Bilateral UE (in hands) and with feet. Functional Strength Right UE: 4/5 MMT Left UE: 4/5 Functional Endurance Fair Cognition Alert and oriented to name, , month, year (corrected self after initial year stated ), location. She was unable to recall the information received from neuro MD consult for dang 10 minutes ago, unable to recall the recent onset of tremors/writhering at mouth or BUE/BLE, and/or if she has had recent falls. She frequently responded with "I'm not sure, I can't remember, but thats normal as everyone has problems with that". OT pointed out the writhering movements and shuffling gait, and Kimberly said it was new but unable to remember when it started. Pain No reported pain Objective Data/Standardized Assessment(s Peters Index of [place] in ) Activities of Daily Livin/ 6 which indiciates low level of independence with ADLs. Patient noted with flat affect , quick/rushed speech (low voice quality). Comment Patient's HR between 119-125 bpm post toileting task, and returned to 90 bpm after several minutes of rest ( oxygen at 95% on room air). OT Plan Of Care Date of Evaluation 08/02/23 Treatment Diagnosis orthostatic dizziness, UTI, generalized weakness Teaching Recipient Patient,Family Patient is Aware of Diagnosis and Yes Prognosis Patient is receptive to Plan of Care and Yes contributory towards OT goals Functional Problem List Kimberly presents with flat affect, quick/rushed (low voice) speaking, writhering movement in mouth, bilateral hands and LE, shuffling gait, poor safety insight and impulsivity, generalized weakness, and poor short term memory limiting independence with I/ADLs and functional transfers. Therapuetic Interventions Neuro re-ed, ADL, therapeutic exercise, therapeutic activity Functional Goals of Treatment All goals to be met by 24 (1 weeks): 1. Kimberly and family will demonstrate independence with HEP and all discharge recommendations. 2. Kimberly will complete ADLs ( grooming, bathing, toileting, dressing, etc.) with SBA and improved safety awareness evident by 1 verbal cue or less. 3. Kimberly will demonstrate improved coordination by managing toothbrush, hair brush, and utensil management with 1 drop or less. 4. Kimberly will complete functional transfers with DME as needed with SBA and appropriate safety insight with 2 verbal cues or less. Frequency/Duration 5x/week Rehabilitation Potential for Goals/ Good Barriers to Progress Discharge Recommendations/Plan OT recommends further skilled therapy and 17/09 care to facilitate strength, balance, and safety insight required to return home safely; recommend skilled placedment (SNF). OT Notes 08/02/23 10:33 Occupational Therapy Note by Yvette Mcneill OT ATTEMPTED EVALUATION AT 10:30 ON 08/02/23, BUT CURRENTLY UNDERGOING TELE- NEUROLOGY CONSULT. OT WILL ATTEMPT BACK IN APPROXIMATELY 30 MINUTES FOR EVALUATION. Initialized on 08/02/23 10:33 - END OF NOTE Initialized on 08/02/23 12:00 - END OF NOTE 08/02/23 10:33 Occupational Therapy Note by Yvette Mcneill OT ATTEMPTED EVALUATION AT 10:30 ON 08/02/23, BUT CURRENTLY UNDERGOING TELE- NEUROLOGY CONSULT. OT WILL ATTEMPT BACK IN APPROXIMATELY 30 MINUTES FOR EVALUATION. Initialized on 08/02/23 10:33 - END OF NOTE Assessment/Plan (1) Generalized weakness Current Visit: Yes Status: Chronic Code(s): R53.1 - WEAKNESS (2) Mesenteric panniculitis Current Visit: Yes Status: Acute Code(s): K65.4 - SCLEROSING MESENTERITIS (3) Generalized abdominal pain Current Visit: Yes Status: Acute Code(s): R10.84 - GENERALIZED ABDOMINAL PAIN (4) Orthostatic dizziness Current Visit: Yes Status: Acute Code(s): R42 - DIZZINESS AND GIDDINESS (5) UTI (urinary tract infection) Current Visit: Yes Status: Acute Code(s): N39.0 - URINARY TRACT INFECTION, SITE NOT SPECIFIED (6) HTN (hypertension) Current Visit: No Status: Chronic Assessment & Plan: (1) Generalized weakness Current Visit: Yes Status: Chronic Assessment & Plan: - chronic and worsening - consider placement at d/c - MRI brain 07/31 IMPRESSION: 1. Multiple deep white matter T2/FLAIR hyperintense foci are seen in the periventricular, callososeptal interface and undersurface of corpus callosum p[rependicular to the long axis of the lateral ventricle not showing any restricted diffusion or postcontrast enhancement, raising the possibility of demyelinating disease (MS) with differential of advanced microangiopathic changes, requiring clinical correlation. 2. No acute intracranial abnormality is identified. 3. Senile involutionary changes in the brain. - CT brain IMPRESSION: 1. Prominent ventricular system and extra-axial CSF spaces suggesting involutional brain changes. 2. White matter microvascular ischemic changes. 3. Otherwise, Unremarkable CT study for the brain. - PT/OT eval and treat - Neurology consulted 08/01 - MRA per neurology request - C-Spine and L-spine w & W/o contrast ordered per neurology request - Will call neurology when results are back as requested - willing to go to rehab at d/c- case management working on placement Code(s): R53.1 - WEAKNESS (2) Mesenteric panniculitis Current Visit: Yes Status: Acute Assessment & Plan: - Prednisone 20mg BID daily - will need to continue OP- Pt refuses to take medication as she states it will make her fat. - Seen on CT 08/01 - pt took steroids last night but not willing to take fpc- discussed 2 week course Code(s): K65.4 - SCLEROSING MESENTERITIS (3) Generalized abdominal pain Current Visit: Yes Status: Acute Assessment & Plan: - CT abd IMPRESSION: 1. Mild epigastric mesneteric panniculitis. 2. Right renal non-obstructing calculus. 3. Left renal cortical cyst. 4. Small left paraumbilical hernia, passing omental fat. 5. Redundant low lying transverse colon. 6. Spondylosis with dextroscoliosis noted. - Toradol gave in ER w/o relief - Steroids for mesneteric panniculitis started - tylenol for pain PRN / - pain improved Code(s): R10.84 - GENERALIZED ABDOMINAL PAIN (4) Orthostatic dizziness Current Visit: Yes Status: Acute Assessment & Plan: - Echo - EKG - cardiology consult - orthostats - Echo from 03/11/23 EF 55-60% - Stop Adipex - HR dropped into 30's per ER staff when standing - TEDS - TELE - TSH, vitamin b12, cortisol - consider OP Holter Monitor - Consider midodrine - may be 2:2 dementia - Nutrition consult for possible eating disorder- has taken adipex for years, will not take steroids " they will make me fat" 08/01 - Cardiology consult cancelled as HR did not drop with orthostats on unit. - tele overnight no concerns Code(s): R42 - DIZZINESS AND GIDDINESS (5) UTI (urinary tract infection) Current Visit: Yes Status: Acute Assessment & Plan: - recently admitted and treated - UC from last visit + for e-coli - Continue oral antibiotics Code(s): N39.0 - URINARY TRACT INFECTION, SITE NOT SPECIFIED (6) HTN (hypertension) Current Visit: No Status: Chronic Assessment & Plan: - BP stable - Continue BP meds Code(s): I10 - ESSENTIAL (PRIMARY) HYPERTENSION (7) Headache Current Visit: Yes Status: Resolved Assessment & Plan: - resolved today - See MRI results above - see neurology recs- agree with plan of care VTE: SCD's PPI: yoshicid Next of KIN:daughter D/C plan: 2-3 days- awaiting placement Code status: Full Code(s): R51.9 - HEADACHE, UNSPECIFIED
--- NOTE | 2023-08-02 12:53 | XRAY ---
Indication: Abnormal MRI brain one day earlier. Using carotid ultrasound of the neck demonstrates minimal right carotid arteriosclerotic disease and widely patent left carotid circulation. Multi-slab 3-D [id number] MRA [place] performed. Comparison: None Visualized internal carotid arteries are normal in course and caliber without critical stenosis, obstruction, or AV malformation. Normal carotid terminus with normal branching A1 and M1 segments bilaterally. Distal vertebral arteries are bilaterally symmetric and patent. Normal MRA appearance to the basilar, left/right posterior cerebral, and left/right superior cerebellar arteries. Impression: Normal MRA [place].
--- NOTE | 2023-08-02 13:43 | XRAY ---
Indication: Abnormal MRI brain results. Multiple sclerosis. Sagittal and axial MRI cervical spine performed using pre-and post T1 and T2 weighted sequences. 10 cc Dotarem used. Comparison: None Sagittal images images normal cervical alignment. Multilevel degenerative disc dessication signal with disc space narrowing greatest at C5-C6. Tiny inferior C5 small node and 3 mm superior C6 subcortical cyst. No acute fracture, suspicious bony lesions, or abnormal bone marrow signal. Spinal cord is normal in course and caliber without signal abnormalities. Normal appearing craniocervical junction. Axial images at C2-C3 level negative for disc herniation, spinal canal, or foraminal stenosis. At C3-C4 level, there is bilateral foraminal stenosis due to uncovertebral spurring. No focal disc herniation or canal stenosis. At C4-C5 level, there is left foraminal narrowing due to uncovertebral spurring. No focal disc herniation or canal stenosis. At C5-C6 level, there is left foraminal stenosis and right foraminal narrowing due to uncovertebral spurring. No focal disc herniation or canal stenosis. At C6-C7 level, there is left foraminal stenosis due to uncovertebral spurring. No focal disc herniation or canal stenosis. The C7-T1 level is unremarkable. Following gadolinium, there is no abnormal intra or extra thecal mass or lesion. No abnormal bony enhancement. Impression: 1. Multilevel degenerative disc disease detail level by level. Negative for disc herniation or spinal canal stenosis. 2. Remaining MRI cervical spine with contrast exam is negative.
--- NOTE | 2023-08-02 13:51 | XRAY ---
Indication: Abnormal MRI brain results. Multiple sclerosis. Sagittal and axial MRI lumbar spine performed using pre-and post T1 and T2 weighted sequences. 10 cc Dotarem used. Comparison: None No prior lumbar exams accounting purposes. 5 lumbar segments will be assumed. Sagittal images images normal lumbar lordosis with moderate dextroscoliosis centered at L2. Multilevel degenerative disc desiccation signal. Minimal L2-L4 and L5-S1 disc space narrowing. L5-S1 opposing endplate degenerative discogenic signal changes, motor type II. Diffuse L1 and small L4/L5 vertebral hemangiomas. Small inferior L2/L3 Schmorl nodes. No acute fracture, suspicious bony lesions, or abnormal bone marrow signal. Conus medullaris terminates at L1-L2 level Sagittal images through the T12-L3 disc levels demonstrates mild broad-based disc bulge at L2-L3 level greater towards the left with subsequent left foraminal stenosis and impingement left L2 nerve root. Remaining T12-L3 levels unremarkable. Axial images at L3-L4 level also demonstrate mild annular disc bulge greater towards the left with subsequent left foraminal stenosis and right foraminal narrowing. Impingement left L3 nerve root. No central disc herniation or canal stenosis. Moderate left and mild right degenerative facet arthropathy. At L4-L5 level, there is mild annular disc bulge greater towards the right with right foraminal stenosis. No exiting nerve root impingement. No focal disc herniation or canal stenosis. Moderate bilateral degenerative facet arthropathy. At L5-S1 level, there is mild annular disc bulge greater towards the right with right foraminal stenosis and impingement right L5 nerve root. No focal disc urination or canal stenosis. Mild bilateral degenerative facet arthropathy. Following gadolinium, there is no abnormal intra or extra thecal mass or lesion. No abnormal bony enhancement. Impression: 1. Multilevel degenerative disc disease detail level by level. Negative for disc herniation or spinal canal stenosis. 2. Incidental dextroscoliosis, L1/L4/L5 vertebral hemangiomas, and L2/L3 Schmorl nodes. 3. Remaining MRI lumbar spine with contrast exam is negative.
--- NOTE | 2023-08-02 15:27 | PCM.NOTE ---
Date and Time: 08/02/23 1527 Subjective Assessment: Physician Signature This document was electronically signed by: Shelli Johnson MD 08/02/2023 03:25 PM Consult Cover Page FROM: Dani Active Scaler, Call Back Number: [phone] SUBJECT: Consult Recommendations Date and Time of Report: 08/02/2023 03:25 PM ET Items Contained in this Document: Neurology Progress Note Consult Information Member Facility: [facility] Facility Consult ID: [id number] Facility Time Zone: ET Date and Time of Request: 08-02-2023 03:07 PM ET Requesting Clinician: JUSTO CARRASCO Patient Name: KIMBERLY ROBLEDO Date of : 1945 Gender: Female Patient identity was confirmed at the beginning of the consult with the patient/family/staff using two personal identifiers: Patient name and Reason for Consult Reason for Consult: Inpatient General Patient Location and Admission Status: ED- Patient is not admitted Progress Note Clinical Notes: Spoke to Justo Carrasco about patient's MRI C and L spine and MRA H results. MRA Head shows patent vessels with no signs of aneurysm, dissection, high grade stenosis. She also had carotid US done 07/31 which was largely unremarkable. MRI C spine w/w/o showed multilevel disc disease without foraminal narrowing. MRI L spine w/w/o showed multilevel disc disease with impingement at the L2 nerve root, left L3 nerve root, right L5 nerve root. No signs of demyelinating plaques, masses, etc. Discussed results with Justo Rae that patient is likely presenting with a lumbar radiculopathy that is contributing to her progressive weakness of her bl LE. She is amenable to undergoing placement to rehab. We discussed that patient should pursue physical therapy and have continued follow up with neurology as an outpatient. All questions answered. Discussed case and final recommendations with Justo Carrasco. Attestation Interaction Mode: Phone Only Time of Phone Call : 08-02-2023 03:18 PM ET Interaction Attestation: Interprofessional internet consultation was delivered through telephonic and/or electronic communication upon the request of the patients treating physician, while the requesting and the rendering provider were not in the same physical location. Written report was provided to the requesting provider. Evaluation Duration (mins): 15 Vick Timer Summary Date and Time of Request: 08-02-2023 03:07 PM ET Physician Signature This document was electronically signed by: Shelli Johnson MD 08/02/2023 03:25 PM Objective Data Vital Signs: Vital Signs - 24 hr Temp Pulse Resp BP Pulse Ox 08/02/23 07:25 76 16 96 08/02/23 07:10 97.2 F 106 H 16 111/86 98 08/02/23 04:00 97.2 F 73 19 121/56 95 08/01/23 23:37 97.0 F 75 18 110/62 96 08/01/23 19:34 97.7 F 78 18 108/59 93 L 08/01/23 18:43 84 14 93 L 08/01/23 16:44 76 14 94 L 08/01/23 16:00 97.8 F 101 H 20 114/65 96 Pain Assessment - Last Documented Pain Intensity 5 Pain Scale Used 0-10 Pain Scale Intake and Output: Intake & Output 07/31/23 08/01/23 08/02/23 08/03/23 11:59 11:59 11:59 11:59 Intake Total 1878 120 Balance 1878 120 Weight 70.9 kg 67.7 kg Lab Results: Lab Results-Last 24 Hours 08/01/23 08/01/23 08/02/23 Range/Units 16:35 16:35 04:38 WBC (3.98-10.04) x10^3/uL RBC (3.93-5.22) x10^6/uL Hgb (11.2-15.7) g/dL Hct (34.1-44.9) % MCV (79.4-94.8) fL MCH (25.6-32.2) pg MCHC (32.2-35.5) g/dL RDW (11.7-14.4) % Plt Count (182-369) x10^3/uL MPV (9.4-12.3) fL Sodium (135-145) mmol/L Potassium (3.5-5.1) mmol/L Chloride (98-107) mmol/L Carbon Dioxide (22-30) mmol/L Anion Gap (5-15) MEQ/L BUN (7-17) mg/dL Creatinine (0.52-1.04) mg/dL Estimated GFR ML/MIN Glucose (74-106) mg/dL Calcium (8.4-10.2) mg/dL Troponin I < 0.012 (0.000-0.033) ng/mL Vitamin B12 317 (239-931) pg/mL TSH 3rd Generation 3.669 (0.470-4.680) mIU/L 08/02/23 08/02/23 Range/Units 04:38 04:38 WBC 6.0 (3.98-10.04) x10^3/uL RBC 3.82 L (3.93-5.22) x10^6/uL Hgb 11.5 (11.2-15.7) g/dL Hct 34.8 (34.1-44.9) % MCV 91.1 (79.4-94.8) fL MCH 30.1 (25.6-32.2) pg MCHC 33.0 (32.2-35.5) g/dL RDW 12.1 (11.7-14.4) % Plt Count 225 (182-369) x10^3/uL MPV 11.8 (9.4-12.3) fL Sodium 141 (135-145) mmol/L Potassium 4.2 (3.5-5.1) mmol/L Chloride 112 H (98-107) mmol/L Carbon Dioxide 22 (22-30) mmol/L Anion Gap 11.2 (5-15) MEQ/L BUN 14 (7-17) mg/dL Creatinine 0.74 (0.52-1.04) mg/dL Estimated GFR 82.8 ML/MIN Glucose 132 H (74-106) mg/dL Calcium 8.5 (8.4-10.2) mg/dL Troponin I (0.000-0.033) ng/mL Vitamin B12 (239-931) pg/mL TSH 3rd Generation (0.470-4.680) mIU/L Radiology Exams: Radiology Procedures Category Date Time Status ABDOMEN AND PELVIS W/0 CONTRAS [CT] Stat Exams 08/01/23 07:57 Completed CAROTID BILATERAL [US] Routine Exams 08/01/23 13:55 Completed ECHO W/2D AND DOPPLER [US] Routine Exams 08/01/23 13:24 Taken HEAD WITHOUT CONTRAST [CT] Stat Exams 08/01/23 10:58 Completed MRA BRAIN WITHOUT CONTRAST [MRI] Routine Exams 08/02/23 10:54 Completed MRI BRAIN WITH CONTRAST [MRI] Stat Exams 08/01/23 13:24 Completed MRI C-SPINE W & WO CONTRAST [MRI] Routine Exams 08/02/23 10:54 Completed MRI L-SPINE W & W/O CONTRAST [MRI] Routine Exams 08/02/23 10:54 Completed Multi-Disciplinary Progress Notes: Multi-Disciplinary Progress Notes 08/02/23 14:44 Case Management Note by Theodora Corrigan [facility] HAS ACCEPTED AND IS WAITING APPROVAL FROM INSURANCE AT THIS TIME, DAUGHTER UPDATED Initialized on 08/02/23 14:44 - END OF NOTE 08/02/23 14:16 Case Management Note by Theodora Corrigan S/W PATIENT AGAIN ABOUT REHAB- PATIENT IS AGREEABLE AT THIS TIME TO GO TO [facility] Initialized on 08/02/23 14:16 - END OF NOTE 08/02/23 12:58 Case Management Note by Theodora Corrigan FULL REFERRAL HAS BEEN FAXED TO [facility] AT THIS TIME, ANGELIKA FROM [facility] WAS COMING TO MEET WITH PATIENT AND DAUGHTER WELL. Initialized on 08/02/23 12:58 - END OF NOTE 08/02/23 12:18 Case Management Note by Theodora Corrigan PASRR PAPERWORK COMPLETE- NO LEVEL II REQUIRED LOC APPROVED COPIES FAXED WITH OT EVAL TO [facility], COPIES PLACED IN CHART Initialized on 08/02/23 12:18 - END OF NOTE 08/02/23 12:00 OT Plan of Care Note by Yvette Mcneill OT Eval OT Inpatient Eval and POC Start: 08/01/23 13:44 Freq: ONCE Status: Complete Protocol: Created 08/01/23 13:45 YOON (Rec: 08/01/23 13:45 YOON [id number]) Document 08/02/23 11:28 MARY (Rec: 08/02/23 11:59 KA [id number]) OT Evaluation Subjective Kimberly and daughter present in room, and patient is agreeable to OT evaluation. Upon OT arrival, daughter assisting patient out of bed ( alarm on bed was on) as patient urgently trying to go to bathroom. Pertinent Past Medical History Recent admission: Patient was admitted on 07/30/23 due to head aches, orthostatic hypotention, UTI, and generalized weakness. She was discharged home to follow up with primary care physician regarding neuro related impairements. PMH: HTN, COPD, OA, GERD, Anxiety, depression, and non- hodgkin lymphoma Current admission: Kimberly had readmission due to ungoing headaches, and generalized weakness. She does report recent fall, but observed with confusion throughout session (forgetfullness, "I can't remember, but everyone does". Prior Level of Function Lives alone in 2 story house ( mainly resides on main level), has 5-6 steps to enter home, bilateral hand rail, owns walker, and independent with meal management (mainly heats up meals as daughter brings her food), laundry, light house cleaning tasks, drives, and daughter organizes her medication into pill organizer , and then she takes meds 2x/ day. Kimberly reports that she spends alot of time outside, had a recent fall in her garden, but does not recall other falls (poor short term memory noted throughout). She reports sleeping in a bed, and a morning person so she wakes up early to make coffee and her son will stop by to visit. However, she recalled earlier in the evaluation that she does not drink coffee anymore because she does not like it. She is unable to explain why she doesn't like it (caffeine, taste, etc.). Equipment at Home Prior to Admission Walker Home Setup [id number] Comment daughter reports that shower is too small for shower chair Date 08/02/23 Feeding WFL Comment Set up assist Grooming Impaired Comment Min assist,set up assist, and assist for thoroughness Bathing Impaired Comment Mod assist Dressing Impaired Comment Min assist Toileting Impaired Comment Min assist IADLS (If indicated) Homemaking,etc Impaired Bed Mobility WFL Comment HOB elevated and use of hand rail Toilet Transfers Impaired Comment Min assist Functional Transfers Impaired Comment Mod assist due to poor safety insight and impulsivity. Patient noted with shuffling gait, poor safety insight with impulsivity with forward leaning/rushing as LE rigid with shuffling. Range of Motion WFL Comment Limitations noted with bilateral shoulder abduction Coordination Finger Opposition: WFL UE MARGOTH: mild impairments with writhering noted. LE MARGOTH: WFL Patient noted with writhering movement at mouth, Bilateral UE (in hands) and with feet. Functional Strength Right UE: 4/5 MMT Left UE: 4/5 Functional Endurance Fair Cognition Alert and oriented to name, , month, year (corrected self after initial year stated ), location. She was unable to recall the information received from neuro MD consult for dang 10 minutes ago, unable to recall the recent onset of tremors/writhering at mouth or BUE/BLE, and/or if she has had recent falls. She frequently responded with "I'm not sure, I can't remember, but thats normal as everyone has problems with that". OT pointed out the writhering movements and shuffling gait, and Kimberly said it was new but unable to remember when it started. Pain No reported pain Objective Data/Standardized Assessment(s Peters Index of Loving in ) Activities of Daily Livin/ which indiciates low level of independence with ADLs. Patient noted with flat affect , quick/rushed speech (low voice quality). Comment Patient's HR between 119-125 bpm post toileting task, and returned to 90 bpm after several minutes of rest ( oxygen at 95% on room air). OT Plan Of Care Date of Evaluation 08/02/23 Treatment Diagnosis orthostatic dizziness, UTI, generalized weakness Teaching Recipient Patient,Family Patient is Aware of Diagnosis and Yes Prognosis Patient is receptive to Plan of Care and Yes contributory towards OT goals Functional Problem List Kimberly presents with flat affect, quick/rushed (low voice) speaking, writhering movement in mouth, bilateral hands and LE, shuffling gait, poor safety insight and impulsivity, generalized weakness, and poor short term memory limiting independence with I/ADLs and functional transfers. Therapuetic Interventions Neuro re-ed, ADL, therapeutic exercise, therapeutic activity Functional Goals of Treatment All goals to be met by 08-09-23 (1 weeks): 1. Kimberly and family will demonstrate independence with HEP and all discharge recommendations. 2. Kimberly will complete ADLs ( grooming, bathing, toileting, dressing, etc.) with SBA and improved safety awareness evident by 1 verbal cue or less. 3. Kimberly will demonstrate improved coordination by managing toothbrush, hair brush, and utensil management with 1 drop or less. 4. Kimberly will complete functional transfers with DME as needed with SBA and appropriate safety insight with 2 verbal cues or less. Frequency/Duration 5x/week Rehabilitation Potential for Goals/ Good Barriers to Progress Discharge Recommendations/Plan OT recommends further skilled therapy and 17/09 care to facilitate strength, balance, and safety insight required to return home safely; recommend skilled placedment (SNF). OT Notes 08/02/23 10:33 Occupational Therapy Note by Yvette Mcneill OT ATTEMPTED EVALUATION AT 10:30 ON 08/02/23, BUT CURRENTLY UNDERGOING TELE- NEUROLOGY CONSULT. OT WILL ATTEMPT BACK IN APPROXIMATELY 30 MINUTES FOR EVALUATION. Initialized on 08/02/23 10:33 - END OF NOTE Initialized on 08/02/23 12:00 - END OF NOTE 08/02/23 10:33 Occupational Therapy Note by Yvette Mcneill OT ATTEMPTED EVALUATION AT 10:30 ON 08/02/23, BUT CURRENTLY UNDERGOING TELE- NEUROLOGY CONSULT. OT WILL ATTEMPT BACK IN APPROXIMATELY 30 MINUTES FOR EVALUATION. Initialized on 08/02/23 10:33 - END OF NOTE
[2023-08-02] MEDS: DESYREL 50 MG PO PRN (21:33)
[2023-08-03 06:08] LABS: Hematocrit 31.1 % (34.1-44.9); Hemoglobin 10.6 g/dL (11.2-15.7); Mean Cell Volume 88.4 fL (79.4-94.8); Mean Corpuscular Hemoglobin 30.1 pg (25.6-32.2); Mean Corpuscular Hgb Concent. 34.1 g/dL (32.2-35.5); Mean Platelet Volume 11.1 fL (9.4-12.3); Platelet Count 252 x10^3/uL (182-369); Red Blood Count 3.52 x10^6/uL (3.93-5.22); Red Cell Distribution Width 12.3 % (11.7-14.4); White Blood Count 9.9 x10^3/uL (3.98-10.04)
[2023-08-03 06:21] LABS: ANION GAP 8.6 MEQ/L (5-15); Calcium 8.4 mg/dL (8.4-10.2); Creatinine 1 0.72 mg/dL (0.52-1.04); EST GLOMERULAR FILTRATION RATE 85.5 ML/MIN; Potassium 3.6 mmol/L (3.5-5.1)
[2023-08-03 07:07] VITALS: PULSE 86; O2SAT 95
[2023-08-03 07:10] VITALS: BP 99/56; TEMP 97.5
--- NOTE | 2023-08-03 09:09 | PCM.NOTE ---
Date and Time: 08/03/23902 Subjective Assessment: 08/01/23 is a 78 year old female with PMHX of HTN, COPD, OA, GERD, Anxiety, depression. and Non-Hodgkin lymphoma. Today she presented in the ER with complaints of generalized headache and abdominal pain for the last 5 days. Daughter state patient is having all of the same symptoms as when she was in the ER on 07/29/23. Last visit she was evaluated and admitted she has a negative CT head and was admitted for UTI, orthostatic hypotension and generalized weakness that had resolved and then discharged on 07/29. Patient reports still feeling weak fatigued tired and no energy to do her routine activities. For the last 5 days she is having difficulty ambulation with leaning to 1 side or the other as if she is going to fall down. Patient denies any actual fall. Reports having headache all over mild to moderate with no significant aggravating or relieving factors. No focal numbness t ingling/weakness/difficulty speech or visual disturbance. She has chronic abdominal pain which is also getting worse for the last few days and does not have any bowel movement for almost [address] abd does not show constipation but does show mesenteric paniculitis. Steriods ordered and she refuses to take them as she feels it will make her fat. She also takes apipex for weight loss and appetite suppressant. This was stopped d/t her sxs. Consider eating disorder as dx, will order nutrition consult. She has nausea but no vomiting. Patient is currently on cefuroxime for UTI with e-coli. UA greatly improved form last visit. Echo ordered as ER states HR drops with standing in the 30's, however this was not documented. Will check orthostats. Echo ffrom 03/11/23 Showed EF 55- 60%. Cardiology consulted for further evaluation. CT head shows: Prominent ventricular system and extra-axial CSF spaces suggesting involutional brain changes. Also white matter microvascular ischemic changes. MRI ordered for further evaluation. Will have PT work with pt. Consider placement at d/c. She denies CP, SOB, N/V/D. 08/02/23 Pt resting in bed. H/A and abd pain have improved today. Tele- neurology consult completed and MRI recommendations ordered. They would like called back after results are completed. Pt not willing to take steroids senior care d/t weight gain. Will continue steroids for 2 weeks as a compromise. After discussion with CM she is agreeable to rehab placement. Likely will be here over the weekend for rehab placement. She denies CP, SOB, abd. pain, N/V/D. Per PT exam abnormal evaluation- see note. 08/03/23 Pt sitting up in bed. She is feeling better today and H/A resolved. Rehab facility is ready for her today and she is agreeable to transfer. Discussed MRA and MRI s pine results with pt and daughter in detail. 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 If sxs do not improved she will need OP rehab and f/u with neurology. Will continue antibiotics for UTI and steroids for mesenteric paniculitis. She denies CP, SOB, Abd. pain, N/V/D. Pt is to d/c to [facility] today. - Review of Systems Constitutional: No Fever, No Chills Eyes: No Symptoms Ears, Nose, & Throat: No Symptoms Respiratory: No Cough, No Short Of Breath Cardiac: No Chest Pain, No Edema, No Syncope Abdominal/Gastrointestinal: No Abdominal Pain, No Nausea, No Vomiting, No Diarrh ea Genitourinary Symptoms: No Dysuria Musculoskeletal: No Back Pain, No Neck Pain Skin: No Rash Neurological: No Dizziness, No Focal Weakness, No Sensory Changes Psychological: No Symptoms Endocrine: No Symptoms Hematologic/Lymphatic: No Symptoms Immunological/Allergic: No Symptoms Objective Exam General Appearance: no apparent distress, alert Neurologic Exam: alert, oriented x 3, cooperative, normal mood/affect, nml cerebellar function, sensation nml, No motor deficits Skin Exam: normal color, warm, dry Eye Exam: PERRL, EOMI, eyes nml inspection Ears, Nose, Throat Exam: normal ENT inspection, pharynx normal, moist mucous membranes Neck Exam: normal inspection, non-tender, supple, full range of motion Respiratory Exam: normal breath sounds, lungs clear, No respiratory distress Cardiovascular Exam: regular rate/rhythm, normal heart sounds Gastrointestinal/Abdomen Exam: soft, No tenderness, No mass Extremity Exam: normal inspection, normal range of motion Back Exam: normal inspection, normal range of motion, No CVA tenderness, No vertebral tenderness Pelvic Exam: deferred Rectal Exam: deferred Objective Data Vital Signs: Vital Signs - 24 hr Temp Pulse Resp BP Pulse Ox 08/03/23 07:06 86 16 95 08/03/23 07:00 97.5 F 73 17 99/56 96 08/03/23 03:00 97.1 F 62 16 124/58 98 08/02/23 23:00 93 H 08/02/23 19:42 98.3 F 81 16 91/52 93 L 08/02/23 18:30 87 16 96 08/02/23 16:00 97.5 F 81 16 106/58 94 L Pain Assessment - Last Documented Pain Intensity 4 Pain Scale Used 0-10 Pain Scale Intake and Output: Intake & Output 07/31/23 08/01/23 08/02/23 08/03/23 11:59 11:59 11:59 11:59 Intake Total 1878 740 Balance 1878 740 Weight 70.9 kg 67.7 kg Lab Results: Lab Results-Last 24 Hours 08/03/23 08/03/23 Range/Units 05:25 05:25 WBC 9.9 (3.98-10.04) x10^3/uL RBC 3.52 L (3.93-5.22) x10^6/uL Hgb 10.6 L (11.2-15.7) g/dL Hct 31.1 L (34.1-44.9) % MCV 88.4 (79.4-94.8) fL MCH 30.1 (25.6-32.2) pg MCHC 34.1 (32.2-35.5) g/dL RDW 12.3 (11.7-14.4) % Plt Count 252 (182-369) x10^3/uL MPV 11.1 (9.4-12.3) fL Sodium 139 (135-145) mmol/L Potassium 3.6 (3.5-5.1) mmol/L Chloride 110 H (98-107) mmol/L Carbon Dioxide 24 (22-30) mmol/L Anion Gap 8.6 (5-15) MEQ/L BUN 18 H (7-17) mg/dL Creatinine 0.72 (0.52-1.04) mg/dL Estimated GFR 85.5 ML/MIN Glucose 125 H (74-106) mg/dL Calcium 8.4 (8.4-10.2) mg/dL Radiology Exams: Radiology Procedures Category Date Time Status CAROTID BILATERAL [US] Routine Exams 08/01/23 13:55 Completed ECHO W/2D AND DOPPLER [US] Routine Exams 08/01/23 13:24 Taken HEAD WITHOUT CONTRAST [CT] Stat Exams 08/01/23 10:58 Completed MRA BRAIN WITHOUT CONTRAST [MRI] Routine Exams 08/02/23 10:54 Completed MRI BRAIN WITH CONTRAST [MRI] Stat Exams 08/01/23 13:24 Completed MRI C-SPINE W & WO CONTRAST [MRI] Routine Exams 08/02/23 10:54 Completed MRI L-SPINE W & W/O CONTRAST [MRI] Routine Exams 08/02/23 10:54 Completed Multi-Disciplinary Progress Notes: Multi-Disciplinary Progress Notes 08/02/23 18:10 (created 08/02/23 21:13) Case Management Note by Theodora Corrigan [facility] HAS RECEIVED AUTH FOR REHAB STAY- PATIENT CAN ADMIT TOMORROW. EMI OPERATIONS ACCOUNTANT NOTIFIED WELL PRIMARY RN Initialized on 08/02/23 21:13 - END OF NOTE 08/02/23 14:44 Case Management Note by Theodora CorriganSUSHILA HAS ACCEPTED AND IS WAITING APPROVAL FROM INSURANCE AT THIS TIME, DAUGHTER UPDATED Initialized on 08/02/23 14:44 - END OF NOTE 08/02/23 14:16 Case Management Note by Theodora Corrigan S/W PATIENT AGAIN ABOUT REHAB- PATIENT IS AGREEABLE AT THIS TIME TO GO TO [facility] Initialized on 08/02/23 14:16 - END OF NOTE 08/02/23 12:58 Case Management Note by Theodora Corrigan FULL REFERRAL HAS BEEN FAXED TO [facility] AT THIS TIME, ANGELIKA FROM [facility] WAS COMING TO MEET WITH PATIENT AND DAUGHTER WELL. Initialized on 08/02/23 12:58 - END OF NOTE 08/02/23 12:18 Case Management Note by Theodora Corrigan PASRR PAPERWORK COMPLETE- NO LEVEL II REQUIRED LOC APPROVED COPIES FAXED WITH OT EVAL TO [facility], COPIES PLACED IN CHART Initialized on 08/02/23 12:18 - END OF NOTE 08/02/23 12:00 OT Plan of Care Note by Yvette Mcneill OT Eval OT Inpatient Eval and POC Start: 08/01/23 13:44 Freq: ONCE Status: Complete Protocol: Created 08/01/23 13:45 [facility] (Rec: 08/01/23 13:45 [facility] -[id number]) Document 08/02/23 11:28 KA (Rec: 08/02/23 11:59 KA [id number]) OT Evaluation Subjective Kimberly and daughter present in room, and patient is agreeable to OT evaluation. Upon OT arrival, daughter assisting patient out of bed ( alarm on bed was on) as patient urgently trying to go to bathroom. Pertinent Past Medical History Recent admission: Patient was admitted on 07/30/23 due to head aches, orthostatic hypotention, UTI, and generalized weakness. She was discharged home to follow up with primary care physician regarding neuro related impairements. PMH: HTN, COPD, OA, GERD, Anxiety, depression, and non- hodgkin lymphoma Current admission: Kimberly had readmission due to ungoing headaches, and generalized weakness. She does report recent fall, but observed with confusion throughout session (forgetfullness, "I can't remember, but everyone does". Prior Level of Function Lives alone in 2 story house ( mainly resides on main level), has 5-6 steps to enter home, bilateral hand rail, owns walker, and independent with meal management (mainly heats up meals as daughter brings her food), laundry, light house cleaning tasks, drives, and daughter organizes her medication into pill organizer , and then she takes meds 2x/ day. Kimberly reports that she spends alot of time outside, had a recent fall in her garden, but does not recall other falls (poor short term memory noted throughout). She reports sleeping in a bed, and a morning person so she wakes up early to make coffee and her son will stop by to visit. However, she recalled earlier in the evaluation that she does not drink coffee anymore because she does not like it. She is unable to explain why she doesn't like it (caffeine, taste, etc.). Equipment at Home Prior to Admission Walker Home Setup [id number] Comment daughter reports that shower is too small for shower chair Date 08/02/23 Feeding WFL Comment Set up assist Grooming Impaired Comment Min assist,set up assist, and assist for thoroughness Bathing Impaired Comment Mod assist Dressing Impaired Comment Min assist Toileting Impaired Comment Min assist IADLS (If indicated) Homemaking,etc Impaired Bed Mobility WFL Comment HOB elevated and use of hand rail Toilet Transfers Impaired Comment Min assist Functional Transfers Impaired Comment Mod assist due to poor safety insight and impulsivity. Patient noted with shuffling gait, poor safety insight with impulsivity with forward leaning/rushing as LE rigid with shuffling. Range of Motion WFL Comment Limitations noted with bilateral shoulder abduction Coordination Finger Opposition: WFL UE MARGOTH: mild impairments with writhering noted. LE MARGOTH: WFL Patient noted with writhering movement at mouth, Bilateral UE (in hands) and with feet. Functional Strength Right UE: 4/5 MMT Left UE: 4/5 Functional Endurance Fair Cognition Alert and oriented to name, , month, year (corrected self after initial year stated ), location. She was unable to recall the information received from neuro MD consult for dang 10 minutes ago, unable to recall the recent onset of tremors/writhering at mouth or BUE/BLE, and/or if she has had recent falls. She frequently responded with "I'm not sure, I can't remember, but thats normal as everyone has problems with that". OT pointed out the writhering movements and shuffling gait, and Kimberly said it was new but unable to remember when it started. Pain No reported pain Objective Data/Standardized Assessment(s Peters Index of [place] in ) Activities of Daily Livin/ 6 which indiciates low level of independence with ADLs. Patient noted with flat affect , quick/rushed speech (low voice quality). Comment Patient's HR between 119-125 bpm post toileting task, and returned to 90 bpm after several minutes of rest ( oxygen at 95% on room air). OT Plan Of Care Date of Evaluation 08/02/23 Treatment Diagnosis orthostatic dizziness, UTI, generalized weakness Teaching Recipient Patient,Family Patient is Aware of Diagnosis and Yes Prognosis Patient is receptive to Plan of Care and Yes contributory towards OT goals Functional Problem List Kimberly presents with flat affect, quick/rushed (low voice) speaking, writhering movement in mouth, bilateral hands and LE, shuffling gait, poor safety insight and impulsivity, generalized weakness, and poor short term memory limiting independence with I/ADLs and functional transfers. Therapuetic Interventions Neuro re-ed, ADL, therapeutic exercise, therapeutic activity Functional Goals of Treatment All goals to be met by 08-09-23 (1 weeks): 1. Kimberly and family will demonstrate independence with HEP and all discharge recommendations. 2. Kimberly will complete ADLs ( grooming, bathing, toileting, dressing, etc.) with SBA and improved safety awareness evident by 1 verbal cue or less. 3. Kimberly will demonstrate improved coordination by managing toothbrush, hair brush, and utensil management with 1 drop or less. 4. Kimberly will complete functional transfers with DME as needed with SBA and appropriate safety insight with 2 verbal cues or less. Frequency/Duration 5x/week Rehabilitation Potential for Goals/ Good Barriers to Progress Discharge Recommendations/Plan OT recommends further skilled therapy and 17/09 care to facilitate strength, balance, and safety insight required to return home safely; recommend skilled placedment (SNF). OT Notes 08/02/23 10:33 Occupational Therapy Note by Yvette Mcneill OT ATTEMPTED EVALUATION AT 10:30 ON 08/02/23, BUT CURRENTLY UNDERGOING TELE- NEUROLOGY CONSULT. OT WILL ATTEMPT BACK IN APPROXIMATELY 30 MINUTES FOR EVALUATION. Initialized on 08/02/23 10:33 - END OF NOTE Initialized on 08/02/23 12:00 - END OF NOTE 08/02/23 10:33 Occupational Therapy Note by Yvette Mcneill OT ATTEMPTED EVALUATION AT 10:30 ON 08/02/23, BUT CURRENTLY UNDERGOING TELE- NEUROLOGY CONSULT. OT WILL ATTEMPT BACK IN APPROXIMATELY 30 MINUTES FOR EVALUATION. Initialized on 08/02/23 10:33 - END OF NOTE Assessment/Plan (1) Generalized weakness Current Visit: Yes Status: Chronic Code(s): R53.1 - WEAKNESS (2) Mesenteric panniculitis Current Visit: Yes Status: Acute Code(s): K65.4 - SCLEROSING MESENTERITIS (3) Generalized abdominal pain Current Visit: Yes Status: Acute Code(s): R10.84 - GENERALIZED ABDOMINAL PAIN (4) Orthostatic dizziness Current Visit: Yes Status: Acute Code(s): R42 - DIZZINESS AND GIDDINESS (5) UTI (urinary tract infection) Current Visit: Yes Status: Acute Code(s): N39.0 - URINARY TRACT INFECTION, SITE NOT SPECIFIED (6) HTN (hypertension) Current Visit: No Status: Chronic Code(s): I10 - ESSENTIAL (PRIMARY) HYPERTENSION (7) Headache Current Visit: Yes Status: Resolved Assessment & Plan: (1) Generalized weakness Current Visit: Yes Status: Chronic Assessment & Plan: - chronic and worsening - consider placement at d/c - MRI brain 07/31 IMPRESSION: 1. Multiple deep white matter T2/FLAIR hyperintense foci are seen in the periventricular, callososeptal interface and undersurface of corpus callosum p[rependicular to the long axis of the lateral ventricle not showing any restricted diffusion or postcontrast enhancement, raising the possibility of demyelinating disease (MS) with differential of advanced microangiopathic changes, requiring clinical correlation. 2. No acute intracranial abnormality is identified. 3. Senile involutionary changes in the brain. - CT brain IMPRESSION: 1. Prominent ventricular system and extra-axial CSF spaces suggesting involutional brain changes. 2. White matter microvascular ischemic changes. 3. Otherwise, Unremarkable CT study for the brain. - PT/OT eval and treat - Neurology consulted 08/01 - MRA per neurology request - C-Spine and L-spine w & W/o contrast ordered per neurology request - Will call neurology when results are back as requested - willing to go to rehab at d/c- case management working on placement - Discussed in detail radiology results with Pt and daughter after speaking with neurology. 08/02 - Plan is to d/c to [facility] today for rehab - if sxs do not improve neurology recommends OP rehab and neurology f/u Code(s): R53.1 - WEAKNESS (2) Mesenteric panniculitis Current Visit: Yes Status: Acute Assessment & Plan: - Prednisone 20mg BID daily - will need to continue OP- Pt refuses to take medication as she states it will make her fat. - Seen on CT 08/01 - pt took steroids last night but not willing to take terminal superintendent- discussed 2 week course 08/02 - abd pain improved Code(s): K65.4 - SCLEROSING MESENTERITIS (3) Generalized abdominal pain Current Visit: Yes Status: Acute Assessment & Plan: - CT abd IMPRESSION: 1. Mild epigastric mesneteric panniculitis. 2. Right renal non-obstructing calculus. 3. Left renal cortical cyst. 4. Small left paraumbilical hernia, passing omental fat. 5. Redundant low lying transverse colon. 6. Spondylosis with dextroscoliosis noted. - Toradol gave in ER w/o relief - Steroids for mesneteric panniculitis started - tylenol for pain PRN 08/01 - pain improved Code(s): R10.84 - GENERALIZED ABDOMINAL PAIN (4) Orthostatic dizziness Current Visit: Yes Status: Acute Assessment & Plan: - Echo - EKG - cardiology consult - orthostats - Echo from 03/11/23 EF 55-60% - Stop Adipex - HR dropped into 30's per ER staff when standing - TEDS - TELE - TSH, vitamin b12, cortisol - consider OP Holter Monitor - Consider midodrine - may be 2:2 dementia - Nutrition consult for possible eating disorder- has taken adipex for years, will not take steroids " they will make me fat" 08/01 - Cardiology consult cancelled as HR did not drop with orthostats on unit. - tele overnight no concerns 08/02 - resolved Code(s): R42 - DIZZINESS AND GIDDINESS (5) UTI (urinary tract infection) Current Visit: Yes Status: Acute Assessment & Plan: - recently admitted and treated - UC from last visit + for e-coli - Continue oral antibiotics Code(s): N39.0 - URINARY TRACT INFECTION, SITE NOT SPECIFIED (6) HTN (hypertension) Current Visit: No Status: Chronic Assessment & Plan: - BP stable - Continue BP meds Code(s): I10 - ESSENTIAL (PRIMARY) HYPERTENSION (7) Headache Current Visit: Yes Status: Resolved Assessment & Plan: - resolved today - See MRI results above - see neurology recs- agree with plan of care Code(s): R51.9 - HEADACHE, UNSPECIFIED
--- NOTE | 2023-08-03 09:14 | PCM.DS ---
Discharge Summary Date of Admission: 08/01/23 13:16 Date of Discharge: 08/03/23 Admitting Physician: JOSE RAMIREZ MD Consults: Consults on Case 08/01/23 14:17 Nutritional Consult ROUTINE 08/01/23 17:41 Consult Neurology ROUTINE Primary Care Provider: JOANNSRINI Allergies Allergies No Known Drug Allergies Allergy (Verified 08/01/23 07:37) Hospital Summary - Hospital Course Hospital Course: 08/01/23 is a 78 year old female with PMHX of HTN, COPD, OA, GERD, Anxiety, depression. and Non-Hodgkin lymphoma. Today she presented in the ER with complaints of generalized headache and abdominal pain for the last 5 days. Daughter state patient is having all of the same symptoms as when she was in the ER on 07/29/23. Last visit she was evaluated and admitted she has a nega tive CT head and was admitted for UTI, orthostatic hypotension and generalized weakness that had resolved and then discharged on 07/29. Patient reports still feeling weak fatigued tired and no energy to do her routine activities. For the last 5 days she is having difficulty ambulation with leaning to 1 side or the other as if she is going to fall down. Patient denies any actual fall. Reports having headache all over mild to moderate with no significant aggravating or relieving factors. No focal numbness tingling/weakness/difficulty speech or visual disturbance. She has chronic abdominal pain which is also getting worse for the last few days and does not have any bowel movement for almost [address] abd does not show constipation but does show mesenteric paniculitis. Steriods ordered and she refuses to take them as she feels it will make her fat. She also takes apipex for weight loss and appetite suppressant. This was stopped d/t her sxs. Consider eating disorder as dx, will order nutrition consult. She has nausea but no vomiting. Patient is currently on cefuroxime for UTI with e-coli. UA greatly improved form last visit. Echo ordered as ER states HR drops with standing in the 30's, however this was not documented. Will check orthostats. Echo ffrom 03/11/23 Showed EF 55-60%. Cardiology consulted for further evaluation. CT head shows: Prominent ventricular system and extra-axial CSF spaces suggesting involutional brain changes. Also white matter microvascular ischemic changes. MRI ordered for further evaluation. Will have PT work with pt. Consider placement at d/c. She denies CP, SOB, N/V/D. 08/02/23 Pt resting in bed. H/A and abd pain have improved today. Tele- neurology consult completed and MRI recommendations ordered. They would like called back after results are completed. 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 Will continue steroids for 2 weeks as a compromise. After discussion with CM she is agreeable to rehab placement. Likely will be here over the weekend for rehab placement. She denies CP, SOB, abd. pain, N/V/D. Per PT exam abnormal evaluation- see note. 08/03/23 Pt sitting up in bed. She is feeling better today and H/A resolved. Rehab facility is ready for her today and she is agreeable to transfer. Discussed MRA and MRI s pine results with pt and daughter in detail. 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 If sxs do not improved she will need OP rehab and f/u with neurology. Will continue antibiotics for UTI and steroids for mesenteric paniculitis. She denies CP, SOB, Abd. pain, N/V/D. Pt is to d/c to [facility] today. - Vitals & Intake/Output Vital Signs: Vital Signs Temperature 97.5 F 08/03/23 07:00 Pulse Rate 86 08/03/23 07:06 Respiratory Rate 16 08/03/23 07:06 Blood Pressure 99/56 08/03/23 07:00 O2 Sat by Pulse Oximetry 95 08/03/23 07:06 Intake & Output: Intake & Output 07/31/23 08/01/23 08/02/23 08/03/23 11:59 11:59 11:59 11:59 Intake Total 1878 740 Balance 1878 740 Weight 70.9 kg 67.7 kg - Lab Result Diagrams: 08/03/23 05:25 08/03/23 05:25 Lab Results-Last 24 Hrs: Lab Results-Last 24 Hours 08/03/23 08/03/23 Range/Units 05:25 05:25 WBC 9.9 (3.98-10.04) x10^3/uL RBC 3.52 L (3.93-5.22) x10^6/uL Hgb 10.6 L (11.2-15.7) g/dL Hct 31.1 L (34.1-44.9) % MCV 88.4 (79.4-94.8) fL MCH 30.1 (25.6-32.2) pg MCHC 34.1 (32.2-35.5) g/dL RDW 12.3 (11.7-14.4) % Plt Count 252 (182-369) x10^3/uL MPV 11.1 (9.4-12.3) fL Sodium 139 (135-145) mmol/L Potassium 3.6 (3.5-5.1) mmol/L Chloride 110 H (98-107) mmol/L Carbon Dioxide 24 (22-30) mmol/L Anion Gap 8.6 (5-15) MEQ/L BUN 18 H (7-17) mg/dL Creatinine 0.72 (0.52-1.04) mg/dL Estimated GFR 85.5 ML/MIN Glucose 125 H (74-106) mg/dL Calcium 8.4 (8.4-10.2) mg/dL - Radiology Exams Ordered Rad Exams-Entire Visit: Radiology Procedures Category Date Time Status CAROTID BILATERAL [US] Routine Exams 08/01/23 13:55 Completed ECHO W/2D AND DOPPLER [US] Routine Exams 08/01/23 13:24 Taken HEAD WITHOUT CONTRAST [CT] Stat Exams 08/01/23 10:58 Completed MRA BRAIN WITHOUT CONTRAST [MRI] Routine Exams 08/02/23 10:54 Completed MRI BRAIN WITH CONTRAST [MRI] Stat Exams 08/01/23 13:24 Completed MRI C-SPINE W & WO CONTRAST [MRI] Routine Exams 08/02/23 10:54 Completed MRI L-SPINE W & W/O CONTRAST [MRI] Routine Exams 08/02/23 10:54 Completed - Procedures and Test Procedures and Tests throughout Hospitalization: Therapy Orders & Screens 08/01/23 13:44 PT Eval & Treat ( Order) ONCE Reason for Eval:: weakness Diagnosis: Orthostatic dizziness, UTI, generalized weakness OT Eval and Treat ( Order) ONCE Comment: Physician Instructions: Reason For Exam: Diagnosis: Orthostatic dizziness, UTI, generalized weakness 08/01/23 13:45 OT Screen per Nursing Assess ONCE Comment: Protocol Order Physician Instructions: Greater than 3 points order OT Admission Screening Reason For Exam: Triggered on Admission Diagnosis: Orthostatic dizziness, UTI, generalized weakness Open Wound/Cellutlitis/Pressure Ulcers: No Acute Fx/ORIF/Change in wt bearing status: No Severe MUSCULOSKELETAL pain: No ADL Dysfunction: Yes Acute CVA w/Hemiparesis/Hemiplegia: No Decreased Functional Mobility/Strength: Yes Sprain/Strain: No Acute Post-op Mobility Dysfunction: No Total Points: 4 PT Screen per Nursing Assess ONCE Comment: Protocol Order Physician Instructions: Greater than 3 points order PT Admission Screenin Reason For Exam: Triggered on Admission Diagnosis: Orthostatic dizziness, UTI, generalized weakness Open Wound/Cellutlitis/Pressure Ulcers: No Acute Fx/ORIF/Change in wt bearing status: No Severe MUSCULOSKELETAL pain: No ADL Dysfunction: Yes Acute CVA w/Hemiparesis/Hemiplegia: No Decreased Functional Mobility/Strength: Yes Sprain/Strain: No Acute Post-op Mobility Dysfunction: No Total Points: 4 08/01/23 16:41 Respiratory Therapy Assessment DAILY Comment: Diagnosis: Orthostatic dizziness, UTI, generalized weakness Discharge Exam General Appearance: no apparent distress, alert Neurologic Exam: alert, oriented x 3, cooperative, 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, normal mood/affect, nml cerebellar function, sensation nml, motor weakness (BLL E), abnormal gait, No motor deficits Eye Exam: PERRL, EOMI, eyes nml inspection Ears, Nose, Throat Exam: normal ENT inspection, pharynx normal, moist mucous membranes Neck Exam: normal inspection, non-tender, supple, full range of motion Respiratory Exam: normal breath sounds, lungs clear, No respiratory distress Cardiovascular Exam: regular rate/rhythm, normal heart sounds Gastrointestinal/Abdomen Exam: soft, No tenderness, No mass Pelvic Exam: deferred Rectal Exam: deferred Back Exam: normal inspection, normal range of motion, No CVA tenderness, No vertebral tenderness Extremity Exam: normal inspection, normal range of motion Skin Exam: normal color, warm, dry Final Diagnosis/Problem List - Final Discharge Diagnosis/Problem (1) Generalized weakness Current Visit: Yes Status: Chronic Code(s): R53.1 - WEAKNESS (2) Mesenteric panniculitis Current Visit: Yes Status: Acute Code(s): K65.4 - SCLEROSING MESENTERITIS (3) Generalized abdominal pain Current Visit: Yes Status: Acute Code(s): R10.84 - GENERALIZED ABDOMINAL PAIN (4) Orthostatic dizziness Current Visit: Yes Status: Acute Code(s): R42 - DIZZINESS AND GIDDINESS (5) UTI (urinary tract infection) Current Visit: Yes Status: Acute Code(s): N39.0 - URINARY TRACT INFECTION, SITE NOT SPECIFIED (6) HTN (hypertension) Current Visit: No Status: Chronic Code(s): I10 - ESSENTIAL (PRIMARY) HYPERTENSION (7) Headache Current Visit: Yes Status: Resolved Assessment & Plan: (1) Generalized weakness Current Visit: Yes Status: Chronic Assessment & Plan: - chronic and worsening - consider placement at d/c - MRI brain 07/31 IMPRESSION: 1. Multiple deep white matter T2/FLAIR hyperintense foci are seen in the periventricular, callososeptal interface and undersurface of corpus callosum p[rependicular to the long axis of the lateral ventricle not showing any restricted diffusion or postcontrast enhancement, raising the possibility of demyelinating disease (MS) with differential of advanced microangiopathic changes, requiring clinical correlation. 2. No acute intracranial abnormality is identified. 3. Senile involutionary changes in the brain. - CT brain IMPRESSION: 1. Prominent ventricular system and extra-axial CSF spaces suggesting involutional brain changes. 2. White matter microvascular ischemic changes. 3. Otherwise, Unremarkable CT study for the brain. - PT/OT eval and treat - Neurology consulted 08/01 - MRA per neurology request - C-Spine and L-spine w & W/o contrast ordered per neurology request - Will call neurology when results are back as requested - willing to go to rehab at d/c- case management working on placement - Discussed in detail radiology results with Pt and daughter after speaking with neurology. 08/02 - Plan is to d/c to [facility] today for rehab - if sxs do not improve neurology recommends OP rehab and neurology f/u Code(s): R53.1 - WEAKNESS (2) Mesenteric panniculitis Current Visit: Yes Status: Acute Assessment & Plan: - Prednisone 20mg BID daily - will need to continue OP- Pt refuses to take medication as she states it will make her fat. 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 Mild epigastric mesneteric panniculitis. 2. Right renal non-obstructing calculus. 3. Left renal cortical cyst. 4. Small left paraumbilical hernia, passing omental fat. 5. Redundant low lying transverse colon. 6. Spondylosis with dextroscoliosis noted. - Toradol gave in ER w/o relief - Steroids for mesneteric panniculitis started - tylenol for pain PRN 08/01 - pain improved, continue steroids Code(s): R10.84 - GENERALIZED ABDOMINAL PAIN (4) Orthostatic dizziness Current Visit: Yes Status: Acute Assessment & Plan: - Echo - EKG - cardiology consult - orthostats - Echo from 03/11/23 EF 55-60% - Stop Adipex - HR dropped into 30's per ER staff when standing - TEDS - TELE - TSH, vitamin b12, cortisol - consider OP Holter Monitor - Consider midodrine - may be 2:2 dementia - Nutrition consult for possible eating disorder- has taken adipex for years, will not take steroids " they will make me fat" 08/01 - Cardiology consult cancelled as HR did not drop with orthostats on unit. - tele overnight no concerns 08/02 - resolved Code(s): R42 - DIZZINESS AND GIDDINESS (5) UTI (urinary tract infection) Current Visit: Yes Status: Acute Assessment & Plan: - recently admitted and treated - UC from last visit + for e-coli - Continue oral antibiotics Code(s): N39.0 - URINARY TRACT INFECTION, SITE NOT SPECIFIED (6) HTN (hypertension) Current Visit: No Status: Chronic Assessment & Plan: - BP stable - Continue BP meds Code(s): I10 - ESSENTIAL (PRIMARY) HYPERTENSION (7) Headache Current Visit: Yes Status: Resolved Assessment & Plan: - resolved today - See MRI results above - see neurology recs- agree with plan of care Code(s): R51.9 - HEADACHE, UNSPECIFIED Code(s): R51.9 - HEADACHE, UNSPECIFIED - Discharge Discharge Date: 08/03/23 ([facility] rehab) Disposition: XFER OTHER Condition: Stable Prescriptions: New Prednisone 20 mg [Deltasone 20 mg] 20 mg PO BID 12 Days #24 tablet Continue Amlodipine Besylate 2.5 mg PO DAILY Omeprazole 40 mg PO BID Albuterol Sulfate [Albuterol Sulfate Hfa] 2 puff IH Q4HPRN PRN PRN Reason: Shortness Of Breath Nitroglycerin 0.4 mg Tablet [Nitrostat 0.4 MG Tablet] 0.4 mg SL Q5MIN PRN MR X 3 PRN 30 Days #30 PRN Reason: Chest Pain AMITRIPTYLINE HCL 50 mg Tab [AMITRIPTYLINE HCL 50 mg Tablet] 50 mg PO HS 30 Days #30 tablet Famotidine 20 mg [Pepcid 20 MG] 20 mg PO BID Trazodone HCl 50 mg [Desyrel 50 mg] 150 mg PO DAILY PRN PRN Reason: Insomnia Isosorbide Mononitrate 30 mg [Imdur 30 MG] 30 mg PO DAILY Atorvastatin Calcium [Lipitor 20MG Tablet] 20 mg PO HS Linaclotide [Linzess] 290 mcg PO DAILY Phentermine HCl [Adipex-P] 37.5 mg PO DAILY Cefuroxime Axetil 500 mg [Ceftin 500 mg] 500 mg PO BID 3 Days #6 tablet Follow up with: SRINI DAVID MD [Primary Care Provider] - 08/20/23 2:30 pm ([place] [facility]) ANDRE JETT [NON-STAFF PHY W/O PRIVILEGES] - 08/19/23 3:45 pm
== END 2023-08-03 11:10 ==
LOC: ED 07:27 → MED SURG 13:16
PROVIDERS: ADMIT Internal Medicine; ATTEND Internal Medicine
DX: N39.0 Urinary tract infection, site not specified (principal); R53.1 Weakness; K65.4 Sclerosing mesenteritis; R10.84 Generalized abdominal pain; R42 Dizziness and giddiness; I10 Essential (primary) hypertension; R51.9 Headache, unspecified; Z85.72 Personal history of non-Hodgkin lymphomas; Z79.899 Other long term (current) drug therapy
CPT/HCPCS: 36000; 36415; 70450; 70544; 70552; 72156; 72158; 74176; 80048; 80053; 81001; 82140; 82533; 82607; 83605; 83690; 84443; 84484; 85025; 85027; 93005; 93041; 93268; 93306; 93880; 94640; 94760; 96374; 96375; 97161; 97165; 99285; G0378; J1200; J1885; A9270-GY

== ENCOUNTER 2023-08-09 18:06 | Observation (INO) | payer MEDICARE ==
[2023-08-09 18:44] LABS: Absolute Neutrophil Ct (ANC) 11.36 x10^3/uL (1.56-6.13); BASOPHIL % 0.1 % (0.1-1.2); Basophil (Absolute #) 0.01 x10^3/uL (0.01-0.08); Eosinophil (Absolute #) 0 x10^3/uL (0.04-0.36); Hematocrit 34.9 % (34.1-44.9); Hemoglobin 11.8 g/dL (11.2-15.7); IMMATURE GRAN # 0.13 x10^3u/L (0.001-0.031); Lymphocytes % 8.3 % (19.3-51.7); Mean Cell Volume 89.5 fL (79.4-94.8); Mean Corpuscular Hemoglobin 30.3 pg (25.6-32.2); Mean Corpuscular Hgb Concent. 33.8 g/dL (32.2-35.5); Mean Platelet Volume 10.9 fL (9.4-12.3); Monocytes % 5.3 % (4.7-12.5); Neutrophil % 85.3 % (34.0-71.1); Platelet Count 312 x10^3/uL (182-369); Red Cell Distribution Width 12.9 % (11.7-14.4); White Blood Count 13.3 x10^3/uL (3.98-10.04)
[2023-08-09] MEDS ORDERED: Zofran 4 MG/2 ML VIAL ONE (18:47)
--- NOTE | 2023-08-09 18:47 | ERPHSYRPT ---
- History of Present Illness Source: patient Exam Limitations: no limitations Patient Subjective Stated Complaint: Chest pain that started a few hours ago Triage Nursing Assessment: Patient ambulated back to ER. She is alert and oriented; anxious. Displaying s/s of pain; grimacing and restless. Skin tone normal/coello. Hx Tetanus, Diphtheria Vaccination/Date Given: Yes Hx Influenza Vaccination/Date Given: No Hx Pneumococcal Vaccination/Date Given: No Immunizations Up to Date: Yes <XI MANRIQUE - Last Filed: 08/09/23 19:09> <CHAYO GIBSON - Last Filed: 08/09/23 22:34> - History of Present Illness Time Seen by Provider: 08/09/23 18:09 Physician History: Patient is here with midsternal chest pain. Started approximately 2 PM. Patient does have a history of some arterial disease. Has had previous heart catheterizations without stent placement. Patient states that she was seen twice last week for complaints here in the emergency department. Patient has taken several nitro today. No falls or trauma. No fever no chills. Describes the pain as nonradiating, stabbing. (XI MANRIQUE) Allergies/Adverse Reactions: No Known Drug Allergies Allergy (Verified 08/09/23 18:08) Home Medications: Amlodipine Besylate 2.5 mg PO DAILY 06/12/16 [History] Omeprazole 40 mg PO BID 11/29/17 [History] Albuterol Sulfate [Albuterol Sulfate Hfa] 2 puff IH Q4HPRN PRN 12/14/19 [History] Atorvastatin Calcium [Lipitor 20MG Tablet] 20 mg PO HS 07/29/23 [History] Famotidine 20 mg [Pepcid 20 MG] 20 mg PO BID 07/29/23 [History] Isosorbide Mononitrate 30 mg [Imdur 30 MG] 30 mg PO DAILY 07/29/23 [History] Linaclotide [Linzess] 290 mcg PO DAILY 07/29/23 [History] Phentermine HCl [Adipex-P] 37.5 mg PO DAILY 07/29/23 [History] Trazodone HCl 50 mg [Desyrel 50 mg] 150 mg PO DAILY PRN 07/29/23 [History] Ranolazine [Ranolazine ER] 500 mg PO BID 08/09/23 [History] Travel Risk - International Travel Have you traveled outside of the country in past 3 weeks: No - Emerging Infectious Disease Are you exhibiting symptoms associated with any current EIDs: No Symptoms: Abdominal Pain, Headaches/Body Aches/ Comment: fatigue <XI MANRIQUE - Last Filed: 08/09/23 19:09> - Past Medical History Pertinent Past Medical History: Yes Neurological History: Other ENT History: No Pertinent History Cardiac History: Angina, Hypertension Respiratory History: Asthma, COPD Endocrine Medical History: Hypothyroidism, Other Musculoskeletal History: Osteoarthritis GI Medical History: GERD, Gallbladder Disease History: No Pertinent History Psycho-Social History: Anxiety, Depression Female Reproductive Disorders: No Pertinent History Other Medical History: PATIENT IS STILL HAVING HEADACHES. UTI. PATIENT NEEDS TO WEAR A HEART MONITOR FOR A FEW WEEKS. 3 BACK SURGERIES, UNSURE OF WHAT HAS BEEN DONE. - Past Surgical History Past Surgical History: Yes Neuro Surgical History: No Pertinent History Cardiac: Cardiac Catheterization Respiratory: No Pertinent History Gastrointestinal: Cholecystectomy Genitourinary: No Pertinent History Musculoskeletal: No Pertinent History Female Surgical History: Hysterectomy, Tubal Ligation Other Surgical History: cvl port placed and removed Significant Family History: no pertinent family hx - Social History Smoking Status: Never smoker Exposure to second hand smoke: No Drug Use: none Patient Lives Alone: Yes - Social Determinants of Health Will the patient participate in the screening: Yes Do you worry about a steady place to live?: No Do you have any problems with any of the following?: No known problems In the past 12 months,have you had to go without utilities?: No Transportation Issues: No Has anyone in your support network made you feel unsafe?: No Have you or anyone in your house had to go without enough: No <XI MANRIQUE - Last Filed: 08/09/23 19:09> - Physical Exam SpO2 Interpretation: normal SpO2: 96 <XI MANRIQUE - Last Filed: 08/09/23 19:09> - Nursing Vital Signs Nursing Vital Signs: Initial Vital Signs Temperature 98.8 F 08/09/23 18:11 Pulse Rate 93 H 08/09/23 18:11 Respiratory Rate 08/09/23 18:11 Blood Pressure 107/92 08/09/23 18:11 O2 Sat by Pulse Oximetry 96 08/09/23 18:11 Pain Scale Pain Intensity 10 - Physical Exam Comments: 08/09/23 18:46 Review of Systems Constitutional: Negative for fever. HENT: Negative for congestion. Respiratory: Negative for shortness of breath. Cardiovascular: Chest pain Gastrointestinal: Negative for abdominal pain. Genitourinary: Negative for dysuria. Musculoskeletal: Negative for back pain. Skin: Negative for rash. Neurological: Negative for headaches. Psychiatric/Behavioral: Negative for behavioral problems. All other systems reviewed and are negative. Physical Exam Vitals signs and nursing note reviewed. Constitutional: Appearance: Patient is well-developed. HENT: Head: Normocephalic and atraumatic. Eyes: Conjunctiva/sclera: Conjunctivae normal. Neck: Musculoskeletal: Normal range of motion. Trachea: No tracheal deviation. Cardiovascular: Rate and Rhythm: Normal rate. Pulmonary: Effort: Pulmonary effort is normal. No respiratory distress. Abdominal: Palpations: Abdomen is soft. Musculoskeletal: General: No deformity. Skin: General: Skin is warm and dry. Neurological/ Psychiatric: Mental Status: Mental status, behavior, interaction with environment is appropriate for patient's age and condition (XI MANRIQUE) - Course Nursing assessment & vital signs reviewed: Yes <XI MANRIQUE - Last Filed: 08/09/23 19:09> - Course EKG Interpreted by Me: RATE ([id number]), Sinus Rhythm, Left Niotaze Deviation, NORMAL INTERVALS, Non-specific ST Changes, Other (Nonspecific T wave changes) <CHAYO GIBSON - Last Filed: 08/09/23 22:34> Ordered Tests: Active Orders 24 hr Category Date Time Status Model Maker Apprentice STAT Care 08/09/23 18:36 Active EKG-ER Only STAT Care 08/09/23 18:36 Active IV Insertion STAT Care 08/09/23 18:36 Active CHEST 1 VIEW (PORTABLE) Stat Exams 08/09/23 18:36 Taken CBC W DIFF Stat Lab 08/09/23 18:30 Completed CK-Creatinine Phosphokinase Stat Lab 08/09/23 18:30 Completed CMP Stat Lab 08/09/23 18:30 Completed D-DIMER QUANTITATIVE Stat Lab 08/09/23 18:30 Completed NT PRO BNPII Stat Lab 08/09/23 18:30 Completed TROPONIN Q4H Lab 08/09/23 18:30 Completed TROPONIN Q4H Lab 08/10/23 02:45 Ordered TROPONIN Stat Lab 08/09/23 21:10 Completed Transfer Order Routine Transfer 08/09/23 Ordered Medication Summary Discontinued Medications Generic Name Dose Route Start Last Admin Trade Name Davon PRN Reason Stop Dose Admin Aspirin 324 mg 08/09/23 18:36 08/09/23 18:51 Aspirin 81 Mg Tab.Chew PO 08/09/23 18:37 324 mg STAT ONE Administration Aspirin Confirm 08/09/23 18:48 Aspirin 81 Mg Tab.Chew Administered 08/09/23 18:49 Dose 324 mg .ROUTE .STK-MED ONE Sodium Chloride 1,000 mls @ 999 mls/hr 08/09/23 18:36 08/09/23 21:22 Sodium Chloride 0.9% 1000 Ml IV 08/09/23 19:36 Infused .Q1H1M STA Infusion Sodium Chloride Confirm 08/09/23 18:48 Sodium Chloride 0.9% 1000 Ml Administered 08/09/23 18:49 Dose 1,000 mls @ ud .ROUTE .STK-MED ONE Ondansetron HCl 4 mg 08/09/23 18:36 08/09/23 18:53 Ondansetron Hcl 4 Mg/2 Ml Vial IV 08/09/23 18:37 4 mg STAT ONE Administration Ondansetron HCl Confirm 08/09/23 18:47 Ondansetron Hcl 4 Mg/2 Ml Vial Administered 08/09/23 18:48 Dose 4 mg .ROUTE .STK-MED ONE Lab/Rad Data: Laboratory Result Diagrams 08/09/23 18:30 08/09/23 18:30 Laboratory Results 08/09/23 08/09/23 08/09/23 Range/Units 21:10 18:30 18:30 WBC (3.98-10.04) x10^3/uL RBC (3.93-5.22) x10^6/uL Hgb (11.2-15.7) g/dL Hct (34.1-44.9) % MCV (79.4-94.8) fL MCH (25.6-32.2) pg MCHC (32.2-35.5) g/dL RDW (11.7-14.4) % Plt Count (182-369) x10^3/uL MPV (9.4-12.3) fL Gran % (34.0-71.1) % Immature Gran % (Auto) (0.001-0.429) % Nucleat RBC Rel Count (0.00-0.2) % Eos # (Auto) (0.04-0.36) x10^3/uL Immature Gran # (Auto) (0.001-0.031) x10^3u/L Absolute Lymphs (auto) (1.18-3.74) x10^3/uL Absolute Monos (auto) (0.24-0.86) x10^3/uL Absolute Nucleated RBC (0.00-0.012) x10^3u/L Lymphocytes % (19.3-51.7) % Monocytes % (4.7-12.5) % Eosinophils % (0.7-5.8) % Basophils % (0.1-1.2) % Absolute Granulocytes (1.56-6.13) x10^3/uL Basophils # (0.01-0.08) x10^3/uL D-Dimer 0.45 (0.0-0.50) mg/L Sodium (135-145) mmol/L Potassium (3.5-5.1) mmol/L Chloride (98-107) mmol/L Carbon Dioxide (22-30) mmol/L Anion Gap (5-15) MEQ/L BUN (7-17) mg/dL Creatinine (0.52-1.04) mg/dL Estimated GFR ML/MIN Glucose (74-106) mg/dL Calcium (8.4-10.2) mg/dL Total Bilirubin (0.2-1.3) mg/dL AST (14-36) U/L ALT (0-35) U/L Alkaline Phosphatase (38-126) U/L Creatine Kinase (30-135) U/L Troponin I < 0.012 < 0.012 (0.000-0.033) ng/mL NT-Pro-B Natriuret Pep 674 (<300) pg/mL Serum Total Protein (6.3-8.2) g/dL Albumin (3.5-5.0) g/dL 08/09/23 08/09/23 Range/Units 18:30 18:30 WBC 13.3 H (3.98-10.04) x10^3/uL RBC 3.90 L (3.93-5.22) x10^6/uL Hgb 11.8 (11.2-15.7) g/dL Hct 34.9 (34.1-44.9) % MCV 89.5 (79.4-94.8) fL MCH 30.3 (25.6-32.2) pg MCHC 33.8 (32.2-35.5) g/dL RDW 12.9 (11.7-14.4) % Plt Count 312 (182-369) x10^3/uL MPV 10.9 (9.4-12.3) fL Gran % 85.3 H (34.0-71.1) % Immature Gran % (Auto) 1.0 H (0.001-0.429) % Nucleat RBC Rel Count 0.0 (0.00-0.2) % Eos # (Auto) 0 L (0.04-0.36) x10^3/uL Immature Gran # (Auto) 0.13 H (0.001-0.031) x10^3u/L Absolute Lymphs (auto) 1.10 L (1.18-3.74) x10^3/uL Absolute Monos (auto) 0.70 (0.24-0.86) x10^3/uL Absolute Nucleated RBC 0.00 (0.00-0.012) x10^3u/L Lymphocytes % 8.3 L (19.3-51.7) % Monocytes % 5.3 (4.7-12.5) % Eosinophils % 0.0 L (0.7-5.8) % Basophils % 0.1 (0.1-1.2) % Absolute Granulocytes 11.36 H (1.56-6.13) x10^3/uL Basophils # 0.01 (0.01-0.08) x10^3/uL D-Dimer (0.0-0.50) mg/L Sodium 136 (135-145) mmol/L Potassium 3.6 (3.5-5.1) mmol/L Chloride 102 (98-107) mmol/L Carbon Dioxide 26 (22-30) mmol/L Anion Gap 12.8 (5-15) MEQ/L BUN 26 H (7-17) mg/dL Creatinine 0.83 (0.52-1.04) mg/dL Estimated GFR 72.1 ML/MIN Glucose 146 H (74-106) mg/dL Calcium 9.0 (8.4-10.2) mg/dL Total Bilirubin 0.60 (0.2-1.3) mg/dL AST 22 (14-36) U/L ALT 21 (0-35) U/L Alkaline Phosphatase 72 (38-126) U/L Creatine Kinase 60 (30-135) U/L Troponin I (0.000-0.033) ng/mL NT-Pro-B Natriuret Pep (<300) pg/mL Serum Total Protein 6.5 (6.3-8.2) g/dL Albumin 3.9 (3.5-5.0) g/dL - Progress Progress: improved Counseled pt/family regarding: lab results, diagnosis, need for follow-up, rad results <XI MANRIQUE - Last Filed: 08/09/23 19:09> - Progress Progress: re-examined Discussed with : Soha Will see patient in: hospital (observation) <CHAYO GIBSON - Last Filed: 08/09/23 22:34> - Progress Progress Note: 08/09/23 18:46 Differential diagnosis includes: PNA, STEMI, NSTEMI, other infection, musculoskeletal pain, pneumothorax - We'll obtain basic labs, fluids, EKG, troponin, chest x-ray - EKG shows no ST changes - my read - O2 saturations consistently greater than 95%. (XI MANRIQUE) 08/09/23 22:28 Patient is checked out to me at shift change from Dr. Manrique with pending workup. Patient presented with chest pain starting at 2 PM. She took multiple nitros and is feeling better. She has full dose aspirin. EKG showed no ST elevation and negative troponins. No acute cardiopulmonary findings on chest x- ray reviewed by Dr. Manrique with official read pending. Patient is on room air. I have discussed with Dr. Bartno, reviewed history, workup, recommended obtaining second troponin which turns out to be negative as well. Patient is accepted for admission. I have shared the results of workup with patient and family and plan of admission which they understand and agree. (CHAYO GIBSON) Medical Desision Making - Independent Historian Additional History obtained from: Child - Discussion of managment Care discussed with:: hospitalist (Dr. Barton) Reviewed:: Test results Agreed on:: Treatment plan Will see patient: In office - Diagnostic Testing Diagnostic test were ordered, analyzed, and reviewed by me: Yes Radiological Interpretation: Interpreted by me, Reviewed by me - Risk of complications The pt has a mod risk of morbidity or mortality based on: Need for prescription drug management The pt has a high risk of morbidity or mortality based on: Decision regarding hospitilization or escalation of hosp level of care <CHAYO GIBSON - Last Filed: 08/09/23 22:34> - Departure Critical Care Time: No <XI MANRIQUE - Last Filed: 08/09/23 19:09> - Departure Departure Disposition: Observation <CHAYO GIBSON - Last Filed: 08/09/23 22:34> - Departure Clinical Impression: Chest pain, rule out acute myocardial infarction Condition: Stable Referrals: SRINI DAVID MD [Primary Care Provider] - Follow up/PCP as directed
[2023-08-09] MEDS ORDERED: Sodium Chloride 0.9% 1000 ML 1,000 ML ONE (18:48)
[2023-08-09] MEDS ORDERED: BABY ASPIRIN 81 MG CHEW ONE (18:48)
[2023-08-09 18:50] LABS: ALBUMIN 3.9 g/dL (3.5-5.0); ANION GAP 12.8 MEQ/L (5-15); BILIRUBIN,TOTAL 0.6 mg/dL (0.2-1.3); Creatinine 1 0.83 mg/dL (0.52-1.04); EST GLOMERULAR FILTRATION RATE 72.1 ML/MIN; Potassium 3.6 mmol/L (3.5-5.1); Total Protein 6.5 g/dL (6.3-8.2)
[2023-08-09] MEDS: Sodium Chloride 0.9% 1000 ML 1,000 ML IV STA (18:51)
[2023-08-09] MEDS: BABY ASPIRIN 81 MG CHEW PO ONE (18:51)
[2023-08-09] MEDS: Zofran 4 MG/2 ML VIAL IV ONE (18:53)
[2023-08-09 19:03] LABS: NT PRO BNPII 674 pg/mL (<300); TROPONIN < 0.012 ng/mL (0.000-0.033)
--- NOTE | 2023-08-10 01:59 | PCM.HP ---
History of Present Illness - Chief Complaint Chief Complaint: Plan rule out acute SD Date: 08/10/23 History of Present Illness: Ms. Hull is a 78 year-old female with HTN, asthma/COPD, hypothyroidism, and anxiety who presents with chest pain. While walking from room to room today she experienced chest pain - 10/10; mid to left chest; no radiation; no associated symptoms; sharp and dull - 3 doses of SL NTG improved the pain after 3-4 hours. Upon arrival to [place], her laboratory and imaging data were unrevealing, and her EKG was unremarkable. On my examination, she is resting comfortably denying any current fevers, chills, nausea, vomiting, diarrhea, syncope, presyncope, visual changes, orthopnea, PND, odynophagia, dysphagia, chest pain, shortness of breath, belly pain, dysuria, hematuria, melena, hematochezia, or neurological changes. All other systems were reviewed and were negative. - Review of Systems Constitutional: Other ( PER HPI) Medications & Allergies Home Medications: Home Medication List Amlodipine Besylate 2.5 mg PO DAILY 06/12/16 [History Confirmed 08/10/23] Omeprazole 40 mg PO BID 11/29/17 [History Confirmed 08/10/23] Albuterol Sulfate [Albuterol Sulfate Hfa] 2 puff IH Q4HPRN PRN 12/14/19 [History Confirmed 08/10/23] AMITRIPTYLINE HCL 50 mg Tab [AMITRIPTYLINE HCL 50 mg Tablet] 50 mg PO HS 30 Days #30 tablet 05/12/21 [Rx Confirmed 08/10/23] Nitroglycerin 0.4 mg Tablet [Nitrostat 0.4 MG Tablet] 0.4 mg SL Q5MIN PRN MR X 3 PRN 30 Days #30 05/12/21 [Rx Confirmed 08/10/23] Atorvastatin Calcium [Lipitor 20MG Tablet] 20 mg PO HS 07/29/23 [History Confirmed 08/10/23] Famotidine 20 mg [Pepcid 20 MG] 20 mg PO BID 07/29/23 [History Confirmed 08/10/23] Isosorbide Mononitrate 30 mg [Imdur 30 MG] 30 mg PO DAILY 07/29/23 [History Confirmed 08/10/23] Linaclotide [Linzess] 290 mcg PO DAILY 07/29/23 [History Confirmed 08/10/23] Phentermine HCl [Adipex-P] 37.5 mg PO DAILY 07/29/23 [History Confirmed 07/26 07/18] Trazodone HCl 50 mg [Desyrel 50 mg] 150 mg PO DAILY PRN 07/29/23 [History Confirmed 08/10/23] Prednisone 20 mg [Deltasone 20 mg] 20 mg PO BID 12 Days #24 tablet 08/03/23 [Rx Confirmed 08/10/23] Ranolazine [Ranolazine ER] 500 mg PO BID 08/09/23 [History Confirmed 08/10/23] Allergies/Adverse Reactions: Allergies Allergy/AdvReac Type Severity Reaction Status Date / Time No Known Drug Allergies Allergy Verified 08/09/23 18:08 - Past Medical History Past Medical History: Yes Neurological History: Other ENT History: No Pertinent History Cardiac History: Angina, Hypertension Respiratory History: Asthma, COPD Endocrine Medical History: Hypothyroidism, Other Musculoskelatal History: Osteoarthritis GI Medical History: GERD, Gallbladder Disease History: No Pertinent History Pyscho-Social History: Anxiety, Depression Reproductive Disorders: No Pertinent History Comment: PATIENT IS STILL HAVING HEADACHES. UTI. PATIENT NEEDS TO WEAR A HEART MONITOR FOR A FEW WEEKS. 3 BACK SURGERIES, UNSURE OF WHAT HAS BEEN DONE. - Past Surgical History Past Surgical History: Yes Neuro Surgical History: No Pertinent History Cardiac History: Cardiac Catheterization Respiratory Surgery: No Pertinent History GI Surgical History: Cholecystectomy Genitourinary Surgical Hx: No Pertinent History Musculskeletal Surgical Hx: No Pertinent History Female Surgical History: Hysterectomy, Tubal Ligation Other Surgical History: cvl port placed and removed Significant Family History: no pertinent family hx - Social History Smoking Status: Never smoker Exposure to second hand smoke: No Alcohol: Rarely Drug Use: none - Social Determinants of Health Will the patient participate in the screening: Yes Do you worry about a steady place to live?: No Do you have any problems with any of the following?: No known problems In the past 12 months,have you had to go without utilities?: No Have you or anyone in your house had to go without enough: No Transportation Issues: No Has anyone in your support network made you feel unsafe?: No Does the patient want assistance with any of the above?: No - Physical Exam Vital Signs: Vital Signs - 24 hr Temp Pulse Resp BP BP Pulse Ox 08/10/23 00:00 99 08/09/23 23:55 96.9 F 68 22 156/75 99 08/09/23 23:30 65 128/74 93 L 08/09/23 23:00 68 128/81 93 L 08/09/23 22:30 69 22 129/79 92 L 08/09/23 22:00 67 18 122/77 95 08/09/23 21:30 68 22 127/76 94 L 08/09/23 21:00 69 4 L 121/65 94 L 08/09/23 20:30 69 17 107/65 94 L 08/09/23 20:00 71 17 113/61 92 L 08/09/23 19:30 78 10 L 111/58 92 L 08/09/23 19:09 96 08/09/23 19:00 72 12 109/58 92 L 08/09/23 18:11 98.8 F 93 H 24 107/92 96 General Appearance: no apparent distress, alert Neurologic Exam: alert, oriented x 3, cooperative, normal mood/affect, nml cerebellar function, nml station & gait, sensation nml, No motor deficits Eye Exam: PERRL/EOMI, eyes nml inspection Ears, Nose, Throat Exam: normal ENT inspection, TMs normal, pharynx normal, moist mucous membranes Neck Exam: normal inspection, non-tender, supple, full range of motion Respiratory Exam: normal breath sounds, lungs clear, No respiratory distress Cardiovascular Exam: regular rate/rhythm, normal heart sounds, normal peripheral pulses Gastrointestinal/Abdomen Exam: soft, normal bowel sounds, No tenderness, No mass Back Exam: normal inspection, normal range of motion, No CVA tenderness, No vertebral tenderness Extremity Exam: normal inspection, normal range of motion, pelvis stable Skin Exam: normal color, warm, dry, No rash Lymphatic Exam: No adenopathy Results - Labs Lab/Micro Results: Lab Results-Last 24 Hours 08/09/23 08/09/23 08/09/23 Range/Units 18:30 18:30 18:30 WBC 13.3 H (3.98-10.04) x10^3/uL RBC 3.90 L (3.93-5.22) x10^6/uL Hgb 11.8 (11.2-15.7) g/dL Hct 34.9 (34.1-44.9) % MCV 89.5 (79.4-94.8) fL MCH 30.3 (25.6-32.2) pg MCHC 33.8 (32.2-35.5) g/dL RDW 12.9 (11.7-14.4) % Plt Count 312 (182-369) x10^3/uL MPV 10.9 (9.4-12.3) fL Gran % 85.3 H (34.0-71.1) % Immature Gran % (Auto) 1.0 H (0.001-0.429) % Nucleat RBC Rel Count 0.0 (0.00-0.2) % Eos # (Auto) 0 L (0.04-0.36) x10^3/uL Immature Gran # (Auto) 0.13 H (0.001-0.031) x10^3u/L Absolute Lymphs (auto) 1.10 L (1.18-3.74) x10^3/uL Absolute Monos (auto) 0.70 (0.24-0.86) x10^3/uL Absolute Nucleated RBC 0.00 (0.00-0.012) x10^3u/L Lymphocytes % 8.3 L (19.3-51.7) % Monocytes % 5.3 (4.7-12.5) % Eosinophils % 0.0 L (0.7-5.8) % Basophils % 0.1 (0.1-1.2) % Absolute Granulocytes 11.36 H (1.56-6.13) x10^3/uL Basophils # 0.01 (0.01-0.08) x10^3/uL D-Dimer (0.0-0.50) mg/L Sodium 136 (135-145) mmol/L Potassium 3.6 (3.5-5.1) mmol/L Chloride 102 (98-107) mmol/L Carbon Dioxide 26 (22-30) mmol/L Anion Gap 12.8 (5-15) MEQ/L BUN 26 H (7-17) mg/dL Creatinine 0.83 (0.52-1.04) mg/dL Estimated GFR 72.1 ML/MIN Glucose 146 H (74-106) mg/dL Calcium 9.0 (8.4-10.2) mg/dL Total Bilirubin 0.60 (0.2-1.3) mg/dL AST 22 (14-36) U/L ALT 21 (0-35) U/L Alkaline Phosphatase 72 (38-126) U/L Creatine Kinase 60 (30-135) U/L Troponin I < 0.012 (0.000-0.033) ng/mL NT-Pro-B Natriuret Pep 674 (<300) pg/mL Serum Total Protein 6.5 (6.3-8.2) g/dL Albumin 3.9 (3.5-5.0) g/dL 08/09/23 08/09/23 Range/Units 18:30 21:10 WBC (3.98-10.04) x10^3/uL RBC (3.93-5.22) x10^6/uL Hgb (11.2-15.7) g/dL Hct (34.1-44.9) % MCV (79.4-94.8) fL MCH (25.6-32.2) pg MCHC (32.2-35.5) g/dL RDW (11.7-14.4) % Plt Count (182-369) x10^3/uL MPV (9.4-12.3) fL Gran % (34.0-71.1) % Immature Gran % (Auto) (0.001-0.429) % Nucleat RBC Rel Count (0.00-0.2) % Eos # (Auto) (0.04-0.36) x10^3/uL Immature Gran # (Auto) (0.001-0.031) x10^3u/L Absolute Lymphs (auto) (1.18-3.74) x10^3/uL Absolute Monos (auto) (0.24-0.86) x10^3/uL Absolute Nucleated RBC (0.00-0.012) x10^3u/L Lymphocytes % (19.3-51.7) % Monocytes % (4.7-12.5) % Eosinophils % (0.7-5.8) % Basophils % (0.1-1.2) % Absolute Granulocytes (1.56-6.13) x10^3/uL Basophils # (0.01-0.08) x10^3/uL D-Dimer 0.45 (0.0-0.50) mg/L Sodium (135-145) mmol/L Potassium (3.5-5.1) mmol/L Chloride (98-107) mmol/L Carbon Dioxide (22-30) mmol/L Anion Gap (5-15) MEQ/L BUN (7-17) mg/dL Creatinine (0.52-1.04) mg/dL Estimated GFR ML/MIN Glucose (74-106) mg/dL Calcium (8.4-10.2) mg/dL Total Bilirubin (0.2-1.3) mg/dL AST (14-36) U/L ALT (0-35) U/L Alkaline Phosphatase (38-126) U/L Creatine Kinase (30-135) U/L Troponin I < 0.012 (0.000-0.033) ng/mL NT-Pro-B Natriuret Pep (<300) pg/mL Serum Total Protein (6.3-8.2) g/dL Albumin (3.5-5.0) g/dL - Radiology Impressions Radiology Exams & Impressions: Radiology Procedures Category Date Time Status CHEST 1 VIEW (PORTABLE) Stat Exams 08/09/23 18:36 Taken Assessment/Plan (1) Chest pain Current Visit: No Status: Acute Qualifiers: Chest pain type: other chest pain Qualified Code(s): R07.89 - Other chest pain; R07.8 - Other chest pain Assessment & Plan: ASSESSMENT 1. Chest Pain 2. Hypertension 3. Hyperlipidemia 4. Asthma/COPD 5. Hypothyroidism 6. Anxiety Disorder PLAN 1. EKG and CXR normal 2. Cardiac enzymes x 2 negative 3. Currently chest pain free 4. Continue home cardiac medications 5. Recommend tele-Cardiology consultation in AM [facility] The entirety of this encounter was done via telemedicine with audio and visual. Consent was obtained for a telemedicine encounter. Misha Barton MD Pulmonary and Critical Care Medicine Code(s): R07.9 - CHEST PAIN, UNSPECIFIED Telemedicine Encounter - Telemedicine Encounter Telemedicine Encounter: The entirety of this encounter was performed via Telemedicine"
[2023-08-10] MEDS ORDERED: VENTOLIN COMMON CANISTER IH PRN (02:00)
[2023-08-10] MEDS ORDERED: DESYREL 50 MG PO PRN (02:00)
[2023-08-10] MEDS ORDERED: Nitrostat 0.4 MG Tablet SL PRN (02:00)
[2023-08-10] MEDS ORDERED: Sodium Chloride 0.9% 1000 ML 0 ML ONE (04:09)
[2023-08-10 04:40] VITALS: TEMP 97.5
[2023-08-10] MEDS ORDERED: Desyrel 150 MG PO PRN (07:20)
[2023-08-10 07:45] LABS: Absolute Neutrophil Ct (ANC) 9.42 x10^3/uL (1.56-6.13); BASOPHIL % 0.1 % (0.1-1.2); Basophil (Absolute #) 0.01 x10^3/uL (0.01-0.08); Eosinophil (Absolute #) 0 x10^3/uL (0.04-0.36); Hematocrit 32.7 % (34.1-44.9); IMMATURE GRAN # 0.08 x10^3u/L (0.001-0.031); IMMATURE GRAN % 0.7 % (0.001-0.429); Lymphocyte (Absolute #) 1.12 x10^3/uL (1.18-3.74); Lymphocytes % 9.9 % (19.3-51.7); Mean Cell Volume 90.1 fL (79.4-94.8); Mean Corpuscular Hemoglobin 30.3 pg (25.6-32.2); Mean Corpuscular Hgb Concent. 33.6 g/dL (32.2-35.5); Mean Platelet Volume 11.4 fL (9.4-12.3); Monocyte (Absolute #) 0.67 x10^3/uL (0.24-0.86); Monocytes % 5.9 % (4.7-12.5); Neutrophil % 83.4 % (34.0-71.1); Platelet Count 265 x10^3/uL (182-369); Red Blood Count 3.63 x10^6/uL (3.93-5.22); Red Cell Distribution Width 12.9 % (11.7-14.4); White Blood Count 11.3 x10^3/uL (3.98-10.04)
[2023-08-10 07:55] LABS: ALBUMIN 3.2 g/dL (3.5-5.0); ANION GAP 8.7 MEQ/L (5-15); BILIRUBIN,TOTAL 0.5 mg/dL (0.2-1.3); Calcium 8.2 mg/dL (8.4-10.2); Creatinine 1 0.61 mg/dL (0.52-1.04); EST GLOMERULAR FILTRATION RATE 91.5 ML/MIN; Potassium 3.6 mmol/L (3.5-5.1); Total Protein 5.4 g/dL (6.3-8.2)
--- NOTE | 2023-08-10 07:59 | XRAY ---
Indication: Chest pain. Comparison: July 29, 2023 Portable apical lordotic chest less inflated again with incidental left lung calcified granulomas. No focal infiltrate, consolidation, or large effusion. Heart not enlarged again with tortuous descending aorta. Bony thorax intact again with osteopenia and degenerative changes. Impression: Continued nonacute chest with chronic features.
[2023-08-10] MEDS ORDERED: MEDICATION INTERVENTION MC SCH ×2 (08:15)
[2023-08-10] MEDS ORDERED: NON-FORMULARY ITEM (Linaclotide [Linzess] 290 MCG Capsule) PO SCH (10:00)
[2023-08-10] MEDS ORDERED: NON-FORMULARY ITEM (Omeprazole [Omeprazole] 40 MG Capsule.Dr) PO SCH (10:00)
[2023-08-10] MEDS ORDERED: PHENTERMINE HCL 37.5 MG PO SCH (10:00)
[2023-08-10] MEDS ORDERED: NON-FORMULARY ITEM (Amlodipine Besylate [Amlodipine Besylate] 2.5 MG Tablet) PO SCH (10:00)
[2023-08-10] MEDS: NORVASC 5 MG PO SCH (10:24)
[2023-08-10] MEDS: Ranexa 500 MG PO SCH (10:24)
[2023-08-10] MEDS: Protonix 40MG Tablet PO SCH (10:24)
[2023-08-10] MEDS: Imdur 30 MG PO SCH (10:24)
[2023-08-10] MEDS: ENOXAPARIN SODIUM SQ SCH (10:24)
[2023-08-10 11:30] VITALS: BP 121/70; PULSE 90; RESP 21; O2SAT 95
--- NOTE | 2023-08-10 13:58 | PCM.DS ---
Discharge Summary Date of Admission: 08/09/23 23:50 Date of Discharge: 08/10/23 Admitting Physician: CECELIA BRADLEY MD Consults: Consults on Case 08/10/23 05:54 Cardiology Consult [Notify Service Center Specialist of Admit] ROUTINE Primary Care Provider: SRINI DAVID Allergies Allergies No Known Drug Allergies Allergy (Verified 08/09/23 18:08) Hospital Summary - Hospital Course Hospital Course: Ms. Hull is a 78 year-old female with HTN, asthma/COPD, hypothyroidism, and anxiety who presents with chest pain. While walking from room to room today she experienced chest pain - 10/10; mid to left chest; no radiation; no associated symptoms; sharp and dull - 3 doses of SL NTG improved the pain after 3-4 hours. Upon arrival to [place], her laboratory and imaging data were unrevealing, and her EKG was unremarkable. On my examination, she is resting comfortably denying any current fevers, chills, nausea, vomiting, diarrhea, syncope, presyncope, visual changes, orthopnea, PND, odynophagia, dysphagia, chest pain, shortness of breath, belly pain, dysuria, hematuria, melena, hematochezia, or neurological changes. All other systems were reviewed and were negative. 08/09: No overnight events, no further chest pain. Repeat EKG and Trops unremarkable. Patient has appointment with her production assistant Dr. Gilliam on with holter monitor scheduled. Advised her to stop Adipex. Patient agreeable to plan. Stable for discharge. Discharge Note New Diagnosis: chest pain New Medications: none Follow Up: Cardiology Results pending: Echo final read from 08/01/23 Outpatient testing to order: Holter monitor -already scheduled per [facility] Latest Assessment & Plan 1) Chest pain Current Visit: No Status: Acute Qualifiers: Chest pain type: other chest pain Qualified Code(s): R07.89 - Other chest pain; R07.8 - Other chest pain Assessment & Plan: ASSESSMENT 1. Chest Pain - -Resolved -EKG/Trops unremarkable on repeat -advised cessation of adipex -Echo pending final read from 08/01/23 -follow up with [facility] as scheduled next week 2. Hypertension -stable 3. Hyperlipidemia -continue statin 4. Asthma/COPD -stable on RA 5. Hypothyroidism -continue home meds 6. Anxiety Disorder I spent 35 minutes [id number] with the patient on the day of discharge performing discharge exam, discussing hospital stay and discharge instructions with patient and caregivers, preparation of discharge records, prescriptions & referral forms and addressing any questions/concerns the patient had as documented above. - Vitals & Intake/Output Vital Signs: Vital Signs Temperature 97.5 F 08/10/23 11:29 Pulse Rate 90 08/10/23 11:29 Respiratory Rate 21 08/10/23 11:29 Blood Pressure 121/70 08/10/23 11:29 O2 Sat by Pulse Oximetry 95 08/10/23 11:29 Intake & Output: Intake & Output 08/08/23 08/09/23 08/10/23 08/11/23 11:59 11:59 11:59 11:59 Intake Total 715 120 Balance 715 120 Weight 68.8 kg - Lab Result Diagrams: 08/10/23 03:50 08/10/23 03:50 Lab Results-Last 24 Hrs: Lab Results-Last 24 Hours 08/09/23 08/09/23 08/09/23 Range/Units 18:30 18:30 18:30 WBC 13.3 H (3.98-10.04) x10^3/uL RBC 3.90 L (3.93-5.22) x10^6/uL Hgb 11.8 (11.2-15.7) g/dL Hct 34.9 (34.1-44.9) % MCV 89.5 (79.4-94.8) fL MCH 30.3 (25.6-32.2) pg MCHC 33.8 (32.2-35.5) g/dL RDW 12.9 (11.7-14.4) % Plt Count 312 (182-369) x10^3/uL MPV 10.9 (9.4-12.3) fL Gran % 85.3 H (34.0-71.1) % Immature Gran % (Auto) 1.0 H (0.001-0.429) % Nucleat RBC Rel Count 0.0 (0.00-0.2) % Eos # (Auto) 0 L (0.04-0.36) x10^3/uL Immature Gran # (Auto) 0.13 H (0.001-0.031) x10^3u/L Absolute Lymphs (auto) 1.10 L (1.18-3.74) x10^3/uL Absolute Monos (auto) 0.70 (0.24-0.86) x10^3/uL Absolute Nucleated RBC 0.00 (0.00-0.012) x10^3u/L Lymphocytes % 8.3 L (19.3-51.7) % Monocytes % 5.3 (4.7-12.5) % Eosinophils % 0.0 L (0.7-5.8) % Basophils % 0.1 (0.1-1.2) % Absolute Granulocytes 11.36 H (1.56-6.13) x10^3/uL Basophils # 0.01 (0.01-0.08) x10^3/uL D-Dimer (0.0-0.50) mg/L Sodium 136 (135-145) mmol/L Potassium 3.6 (3.5-5.1) mmol/L Chloride 102 (98-107) mmol/L Carbon Dioxide 26 (22-30) mmol/L Anion Gap 12.8 (5-15) MEQ/L BUN 26 H (7-17) mg/dL Creatinine 0.83 (0.52-1.04) mg/dL Estimated GFR 72.1 ML/MIN Glucose 146 H (74-106) mg/dL Calcium 9.0 (8.4-10.2) mg/dL Total Bilirubin 0.60 (0.2-1.3) mg/dL AST 22 (14-36) U/L ALT 21 (0-35) U/L Alkaline Phosphatase 72 (38-126) U/L Creatine Kinase 60 (30-135) U/L Troponin I < 0.012 (0.000-0.033) ng/mL NT-Pro-B Natriuret Pep 674 (<300) pg/mL Serum Total Protein 6.5 (6.3-8.2) g/dL Albumin 3.9 (3.5-5.0) g/dL 08/09/23 08/09/23 08/10/23 Range/Units 18:30 21:10 03:50 WBC (3.98-10.04) x10^3/uL RBC (3.93-5.22) x10^6/uL Hgb (11.2-15.7) g/dL Hct (34.1-44.9) % MCV (79.4-94.8) fL MCH (25.6-32.2) pg MCHC (32.2-35.5) g/dL RDW (11.7-14.4) % Plt Count (182-369) x10^3/uL MPV (9.4-12.3) fL Gran % (34.0-71.1) % Immature Gran % (Auto) (0.001-0.429) % Nucleat RBC Rel Count (0.00-0.2) % Eos # (Auto) (0.04-0.36) x10^3/uL Immature Gran # (Auto) (0.001-0.031) x10^3u/L Absolute Lymphs (auto) (1.18-3.74) x10^3/uL Absolute Monos (auto) (0.24-0.86) x10^3/uL Absolute Nucleated RBC (0.00-0.012) x10^3u/L Lymphocytes % (19.3-51.7) % Monocytes % (4.7-12.5) % Eosinophils % (0.7-5.8) % Basophils % (0.1-1.2) % Absolute Granulocytes (1.56-6.13) x10^3/uL Basophils # (0.01-0.08) x10^3/uL D-Dimer 0.45 (0.0-0.50) mg/L Sodium (135-145) mmol/L Potassium (3.5-5.1) mmol/L Chloride (98-107) mmol/L Carbon Dioxide (22-30) mmol/L Anion Gap (5-15) MEQ/L BUN (7-17) mg/dL Creatinine (0.52-1.04) mg/dL Estimated GFR ML/MIN Glucose (74-106) mg/dL Calcium (8.4-10.2) mg/dL Total Bilirubin (0.2-1.3) mg/dL AST (14-36) U/L ALT (0-35) U/L Alkaline Phosphatase (38-126) U/L Creatine Kinase (30-135) U/L Troponin I < 0.012 < 0.012 (0.000-0.033) ng/mL NT-Pro-B Natriuret Pep (<300) pg/mL Serum Total Protein (6.3-8.2) g/dL Albumin (3.5-5.0) g/dL 08/10/23 08/10/23 Range/Units 03:50 03:50 WBC 11.3 H (3.98-10.04) x10^3/uL RBC 3.63 L (3.93-5.22) x10^6/uL Hgb 11.0 L (11.2-15.7) g/dL Hct 32.7 L (34.1-44.9) % MCV 90.1 (79.4-94.8) fL MCH 30.3 (25.6-32.2) pg MCHC 33.6 (32.2-35.5) g/dL RDW 12.9 (11.7-14.4) % Plt Count 265 (182-369) x10^3/uL MPV 11.4 (9.4-12.3) fL Gran % 83.4 H (34.0-71.1) % Immature Gran % (Auto) 0.7 H (0.001-0.429) % Nucleat RBC Rel Count 0.0 (0.00-0.2) % Eos # (Auto) 0 L (0.04-0.36) x10^3/uL Immature Gran # (Auto) 0.08 H (0.001-0.031) x10^3u/L Absolute Lymphs (auto) 1.12 L (1.18-3.74) x10^3/uL Absolute Monos (auto) 0.67 (0.24-0.86) x10^3/uL Absolute Nucleated RBC 0.00 (0.00-0.012) x10^3u/L Lymphocytes % 9.9 L (19.3-51.7) % Monocytes % 5.9 (4.7-12.5) % Eosinophils % 0.0 L (0.7-5.8) % Basophils % 0.1 (0.1-1.2) % Absolute Granulocytes 9.42 H (1.56-6.13) x10^3/uL Basophils # 0.01 (0.01-0.08) x10^3/uL D-Dimer (0.0-0.50) mg/L Sodium 138 (135-145) mmol/L Potassium 3.6 (3.5-5.1) mmol/L Chloride 107 (98-107) mmol/L Carbon Dioxide 25 (22-30) mmol/L Anion Gap 8.7 (5-15) MEQ/L BUN 20 H (7-17) mg/dL Creatinine 0.61 (0.52-1.04) mg/dL Estimated GFR 91.5 ML/MIN Glucose 137 H (74-106) mg/dL Calcium 8.2 L (8.4-10.2) mg/dL Total Bilirubin 0.50 (0.2-1.3) mg/dL AST 18 (14-36) U/L ALT 18 (0-35) U/L Alkaline Phosphatase 56 (38-126) U/L Creatine Kinase (30-135) U/L Troponin I (0.000-0.033) ng/mL NT-Pro-B Natriuret Pep (<300) pg/mL Serum Total Protein 5.4 L (6.3-8.2) g/dL Albumin 3.2 L (3.5-5.0) g/dL - Radiology Exams Ordered Rad Exams-Entire Visit: Radiology Procedures Category Date Time Status CHEST 1 VIEW (PORTABLE) Stat Exams 08/09/23 18:36 Completed - Procedures and Test Procedures and Tests throughout Hospitalization: Therapy Orders & Screens 08/10/23 06:30 Respiratory Therapy Assessment DAILY Comment: Diagnosis: Plan rule out acute VT Discharge Exam General Appearance: no apparent distress Neurologic Exam: alert, oriented x 3, cooperative Eye Exam: PERRL Ears, Nose, Throat Exam: normal ENT inspection Neck Exam: normal inspection Respiratory Exam: normal breath sounds, lungs clear Cardiovascular Exam: regular rate/rhythm, normal heart sounds Gastrointestinal/Abdomen Exam: soft, normal bowel sounds Pelvic Exam: deferred Rectal Exam: deferred Back Exam: normal inspection Extremity Exam: normal inspection Skin Exam: normal color Final Diagnosis/Problem List - Final Discharge Diagnosis/Problem (1) Chest pain, rule out acute myocardial infarction Current Visit: Yes Status: Resolved Code(s): R07.9 - CHEST PAIN, UNSPECIFIED (2) HTN (hypertension) Current Visit: Yes Status: Chronic Code(s): I10 - ESSENTIAL (PRIMARY) HYPERTENSION (3) HLD (hyperlipidemia) Current Visit: Yes Status: Chronic Code(s): E78.5 - HYPERLIPIDEMIA, UNSPECIFIED (4) COPD (chronic obstructive pulmonary disease) Current Visit: Yes Status: Chronic (5) Asthma Current Visit: Yes Status: Chronic Code(s): J45.909 - UNSPECIFIED ASTHMA, UNCOMPLICATED (6) Hypothyroid Current Visit: Yes Status: Chronic Code(s): E03.9 - HYPOTHYROIDISM, UNSPECIFIED (7) Anxiety Current Visit: Yes Status: Chronic Code(s): F41.9 - ANXIETY DISORDER, UNSPECIFIED - Discharge Disposition: Home, Self-Care Condition: Stable Prescriptions: No Action Amlodipine Besylate 2.5 mg PO DAILY Omeprazole 40 mg PO BID Albuterol Sulfate [Albuterol Sulfate Hfa] 2 puff IH Q4HPRN PRN PRN Reason: Shortness Of Breath Nitroglycerin 0.4 mg Tablet [Nitrostat 0.4 MG Tablet] 0.4 mg SL Q5MIN PRN MR X 3 PRN 30 Days #30 PRN Reason: Chest Pain AMITRIPTYLINE HCL 50 mg Tab [AMITRIPTYLINE HCL 50 mg Tablet] 50 mg PO HS 30 Days #30 tablet Famotidine 20 mg [Pepcid 20 MG] 20 mg PO BID Trazodone HCl 50 mg [Desyrel 50 mg] 150 mg PO DAILY PRN PRN Reason: Insomnia Isosorbide Mononitrate 30 mg [Imdur 30 MG] 30 mg PO DAILY Atorvastatin Calcium [Lipitor 20MG Tablet] 20 mg PO HS Linaclotide [Linzess] 290 mcg PO DAILY Phentermine HCl [Adipex-P] 37.5 mg PO DAILY Prednisone 20 mg [Deltasone 20 mg] 20 mg PO BID 12 Days #24 tablet Ranolazine [Ranolazine ER] 500 mg PO BID Follow up with: SRINI DAVID MD [Primary Care Provider] -
--- NOTE | 2023-08-10 14:01 | PCM.DCORD ---
- Discharge Disposition: Home, Self-Care Condition: Stable Prescriptions: Continue Amlodipine Besylate 2.5 mg PO DAILY Omeprazole 40 mg PO BID Albuterol Sulfate [Albuterol Sulfate Hfa] 2 puff IH Q4HPRN PRN PRN Reason: Shortness Of Breath Nitroglycerin 0.4 mg Tablet [Nitrostat 0.4 MG Tablet] 0.4 mg SL Q5MIN PRN MR X 3 PRN 30 Days #30 PRN Reason: Chest Pain AMITRIPTYLINE HCL 50 mg Tab [AMITRIPTYLINE HCL 50 mg Tablet] 50 mg PO HS 30 Days #30 tablet Famotidine 20 mg [Pepcid 20 MG] 20 mg PO BID Trazodone HCl 50 mg [Desyrel 50 mg] 150 mg PO DAILY PRN PRN Reason: Insomnia Isosorbide Mononitrate 30 mg [Imdur 30 MG] 30 mg PO DAILY Atorvastatin Calcium [Lipitor 20MG Tablet] 20 mg PO HS Linaclotide [Linzess] 290 mcg PO DAILY Phentermine HCl [Adipex-P] 37.5 mg PO DAILY Prednisone 20 mg [Deltasone 20 mg] 20 mg PO BID 12 Days #24 tablet Ranolazine [Ranolazine ER] 500 mg PO BID Follow up with: SRINI DAVID MD [Primary Care Provider] - TERESA FLORES [CONSULTING PHYSICIAN] - (as scheduled)
[2023-08-10] MEDS ORDERED: NON-FORMULARY ITEM (Atorvastatin Calcium 20 MG Tab) PO SCH (22:00)
[2023-08-10] MEDS ORDERED: ZOCOR 20MG PO SCH (22:00)
== END 2023-08-10 14:11 | disposition home or self-care (01) ==
LOC: ED 18:06 → MED SURG 23:50
PROVIDERS: ADMIT Internal Medicine Critical Care Medicine; ATTEND Internal Medicine Critical Care Medicine
DX: R07.89 Other chest pain (principal); I10 Essential (primary) hypertension; E78.5 Hyperlipidemia, unspecified; J44.9 Chronic obstructive pulmonary disease, unspecified; J45.909 Unspecified asthma, uncomplicated; E03.9 Hypothyroidism, unspecified; F41.9 Anxiety disorder, unspecified; Z79.899 Other long term (current) drug therapy
CPT/HCPCS: 36000; 36415; 71045; 80053; 82550; 83880; 84484; 85025; 85379; 93005; 93041; 93268; 94760; 96360; 96374; 99284; G0378; J1650; J2405; Q3014; A9270-GY

== ENCOUNTER 2024-01-13 08:39 | Emergency (ER) | payer MEDICARE ==
[2024-01-13 09:20] VITALS: TEMP 98.4
--- NOTE | 2024-01-13 09:41 | ERPHSYRPT ---
- History of Present Illness Time Seen by Provider: 01/13/24 09:39 Source: patient Exam Limitations: no limitations Patient Subjective Stated Complaint: C/O diarrhea for 2 weeks causing increased weakness Triage Nursing Assessment: Patient brought back to ER in a w/c. Transferred from chair to bed with assist of one staff. She is alert and oriented; hard of hearing. No SOB. No cough. Skin tone normal. SANTIAGO WNL. Timing/Duration: today Severity: mild Modifying Factors: Improves With: nothing Associated Symptoms: weakness Allergies/Adverse Reactions: No Known Drug Allergies Allergy (Verified 01/13/24 09:26) Home Medications: Amlodipine Besylate 2.5 mg PO DAILY 06/12/16 [History] Omeprazole 40 mg PO HS 11/29/17 [History] Famotidine 20 mg [Pepcid 20 MG] 20 mg PO BID 07/29/23 [History] Trazodone HCl 50 mg [Desyrel 50 mg] 50 mg PO HS 07/29/23 [History] Meloxicam 7.5 mg PO DAILY 01/13/24 [History] Hx Tetanus, Diphtheria Vaccination/Date Given: Yes Hx Influenza Vaccination/Date Given: No Hx Pneumococcal Vaccination/Date Given: No Immunizations Up to Date: Yes Travel Risk - International Travel Have you traveled outside of the country in past 3 weeks: No - Emerging Infectious Disease Are you exhibiting symptoms associated with any current EIDs: Yes Symptoms: Diarrhea, Headaches/Body Aches/ Comment: fatigue - Review of Systems Eyes: No Symptoms Ears, Nose, & Throat: No Symptoms Respiratory: No Symptoms Cardiac: No Symptoms Abdominal/Gastrointestinal: Abdominal Pain, Diarrhea Genitourinary Symptoms: No Symptoms Musculoskeletal: No Symptoms Skin: No Symptoms Neurological: No Symptoms - Past Medical History Pertinent Past Medical History: Yes Neurological History: Other ENT History: No Pertinent History Cardiac History: Angina, Hypertension Respiratory History: Asthma, COPD Endocrine Medical History: Hypothyroidism, Other Musculoskeletal History: Osteoarthritis GI Medical History: GERD, Gallbladder Disease, Hernia History: No Pertinent History Psycho-Social History: Anxiety, Depression Female Reproductive Disorders: No Pertinent History Other Medical History: Provider Enrollment Specialist: Dr. Gilliam - Past Surgical History Past Surgical History: Yes Neuro Surgical History: No Pertinent History Cardiac: Cardiac Catheterization Respiratory: No Pertinent History Gastrointestinal: Cholecystectomy Genitourinary: No Pertinent History Musculoskeletal: No Pertinent History Female Surgical History: Hysterectomy, Tubal Ligation Other Surgical History: cvl port placed and removed Significant Family History: no pertinent family hx - Social History Smoking Status: Never smoker Exposure to second hand smoke: No Drug Use: none Patient Lives Alone: Yes - Social Determinants of Health Will the patient participate in the screening: Yes Do you worry about a steady place to live?: No Do you have any problems with any of the following?: No known problems In the past 12 months,have you had to go without utilities?: No Transportation Issues: No Has anyone in your support network made you feel unsafe?: No Have you or anyone in your house had to go without enough: No - Nursing Vital Signs Nursing Vital Signs: Initial Vital Signs Temperature 98.4 F 01/13/24 09:00 Pulse Rate 80 01/13/24 09:00 Respiratory Rate 24 01/13/24 09:00 Blood Pressure 127/90 01/13/24 09:00 O2 Sat by Pulse Oximetry 97 01/13/24 09:00 Pain Scale Pain Intensity 0 - Physical Exam General Appearance: no apparent distress Eye Exam: PERRL/EOMI Ears, Nose, Throat Exam: normal ENT inspection Respiratory Exam: normal breath sounds Cardiovascular Exam: regular rate/rhythm Gastrointestinal/Abdomen Exam: tenderness (patient has mild diffuse tenderness) Back Exam: normal inspection Extremity Exam: normal inspection Neurologic Exam: alert, oriented x 3 Skin Exam: normal color SpO2: 97 Ordered Tests: Active Orders 24 hr Category Date Time Status EKG-ER Only STAT Care 01/13/24 10:20 Active IV Insertion STAT Care 01/13/24 10:20 Active ABDOMEN AND PELVIS W/0 CONTRAS [CT] Stat Exams 01/13/24 10:35 Completed CHEST WITHOUT CONTRAST [CT] Stat Exams 01/13/24 10:35 Completed AMYLASE Stat Lab 01/13/24 10:30 Completed CBC W DIFF Stat Lab 01/13/24 10:30 Completed CMP Stat Lab 01/13/24 10:30 Completed CULTURE,URINE Stat Lab 01/13/24 12:07 Received LIPASE Stat Lab 01/13/24 10:30 Completed Lactic Acid Stat Lab 01/13/24 10:30 Completed UA W/RFX UR CULTURE Stat Lab 01/13/24 12:07 Completed Medication Summary Discontinued Medications Generic Name Dose Route Start Last Admin Trade Name Freq PRN Reason Stop Dose Admin Sodium Chloride 1,000 mls @ 999 mls/hr 01/13/24 10:20 01/13/24 11:34 Sodium Chloride 0.9% 1000 Ml IV 01/13/24 11:20 Infused .Q1H1M STA Infusion Sodium Chloride Confirm 01/13/24 10:25 Sodium Chloride 0.9% 1000 Ml Administered 01/13/24 10:26 Dose 1,000 mls @ ud .ROUTE .STK-MED ONE Levofloxacin 250 mg 01/13/24 13:22 01/13/24 13:33 Levofloxacin 250 Mg Tab PO 01/13/24 13:23 250 mg STAT ONE Administration Levofloxacin Confirm 01/13/24 13:31 Levofloxacin 250 Mg Tab Administered 01/13/24 13:32 Dose 250 mg .ROUTE .STK-MED ONE Metronidazole 500 mg 01/13/24 13:20 01/13/24 13:33 Metronidazole 500 Mg Tablet PO 01/13/24 13:21 500 mg STAT ONE Administration Metronidazole Confirm 01/13/24 13:32 Metronidazole 500 Mg Tablet Administered 01/13/24 13:33 Dose 500 mg .ROUTE .STK-MED ONE Lab/Rad Data: Laboratory Result Diagrams 01/13/24 10:30 01/13/24 10:30 Laboratory Results 01/13/24 01/13/24 01/13/24 Range/Units 12:07 10:30 10:30 WBC (3.98-10.04) x10^3/uL RBC (3.93-5.22) x10^6/uL Hgb (11.2-15.7) g/dL Hct (34.1-44.9) % MCV (79.4-94.8) fL MCH (25.6-32.2) pg MCHC (32.2-35.5) g/dL RDW (11.7-14.4) % Plt Count (182-369) x10^3/uL MPV (9.4-12.3) fL Gran % (34.0-71.1) % Immature Gran % (Auto) (0.001-0.429) % Nucleat RBC Rel Count (0.00-0.2) % Eos # (Auto) (0.04-0.36) x10^3/uL Immature Gran # (Auto) (0.001-0.031) x10^3u/L Absolute Lymphs (auto) (1.18-3.74) x10^3/uL Absolute Monos (auto) (0.24-0.86) x10^3/uL Absolute Nucleated RBC (0.00-0.012) x10^3u/L Lymphocytes % (19.3-51.7) % Monocytes % (4.7-12.5) % Eosinophils % (0.7-5.8) % Basophils % (0.1-1.2) % Absolute Granulocytes (1.56-6.13) x10^3/uL Basophils # (0.01-0.08) x10^3/uL Sodium 141 (135-145) mmol/L Potassium 3.9 (3.5-5.1) mmol/L Chloride 109 H (98-107) mmol/L Carbon Dioxide 22 (22-30) mmol/L Anion Gap 13.5 (5-15) MEQ/L BUN 21 H (7-17) mg/dL Creatinine 0.80 (0.52-1.04) mg/dL Estimated GFR 75.4 ML/MIN Glucose 87 (74-106) mg/dL Lactic Acid 0.9 (0.4-2.0) Calcium 9.1 (8.4-10.2) mg/dL Total Bilirubin 0.60 (0.2-1.3) mg/dL AST 24 (14-36) U/L ALT 12 (0-35) U/L Alkaline Phosphatase 69 (38-126) U/L Serum Total Protein 6.6 (6.3-8.2) g/dL Albumin 3.8 (3.5-5.0) g/dL Amylase 96 (30-110) U/L Lipase 117 (23-300) U/L Urine Color Yellow (Yellow) Urine Appearance Clear (Clear) Urine pH 5.5 (4.6-8.0) Ur Specific [place] 1.015 (1.005-1.030) Urine Protein Negative (Negative) Urine Glucose (UA) Negative (Negative) mg/dL Urine Ketones Negative (Negative) Urine Blood Moderate A (Negative) Urine Nitrite Negative (Negative) Urine Bilirubin Negative (Negative) Urine Urobilinogen 0.2 (0.2) mg/dL Ur Leukocyte Esterase Moderate A (Negative) U Hyaline Cast (Auto) NONE SEEN (0-2) /LPF Urine Microscopic RBC 21-50 A (0-5) /HPF Urine Microscopic WBC 21-50 A (0-5) /HPF Ur Epithelial Cells Few (None Seen) /HPF Urine Bacteria Rare A (None Seen) /HPF Urine Culture Reflexed YES (NO) 01/13/24 Range/Units 10:30 WBC 9.0 (3.98-10.04) x10^3/uL RBC 4.15 (3.93-5.22) x10^6/uL Hgb 12.5 (11.2-15.7) g/dL Hct 37.3 (34.1-44.9) % MCV 89.9 (79.4-94.8) fL MCH 30.1 (25.6-32.2) pg MCHC 33.5 (32.2-35.5) g/dL RDW 12.4 (11.7-14.4) % Plt Count 250 (182-369) x10^3/uL MPV 11.5 (9.4-12.3) fL Gran % 76.1 H (34.0-71.1) % Immature Gran % (Auto) 0.2 (0.001-0.429) % Nucleat RBC Rel Count 0.0 (0.00-0.2) % Eos # (Auto) 0.07 (0.04-0.36) x10^3/uL Immature Gran # (Auto) 0.02 (0.001-0.031) x10^3u/L Absolute Lymphs (auto) 1.50 (1.18-3.74) x10^3/uL Absolute Monos (auto) 0.51 (0.24-0.86) x10^3/uL Absolute Nucleated RBC 0.00 (0.00-0.012) x10^3u/L Lymphocytes % 16.6 L (19.3-51.7) % Monocytes % 5.7 (4.7-12.5) % Eosinophils % 0.8 (0.7-5.8) % Basophils % 0.6 (0.1-1.2) % Absolute Granulocytes 6.86 H (1.56-6.13) x10^3/uL Basophils # 0.05 (0.01-0.08) x10^3/uL Sodium (135-145) mmol/L Potassium (3.5-5.1) mmol/L Chloride (98-107) mmol/L Carbon Dioxide (22-30) mmol/L Anion Gap (5-15) MEQ/L BUN (7-17) mg/dL Creatinine (0.52-1.04) mg/dL Estimated GFR ML/MIN Glucose (74-106) mg/dL Lactic Acid (0.4-2.0) Calcium (8.4-10.2) mg/dL Total Bilirubin (0.2-1.3) mg/dL AST (14-36) U/L ALT (0-35) U/L Alkaline Phosphatase (38-126) U/L Serum Total Protein (6.3-8.2) g/dL Albumin (3.5-5.0) g/dL Amylase (30-110) U/L Lipase (23-300) U/L Urine Color (Yellow) Urine Appearance (Clear) Urine pH (4.6-8.0) Ur Specific [place] (1.005-1.030) Urine Protein (Negative) Urine Glucose (UA) (Negative) mg/dL Urine Ketones (Negative) Urine Blood (Negative) Urine Nitrite (Negative) Urine Bilirubin (Negative) Urine Urobilinogen (0.2) mg/dL Ur Leukocyte Esterase (Negative) U Hyaline Cast (Auto) (0-2) /LPF Urine Microscopic RBC (0-5) /HPF Urine Microscopic WBC (0-5) /HPF Ur Epithelial Cells (None Seen) /HPF Urine Bacteria (None Seen) /HPF Urine Culture Reflexed (NO) - Progress Progress Note: Juan Manuel patient has limited range of motion of the right shoulder CT scans were reviewed this reveals mild colitis patient was informed of the need for IV antibiotics she prefers oral antibiotics and does not want any other treatment or to be admitted at this time - she was given flagyl and levaquin here in the department and will be discharged home with medication - she was informed of the need for follow up with her PMD in the am and drink plenty or fluids 01/13/24 13:44 Medical Desision Making - Discussion of managment Reviewed:: Need for additional workup Agreed on:: need for follow-up - Departure Departure Disposition: Home Clinical Impression: Dehydration, Colitis, Diarrhea Condition: Stable Critical Care Time: No Referrals: SRINI DAVID MD [Primary Care Provider] - Follow up/PCP as directed Prescriptions: Metronidazole 500 mg [Flagyl 500 MG] 500 mg PO BID #21 tablet Levofloxacin [Levaquin 500 MG Tablet] 500 mg PO DAILY #7 tablet
[2024-01-13] MEDS ORDERED: Sodium Chloride 0.9% 1000 ML 1,000 ML ONE (10:25)
[2024-01-13] MEDS: Sodium Chloride 0.9% 1000 ML 1,000 ML IV STA (10:28)
[2024-01-13 10:38] LABS: Absolute Neutrophil Ct (ANC) 6.86 x10^3/uL (1.56-6.13); BASOPHIL % 0.6 % (0.1-1.2); Basophil (Absolute #) 0.05 x10^3/uL (0.01-0.08); Eosinophil % 0.8 % (0.7-5.8); Eosinophil (Absolute #) 0.07 x10^3/uL (0.04-0.36); Hematocrit 37.3 % (34.1-44.9); Hemoglobin 12.5 g/dL (11.2-15.7); IMMATURE GRAN # 0.02 x10^3u/L (0.001-0.031); IMMATURE GRAN % 0.2 % (0.001-0.429); Lymphocytes % 16.6 % (19.3-51.7); Mean Cell Volume 89.9 fL (79.4-94.8); Mean Corpuscular Hemoglobin 30.1 pg (25.6-32.2); Mean Corpuscular Hgb Concent. 33.5 g/dL (32.2-35.5); Mean Platelet Volume 11.5 fL (9.4-12.3); Monocyte (Absolute #) 0.51 x10^3/uL (0.24-0.86); Monocytes % 5.7 % (4.7-12.5); Neutrophil % 76.1 % (34.0-71.1); Platelet Count 250 x10^3/uL (182-369); Red Blood Count 4.15 x10^6/uL (3.93-5.22); Red Cell Distribution Width 12.4 % (11.7-14.4)
[2024-01-13 10:53] LABS: ALBUMIN 3.8 g/dL (3.5-5.0); ANION GAP 13.5 MEQ/L (5-15); BILIRUBIN,TOTAL 0.6 mg/dL (0.2-1.3); Calcium 9.1 mg/dL (8.4-10.2); Creatinine 1 0.8 mg/dL (0.52-1.04); EST GLOMERULAR FILTRATION RATE 75.4 ML/MIN; Potassium 3.9 mmol/L (3.5-5.1); Total Protein 6.6 g/dL (6.3-8.2)
--- NOTE | 2024-01-13 12:54 | XRAY ---
Indication: Chest pain. Diarrhea. Multiple contiguous axial images obtained through the chest without contrast. Comparison: July 07, 2019 Lungs now demonstrates dependent atelectasis. Stable small left upper and tiny right middle lobe calcified granulomas. No new pulmonary mass/nodule, infiltrate, or effusion. Heart not enlarged. Aorta is minimally arteriosclerotic without aneurysm. No pathologic mediastinal lymphadenopathy. New small hiatal hernia. Bony thorax intact again with osteopenia and minimal degenerative changes throughout spine. CT abdomen/pelvis reported separately. Impression: Dependent atelectasis, calcified granulomas, arteriosclerotic disease, chronic bony findings, and hiatal hernia. No acute findings on this noncontrast exam.
--- NOTE | 2024-01-13 12:56 | XRAY ---
Indication: Chest pain. Diarrhea. Blood in stool. Multiple contiguous axial images obtained through the abdomen and pelvis without contrast. Comparison: August 01, 2023. CT chest reported separately Noncontrasted stomach and bowel loops appear nonobstructed. Normal appendix. Descending and sigmoid colon demonstrate mild circumferential wall thickening with minimal stranding favoring colitis. No free fluid/air. Stable nonacute setting right renal micro-calculus, large left renal cyst, cholecystectomy, and hysterectomy. Remaining liver, pancreas, spleen, adrenal glands, kidneys, ureters, and bladder are unremarkable for noncontrast exam. Again minimal scattered aortoiliac calcifications without AAA. Osseous structures intact again with osteopenia, mild degenerative changes throughout lumbar spine, mild dextroscoliosis centered at thoracal lumbar junction, and L1 vertebral hemangioma. Impression: 1. New CT findings favor noncomplicated mild colitis. 2. Again chronic findings including nonobstructing right renal micro-calculus, left renal cyst, arteriosclerotic disease, and chronic bony findings.
[2024-01-13 13:12] LABS: Appearance Clear (Clear); Bacteria Rare /HPF (None Seen); Bilirubin Negative (Negative); Blood Moderate (Negative); Epithelial Cells Few /HPF (None Seen); Glucose, Urine Negative (Negative); Hyaline Casts NONE SEEN /LPF (0-2); Ketones Negative (Negative); Leukocyte Esterase Moderate (Negative); Nitrite Negative (Negative); Ph 5.5 (4.6-8.0); Protein,Urine Dip Negative (Negative); RBC 21-50 /HPF (0-5); Specific Gravity 1.015 (1.005-1.030); Urobilinogen 0.2 mg/dL (0.2); WBC 21-50 /HPF (0-5)
[2024-01-13 13:28] VITALS: O2SAT 97
[2024-01-13] MEDS ORDERED: Levofloxacin 250MG Tablet ONE (13:31)
[2024-01-13] MEDS ORDERED: Flagyl 500 MG ONE (13:32)
[2024-01-13] MEDS: Flagyl 500 MG PO ONE (13:33)
[2024-01-13] MEDS: Levofloxacin 250MG Tablet PO ONE (13:33)
[2024-01-13 13:54] VITALS: PULSE 78; RESP 18
[2024-01-13 14:03] VITALS: BP 104/70
== END 2024-01-13 14:00 | disposition home or self-care (01) ==
LOC: ED 08:39
DX: K52.9 Noninfective gastroenteritis and colitis, unspecified (principal); R53.1 Weakness; I10 Essential (primary) hypertension; E86.0 Dehydration
CPT/HCPCS: 36415; 71250; 74176; 80053; 81001; 82150; 83605; 83690; 85025; 87086; 93005; 96360; 99284; 99285; A9270-GY

== ENCOUNTER 2024-01-15 06:49 | Observation (INO) | payer MEDICARE ==
[2024-01-15 07:45] LABS: Absolute Neutrophil Ct (ANC) 7.87 x10^3/uL (1.56-6.13); BASOPHIL % 0.4 % (0.1-1.2); Basophil (Absolute #) 0.04 x10^3/uL (0.01-0.08); Eosinophil % 0.7 % (0.7-5.8); Eosinophil (Absolute #) 0.07 x10^3/uL (0.04-0.36); Hematocrit 35.2 % (34.1-44.9); Hemoglobin 11.7 g/dL (11.2-15.7); IMMATURE GRAN # 0.03 x10^3u/L (0.001-0.031); IMMATURE GRAN % 0.3 % (0.001-0.429); Lymphocytes % 11.2 % (19.3-51.7); Mean Cell Volume 88.4 fL (79.4-94.8); Mean Corpuscular Hemoglobin 29.4 pg (25.6-32.2); Mean Corpuscular Hgb Concent. 33.2 g/dL (32.2-35.5); Mean Platelet Volume 10.5 fL (9.4-12.3); Monocytes % 7.1 % (4.7-12.5); Neutrophil % 80.3 % (34.0-71.1); Platelet Count 231 x10^3/uL (182-369); Red Blood Count 3.98 x10^6/uL (3.93-5.22); Red Cell Distribution Width 12.6 % (11.7-14.4); White Blood Count 9.8 x10^3/uL (3.98-10.04)
[2024-01-15] MEDS ORDERED: Zofran 4 MG/2 ML VIAL ONE (07:48)
[2024-01-15] MEDS ORDERED: TYLENOL 325 MG ONE (07:49)
[2024-01-15] MEDS ORDERED: Sodium Chloride 0.9% 1000 ML 1,000 ML ONE (07:49)
[2024-01-15] MEDS: TYLENOL 325 MG PO ONE (07:55)
[2024-01-15] MEDS: Zofran 4 MG/2 ML VIAL IV ONE (07:55)
[2024-01-15] MEDS: Sodium Chloride 0.9% 1000 ML 1,000 ML IV STA (07:55)
[2024-01-15 08:17] LABS: ALBUMIN 3.5 g/dL (3.5-5.0); ANION GAP 13.9 MEQ/L (5-15); BILIRUBIN,TOTAL 0.7 mg/dL (0.2-1.3); Calcium 8.5 mg/dL (8.4-10.2); Creatinine 1 0.86 mg/dL (0.52-1.04); EST GLOMERULAR FILTRATION RATE 69.1 ML/MIN; Potassium 3.4 mmol/L (3.5-5.1); Total Protein 6.2 g/dL (6.3-8.2)
--- NOTE | 2024-01-15 08:20 | ERPHSYRPT ---
- History of Present Illness Time Seen by Provider: 01/15/24 07:41 Historian: patient Exam Limitations: no limitations Patient Subjective Stated Complaint: Abdominal pain with N/V/D for few months. Also having cough, headache, SOB. Fever last night. Loss of taste and smell for few months now. Triage Nursing Assessment: Patient presents with abdominal pain with some N/V/D for last few months. Pain is worse this morning. Also having some headaches, coughing, SOB. Fever last night. Loss of taste and smell for last few months. Physician History: 78 years old female with history of off-and-on abdominal pain for 2 months with diarrhea who was thoroughly evaluated 2 days ago in this ER, was diagnosed with mild colitis, was started on oral antibiotics and had another CT abdomen pelvis done yesterday outpatient in the ER with same lower abdominal generalized pain with diarrhea and also started to have some nausea and vomited couple of times since yesterday. Pain is moderate intensity dull aching no relieving factors. No fever or chills reported. No history of C. difficile. Allergies/Adverse Reactions: No Known Drug Allergies Allergy (Verified 01/15/24 07:13) Home Medications: Amlodipine Besylate 2.5 mg PO DAILY 06/12/16 [History] Omeprazole 40 mg PO HS 11/29/17 [History] Famotidine 20 mg [Pepcid 20 MG] 20 mg PO BID 07/29/23 [History] Trazodone HCl 50 mg [Desyrel 50 mg] 50 mg PO HS 07/29/23 [History] Meloxicam 7.5 mg PO DAILY 01/13/24 [History] Hx Tetanus, Diphtheria Vaccination/Date Given: No Hx Influenza Vaccination/Date Given: No Hx Pneumococcal Vaccination/Date Given: No Immunizations Up to Date: No Travel Risk - International Travel Have you traveled outside of the country in past 3 weeks: No - Emerging Infectious Disease Are you exhibiting symptoms associated with any current EIDs: Yes Symptoms: Abdominal Pain, Cough: New Onset, Diarrhea, Fever, Headaches/Body Aches/, Loss of taste or smell, Shortness of Breath, Vomitting Comment: fatigue - Review of Systems Constitutional: Fatigue Eyes: No Symptoms Ears, Nose, & Throat: No Symptoms Respiratory: No Symptoms Cardiac: No Symptoms Abdominal/Gastrointestinal: Abdominal Pain, Nausea, Vomiting, Diarrhea Genitourinary Symptoms: No Symptoms Musculoskeletal: Arthralgias Skin: No Symptoms Neurological: No Symptoms Endocrine: No Symptoms - Past Medical History Pertinent Past Medical History: Yes Neurological History: Other ENT History: No Pertinent History Cardiac History: Angina, Hypertension Respiratory History: Asthma, COPD Endocrine Medical History: Hypothyroidism, Other Musculoskeletal History: Osteoarthritis GI Medical History: GERD, Gallbladder Disease, Hernia History: No Pertinent History Psycho-Social History: Anxiety, Depression Female Reproductive Disorders: No Pertinent History 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 - Past Surgical History Past Surgical History: Yes Neuro Surgical History: No Pertinent History Cardiac: Cardiac Catheterization Respiratory: No Pertinent History Gastrointestinal: Cholecystectomy Genitourinary: No Pertinent History Musculoskeletal: No Pertinent History Female Surgical History: Hysterectomy, Tubal Ligation Other Surgical History: cvl port placed and removed Significant Family History: no pertinent family hx - Social History Smoking Status: Never smoker Exposure to second hand smoke: Yes Drug Use: none Patient Lives Alone: Yes - Social Determinants of Health Will the patient participate in the screening: Yes Do you worry about a steady place to live?: No Do you have any problems with any of the following?: No known problems In the past 12 months,have you had to go without utilities?: No Transportation Issues: No Has anyone in your support network made you feel unsafe?: No Have you or anyone in your house had to go without enough: No - Nursing Vital Signs Nursing Vital Signs: Initial Vital Signs Temperature 98.8 F 01/15/24 06:50 Pulse Rate 88 01/15/24 06:50 Respiratory Rate 18 01/15/24 06:50 Blood Pressure 91/65 01/15/24 06:50 O2 Sat by Pulse Oximetry 96 01/15/24 06:50 Pain Scale Pain Intensity 2 - Physical Exam General Appearance: no apparent distress, alert Eye Exam: eyes nml inspection Ears, Nose, Throat Exam: normal ENT inspection, pharynx normal, moist mucous membranes Neck Exam: normal inspection, non-tender, supple, full range of motion Respiratory Exam: normal breath sounds, lungs clear Cardiovascular Exam: regular rate/rhythm, normal heart sounds Gastrointestinal/Abdomen Exam: soft, normal bowel sounds, tenderness (Mild generalized), No guarding Back Exam: normal inspection Extremity Exam: normal inspection, normal range of motion Neurologic Exam: alert, oriented x 3, cooperative Skin Exam: normal color SpO2 Interpretation: normal SpO2: 96 O2 Delivery: Room Air Ordered Tests: Active Orders 24 hr Category Date Time Status IV Insertion STAT Care 01/15/24 07:41 Active CBC W DIFF Stat Lab 01/15/24 07:41 Completed CMP Stat Lab 01/15/24 07:30 Completed CULTURE,URINE Stat Lab 01/15/24 09:28 Received LIPASE Stat Lab 01/15/24 07:30 Completed Lactic Acid Stat Lab 01/15/24 07:41 Completed UA W/RFX UR CULTURE Stat Lab 01/15/24 09:28 Completed Transfer Order Routine Transfer 01/15/24 Ordered Medication Summary Discontinued Medications Generic Name Dose Route Start Last Admin Trade Name Freq PRN Reason Stop Dose Admin Acetaminophen 975 mg 01/15/24 07:41 01/15/24 07:55 Acetaminophen 325 Mg Tablet PO 01/15/24 07:42 975 mg STAT ONE Administration Acetaminophen Confirm 01/15/24 07:49 Acetaminophen 325 Mg Tablet Administered 01/15/24 07:50 Dose 975 mg .ROUTE .STK-MED ONE Sodium Chloride 1,000 mls @ 999 mls/hr 01/15/24 07:41 01/15/24 09:30 Sodium Chloride 0.9% 1000 Ml IV 01/15/24 08:41 Infused .Q1H1M STA Infusion Sodium Chloride Confirm 01/15/24 07:49 Sodium Chloride 0.9% 1000 Ml Administered 01/15/24 07:50 Dose 1,000 mls @ ud .ROUTE .STK-MED ONE Ondansetron HCl 4 mg 01/15/24 07:41 01/15/24 07:55 Ondansetron Hcl 4 Mg/2 Ml Vial IV 01/15/24 07:42 4 mg STAT ONE Administration Ondansetron HCl Confirm 01/15/24 07:48 Ondansetron Hcl 4 Mg/2 Ml Vial Administered 01/15/24 07:49 Dose 4 mg .ROUTE .STK-MED ONE Lab/Rad Data: Laboratory Result Diagrams 01/15/24 07:41 01/15/24 07:30 Laboratory Results 01/15/24 01/15/24 01/15/24 Range/Units 09:28 07:41 07:41 WBC 9.8 (3.98-10.04) x10^3/uL RBC 3.98 (3.93-5.22) x10^6/uL Hgb 11.7 (11.2-15.7) g/dL Hct 35.2 (34.1-44.9) % MCV 88.4 (79.4-94.8) fL MCH 29.4 (25.6-32.2) pg MCHC 33.2 (32.2-35.5) g/dL RDW 12.6 (11.7-14.4) % Plt Count 231 (182-369) x10^3/uL MPV 10.5 (9.4-12.3) fL Gran % 80.3 H (34.0-71.1) % Immature Gran % (Auto) 0.3 (0.001-0.429) % Nucleat RBC Rel Count 0.0 (0.00-0.2) % Eos # (Auto) 0.07 (0.04-0.36) x10^3/uL Immature Gran # (Auto) 0.03 (0.001-0.031) x10^3u/L Absolute Lymphs (auto) 1.10 L (1.18-3.74) x10^3/uL Absolute Monos (auto) 0.70 (0.24-0.86) x10^3/uL Absolute Nucleated RBC 0.00 (0.00-0.012) x10^3u/L Lymphocytes % 11.2 L (19.3-51.7) % Monocytes % 7.1 (4.7-12.5) % Eosinophils % 0.7 (0.7-5.8) % Basophils % 0.4 (0.1-1.2) % Absolute Granulocytes 7.87 H (1.56-6.13) x10^3/uL Basophils # 0.04 (0.01-0.08) x10^3/uL Sodium (135-145) mmol/L Potassium (3.5-5.1) mmol/L Chloride (98-107) mmol/L Carbon Dioxide (22-30) mmol/L Anion Gap (5-15) MEQ/L BUN (7-17) mg/dL Creatinine (0.52-1.04) mg/dL Estimated GFR ML/MIN Glucose (74-106) mg/dL Lactic Acid 0.7 (0.4-2.0) Calcium (8.4-10.2) mg/dL Total Bilirubin (0.2-1.3) mg/dL AST (14-36) U/L ALT (0-35) U/L Alkaline Phosphatase (38-126) U/L Serum Total Protein (6.3-8.2) g/dL Albumin (3.5-5.0) g/dL Lipase (23-300) U/L Urine Color Yellow (Yellow) Urine Appearance Clear (Clear) Urine pH 5.5 (4.6-8.0) Ur Specific [place] 1.020 (1.005-1.030) Urine Protein Negative (Negative) Urine Glucose (UA) Negative (Negative) mg/dL Urine Ketones Negative (Negative) Urine Blood Trace (Negative) Urine Nitrite Negative (Negative) Urine Bilirubin Negative (Negative) Urine Urobilinogen 0.2 (0.2) mg/dL Ur Leukocyte Esterase Small A (Negative) U Hyaline Cast (Auto) NONE SEEN (0-2) /LPF Urine Microscopic RBC 0-2 (0-5) /HPF Urine Microscopic WBC 3-5 (0-5) /HPF Ur Epithelial Cells Rare (None Seen) /HPF Urine Bacteria None Seen (None Seen) /HPF Urine Culture Reflexed YES (NO) 01/15/24 Range/Units 07:30 WBC (3.98-10.04) x10^3/uL RBC (3.93-5.22) x10^6/uL Hgb (11.2-15.7) g/dL Hct (34.1-44.9) % MCV (79.4-94.8) fL MCH (25.6-32.2) pg MCHC (32.2-35.5) g/dL RDW (11.7-14.4) % Plt Count (182-369) x10^3/uL MPV (9.4-12.3) fL Gran % (34.0-71.1) % Immature Gran % (Auto) (0.001-0.429) % Nucleat RBC Rel Count (0.00-0.2) % Eos # (Auto) (0.04-0.36) x10^3/uL Immature Gran # (Auto) (0.001-0.031) x10^3u/L Absolute Lymphs (auto) (1.18-3.74) x10^3/uL Absolute Monos (auto) (0.24-0.86) x10^3/uL Absolute Nucleated RBC (0.00-0.012) x10^3u/L Lymphocytes % (19.3-51.7) % Monocytes % (4.7-12.5) % Eosinophils % (0.7-5.8) % Basophils % (0.1-1.2) % Absolute Granulocytes (1.56-6.13) x10^3/uL Basophils # (0.01-0.08) x10^3/uL Sodium 139 (135-145) mmol/L Potassium 3.4 L (3.5-5.1) mmol/L Chloride 109 H (98-107) mmol/L Carbon Dioxide 20 L (22-30) mmol/L Anion Gap 13.9 (5-15) MEQ/L BUN 17 (7-17) mg/dL Creatinine 0.86 (0.52-1.04) mg/dL Estimated GFR 69.1 ML/MIN Glucose 107 H (74-106) mg/dL Lactic Acid (0.4-2.0) Calcium 8.5 (8.4-10.2) mg/dL Total Bilirubin 0.70 (0.2-1.3) mg/dL AST 20 (14-36) U/L ALT 12 (0-35) U/L Alkaline Phosphatase 72 (38-126) U/L Serum Total Protein 6.2 L (6.3-8.2) g/dL Albumin 3.5 (3.5-5.0) g/dL Lipase 41 (23-300) U/L Urine Color (Yellow) Urine Appearance (Clear) Urine pH (4.6-8.0) Ur Specific [place] (1.005-1.030) Urine Protein (Negative) Urine Glucose (UA) (Negative) mg/dL Urine Ketones (Negative) Urine Blood (Negative) Urine Nitrite (Negative) Urine Bilirubin (Negative) Urine Urobilinogen (0.2) mg/dL Ur Leukocyte Esterase (Negative) U Hyaline Cast (Auto) (0-2) /LPF Urine Microscopic RBC (0-5) /HPF Urine Microscopic WBC (0-5) /HPF Ur Epithelial Cells (None Seen) /HPF Urine Bacteria (None Seen) /HPF Urine Culture Reflexed (NO) - Progress Progress: re-examined Progress Note: 01/15/24 10:34 78 years old is evaluated in the ER for lower abdominal pain with diarrhea for the last couple of months which is getting worse lately, he was diagnosed with colitis 2 days ago in this ER, was recommended observation admission but patient preferred to go home. Patient reports her pain is same but now started to have some vomiting as well. No abdominal guarding or rebound. Has diffuse lower abdominal tenderness. Patient had a CT chest abdomen pelvis done here and then again yesterday at outpatient imaging in [place] CT chest abdomen pelvis with contrast which showed the similar findings of colitis. Workup showed normal white count, chemistries fairly unremarkable, given fluids as patient's blood pressure was in the 90s, improved and low 100s. I have discussed with Dr. Cruz, reviewed history, workup, agreed with observation admission and they will continue with IV antibiotics. Discussed the results of workup with patient and family and plan of admission which they understand and agree. C. difficile is pending. Discussed with .: Deuce Will see patient in: hospital (observation) Counseled pt/family regarding: lab results, diagnosis, rad results Medical Desision Making - Independent Historian Additional History obtained from: Child - Discussion of managment Care discussed with:: hospitalist Reviewed:: Test results Agreed on:: Treatment plan, place in obs Will see patient: in hospital - Diagnostic Testing Diagnostic test were ordered, analyzed, and reviewed by me: Yes - Risk of complications The pt has a mod risk of morbidity or mortality based on: Need for prescription drug management The pt has a high risk of morbidity or mortality based on: Decision regarding hospitilization or escalation of hosp level of care - Departure Departure Disposition: Observation Clinical Impression: Infectious colitis Condition: Stable Critical Care Time: No Referrals: SRINI DAVID MD [Primary Care Provider] - Follow up/PCP as directed
[2024-01-15 09:35] LABS: Appearance Clear (Clear); Bacteria None Seen /HPF (None Seen); Bilirubin Negative (Negative); Blood Trace (Negative); Epithelial Cells Rare /HPF (None Seen); Glucose, Urine Negative (Negative); Hyaline Casts NONE SEEN /LPF (0-2); Ketones Negative (Negative); Leukocyte Esterase Small (Negative); Nitrite Negative (Negative); Ph 5.5 (4.6-8.0); Protein,Urine Dip Negative (Negative); RBC 0-2 /HPF (0-5); Urobilinogen 0.2 mg/dL (0.2)
[2024-01-15 11:11] LABS: 027 TOX PROD PRESUMPTIVE NEGATIVE (NEGATIVE)
[2024-01-15 11:33] LABS: TOXIGENIC C. DIFF ORG POSITIVE (NEGATIVE)
--- NOTE | 2024-01-15 11:53 | PCM.HP ---
History of Present Illness - Chief Complaint Chief Complaint: INFECTIOUS COLITIS Date: 01/15/24 History of Present Illness: is a 78 year old female with PMHX of angina, HTN, asthma, COPD, hypothyroidism, OA, GERD, anxiety, and depression. Pt preseneted to ER today with a history of off-and-on abdominal pain for 2 months with diarrhea who was thoroughly evaluated 2 days ago in this ER. She was diagnosed with mild colitis, was started on oral antibiotics. She had another CT abdomen pelvis done yesterday outpatient in the ER with same lower abdominal generalized pain with diarrhea and also started to have some nausea and vomited couple of times since yesterday. Pain is moderate intensity dull aching no relieving factors. No fever or chills reported. No history of C. difficile. 1 L fluid bolus agve in ER. Will cotinue IV antibiotocs for colitis and medication for nausea. - Review of Systems Constitutional: No Fever, No Chills Eyes: No Symptoms Ears, Nose, & Throat: No Symptoms Respiratory: No Cough, No Short Of Breath Cardiac: No Chest Pain, No Edema, No Syncope Abdominal/Gastrointestinal: Abdominal Pain, Nausea, Vomiting, Diarrhea Genitourinary Symptoms: No Dysuria Musculoskeletal: No Back Pain, No Neck Pain Skin: No Rash Neurological: No Dizziness, No Focal Weakness, No Sensory Changes Psychological: No Symptoms Endocrine: No Symptoms Hematologic/Lymphatic: No Symptoms Immunological/Allergic: No Symptoms Medications & Allergies Home Medications: Home Medication List Amlodipine Besylate 2.5 mg PO DAILY 06/12/16 [History Confirmed 01/15/24] Omeprazole 40 mg PO HS 11/29/17 [History Confirmed 01/15/24] Nitroglycerin 0.4 mg Tablet [Nitrostat 0.4 MG Tablet] 0.4 mg SL Q5MIN PRN MR X 3 PRN 30 Days #30 05/12/21 [Rx Confirmed 01/15/24] Famotidine 20 mg [Pepcid 20 MG] 20 mg PO DAILY 07/29/23 [History Confirmed 01/15/24] Trazodone HCl 50 mg [Desyrel 50 mg] 50 mg PO HS 07/29/23 [History Confirmed 01/15/24] Levofloxacin [Levaquin 500 MG Tablet] 500 mg PO DAILY #7 tablet 01/13/24 [Rx Confirmed 01/15/24] Meloxicam 7.5 mg PO DAILY 01/13/24 [History Confirmed 01/15/24] Metronidazole 500 mg [Flagyl 500 MG] 500 mg PO BID #21 tablet 01/13/24 [Rx Confirmed 01/15/24] Allergies/Adverse Reactions: Allergies Allergy/AdvReac Type Severity Reaction Status Date / Time No Known Drug Allergies Allergy Verified 01/15/24 07:13 - Past Medical History Past Medical History: Yes Neurological History: Other ENT History: No Pertinent History Cardiac History: Angina, Hypertension Respiratory History: Asthma, COPD Endocrine Medical History: Hypothyroidism, Other Musculoskelatal History: Osteoarthritis GI Medical History: GERD, Gallbladder Disease, Hernia History: No Pertinent History Pyscho-Social History: Anxiety, Depression Reproductive Disorders: No 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 Significant Family History: no pertinent family hx - Social History Smoking Status: Never smoker Exposure to second hand smoke: No Alcohol: None Drug Use: none - Social Determinants of Health Will the patient participate in the screening: Yes Do you worry about a steady place to live?: No Do you have any problems with any of the following?: No known problems In the past 12 months,have you had to go without utilities?: No Have you or anyone in your house had to go without enough: No Transportation Issues: No Has anyone in your support network made you feel unsafe?: No Does the patient want assistance with any of the above?: No - Physical Exam Vital Signs: Vital Signs - 24 hr Temp Pulse Resp BP BP Pulse Ox 01/15/24 11:15 97.0 F 69 16 112/62 98 01/15/24 10:36 96 01/15/24 09:30 104/59 97 01/15/24 09:26 93 L 01/15/24 09:15 71 18 99/56 98 01/15/24 09:00 116/64 98 01/15/24 08:58 96/69 99 01/15/24 08:56 93 L 01/15/24 08:45 73/51 95 01/15/24 08:30 96/60 93 L 01/15/24 08:15 72 16 96/57 94 L 01/15/24 08:00 80/57 95 01/15/24 07:59 92/63 97 01/15/24 07:45 91/51 93 L 01/15/24 07:30 70 16 78/56 95 01/15/24 06:50 98.8 F 88 18 91/65 96 General Appearance: no apparent distress, alert Neurologic Exam: alert, oriented x 3, cooperative, normal mood/affect, nml cerebellar function, nml station & gait, sensation nml, No motor deficits Eye Exam: PERRL/EOMI, eyes nml inspection Ears, Nose, Throat Exam: normal ENT inspection, TMs normal, pharynx normal, moist mucous membranes Neck Exam: normal inspection, non-tender, supple, full range of motion Respiratory Exam: normal breath sounds, lungs clear, No respiratory distress Cardiovascular Exam: regular rate/rhythm, normal heart sounds, normal peripheral pulses Gastrointestinal/Abdomen Exam: soft, normal bowel sounds, tenderness (with palpation x 4 quad), No mass Back Exam: normal inspection, normal range of motion, No CVA tenderness, No vertebral tenderness Extremity Exam: normal inspection, normal range of motion, pelvis stable Skin Exam: normal color, warm, dry, No rash Lymphatic Exam: No adenopathy Results - Labs Lab/Micro Results: Lab Results-Last 24 Hours 01/15/24 01/15/24 01/15/24 Range/Units 07:30 07:41 07:41 WBC 9.8 (3.98-10.04) x10^3/uL RBC 3.98 (3.93-5.22) x10^6/uL Hgb 11.7 (11.2-15.7) g/dL Hct 35.2 (34.1-44.9) % MCV 88.4 (79.4-94.8) fL MCH 29.4 (25.6-32.2) pg MCHC 33.2 (32.2-35.5) g/dL RDW 12.6 (11.7-14.4) % Plt Count 231 (182-369) x10^3/uL MPV 10.5 (9.4-12.3) fL Gran % 80.3 H (34.0-71.1) % Immature Gran % (Auto) 0.3 (0.001-0.429) % Nucleat RBC Rel Count 0.0 (0.00-0.2) % Eos # (Auto) 0.07 (0.04-0.36) x10^3/uL Immature Gran # (Auto) 0.03 (0.001-0.031) x10^3u/L Absolute Lymphs (auto) 1.10 L (1.18-3.74) x10^3/uL Absolute Monos (auto) 0.70 (0.24-0.86) x10^3/uL Absolute Nucleated RBC 0.00 (0.00-0.012) x10^3u/L Lymphocytes % 11.2 L (19.3-51.7) % Monocytes % 7.1 (4.7-12.5) % Eosinophils % 0.7 (0.7-5.8) % Basophils % 0.4 (0.1-1.2) % Absolute Granulocytes 7.87 H (1.56-6.13) x10^3/uL Basophils # 0.04 (0.01-0.08) x10^3/uL Sodium 139 (135-145) mmol/L Potassium 3.4 L (3.5-5.1) mmol/L Chloride 109 H (98-107) mmol/L Carbon Dioxide 20 L (22-30) mmol/L Anion Gap 13.9 (5-15) MEQ/L BUN 17 (7-17) mg/dL Creatinine 0.86 (0.52-1.04) mg/dL Estimated GFR 69.1 ML/MIN Glucose 107 H (74-106) mg/dL Lactic Acid 0.7 (0.4-2.0) Calcium 8.5 (8.4-10.2) mg/dL Total Bilirubin 0.70 (0.2-1.3) mg/dL AST 20 (14-36) U/L ALT 12 (0-35) U/L Alkaline Phosphatase 72 (38-126) U/L Serum Total Protein 6.2 L (6.3-8.2) g/dL Albumin 3.5 (3.5-5.0) g/dL Lipase 41 (23-300) U/L Urine Color (Yellow) Urine Appearance (Clear) Urine pH (4.6-8.0) Ur Specific [place] (1.005-1.030) Urine Protein (Negative) Urine Glucose (UA) (Negative) mg/dL Urine Ketones (Negative) Urine Blood (Negative) Urine Nitrite (Negative) Urine Bilirubin (Negative) Urine Urobilinogen (0.2) mg/dL Ur Leukocyte Esterase (Negative) U Hyaline Cast (Auto) (0-2) /LPF Urine Microscopic RBC (0-5) /HPF Urine Microscopic WBC (0-5) /HPF Ur Epithelial Cells (None Seen) /HPF Urine Bacteria (None Seen) /HPF Urine Culture Reflexed (NO) C. difficile Screen (NEGATIVE) C.difficile 027-NAP1-B1 (NEGATIVE) 01/15/24 01/15/24 Range/Units 09:28 10:23 WBC (3.98-10.04) x10^3/uL RBC (3.93-5.22) x10^6/uL Hgb (11.2-15.7) g/dL Hct (34.1-44.9) % MCV (79.4-94.8) fL MCH (25.6-32.2) pg MCHC (32.2-35.5) g/dL RDW (11.7-14.4) % Plt Count (182-369) x10^3/uL MPV (9.4-12.3) fL Gran % (34.0-71.1) % Immature Gran % (Auto) (0.001-0.429) % Nucleat RBC Rel Count (0.00-0.2) % Eos # (Auto) (0.04-0.36) x10^3/uL Immature Gran # (Auto) (0.001-0.031) x10^3u/L Absolute Lymphs (auto) (1.18-3.74) x10^3/uL Absolute Monos (auto) (0.24-0.86) x10^3/uL Absolute Nucleated RBC (0.00-0.012) x10^3u/L Lymphocytes % (19.3-51.7) % Monocytes % (4.7-12.5) % Eosinophils % (0.7-5.8) % Basophils % (0.1-1.2) % Absolute Granulocytes (1.56-6.13) x10^3/uL Basophils # (0.01-0.08) x10^3/uL Sodium (135-145) mmol/L Potassium (3.5-5.1) mmol/L Chloride (98-107) mmol/L Carbon Dioxide (22-30) mmol/L Anion Gap (5-15) MEQ/L BUN (7-17) mg/dL Creatinine (0.52-1.04) mg/dL Estimated GFR ML/MIN Glucose (74-106) mg/dL Lactic Acid (0.4-2.0) Calcium (8.4-10.2) mg/dL Total Bilirubin (0.2-1.3) mg/dL AST (14-36) U/L ALT (0-35) U/L Alkaline Phosphatase (38-126) U/L Serum Total Protein (6.3-8.2) g/dL Albumin (3.5-5.0) g/dL Lipase (23-300) U/L Urine Color Yellow (Yellow) Urine Appearance Clear (Clear) Urine pH 5.5 (4.6-8.0) Ur Specific [place] 1.020 (1.005-1.030) Urine Protein Negative (Negative) Urine Glucose (UA) Negative (Negative) mg/dL Urine Ketones Negative (Negative) Urine Blood Trace (Negative) Urine Nitrite Negative (Negative) Urine Bilirubin Negative (Negative) Urine Urobilinogen 0.2 (0.2) mg/dL Ur Leukocyte Esterase Small A (Negative) U Hyaline Cast (Auto) NONE SEEN (0-2) /LPF Urine Microscopic RBC 0-2 (0-5) /HPF Urine Microscopic WBC 3-5 (0-5) /HPF Ur Epithelial Cells Rare (None Seen) /HPF Urine Bacteria None Seen (None Seen) /HPF Urine Culture Reflexed YES (NO) C. difficile Screen POSITIVE (NEGATIVE) C.difficile 027-NAP1-B1 PRESUMPTIVE NEGATIVE (NEGATIVE) Assessment/Plan (1) Colitis Current Visit: No Status: Acute Assessment & Plan: - C-Dif negative - CBC, CMP reviewed - Unable to take oral meds OP d/t N/V - Zofran PRN - Tylenol PRN pain - 1L IVF bolus gave in ER - Clear liquid diet - Flagyl/ levaquin IV - Probiotic- PO - Tele - Abd CT/pelvis RETURN AGENT reviewed Code(s): K52.9 - NONINFECTIVE GASTROENTERITIS AND COLITIS, UNSPECIFIED (2) Hypokalemia Current Visit: Yes Status: Acute Assessment & Plan: - K+ 3.4- replaced- trend - Tele Code(s): E87.6 - HYPOKALEMIA (3) GERD (gastroesophageal reflux disease) Current Visit: Yes Status: Chronic Assessment & Plan: - Continue omeprazole and pepcid Code(s): K21.9 - GASTRO-ESOPHAGEAL REFLUX DISEASE WITHOUT ESOPHAGITIS (4) Chronic headaches Current Visit: No Status: Acute Assessment & Plan: - tylenol PRN Code(s): R51.9 - HEADACHE, UNSPECIFIED; G89.29 - OTHER CHRONIC PAIN (5) Dehydration Current Visit: No Status: Acute Assessment & Plan: - 1 LIter fluid bolus gave in ER - encouraged oral clear liquid intake - 2:2 N/V/D - Co2 20- trend Code(s): E86.0 - DEHYDRATION (6) Diarrhea Current Visit: No Status: Acute Assessment & Plan: - probiotic - C-dif negative Code(s): R19.7 - DIARRHEA, UNSPECIFIED (7) Generalized abdominal pain Current Visit: No Status: Acute Assessment & Plan: - 2:2 colitis- see plan above Code(s): R10.84 - GENERALIZED ABDOMINAL PAIN (8) Anxiety and depression Current Visit: No Status: Chronic Assessment & Plan: - continue home meds Code(s): F41.9 - ANXIETY DISORDER, UNSPECIFIED; F32.A - DEPRESSION, UNSPECIFIED (9) COPD (chronic obstructive pulmonary disease) Current Visit: No Status: Chronic Assessment & Plan: - not in acute exacerbation - RA 98% (10) HTN (hypertension) Current Visit: No Status: Chronic Assessment & Plan: - BP controlled, continue home meds- monitor VTE: SCD's PPI: omeprazole Next of kin: daughter D/C plan: 1-2 days Code status: Full Code(s): I10 - ESSENTIAL (PRIMARY) HYPERTENSION
[2024-01-15] MEDS ORDERED: Sodium Chloride 0.9% 500 ML 500 ML IV ONE (13:24)
[2024-01-15] MEDS: Pepcid 20 MG PO SCH (13:38)
[2024-01-15] MEDS: NORVASC 5 MG PO SCH (13:38)
[2024-01-15] MEDS: Acidophilus TABLET PO SCH (13:38)
[2024-01-15] MEDS: POTASSIUM CHLORIDE 20 mEq IN WATER 100ML 100 ML IV SCH (13:38)
[2024-01-15] MEDS: FLAGYL 500 MG IVPB 500 MG/100 ML BAG IV SCH (13:38)
[2024-01-15] MEDS: TYLENOL 325 MG PO PRN (13:39)
[2024-01-15] MEDS: Klor Con PO SCH (15:12)
[2024-01-15] MEDS: Levofloxacin 500MG/100ML D5W 500 MG/100 ML BAG IV SCH (15:12)
[2024-01-15] MEDS: IMODIUM 2 MG PO PRN (17:19)
[2024-01-15] MEDS: Imitrex 6 MG/0.5 ML SQ STA (17:19)
[2024-01-15] MEDS: Protonix 40MG Tablet PO SCH (20:56)
[2024-01-15] MEDS: DESYREL 50 MG PO SCH (20:56)
[2024-01-15] MEDS ORDERED: NON-FORMULARY ITEM (Omeprazole [Omeprazole] 40 MG Capsule.Dr) PO SCH (22:00)
[2024-01-16 05:28] LABS: Hematocrit 33.1 % (34.1-44.9); Hemoglobin 10.9 g/dL (11.2-15.7); Mean Cell Volume 89.9 fL (79.4-94.8); Mean Corpuscular Hemoglobin 29.6 pg (25.6-32.2); Mean Corpuscular Hgb Concent. 32.9 g/dL (32.2-35.5); Mean Platelet Volume 11.2 fL (9.4-12.3); Platelet Count 231 x10^3/uL (182-369); Red Blood Count 3.68 x10^6/uL (3.93-5.22); Red Cell Distribution Width 12.6 % (11.7-14.4); White Blood Count 8.7 x10^3/uL (3.98-10.04)
[2024-01-16 05:45] LABS: ALBUMIN 3.1 g/dL (3.5-5.0); ANION GAP 10.1 MEQ/L (5-15); BILIRUBIN,TOTAL 0.6 mg/dL (0.2-1.3); Calcium 8.1 mg/dL (8.4-10.2); Creatinine 1 0.85 mg/dL (0.52-1.04); EST GLOMERULAR FILTRATION RATE 70.1 ML/MIN; MAGNESIUM 1.8 mg/dL (1.6-2.3); Potassium 4.1 mmol/L (3.5-5.1); Total Protein 5.6 g/dL (6.3-8.2)
[2024-01-16] MEDS: QUESTRAN Light 4 GM Packet PO SCH (09:40)
[2024-01-16] MEDS ORDERED: NON-FORMULARY ITEM (Amlodipine Besylate [Amlodipine Besylate] 2.5 MG Tablet) PO SCH (10:00)
[2024-01-16] MEDS ORDERED: LEVOFLOXACIN 750MG/150ML D5W 750 MG/150 ML BAG IV SCH (10:00)
[2024-01-16] MEDS: Naprosyn 500 MG PO ONE (11:02)
--- NOTE | 2024-01-16 16:14 | PCM.NOTE ---
Date and Time: 01/16/24 1607 Subjective Assessment: 01/15/24 is a 78 year old female with PMHX of angina, HTN, asthma, COPD, hypothyroidism, OA, GERD, anxiety, and depression. Pt preseneted to ER today with a history of off-and-on abdominal pain for 2 months with diarrhea who was thoroughly evaluated 2 days ago in this ER. She was diagnosed with mild colitis, was started on oral antibiotics. She had another CT abdomen pelvis done yesterday outpatient in the ER with same lower abdominal generalized pain with diarrhea and also started to have some nausea and vomited couple of times since yesterday. Pain is moderate intensity dull aching no relieving factors. No fever or chills reported. No history of C. difficile. 1 L fluid bolus agve in ER. Will cotinue IV antibiotocs for colitis and medication for nausea. 01/16/24 Pt resting in the chair. She states she is tired and has been up all night with diarrhea. Started Questran light. Continue IV antibiotics. CO2 improved. hypokalemia resolved. She is c/o a migraine and explained Imitrex did not help yesterday. She is requesting naproxen as this helps her at home, this was ordered 1 time. She denies CP, SOB, N/V. She has not vomited since admission. - Review of Systems Constitutional: No Fever, No Chills Eyes: No Symptoms Ears, Nose, & Throat: No Symptoms Respiratory: No Cough, No Short Of Breath Cardiac: No Chest Pain, No Edema, No Syncope Abdominal/Gastrointestinal: Abdominal Pain, Diarrhea, No Nausea, No Vomiting Genitourinary Symptoms: No Dysuria Musculoskeletal: No Back Pain, No Neck Pain Skin: No Rash Neurological: Headache, No Dizziness, No Focal Weakness, No Sensory Changes Psychological: No Symptoms Endocrine: No Symptoms Hematologic/Lymphatic: No Symptoms Immunological/Allergic: No Symptoms Objective Exam General Appearance: no apparent distress, alert Neurologic Exam: alert, oriented x 3, cooperative, normal mood/affect, nml cerebellar function, sensation nml, No motor deficits Skin Exam: normal color, warm, dry Eye Exam: PERRL, EOMI, eyes nml inspection Ears, Nose, Throat Exam: normal ENT inspection, pharynx normal, moist mucous membranes Neck Exam: normal inspection, non-tender, supple, full range of motion Respiratory Exam: normal breath sounds, lungs clear, No respiratory distress Cardiovascular Exam: regular rate/rhythm, normal heart sounds Gastrointestinal/Abdomen Exam: soft, tenderness, No mass Extremity Exam: normal inspection, normal range of motion Back Exam: normal inspection, normal range of motion, No CVA tenderness, No vertebral tenderness Pelvic Exam: deferred Rectal Exam: deferred Objective Data Vital Signs: Vital Signs - 24 hr Temp Pulse Resp BP Pulse Ox 01/16/24 11:30 97.3 F 70 14 111/57 97 01/16/24 08:00 96.8 F 72 16 93/51 95 01/16/24 04:00 97.8 F 83 18 91/52 95 01/15/24 23:34 97.5 F 88 17 103/61 96 01/15/24 20:00 97.1 F 71 20 122/68 96 Pain Assessment - Last Documented Pain Intensity 0 Pain Scale Used 0-10 Pain Scale Intake and Output: Intake & Output 01/14/24 01/15/24 01/16/24 01/17/24 11:59 11:59 11:59 11:59 Intake Total 420 120 Balance 420 120 Weight 68 kg Lab Results: Lab Results-Last 24 Hours 01/15/24 01/16/24 01/16/24 Range/Units 23:30 04:32 04:32 WBC 8.7 (3.98-10.04) x10^3/uL RBC 3.68 L (3.93-5.22) x10^6/uL Hgb 10.9 L (11.2-15.7) g/dL Hct 33.1 L (34.1-44.9) % MCV 89.9 (79.4-94.8) fL MCH 29.6 (25.6-32.2) pg MCHC 32.9 (32.2-35.5) g/dL RDW 12.6 (11.7-14.4) % Plt Count 231 (182-369) x10^3/uL MPV 11.2 (9.4-12.3) fL Sodium 139 (135-145) mmol/L Potassium 4.1 D 4.1 (3.5-5.1) mmol/L Chloride 113 H (98-107) mmol/L Carbon Dioxide 21 L (22-30) mmol/L Anion Gap 10.1 (5-15) MEQ/L BUN 9 (7-17) mg/dL Creatinine 0.85 (0.52-1.04) mg/dL Estimated GFR 70.1 ML/MIN Glucose 85 (74-106) mg/dL Calcium 8.1 L (8.4-10.2) mg/dL Magnesium 1.8 (1.6-2.3) mg/dL Total Bilirubin 0.60 (0.2-1.3) mg/dL AST 25 (14-36) U/L ALT 11 (0-35) U/L Alkaline Phosphatase 64 (38-126) U/L Serum Total Protein 5.6 L (6.3-8.2) g/dL Albumin 3.1 L (3.5-5.0) g/dL Assessment/Plan (1) Colitis Current Visit: No Status: Acute Code(s): K52.9 - NONINFECTIVE GASTROENTERITIS AND COLITIS, UNSPECIFIED (2) Hypokalemia Current Visit: Yes Status: Resolved Code(s): E87.6 - HYPOKALEMIA (3) GERD (gastroesophageal reflux disease) Current Visit: Yes Status: Chronic Code(s): K21.9 - GASTRO-ESOPHAGEAL REFLUX DISEASE WITHOUT ESOPHAGITIS (4) Chronic headaches Current Visit: No Status: Acute Code(s): R51.9 - HEADACHE, UNSPECIFIED; G89.29 - OTHER CHRONIC PAIN (5) Dehydration Current Visit: No Status: Acute Code(s): E86.0 - DEHYDRATION (6) Diarrhea Current Visit: No Status: Acute Code(s): R19.7 - DIARRHEA, UNSPECIFIED (7) Generalized abdominal pain Current Visit: No Status: Acute Code(s): R10.84 - GENERALIZED ABDOMINAL PAIN (8) Anxiety and depression Current Visit: No Status: Chronic Code(s): F41.9 - ANXIETY DISORDER, UNSPECIFIED; F32.A - DEPRESSION, UNSPECIFIED (9) COPD (chronic obstructive pulmonary disease) Current Visit: No Status: Chronic (10) HTN (hypertension) Current Visit: No Status: Chronic Assessment & Plan: (1) Colitis Current Visit: No Status: Acute Assessment & Plan: - 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 - CBC, CMP reviewed - Unable to take oral meds OP d/t N/V - Zofran PRN - Tylenol PRN pain - 1L IVF bolus gave in ER - Clear liquid diet - Flagyl/ levaquin IV - Probiotic- PO - Tele - Abd CT/pelvis VARNISH COOKER reviewed 01/15 - continued diarrhea/ abd pain - CBC, CMP reviewed - Flagyl/ levaquin IV - Probiotic- PO - Questran light BID ordered Code(s): K52.9 - NONINFECTIVE GASTROENTERITIS AND COLITIS, UNSPECIFIED (2) Hypokalemia Current Visit: Yes Status: Acute Assessment & Plan: - K+ 3.4- replaced- trend - Tele 01/15 - resolved Code(s): E87.6 - HYPOKALEMIA (3) GERD (gastroesophageal reflux disease) Current Visit: Yes Status: Chronic Assessment & Plan: - Continue omeprazole and pepcid Code(s): K21.9 - GASTRO-ESOPHAGEAL REFLUX DISEASE WITHOUT ESOPHAGITIS (4) Chronic headaches Current Visit: No Status: Acute Assessment & Plan: - tylenol PRN - imitrex x1- was not helpful 01/15 - naproxen x1 po per pt request Code(s): R51.9 - HEADACHE, UNSPECIFIED; G89.29 - OTHER CHRONIC PAIN (5) Dehydration Current Visit: No Status: Acute Assessment & Plan: - 1 LIter fluid bolus gave in ER - encouraged oral clear liquid intake - 2:2 N/V/D - Co2 20- trend 01/15 - Co2 21- trend Code(s): E86.0 - DEHYDRATION (6) Diarrhea Current Visit: No Status: Acute Assessment & Plan: - probiotic - C-dif negative for active infection Code(s): R19.7 - DIARRHEA, UNSPECIFIED (7) Generalized abdominal pain Current Visit: No Status: Acute Assessment & Plan: - 2:2 colitis- see plan above Code(s): R10.84 - GENERALIZED ABDOMINAL PAIN (8) Anxiety and depression Current Visit: No Status: Chronic Assessment & Plan: - continue home meds Code(s): F41.9 - ANXIETY DISORDER, UNSPECIFIED; F32.A - DEPRESSION, UNSPECIFIED (9) COPD (chronic obstructive pulmonary disease) Current Visit: No Status: Chronic Assessment & Plan: - not in acute exacerbation - RA 98% (10) HTN (hypertension) Current Visit: No Status: Chronic Assessment & Plan: - BP controlled, continue home meds- monitor VTE: SCD's PPI: omeprazole Next of kin: daughter D/C plan: 1-2 days Code status: Full Code(s): I10 - ESSENTIAL (PRIMARY) HYPERTENSION Code(s): I10 - ESSENTIAL (PRIMARY) HYPERTENSION
[2024-01-17 03:41] VITALS: RESP 18
[2024-01-17 05:07] LABS: Hematocrit 32.2 % (34.1-44.9); Hemoglobin 10.3 g/dL (11.2-15.7); Mean Cell Volume 90.4 fL (79.4-94.8); Mean Corpuscular Hemoglobin 28.9 pg (25.6-32.2); Mean Platelet Volume 10.7 fL (9.4-12.3); Platelet Count 208 x10^3/uL (182-369); Red Blood Count 3.56 x10^6/uL (3.93-5.22); Red Cell Distribution Width 12.8 % (11.7-14.4); White Blood Count 5.6 x10^3/uL (3.98-10.04)
[2024-01-17 05:32] LABS: ALBUMIN 2.9 g/dL (3.5-5.0); ANION GAP 10.4 MEQ/L (5-15); BILIRUBIN,TOTAL 0.4 mg/dL (0.2-1.3); Calcium 8.1 mg/dL (8.4-10.2); Creatinine 1 0.81 mg/dL (0.52-1.04); EST GLOMERULAR FILTRATION RATE 74.3 ML/MIN; Potassium 3.8 mmol/L (3.5-5.1); Total Protein 5.4 g/dL (6.3-8.2)
[2024-01-17] MEDS: Zofran 4 MG/2 ML VIAL IV PRN (05:50)
[2024-01-17 05:53] LABS: INFLUENZA A NEGATIVE (NEGATIVE); INFLUENZA B NEGATIVE (NEGATIVE); RESPIRATORY SYNCTIAL VIRUS NEGATIVE (NEGATIVE); SARS-CoV-2 Xpert Express NEGATIVE (NEGATIVE)
[2024-01-17] MEDS: Augmentin 875-125 Tablet PO SCH (09:49)
[2024-01-17] MEDS: Macrobid 100MG Capsule PO SCH (09:49)
[2024-01-17] MEDS: Compazine 10 MG/2 ML IV PRN (10:11)
--- NOTE | 2024-01-17 10:41 | PCM.DS ---
Discharge Summary Date of Admission: 01/15/24 11:06 Date of Discharge: 01/17/24 Admitting Physician: JOSE RAMIREZ MD Primary Care Provider: SRINI DAVID Allergies Allergies No Known Drug Allergies Allergy (Verified 01/15/24 07:13) Hospital Summary - Hospital Course Hospital Course: 01/15/24 is a 78 year old female with PMHX of angina, HTN, asthma, COPD, hypothyroidism, OA, GERD, anxiety, and depression. Pt preseneted to ER today with a history of off-and-on abdominal pain for 2 months with diarrhea who was thoroughly evaluated 2 days ago in this ER. She was diagnosed with mild colitis, was started on oral antibiotics. She had another CT abdomen pelvis done yesterday outpatient in the ER with same lower abdominal generalized pain with diarrhea and also started to have some nausea and vomited couple of times since yesterday. Pain is moderate intensity dull aching no relieving factors. No fever or chills reported. No history of C. difficile. 1 L fluid bolus agve in ER. Will cotinue IV antibiotocs for colitis and medication for nausea. 01/16/24 Pt resting in the chair. She states she is tired and has been up all night with diarrhea. Started Questran light. Continue IV antibiotics. CO2 improved. hypokalemia resolved. She is c/o a migraine and explained Imitrex did not help yesterday. She is requesting naproxen as this helps her at home, this was ordered 1 time. She denies CP, SOB, N/V. She has not vomited since admission. 01/17/24 Pt resting in bed. She reports being up all night with continued diarrhea and headache. Vancomycin PO started for continued diarrhea. 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 Antibiotic changed to Augmentin PO for colitis since she has resistance to Levaquin. She is requesting a CT head for further eval of chronic headaches. Urine culture shows she is resistant to Levaquin. Antibiotic for UTI changed to macrobid. She has not had any vomiting since admission. She does report nausea and abd. pain. Labs are overall stable without electrolytes disturbances. If head CT nonconcerning will d/c today as insurance time is up per case management. She can be followed OP with GI and PCP. She is refusing home health care or rehab OP as offered by case management. - Vitals & Intake/Output Vital Signs: Vital Signs Temperature 97.5 F 01/17/24 07:28 Pulse Rate 68 01/17/24 07:28 Respiratory Rate 18 01/17/24 07:28 Blood Pressure 91/54 01/17/24 07:28 O2 Sat by Pulse Oximetry 97 01/17/24 07:28 Intake & Output: Intake & Output 01/14/24 01/15/24 01/16/24 01/17/24 11:59 11:59 11:59 11:59 Intake Total 420 660 Balance 420 660 Weight 68 kg - Lab Result Diagrams: 01/17/24 04:35 01/17/24 04:35 Lab Results-Last 24 Hrs: Lab Results-Last 24 Hours 01/17/24 01/17/24 01/17/24 Range/Units 04:35 04:35 04:40 WBC 5.6 (3.98-10.04) x10^3/uL RBC 3.56 L (3.93-5.22) x10^6/uL Hgb 10.3 L (11.2-15.7) g/dL Hct 32.2 L (34.1-44.9) % MCV 90.4 (79.4-94.8) fL MCH 28.9 (25.6-32.2) pg MCHC 32.0 L (32.2-35.5) g/dL RDW 12.8 (11.7-14.4) % Plt Count 208 (182-369) x10^3/uL MPV 10.7 (9.4-12.3) fL Sodium 139 (135-145) mmol/L Potassium 3.8 (3.5-5.1) mmol/L Chloride 110 H (98-107) mmol/L Carbon Dioxide 22 (22-30) mmol/L Anion Gap 10.4 (5-15) MEQ/L BUN 10 (7-17) mg/dL Creatinine 0.81 (0.52-1.04) mg/dL Estimated GFR 74.3 ML/MIN Glucose 93 (74-106) mg/dL Calcium 8.1 L (8.4-10.2) mg/dL Total Bilirubin 0.40 (0.2-1.3) mg/dL AST 28 (14-36) U/L ALT 13 (0-35) U/L Alkaline Phosphatase 61 (38-126) U/L Serum Total Protein 5.4 L (6.3-8.2) g/dL Albumin 2.9 L (3.5-5.0) g/dL Influenza Type A Ag NEGATIVE (NEGATIVE) Influenza Type B Ag NEGATIVE (NEGATIVE) RSV (PCR) NEGATIVE (NEGATIVE) SARS-CoV-2 (PCR) NEGATIVE (NEGATIVE) Micro Results-Entire Visit: Microbiology 01/17/24 Unknown Stool Culture Result 1 - Final Stool Not Reportable Stool Culture Result 2 - Final Not Reportable Stool Culture Result 3 - Final Not Reportable Stool Culture Result 4 - Final Not Reportable Stool Culture Organism Suscept - Final Not Reportable Campylobacter Result 1 - Final Not Reportable Campylobacter Result 2 - Final Not Reportable Campylobactor Result 3 - Final Not Reportable Campylobacter Result 4 - Final Not Reportable Campylobactor Susceptibility - Final Not Reportable 01/15/24 09:28 Urine Culture - Final Urine, Void Enterococcus Faecalis - Radiology Exams Ordered Rad Exams-Entire Visit: Radiology Procedures Category Date Time Status HEAD WITHOUT CONTRAST [CT] Routine Exams 01/17/24 09:30 Ordered Discharge Exam General Appearance: no apparent distress, alert Neurologic Exam: alert, oriented x 3, cooperative, normal mood/affect, nml cerebellar function, sensation nml, agitation, No motor deficits Eye Exam: PERRL, EOMI, eyes nml inspection Ears, Nose, Throat Exam: normal ENT inspection, pharynx normal, moist mucous membranes Neck Exam: normal inspection, non-tender, supple, full range of motion Respiratory Exam: normal breath sounds, lungs clear, No respiratory distress Cardiovascular Exam: regular rate/rhythm, normal heart sounds Gastrointestinal/Abdomen Exam: soft, normal bowel sounds, tenderness, No mass Pelvic Exam: deferred Rectal Exam: deferred Back Exam: normal inspection, normal range of motion, No CVA tenderness, No vertebral tenderness Extremity Exam: normal inspection, normal range of motion Skin Exam: normal color, warm, dry Final Diagnosis/Problem List - Final Discharge Diagnosis/Problem (1) Colitis Current Visit: No Status: Acute Code(s): K52.9 - NONINFECTIVE GASTROENTERIT IS AND COLITIS, UNSPECIFIED (2) Hypokalemia Current Visit: Yes Status: Resolved Code(s): E87.6 - HYPOKALEMIA (3) GERD (gastroesophageal reflux disease) Current Visit: Yes Status: Chronic Code(s): K21.9 - GASTRO-ESOPHAGEAL REFLUX DISEASE WITHOUT ESOPHAGITIS (4) Chronic headaches Current Visit: No Status: Acute Code(s): R51.9 - HEADACHE, UNSPECIFIED; G89.29 - OTHER CHRONIC PAIN (5) Dehydration Current Visit: No Status: Acute Code(s): E86.0 - DEHYDRATION (6) Diarrhea Current Visit: No Status: Acute Code(s): R19.7 - DIARRHEA, UNSPECIFIED (7) Generalized abdominal pain Current Visit: No Status: Acute Code(s): R10.84 - GENERALIZED ABDOMINAL PAIN (8) Anxiety and depression Current Visit: No Status: Chronic Code(s): F41.9 - ANXIETY DISORDER, UNSPECIFIED; F32.A - DEPRESSION, UNSPECIFIED (9) COPD (chronic obstructive pulmonary disease) Current Visit: No Status: Chronic (10) HTN (hypertension) Current Visit: No Status: Chronic Assessment & Plan: (1) Colitis Current Visit: No Status: Acute Assessment & Plan: - 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 - CBC, CMP reviewed - Unable to take oral meds OP d/t N/V - Zofran PRN - Tylenol PRN pain - 1L IVF bolus gave in ER - Clear liquid diet - Flagyl/ levaquin IV - Probiotic- PO - Tele - Abd CT/pelvis DROP MAN reviewed 01/15 - continued diarrhea/ abd pain - CBC, CMP reviewed - Flagyl/ levaquin IV - Probiotic- PO - Questran light BID ordered 01/16 - continued diarrhea - start oral vancomycin - resistant to Levaquin- Augmentin started for colitis - CBC, CMP reviewed - denies any vomiting since admission - + nausea- PRN nausea meds - per nursing pt has been refusing imodium- pt states this is not correct and she has been taking the medication Code(s): K52.9 - NONINFECTIVE GASTROENTERITIS AND COLITIS, UNSPECIFIED (2) Hypokalemia Current Visit: Yes Status: Acute Assessment & Plan: - K+ 3.4- replaced- trend - Tele 01/15 - resolved Code(s): E87.6 - HYPOKALEMIA (3) GERD (gastroesophageal reflux disease) Current Visit: Yes Status: Chronic Assessment & Plan: - Continue omeprazole and pepcid Code(s): K21.9 - GASTRO-ESOPHAGEAL REFLUX DISEASE WITHOUT ESOPHAGITIS (4) Chronic headaches Current Visit: No Status: Acute Assessment & Plan: - tylenol PRN - imitrex x1- was not helpful 01/15 - naproxen x1 po per pt request 01/16 - CT head per pt request for chronic headaches- CT head negative - H/A's may be 2:2 being up at night for diarrhea episodes Code(s): R51.9 - HEADACHE, UNSPECIFIED; G89.29 - OTHER CHRONIC PAIN (5) Dehydration Current Visit: No Status: Acute Assessment & Plan: - 1 LIter fluid bolus gave in ER - encouraged oral clear liquid intake - 2:2 N/V/D - Co2 20- trend 01/15 - Co2 21- trend 01/16 - resolved Code(s): E86.0 - DEHYDRATION (6) Diarrhea Current Visit: No Status: Acute Assessment & Plan: - probiotic - C-dif negative for active infection Code(s): R19.7 - DIARRHEA, UNSPECIFIED (7) Generalized abdominal pain Current Visit: No Status: Acute Assessment & Plan: - 2:2 colitis- see plan above Code(s): R10.84 - GENERALIZED ABDOMINAL PAIN (8) Anxiety and depression Current Visit: No Status: Chronic Assessment & Plan: - continue home meds Code(s): F41.9 - ANXIETY DISORDER, UNSPECIFIED; F32.A - DEPRESSION, UNSPECIFIED (9) COPD (chronic obstructive pulmonary disease) Current Visit: No Status: Chronic Assessment & Plan: - not in acute exacerbation - RA 98% (10) HTN (hypertension) Current Visit: No Status: Chronic Assessment & Plan: - BP controlled, continue home meds- monitor Code(s): I10 - ESSENTIAL (PRIMARY) HYPERTENSION Code(s): I10 - ESSENTIAL (PRIMARY) HYPERTENSION - Discharge Discharge Date: 01/17/24 Disposition: Home, Self-Care Condition: Fair Prescriptions: New Amox Tr/Potass Clav. 875 mg [Augmentin 875-125 Tablet] 875 mg PO BIDWM 7 Days #14 tablet Nitrofurantoin Macro 100 mg [Macrobid 100MG Capsule] 100 mg PO BIDWM 5 Days #10 cap Vancomycin HCl [Vancomycin HCl Capsule] 125 mg PO QID 10 Days #40 cap Ondansetron ODT 4 MG [Zofran Odt 4 mg] 4 mg PO Q6H PRN PRN 4 Days #10 tablet PRN Reason: Vomiting Lactobacillus Acidophilus [Acidophilus TABLET] 1 tab PO DAILY 30 Days #30 tablet Continue Amlodipine Besylate 2.5 mg PO DAILY Omeprazole 40 mg PO HS Nitroglycerin 0.4 mg Tablet [Nitrostat 0.4 MG Tablet] 0.4 mg SL Q5MIN PRN MR X 3 PRN 30 Days #30 PRN Reason: Chest Pain Famotidine 20 mg [Pepcid 20 MG] 20 mg PO DAILY Trazodone HCl 50 mg [Desyrel 50 mg] 50 mg PO HS Meloxicam 7.5 mg PO DAILY Levofloxacin [Levofloxacin 500 MG Tablet] 500 mg PO DAILY #7 tablet Metronidazole 500 mg [Flagyl 500 MG] 500 mg PO BID #21 tablet Instructions: Colitis - Discharge instructions Additional Instructions: You can buy Imodium over the counter. Please follow label directions and do not exceed max daily dose per label directions. Follow up with GI- Dr. Gamez for further workup and evaluation. Follow up with: SRINI DAVID MD [Primary Care Provider] - 01/21/24 4:00 pm ([place] Office) DEANDRA GAMEZ [NON-STAFF Y W/O PRIVILEGES] - Call for Appointment Forms: Discharge Instructions
[2024-01-17] MEDS: VANCOMYCIN HCL CAPSULE PO SCH (10:53)
[2024-01-17 11:51] VITALS: BP 87/60; PULSE 69; TEMP 97.4; O2SAT 95
--- NOTE | 2024-01-17 11:52 | XRAY ---
Indication: Headache. No known injury. Multiple contiguous axial images obtained through the head without contrast. Comparison: August 01, 2023 Again age-appropriate global atrophy and minimal periventricular degenerative micro-ischemia bilaterally. No acute intracranial hemorrhage, abnormal extra-axial fluid collection, or mass effect. Fourth ventricle is midline without hydrocephalus. Bony calvarium intact. Visualized paranasal sinuses and mastoid air cells are clear. Impression: Stable nonacute senile brain.
== END 2024-01-17 12:33 | disposition home or self-care (01) ==
LOC: ED 06:49 → MED SURG 11:06
PROVIDERS: ADMIT Internal Medicine; ATTEND Internal Medicine
DX: K52.9 Noninfective gastroenteritis and colitis, unspecified (principal); E87.6 Hypokalemia; K21.9 Gastro-esophageal reflux disease without esophagitis; R51.9 Headache, unspecified; E86.0 Dehydration; R10.84 Generalized abdominal pain; F41.9 Anxiety disorder, unspecified; J44.9 Chronic obstructive pulmonary disease, unspecified; I10 Essential (primary) hypertension; Z79.899 Other long term (current) drug therapy
CPT/HCPCS: 0241U; 36415; 70450; 80053; 81001; 83605; 83690; 83735; 84132; 85025; 85027; 87077; 87086; 87186; 87493; 96360; 96374; 99285; Q3014; 93268; J1956; J2405; J3030; J3480; A9270-GY; G0378

== ENCOUNTER 2024-11-13 14:57 | Observation (INO) | payer MEDICARE ==
--- NOTE | 2024-11-13 15:04 | ERPHSYRPT ---
- History of Present Illness Time Seen by Provider: 11/13/24 15:03 Source: patient, family, old records Exam Limitations: no limitations Physician History: This a 79-year-old white female patient who arrives her private vehicle accompanied by her daughter and is a patient of Dr. David and bag grader Dr. Gilliam. She was diagnosed with right middle lobe infiltrate 3 days ago and was started on amoxicillin, prednisone and albuterol inhaler. Over the last 3 days her symptoms have worsened. Patient denies chest pain. She has a persistent, dry, hacking cough without production of sputum. Patient has a history of hypertension, gastroesophageal reflux disease, chronic angina and hyperlipidemia. She has not been tested for viral illness. Patient's room air oxygen saturation level is 98%. Timing/Duration: day(s) (3), worse Severity of Dyspnea-Max: mild Severity of Dyspnea-Current: mild Possible Cause: no prior episodes Modifying Factors: Improves With: coughing Associated Symptoms: cough, No chest pain/discomfort Allergies/Adverse Reactions: No Known Drug Allergies Allergy (Verified 01/15/24 07:13) Home Medications: Amlodipine Besylate 2.5 mg PO DAILY 06/12/16 [History] Omeprazole 40 mg PO HS 11/29/17 [History] Trazodone HCl 50 mg [Desyrel 50 mg] 100 mg PO HS 07/29/23 [History] Atorvastatin Calcium 10 mg PO HS 11/13/24 [History] Ciprofloxacin HCl [Cipro] 500 mg PO 3XW 11/13/24 [History] Famotidine 20 mg [Pepcid 20 MG] 20 mg PO DAILY 11/13/24 [History] Ropinirole HCl 1 mg PO HS 11/13/24 [History] Hx Tetanus, Diphtheria Vaccination/Date Given: No Hx Influenza Vaccination/Date Given: No Hx Pneumococcal Vaccination/Date Given: No Travel Risk - International Travel Have you traveled outside of the country in past 3 weeks: No - Emerging Infectious Disease Are you exhibiting symptoms associated with any current EIDs: No Symptoms: Abdominal Pain, Cough: New Onset, Diarrhea, Fever, Headaches/Body Aches/, Loss of taste or smell, Shortness of Breath, Vomitting Comment: fatigue - Review of Systems Constitutional: No Symptoms Eyes: No Symptoms Ears, Nose, & Throat: No Symptoms Respiratory: Cough, Dyspnea Cardiac: No Symptoms, No Chest Pain Abdominal/Gastrointestinal: No Symptoms Genitourinary Symptoms: No Symptoms Musculoskeletal: No Symptoms Skin: No Symptoms Neurological: No Symptoms Psychological: No Symptoms Endocrine: No Symptoms Hematologic/Lymphatic: No Symptoms Immunological/Allergic: No Symptoms All Other Systems: Reviewed and Negative - Past Medical History Neurological History: No Pertinent History Cardiac History: Angina, High Cholesterol, Hypertension Endocrine Medical History: Hypothyroidism Other Medical History: PMH: GERD, CANCER 2006' (CHEMO/RADIATION) NON-HODGKIN'S LYMPHOMA. PSH: HEART CATH, CHOLECYSTECOMY, HYSTERECTOMY, TUBAL LIGATION, BACK SURGERY (UNSURE OF WHAT WAS DONE), BACK INJECTIONS - Past Surgical History Past Surgical History: Yes Neuro Surgical History: No Pertinent History Cardiac: Cardiac Catheterization Respiratory: No Pertinent History Gastrointestinal: Cholecystectomy Genitourinary: No Pertinent History Musculoskeletal: No Pertinent History Female Surgical History: Hysterectomy, Tubal Ligation Other Surgical History: cvl port placed and removed. [employer]CH[employer]IC - DR. GILLIAM Significant Family History: no pertinent family hx - Social History Smoking Status: Never smoker Drug Use: none - Social Determinants of Health Will the patient participate in the screening: Yes Do you worry about a steady place to live?: No In the past 12 months,have you had to go without utilities?: No Transportation Issues: No Has anyone in your support network made you feel unsafe?: No Have you or anyone in your house had to go w/o enough food: No - Nursing Vital Signs Nursing Vital Signs: Initial Vital Signs Temperature 98.5 F 11/13/24 15:08 Pulse Rate 63 11/13/24 15:08 Respiratory Rate 14 11/13/24 15:08 Blood Pressure 121/68 11/13/24 15:08 O2 Sat by Pulse Oximetry 98 11/13/24 15:08 Pain Scale Pain Intensity 8 - Physical Exam General Appearance: mild distress, alert, anxiety Eye Exam: PERRL/EOMI, eyes nml inspection Ears, Nose, Throat Exam: hearing grossly normal, normal ENT inspection, normal pharynx Neck Exam: normal inspection, non-tender, supple, full range of motion Respiratory Exam: airway intact, wheezing (Mild bilateral diffuse), No chest tenderness, No respiratory distress, No stridor Cardiovascular/Chest Exam: normal heart sounds, regular rate/rhythm Abdominal/Gastrointestinal Exam: soft, normal bowel sounds, No tenderness Rectal Exam: not done Extremity Exam: non-tender, normal range of motion, normal inspection, normal capillary refill, no calf tenderness, no pedal edema, pelvis stable Neurologic Exam: alert, oriented x 3, cooperative, keycase assembler II-XII nml as tested, nml cerebellar function, nml station & gait, sensation nml Skin Exam: normal color, warm, dry Lymphatic Exam: No adenopathy SpO2 Interpretation: normal O2 Delivery: Room Air - Course Nursing assessment & vital signs reviewed: Yes EKG Interpreted by Me: RATE (68), Sinus Rhythm, LAFB, NORMAL INTERVALS, NORMAL QRS, Other (QTc is 443. No acute ischemia on today's twelve-lead EKG) Ordered Tests: Active Orders 24 hr Category Date Time Status EKG-ER Only STAT Care 11/13/24 15:25 Active IV Insertion STAT Care 11/13/24 15:25 Active Pulse Oximetry (ED) STAT Care 11/13/24 15:25 Active CHEST 1 VIEW (PORTABLE) Stat Exams 11/13/24 15:25 Completed BLOOD CULTURE Stat Lab 11/13/24 15:52 Received CBC W DIFF Stat Lab 11/13/24 15:30 Completed CMP Stat Lab 11/13/24 15:30 Completed CULTURE,URINE Stat Lab 11/13/24 16:47 Received Lactic Acid Stat Lab 11/13/24 15:35 Completed MAGNESIUM Stat Lab 11/13/24 15:30 Completed NT PRO BNPII Stat Lab 11/13/24 15:30 Completed TROPONIN Q4H Lab 11/13/24 15:30 Completed TROPONIN Q4H Lab 11/13/24 19:30 Ordered TROPONIN Q4H Lab 11/13/24 23:30 Ordered UA W/RFX UR CULTURE Stat Lab 11/13/24 16:47 Completed Respiratory Therapy Assessment DAILY RT 11/13/24 16:04 Active Transfer Order Routine Transfer 11/13/24 Ordered Medication Summary Discontinued Medications Generic Name Dose Route Start Last Admin Trade Name Freq PRN Reason Stop Dose Admin Hydrocodone Bitart/Acetaminophen 10 ml 11/13/24 16:05 11/13/24 16:33 Hydrocodone/Acetaminophen 5 Ml Udcup PO 11/13/24 16:06 10 ml STAT STA Administration Hydrocodone Bitart/Acetaminophen Confirm 11/13/24 16:26 Hydrocodone/Acetaminophen 5 Ml Udcup Administered 11/13/24 16:27 Dose 10 ml .ROUTE .STK-MED ONE Albuterol/Ipratropium 3 ml 11/13/24 16:03 11/13/24 16:05 Ipratropium/Albuterol Sulfate 3 Ml Ampul.Neb IH 11/13/24 16:04 3 ml STAT ONE Administration Albuterol/Ipratropium Confirm 11/13/24 16:08 Ipratropium/Albuterol Sulfate 3 Ml Ampul.Neb Administered 11/13/24 16:09 Dose 3 ml IH .STK-MED ONE Methylprednisolone Sodium 0 mg 11/13/24 16:05 11/13/24 16:34 Succinate 125 mg/ Sterile IV 11/13/24 16:06 125 mg Water 2 ml STAT ONE Administration Furosemide 40 mg 11/13/24 17:02 11/13/24 17:09 Furosemide 40 Mg/4 Ml Vial IV 11/13/24 17:03 40 mg STAT ONE Administration Furosemide Confirm 11/13/24 17:08 Furosemide 40 Mg/4 Ml Vial Administered 11/13/24 17:09 Dose 40 mg .ROUTE .STK-MED ONE Magnesium Sulfate/Dextrose 100 mls @ 200 mls/hr 11/13/24 15:36 11/13/24 15:50 Magnesium 1 Gm / 100 Ml D5w IV 11/13/24 16:05 Not Given STAT ONE Ceftriaxone Sodium 1 gm in 100 mls @ 200 mls/hr 11/13/24 16:05 11/13/24 17:07 Rocephin 1 Gm / 100 Ml Nacl IV 11/13/24 16:34 Infused STAT ONE Infusion Ceftriaxone Sodium Confirm 11/13/24 16:26 Rocephin 1 Gm / 100 Ml Nacl Administered 11/13/24 16:27 Dose 1 gm in 100 mls @ ud IV .STK-MED ONE Methylprednisolone Sodium Succinate Confirm 11/13/24 16:26 Methylprednis Sod Succ 125 Mg/2 Ml Vial Administered 11/13/24 16:27 Dose 125 mg .ROUTE .STK-MED ONE Sterile Water Confirm 11/13/24 16:26 Water For Injection,Sterile 10 Ml Vial Administered 11/13/24 16:27 Dose 10 ml IJ .STK-MED ONE Lab/Rad Data: Laboratory Result Diagrams 11/13/24 15:30 11/13/24 15:30 Laboratory Results 11/13/24 11/13/24 11/13/24 Range/Units 16:47 15:55 15:35 WBC (3.98-10.04) x10^3/uL RBC (3.93-5.22) x10^6/uL Hgb (11.2-15.7) g/dL Hct (34.1-44.9) % MCV (79.4-94.8) fL MCH (25.6-32.2) pg MCHC (32.2-35.5) g/dL RDW (11.7-14.4) % Plt Count (182-369) x10^3/uL MPV (9.4-12.3) fL Gran % (34.0-71.1) % Immature Gran % (Auto) (0.001-0.429) % Nucleat RBC Rel Count (0.00-0.2) % Eos # (Auto) (0.04-0.36) x10^3/uL Immature Gran # (Auto) (0.001-0.031) x10^3u/L Absolute Lymphs (auto) (1.18-3.74) x10^3/uL Absolute Monos (auto) (0.24-0.86) x10^3/uL Absolute Nucleated RBC (0.00-0.012) x10^3u/L Lymphocytes % (19.3-51.7) % Monocytes % (4.7-12.5) % Eosinophils % (0.7-5.8) % Basophils % (0.1-1.2) % Absolute Granulocytes (1.56-6.13) x10^3/uL Basophils # (0.01-0.08) x10^3/uL Sodium (135-145) mmol/L Potassium (3.5-5.1) mmol/L Chloride (98-107) mmol/L Carbon Dioxide (22-30) mmol/L Anion Gap (5-15) MEQ/L BUN (7-17) mg/dL Creatinine (0.52-1.04) mg/dL Estimated GFR ML/MIN Glucose (74-106) mg/dL Lactic Acid 1.8 (0.4-2.0) Calcium (8.4-10.2) mg/dL Magnesium (1.6-2.3) mg/dL Total Bilirubin (0.2-1.3) mg/dL AST (14-36) U/L ALT (0-35) U/L Alkaline Phosphatase (38-126) U/L Troponin I (0.000-0.033) ng/mL NT-Pro-B Natriuret Pep (<300) pg/mL Serum Total Protein (6.3-8.2) g/dL Albumin (3.5-5.0) g/dL Urine Color Yellow (Yellow) Urine Appearance Clear (Clear) Urine pH 5.5 (4.6-8.0) Ur Specific [place] 1.025 (1.005-1.030) Urine Protein Trace A (Negative) Urine Glucose (UA) Negative (Negative) mg/dL Urine Ketones Trace A (Negative) Urine Blood Trace (Negative) Urine Nitrite Negative (Negative) Urine Bilirubin Negative (Negative) Urine Urobilinogen 1.0 A (0.2) mg/dL Ur Leukocyte Esterase Small A (Negative) U Hyaline Cast (Auto) NONE SEEN (0-2) /LPF Urine Microscopic RBC 6-10 A (0-5) /HPF Urine Microscopic WBC 0-2 (0-5) /HPF Ur Epithelial Cells Rare (None Seen) /HPF Urine Bacteria None Seen (None Seen) /HPF Urine Culture Reflexed YES (NO) Influenza Type A Ag NEGATIVE (NEGATIVE) Influenza Type B Ag NEGATIVE (NEGATIVE) RSV (PCR) NEGATIVE (NEGATIVE) SARS-CoV-2 (PCR) NEGATIVE (NEGATIVE) 11/13/24 11/13/24 11/13/24 Range/Units 15:30 15:30 15:30 WBC 11.3 H (3.98-10.04) x10^3/uL RBC 4.08 (3.93-5.22) x10^6/uL Hgb 12.5 (11.2-15.7) g/dL Hct 37.2 (34.1-44.9) % MCV 91.2 (79.4-94.8) fL MCH 30.6 (25.6-32.2) pg MCHC 33.6 (32.2-35.5) g/dL RDW 12.5 (11.7-14.4) % Plt Count 239 (182-369) x10^3/uL MPV 11.5 (9.4-12.3) fL Gran % 86.9 H (34.0-71.1) % Immature Gran % (Auto) 0.7 H (0.001-0.429) % Nucleat RBC Rel Count 0.0 (0.00-0.2) % Eos # (Auto) 0 L (0.04-0.36) x10^3/uL Immature Gran # (Auto) 0.08 H (0.001-0.031) x10^3u/L Absolute Lymphs (auto) 1.15 L (1.18-3.74) x10^3/uL Absolute Monos (auto) 0.22 L (0.24-0.86) x10^3/uL Absolute Nucleated RBC 0.00 (0.00-0.012) x10^3u/L Lymphocytes % 10.2 L (19.3-51.7) % Monocytes % 2.0 L (4.7-12.5) % Eosinophils % 0.0 L (0.7-5.8) % Basophils % 0.2 (0.1-1.2) % Absolute Granulocytes 9.78 H (1.56-6.13) x10^3/uL Basophils # 0.02 (0.01-0.08) x10^3/uL Sodium 140 (135-145) mmol/L Potassium 4.1 (3.5-5.1) mmol/L Chloride 106 (98-107) mmol/L Carbon Dioxide 24 (22-30) mmol/L Anion Gap 13.4 (5-15) MEQ/L BUN 23 H (7-17) mg/dL Creatinine 0.90 (0.52-1.04) mg/dL Estimated GFR 65.0 ML/MIN Glucose 162 H (74-106) mg/dL Lactic Acid (0.4-2.0) Calcium 9.3 (8.4-10.2) mg/dL Magnesium 1.8 (1.6-2.3) mg/dL Total Bilirubin 0.50 (0.2-1.3) mg/dL AST 27 (14-36) U/L ALT 21 (0-35) U/L Alkaline Phosphatase 78 (38-126) U/L Troponin I < 0.012 (0.000-0.033) ng/mL NT-Pro-B Natriuret Pep 1180 (<300) pg/mL Serum Total Protein 7.2 (6.3-8.2) g/dL Albumin 4.5 (3.5-5.0) g/dL Urine Color (Yellow) Urine Appearance (Clear) Urine pH (4.6-8.0) Ur Specific [place] (1.005-1.030) Urine Protein (Negative) Urine Glucose (UA) (Negative) mg/dL Urine Ketones (Negative) Urine Blood (Negative) Urine Nitrite (Negative) Urine Bilirubin (Negative) Urine Urobilinogen (0.2) mg/dL Ur Leukocyte Esterase (Negative) U Hyaline Cast (Auto) (0-2) /LPF Urine Microscopic RBC (0-5) /HPF Urine Microscopic WBC (0-5) /HPF Ur Epithelial Cells (None Seen) /HPF Urine Bacteria (None Seen) /HPF Urine Culture Reflexed (NO) Influenza Type A Ag (NEGATIVE) Influenza Type B Ag (NEGATIVE) RSV (PCR) (NEGATIVE) SARS-CoV-2 (PCR) (NEGATIVE) - Progress Progress: improved, re-examined Air Movement: fair Progress Note: 11/13/24 15:40 My medical decision making and the assignment of moderate to high complexity of this patient's medical issue is based on review of the patient's past medical history, reviewed patient medication list, reviewed patient drug allergy list, history present illness and physical findings on examination. The workup in this patient includes placement of intravenous line, respiratory therapy evaluation, twelve-lead EKG, BNP, troponin level, repeat chest x-ray, CBC, CMP, blood cultures. Differential diagnosis includes but is not limited to myocardial infarction, worsening pneumonia, CHF, COPD, arrhythmia 11/13/24 18:10 I interpreted the patient's laboratory data results. Based on laboratory data results the patient does have mild leukocytosis with a left shift. No other acute, emergent medical issues. I interpreted the preliminary chest x-ray report on this patient. I see right perihilar infiltrate and possible left perihilar infiltrate. I spoke with the telehospitalist on at this time. I reviewed the patient history, presenting complaint, physical findings on examination and workup results. We agreed that this patient failed outpatient therapy and we will place this patient in observation in the hospital setting and provide the patient with intravenous antibiotics, repeat labs in the morning and have RT provide nebulizer treatments and we will provide the patient with intravenous Solu-Medrol. Blood Culture(s) Obtained: Yes Antibiotics given: Yes Counseled pt/family regarding: lab results, diagnosis, rad results Medical Desision Making - Independent Historian Additional History obtained from: Family - Diagnostic Testing Diagnostic test were ordered, analyzed, and reviewed by me: Yes Radiological Interpretation: Interpreted by me, Reviewed by me, Teleradiologist Report - Risk of complications The pt has a high risk of morbidity or mortality based on: Decision regarding hospitilization or escalation of hosp level of care - Departure Departure Disposition: Observation Clinical Impression: Right pulmonary infiltrate on CXR Condition: Stable Critical Care Time: No Referrals: SRINI DAVID MD [Primary Care Provider, INTERNAL MEDICINE] - Follow up/PCP as directed
[2024-11-13] MEDS: Magnesium 1 Gm / 100 Ml D5W*** 100 ML IV ONE (15:50)
[2024-11-13 16:01] LABS: BASOPHIL % 0.2 % (0.1-1.2); Basophil (Absolute #) 0.02 x10^3/uL (0.01-0.08); Eosinophil (Absolute #) 0 x10^3/uL (0.04-0.36); Hematocrit 37.2 % (34.1-44.9); Hemoglobin 12.5 g/dL (11.2-15.7); IMMATURE GRAN # 0.08 x10^3u/L (0.001-0.031); IMMATURE GRAN % 0.7 % (0.001-0.429); Lymphocyte (Absolute #) 1.15 x10^3/uL (1.18-3.74); Mean Corpuscular Hemoglobin 30.6 pg (25.6-32.2); Mean Corpuscular Hgb Concent. 33.6 g/dL (32.2-35.5); Monocyte (Absolute #) 0.22 x10^3/uL (0.24-0.86); NUCLEATED RBC # 0.00 x10^3u/L (0.00-0.012); NUCLEATED RBC % 0.0 % (0.00-0.2); Platelet Count 239 x10^3/uL (182-369); Red Blood Count 4.08 x10^6/uL (3.93-5.22); White Blood Count 11.3 x10^3/uL (3.98-10.04)
[2024-11-13] MEDS: DUONEB 0.5-3 MG/3 ml Neb IH ONE (16:05)
[2024-11-13] MEDS ORDERED: DUONEB 0.5-3 MG/3 ml Neb IH ONE (16:08)
--- NOTE | 2024-11-13 16:24 | XRAY ---
Indication: Cough. Comparison: November 10, 2024 Portable chest less inflated again with a few tiny bilateral calcified granulomas. No focal infiltrate, consolidation, or large effusion. Heart not enlarged again with tortuous descending aorta. Bony thorax intact again with osteopenia and mild degenerative changes. Impression: Nonacute chest with chronic features.
[2024-11-13 16:25] LABS: Calcium 9.3 mg/dL (8.4-10.2); Carbon Dioxide 24.0 mmol/L (22-30); Creatinine 1 0.9 mg/dL (0.52-1.04); EST GLOMERULAR FILTRATION RATE 65.0 ML/MIN; Glucose 162.0 mg/dL (74-106); NT PRO BNPII 1180.0 pg/mL (<300); Potassium 4.1 mmol/L (3.5-5.1); SGOT/AST 27.0 U/L (14-36); SGPT/ALT 21.0 U/L (0-35); Total Protein 7.2 g/dL (6.3-8.2)
[2024-11-13] MEDS ORDERED: HYDROCODONE-ACETAMIN 2.5-108/5 ML SOLUTION ONE (16:26)
[2024-11-13] MEDS ORDERED: ROCEPHIN 1 GM / 100 ML NaCl 1 GM/100 ML IVPB IV ONE (16:26)
[2024-11-13] MEDS ORDERED: Sterile H2O 10 ml IJ ONE (16:26)
[2024-11-13] MEDS: HYDROCODONE-ACETAMIN 2.5-108/5 ML SOLUTION PO STA (16:33)
[2024-11-13] MEDS: solu-MEDROL 125 MG, Sterile H2O 10 ml 2 ML IV ONE (16:34)
[2024-11-13] MEDS: ROCEPHIN 1 GM / 100 ML NaCl 1 GM/100 ML IVPB IV ONE (16:37)
[2024-11-13 16:39] LABS: INFLUENZA A NEGATIVE (NEGATIVE); INFLUENZA B NEGATIVE (NEGATIVE); RESPIRATORY SYNCTIAL VIRUS NEGATIVE (NEGATIVE); SARS-CoV-2 Xpert Express NEGATIVE (NEGATIVE)
[2024-11-13 17:01] LABS: Glucose, Urine Negative (Negative); Protein,Urine Dip Trace (Negative); WBC 0-2 /HPF (0-5)
[2024-11-13] MEDS ORDERED: Lasix 40 MG/4 ML ONE (17:08)
[2024-11-13] MEDS: Lasix 40 MG/4 ML IV ONE (17:09)
[2024-11-13] MEDS ORDERED: TYLENOL 325 MG PO PRN (18:16)
[2024-11-13] MEDS ORDERED: HYDROCODONE-ACETAMIN 2.5-108/5 ML SOLUTION PO PRN (18:16)
[2024-11-13] MEDS ORDERED: Zofran 4 MG/2 ML VIAL IV PRN (18:16)
[2024-11-13] MEDS: PROVENTIL 2.5 MG/3 ML NEB IH PRN (19:49)
[2024-11-13] MEDS ORDERED: solu-MEDROL 80 MG, Sterile H2O 10 ml 2 ML IV SCH (22:00)
[2024-11-13] MEDS: DESYREL 50 MG PO SCH (22:26)
[2024-11-13] MEDS: TYLENOL 325 MG PO PRN (22:26)
[2024-11-13] MEDS: DICLOFENAC SODIUM TP PRN (23:38)
--- NOTE | 2024-11-14 05:43 | PCM.NOTE ---
Date and Time: 11/14/24 0537 Subjective Assessment: Ms. Hull is a 79-year-old female with a past medical history of hyperlipidemia, COPD, angina, hypertension, hypothyroidism, and Hodgkins lymphoma treated in 2005 who presented to the emergency department on 11/13/24 with worsening shortness of breath despite being started three days earlier on amoxicillin, prednisone, and albuterol inhaler for presumed pneumonia by her primary care provider. She reported persistent dry, nonproductive cough and progressive dyspnea. On arrival she was mildly tachycardic but otherwise hemodynamically stable. Chest x-ray demonstrated mildly underinflated lungs with a few scattered bilateral calcified granulomas, no focal infiltrates, no effusions, and no cardiomegaly, with findings consistent with chronic changes including a tortuous descending aorta. Laboratory data revealed a WBC of 11.3 indicating mild leukocytosis, urinalysis with small leukocyte esterase but no clear evidence of infection, and a negative respiratory viral panel. EKG showed normal sinus rhythm with a left anterior fascicular block, normal intervals, no QRS widening, and no acute ischemic changes. In the emergency department she was treated with IV Lasix for possible fluid overload, IV Solu-Medrol for suspected inflammatory airway contribution, magnesium sulfate, and broad antimicrobial therapy with ceftriaxone and azithromycin for empiric coverage of community-acquired pneumonia, in addition to bronchodilator support. Given the absence of radiographic infiltrates, her presentation was felt to be multifactorial with contributions from possible atypical pneumonia, steroid-responsive airway disease, and underlying cardiovascular disease. The plan includes continuation of empiric antibiotics with ceftriaxone and azithromycin while monitoring for clinical improvement and de-escalating if no infectious etiology is confirmed, continuation of corticosteroids with a planned taper, scheduled and as-needed bronchodilator therapy, strict input and output monitoring and daily weights with reassessment of diuretic needs, and supplemental oxygen if hypoxemia develops with a goal SpO2 above 92%. Leukocytosis will be trended with daily CBCs, and the urinalysis abnormality will be monitored without treatment unless symptoms or culture data suggest a urinary tract infection. 11/14: Met with patient bedside. Endorses continued weakness and non-productive cough. Feels too weak to discharge today. At baseline spo2 at 97% on RA. Lung sound clear on auscultation. No edema on exam. Will continue observation overnight with abx - discharge most likely in the morning. - Review of Systems Constitutional: Fatigue, Weakness Eyes: No Symptoms Ears, Nose, & Throat: No Symptoms Respiratory: Cough, Short Of Breath Cardiac: No Symptoms Abdominal/Gastrointestinal: No Symptoms Genitourinary Symptoms: No Symptoms Musculoskeletal: No Symptoms Skin: No Symptoms Neurological: No Symptoms Psychological: No Symptoms Endocrine: No Symptoms Hematologic/Lymphatic: No Symptoms Immunological/Allergic: No Symptoms Objective Exam General Appearance: no apparent distress Neurologic Exam: alert, oriented x 3, cooperative Skin Exam: normal color Eye Exam: PERRL Ears, Nose, Throat Exam: normal ENT inspection Neck Exam: normal inspection Respiratory Exam: normal breath sounds, lungs clear Cardiovascular Exam: regular rate/rhythm, normal heart sounds Gastrointestinal/Abdomen Exam: soft, normal bowel sounds Extremity Exam: normal inspection Back Exam: normal inspection Pelvic Exam: deferred Rectal Exam: deferred Objective Data Vital Signs: Vital Signs - 24 hr Temp Pulse Resp BP BP Pulse Ox 11/13/24 23:53 97.7 F 56 L 20 115/58 96 11/13/24 19:49 66 20 97 11/13/24 18:33 97.6 F 56 L 18 108/57 98 11/13/24 18:03 63 18 76/59 97 11/13/24 17:30 73 24 95/57 98 11/13/24 17:00 62 15 103/60 103/60 95 11/13/24 16:23 60 16 99 11/13/24 16:00 98 H 24 110/82 97 11/13/24 15:25 96 11/13/24 15:08 98.5 F 63 12 121/68 98 Pain Assessment - Last Documented Pain Intensity 8 Pain Scale Used 0-10 Pain Scale Intake and Output: Intake & Output 11/11/24 11/12/24 11/13/24 11/14/24 11:59 11:59 11:59 11:59 Output Total 450 Balance -450 Weight 71.2 kg Lab Results: Lab Results-Last 24 Hours 11/13/24 11/13/24 11/13/24 Range/Units 15:30 15:30 15:30 WBC 11.3 H (3.98-10.04) x10^3/uL RBC 4.08 (3.93-5.22) x10^6/uL Hgb 12.5 (11.2-15.7) g/dL Hct 37.2 (34.1-44.9) % MCV 91.2 (79.4-94.8) fL MCH 30.6 (25.6-32.2) pg MCHC 33.6 (32.2-35.5) g/dL RDW 12.5 (11.7-14.4) % Plt Count 239 (182-369) x10^3/uL MPV 11.5 (9.4-12.3) fL Gran % 86.9 H (34.0-71.1) % Immature Gran % (Auto) 0.7 H (0.001-0.429) % Nucleat RBC Rel Count 0.0 (0.00-0.2) % Eos # (Auto) 0 L (0.04-0.36) x10^3/uL Immature Gran # (Auto) 0.08 H (0.001-0.031) x10^3u/L Absolute Lymphs (auto) 1.15 L (1.18-3.74) x10^3/uL Absolute Monos (auto) 0.22 L (0.24-0.86) x10^3/uL Absolute Nucleated RBC 0.00 (0.00-0.012) x10^3u/L Lymphocytes % 10.2 L (19.3-51.7) % Monocytes % 2.0 L (4.7-12.5) % Eosinophils % 0.0 L (0.7-5.8) % Basophils % 0.2 (0.1-1.2) % Absolute Granulocytes 9.78 H (1.56-6.13) x10^3/uL Basophils # 0.02 (0.01-0.08) x10^3/uL Sodium 140 (135-145) mmol/L Potassium 4.1 (3.5-5.1) mmol/L Chloride 106 (98-107) mmol/L Carbon Dioxide 24 (22-30) mmol/L Anion Gap 13.4 (5-15) MEQ/L BUN 23 H (7-17) mg/dL Creatinine 0.90 (0.52-1.04) mg/dL Estimated GFR 65.0 ML/MIN Glucose 162 H (74-106) mg/dL Lactic Acid (0.4-2.0) Calcium 9.3 (8.4-10.2) mg/dL Magnesium 1.8 (1.6-2.3) mg/dL Total Bilirubin 0.50 (0.2-1.3) mg/dL AST 27 (14-36) U/L ALT 21 (0-35) U/L Alkaline Phosphatase 78 (38-126) U/L Troponin I < 0.012 (0.000-0.033) ng/mL NT-Pro-B Natriuret Pep 1180 (<300) pg/mL Serum Total Protein 7.2 (6.3-8.2) g/dL Albumin 4.5 (3.5-5.0) g/dL Urine Color (Yellow) Urine Appearance (Clear) Urine pH (4.6-8.0) Ur Specific [place] (1.005-1.030) Urine Protein (Negative) Urine Glucose (UA) (Negative) mg/dL Urine Ketones (Negative) Urine Blood (Negative) Urine Nitrite (Negative) Urine Bilirubin (Negative) Urine Urobilinogen (0.2) mg/dL Ur Leukocyte Esterase (Negative) U Hyaline Cast (Auto) (0-2) /LPF Urine Microscopic RBC (0-5) /HPF Urine Microscopic WBC (0-5) /HPF Ur Epithelial Cells (None Seen) /HPF Urine Bacteria (None Seen) /HPF Urine Culture Reflexed (NO) Influenza Type A Ag (NEGATIVE) Influenza Type B Ag (NEGATIVE) RSV (PCR) (NEGATIVE) SARS-CoV-2 (PCR) (NEGATIVE) 11/13/24 11/13/24 11/13/24 Range/Units 15:35 15:55 16:47 WBC (3.98-10.04) x10^3/uL RBC (3.93-5.22) x10^6/uL Hgb (11.2-15.7) g/dL Hct (34.1-44.9) % MCV (79.4-94.8) fL MCH (25.6-32.2) pg MCHC (32.2-35.5) g/dL RDW (11.7-14.4) % Plt Count (182-369) x10^3/uL MPV (9.4-12.3) fL Gran % (34.0-71.1) % Immature Gran % (Auto) (0.001-0.429) % Nucleat RBC Rel Count (0.00-0.2) % Eos # (Auto) (0.04-0.36) x10^3/uL Immature Gran # (Auto) (0.001-0.031) x10^3u/L Absolute Lymphs (auto) (1.18-3.74) x10^3/uL Absolute Monos (auto) (0.24-0.86) x10^3/uL Absolute Nucleated RBC (0.00-0.012) x10^3u/L Lymphocytes % (19.3-51.7) % Monocytes % (4.7-12.5) % Eosinophils % (0.7-5.8) % Basophils % (0.1-1.2) % Absolute Granulocytes (1.56-6.13) x10^3/uL Basophils # (0.01-0.08) x10^3/uL Sodium (135-145) mmol/L Potassium (3.5-5.1) mmol/L Chloride (98-107) mmol/L Carbon Dioxide (22-30) mmol/L Anion Gap (5-15) MEQ/L BUN (7-17) mg/dL Creatinine (0.52-1.04) mg/dL Estimated GFR ML/MIN Glucose (74-106) mg/dL Lactic Acid 1.8 (0.4-2.0) Calcium (8.4-10.2) mg/dL Magnesium (1.6-2.3) mg/dL Total Bilirubin (0.2-1.3) mg/dL AST (14-36) U/L ALT (0-35) U/L Alkaline Phosphatase (38-126) U/L Troponin I (0.000-0.033) ng/mL NT-Pro-B Natriuret Pep (<300) pg/mL Serum Total Protein (6.3-8.2) g/dL Albumin (3.5-5.0) g/dL Urine Color Yellow (Yellow) Urine Appearance Clear (Clear) Urine pH 5.5 (4.6-8.0) Ur Specific [place] 1.025 (1.005-1.030) Urine Protein Trace A (Negative) Urine Glucose (UA) Negative (Negative) mg/dL Urine Ketones Trace A (Negative) Urine Blood Trace (Negative) Urine Nitrite Negative (Negative) Urine Bilirubin Negative (Negative) Urine Urobilinogen 1.0 A (0.2) mg/dL Ur Leukocyte Esterase Small A (Negative) U Hyaline Cast (Auto) NONE SEEN (0-2) /LPF Urine Microscopic RBC 6-10 A (0-5) /HPF Urine Microscopic WBC 0-2 (0-5) /HPF Ur Epithelial Cells Rare (None Seen) /HPF Urine Bacteria None Seen (None Seen) /HPF Urine Culture Reflexed YES (NO) Influenza Type A Ag NEGATIVE (NEGATIVE) Influenza Type B Ag NEGATIVE (NEGATIVE) RSV (PCR) NEGATIVE (NEGATIVE) SARS-CoV-2 (PCR) NEGATIVE (NEGATIVE) 11/13/24 11/13/24 Range/Units 19:30 23:30 WBC (3.98-10.04) x10^3/uL RBC (3.93-5.22) x10^6/uL Hgb (11.2-15.7) g/dL Hct (34.1-44.9) % MCV (79.4-94.8) fL MCH (25.6-32.2) pg MCHC (32.2-35.5) g/dL RDW (11.7-14.4) % Plt Count (182-369) x10^3/uL MPV (9.4-12.3) fL Gran % (34.0-71.1) % Immature Gran % (Auto) (0.001-0.429) % Nucleat RBC Rel Count (0.00-0.2) % Eos # (Auto) (0.04-0.36) x10^3/uL Immature Gran # (Auto) (0.001-0.031) x10^3u/L Absolute Lymphs (auto) (1.18-3.74) x10^3/uL Absolute Monos (auto) (0.24-0.86) x10^3/uL Absolute Nucleated RBC (0.00-0.012) x10^3u/L Lymphocytes % (19.3-51.7) % Monocytes % (4.7-12.5) % Eosinophils % (0.7-5.8) % Basophils % (0.1-1.2) % Absolute Granulocytes (1.56-6.13) x10^3/uL Basophils # (0.01-0.08) x10^3/uL Sodium (135-145) mmol/L Potassium (3.5-5.1) mmol/L Chloride (98-107) mmol/L Carbon Dioxide (22-30) mmol/L Anion Gap (5-15) MEQ/L BUN (7-17) mg/dL Creatinine (0.52-1.04) mg/dL Estimated GFR ML/MIN Glucose (74-106) mg/dL Lactic Acid (0.4-2.0) Calcium (8.4-10.2) mg/dL Magnesium (1.6-2.3) mg/dL Total Bilirubin (0.2-1.3) mg/dL AST (14-36) U/L ALT (0-35) U/L Alkaline Phosphatase (38-126) U/L Troponin I < 0.012 < 0.012 (0.000-0.033) ng/mL NT-Pro-B Natriuret Pep (<300) pg/mL Serum Total Protein (6.3-8.2) g/dL Albumin (3.5-5.0) g/dL Urine Color (Yellow) Urine Appearance (Clear) Urine pH (4.6-8.0) Ur Specific [place] (1.005-1.030) Urine Protein (Negative) Urine Glucose (UA) (Negative) mg/dL Urine Ketones (Negative) Urine Blood (Negative) Urine Nitrite (Negative) Urine Bilirubin (Negative) Urine Urobilinogen (0.2) mg/dL Ur Leukocyte Esterase (Negative) U Hyaline Cast (Auto) (0-2) /LPF Urine Microscopic RBC (0-5) /HPF Urine Microscopic WBC (0-5) /HPF Ur Epithelial Cells (None Seen) /HPF Urine Bacteria (None Seen) /HPF Urine Culture Reflexed (NO) Influenza Type A Ag (NEGATIVE) Influenza Type B Ag (NEGATIVE) RSV (PCR) (NEGATIVE) SARS-CoV-2 (PCR) (NEGATIVE) Radiology Exams: Radiology Procedures Category Date Time Status CHEST 1 VIEW (PORTABLE) Stat Exams 11/13/24 15:25 Completed Medications: Medications Generic Name Dose Route Start Last Admin Trade Name Freq PRN Reason Stop Dose Admin Acetaminophen 650 mg 11/13/24 22:19 11/13/24 22:26 Acetaminophen 325 Mg Tablet PO 12/13/24 22:18 650 mg Q6H PRN PRN Administration PAIN AND/OR FEVER Albuterol Sulfate 2.5 mg 11/14/24 07:00 Albuterol Sulfate 2.5 Mg/3 Ml [facility] 12/14/24 06:59 TIDRT JACOB Albuterol Sulfate 2.5 mg 11/13/24 19:46 11/13/24 19:49 Albuterol Sulfate 2.5 Mg/3 Ml [facility] 12/13/24 19:45 2.5 mg Q4H PRN PRN Administration SHORTNESS OF BREATH/WHEEZING Diclofenac Sodium 2 gm 11/13/24 23:19 11/13/24 23:38 Diclofenac Sodium 100 Gm Gel..Gram. TP 12/13/24 23:18 2 gm QID PRN PRN Administration PAIN Patient Own Medication 1 each 11/14/24 07:00 Patient Own Med [facility] 12/14/24 06:59 QAM JACOB Trazodone HCl 100 mg 11/13/24 22:00 11/13/24 22:26 Trazodone Hcl 50 Mg Tablet PO 12/13/24 21:59 100 mg HS JACOB Administration Discontinued Medications Generic Name Dose Route Start Last Admin Trade Name Freq PRN Reason Stop Dose Admin Acetaminophen 650 mg 11/13/24 18:16 Acetaminophen 325 Mg Tablet PO 12/13/24 18:15 Q4H PRN PRN PAIN, FEVER, HEADACHE Hydrocodone Bitart/Acetaminophen 10 ml 11/13/24 16:05 11/13/24 16:33 Hydrocodone/Acetaminophen 5 Ml Udcup PO 11/13/24 16:06 10 ml STAT STA Administration Hydrocodone Bitart/Acetaminophen Confirm 11/13/24 16:26 Hydrocodone/Acetaminophen 5 Ml Udcup Administered 11/13/24 16:27 Dose 10 ml .ROUTE .STK-MED ONE Hydrocodone Bitart/Acetaminophen 10 ml 11/13/24 18:16 Hydrocodone/Acetaminophen 5 Ml Udcup PO 11/18/24 18:15 Q4HPRN PRN PAIN Albuterol/Ipratropium 3 ml 11/13/24 16:03 11/13/24 16:05 Ipratropium/Albuterol Sulfate 3 Ml Ampul.[facility] 11/13/24 16:04 3 ml STAT ONE Administration Albuterol/Ipratropium Confirm 11/13/24 16:08 Ipratropium/Albuterol Sulfate 3 Ml Ampul.Neb Administered 11/13/24 16:09 Dose 3 ml IH .STK-MED ONE Methylprednisolone Sodium 0 mg 11/13/24 16:05 11/13/24 16:34 Succinate 125 mg/ Sterile IV 11/13/24 16:06 125 mg Water 2 ml STAT ONE Administration Methylprednisolone Sodium 0 mg 11/13/24 22:00 Succinate 80 mg/ Sterile Water IV 12/13/24 21:59 2 ml Q8HT JACOB Furosemide 40 mg 11/13/24 17:02 11/13/24 17:09 Furosemide 40 Mg/4 Ml Vial IV 11/13/24 17:03 40 mg STAT ONE Administration Furosemide Confirm 11/13/24 17:08 Furosemide 40 Mg/4 Ml Vial Administered 11/13/24 17:09 Dose 40 mg .ROUTE .STK-MED ONE Magnesium Sulfate/Dextrose 100 mls @ 200 mls/hr 11/13/24 15:36 11/13/24 15:50 Magnesium 1 Gm / 100 Ml D5w IV 11/13/24 16:05 Not Given STAT ONE Ceftriaxone Sodium 1 gm in 100 mls @ 200 mls/hr 11/13/24 16:05 11/13/24 17:07 Rocephin 1 Gm / 100 Ml Nacl IV 11/13/24 16:34 Infused STAT ONE Infusion Ceftriaxone Sodium Confirm 11/13/24 16:26 Rocephin 1 Gm / 100 Ml Nacl Administered 11/13/24 16:27 Dose 1 gm in 100 mls @ ud IV .STK-MED ONE Azithromycin 500 mg/ Sodium 250 mls @ 250 mls/hr 11/14/24 10:00 Chloride IV 12/14/24 09:59 Q24H10 JACOB Ceftriaxone Sodium 1 gm in 100 mls @ 200 mls/hr 11/14/24 10:00 Rocephin 1 Gm / 100 Ml Nacl IV 12/14/24 09:59 Q24H10 JACOB Methylprednisolone Sodium Succinate Confirm 11/13/24 16:26 Methylprednis Sod Succ 125 Mg/2 Ml Vial Administered 11/13/24 16:27 Dose 125 mg .ROUTE .STK-MED ONE Ondansetron HCl 4 mg 11/13/24 18:16 Ondansetron Hcl 4 Mg/2 Ml Vial IV 12/13/24 18:15 Q6H PRN PRN NAUSEA/VOMITING Sterile Water Confirm 11/13/24 16:26 Water For Injection,Sterile 10 Ml Vial Administered 11/13/24 16:27 Dose 10 ml IJ .STK-MED ONE Assessment/Plan (1) COPD exacerbation Current Visit: Yes Status: Acute Assessment & Plan: -Patient presented with worsening dyspnea, dry cough, and mild tachycardia despite outpatient antibiotics and steroids. -CXR without consolidation or effusion, viral panel negative, and stable oxygenation on room air. -Continue systemic corticosteroids: IV Solu-Medrol transitioned to oral prednisone 40 mg daily 5 days, no taper required unless prolonged course. -Scheduled and PRN bronchodilators: albuterol/ipratropium nebulizers every 46 hours. -Empiric antibiotics per GOLD 2025 guidelines: continue ceftriaxone, azithromycin given age, comorbidities, and moderate exacerbation severity; narrow or discontinue once cultures and trajectory clarify. -Sputum culture -Mucinex -Oxygen therapy if SpO2 < 88%, target 8892%. -Pulmonary hygiene: incentive spirometry, ambulation, chest physiotherapy as tolerated. -Monitor for treatment response; consider pulmonology input if no improvement or progression. Code(s): J44.1 - CHRONIC OBSTRUCTIVE PULMONARY DISEASE W (ACUTE) EXACERBATION (2) HTN (hypertension) Current Visit: Yes Status: Acute Assessment & Plan: -BP stable continue home meds Code(s): I10 - ESSENTIAL (PRIMARY) HYPERTENSION (3) Hypothyroid Current Visit: Yes Status: Acute Assessment & Plan: -continue home meds Code(s): E03.9 - HYPOTHYROIDISM, UNSPECIFIED (4) Leukocytosis Current Visit: Yes Status: Acute Assessment & Plan: -Mild, possibly secondary to steroids, stress response, or airway inflammation. No fever or sepsis features. -Daily CBC trend. -Monitor for fever, hemodynamic changes, or new source of infection. -Reassess need for continued antibiotics if WBC normalizes and no infection identified. Code(s): D72.829 - ELEVATED WHITE BLOOD CELL COUNT, UNSPECIFIED (5) History of Hodgkin's granuloma Current Visit: Yes Status: Acute Assessment & Plan: -Relevant for immune history and chronic cardiopulmonary risk, no acute contribution -No acute intervention required. VTE: Lovenox PPI:Protonix Dispo: 1-2 days Code status: Full code Plan of care time spent > 35 mins Code(s): Z85.71 - PERSONAL HISTORY OF HODGKIN LYMPHOMA
[2024-11-14] MEDS ORDERED: Zofran 4 MG/2 ML VIAL IV PRN (05:51)
[2024-11-14 06:13] LABS: Calcium 8.6 mg/dL (8.4-10.2); Carbon Dioxide 26.0 mmol/L (22-30); Creatinine 1 0.8 mg/dL (0.52-1.04); EST GLOMERULAR FILTRATION RATE 74.9 ML/MIN; Glucose 142.0 mg/dL (74-106); Potassium 3.6 mmol/L (3.5-5.1); SGOT/AST 30.0 U/L (14-36); SGPT/ALT 28.0 U/L (0-35); Total Protein 6.9 g/dL (6.3-8.2)
[2024-11-14 06:52] LABS: BASOPHIL % 0.0 % (0.1-1.2); Basophil (Absolute #) 0 x10^3/uL (0.01-0.08); Eosinophil (Absolute #) 0 x10^3/uL (0.04-0.36); Hematocrit 36.9 % (34.1-44.9); Hemoglobin 12.0 g/dL (11.2-15.7); IMMATURE GRAN # 0.08 x10^3u/L (0.001-0.031); IMMATURE GRAN % 0.7 % (0.001-0.429); Lymphocyte (Absolute #) 1.09 x10^3/uL (1.18-3.74); Mean Corpuscular Hemoglobin 29.9 pg (25.6-32.2); Mean Corpuscular Hgb Concent. 32.5 g/dL (32.2-35.5); Monocyte (Absolute #) 0.18 x10^3/uL (0.24-0.86); NUCLEATED RBC # 0.00 x10^3u/L (0.00-0.012); NUCLEATED RBC % 0.0 % (0.00-0.2); Platelet Count 237 x10^3/uL (182-369); Red Blood Count 4.01 x10^6/uL (3.93-5.22); White Blood Count 11.4 x10^3/uL (3.98-10.04)
[2024-11-14] MEDS: PROVENTIL 2.5 MG/3 ML NEB IH SCH (06:53)
[2024-11-14] MEDS: PATIENT OWN MEDICATION IH SCH (06:54)
[2024-11-14] MEDS ORDERED: DUONEB 0.5-3 MG/3 ml Neb IH SCH (07:00)
[2024-11-14] MEDS ORDERED: ZITHROMAX IV*** 500 MG in Sodium Chloride 0.9% 250 ML 250 ML IV SCH (10:00)
[2024-11-14] MEDS ORDERED: ROCEPHIN 1 GM / 100 ML NaCl 1 GM/100 ML IVPB IV SCH ×2 (10:00)
[2024-11-14] MEDS: ROCEPHIN 1 GM / 100 ML NaCl 1 GM/100 ML IVPB IV SCH (10:35)
[2024-11-14] MEDS: ZITHROMAX IV*** 500 MG in Sodium Chloride 0.9% 250 ML 250 ML IV SCH (11:05)
[2024-11-14] MEDS: ENOXAPARIN SODIUM SQ SCH (11:05)
[2024-11-14] MEDS ORDERED: ZOFRAN ODT 4 MG PO PRN (11:16)
[2024-11-14] MEDS ORDERED: Nitrostat 0.4 MG Tablet SL PRN (11:16)
[2024-11-14] MEDS: DELTASONE 20 MG PO SCH (12:14)
[2024-11-14] MEDS: Mucinex 600MG ER Tabs PO SCH (12:14)
[2024-11-14] MEDS: Pepcid 20 MG PO SCH (12:14)
[2024-11-14] MEDS: NORVASC 5 MG PO SCH (12:14)
[2024-11-14] MEDS: Protonix 40MG Tablet PO SCH ×2 (13:55→21:16)
[2024-11-14] MEDS: Lasix 40 MG/4 ML IV ONE (17:57)
[2024-11-14] MEDS: Zocor 10MG PO SCH (21:16)
[2024-11-14] MEDS: Requip 0.5 MG PO SCH (21:16)
[2024-11-14] MEDS: DESYREL 50 MG PO SCH (21:34)
[2024-11-14] MEDS ORDERED: NON-FORMULARY ITEM (Omeprazole [Omeprazole] 40 MG Capsule.Dr) PO SCH (22:00)
[2024-11-14] MEDS ORDERED: NON-FORMULARY ITEM (Ropinirole Hcl [Ropinirole Hcl] 1 MG Tablet) PO SCH (22:00)
[2024-11-14] MEDS ORDERED: NON-FORMULARY ITEM (Atorvastatin Calcium [Atorvastatin Calcium] 10 MG Tablet) PO SCH (22:00)
[2024-11-15 05:59] LABS: BASOPHIL % 0.2 % (0.1-1.2); Basophil (Absolute #) 0.02 x10^3/uL (0.01-0.08); Eosinophil (Absolute #) 0 x10^3/uL (0.04-0.36); Hematocrit 33.7 % (34.1-44.9); Hemoglobin 10.8 g/dL (11.2-15.7); IMMATURE GRAN # 0.10 x10^3u/L (0.001-0.031); IMMATURE GRAN % 0.9 % (0.001-0.429); Lymphocyte (Absolute #) 2.44 x10^3/uL (1.18-3.74); Mean Corpuscular Hemoglobin 29.7 pg (25.6-32.2); Mean Corpuscular Hgb Concent. 32.0 g/dL (32.2-35.5); Monocyte (Absolute #) 0.62 x10^3/uL (0.24-0.86); NUCLEATED RBC # 0.00 x10^3u/L (0.00-0.012); NUCLEATED RBC % 0.0 % (0.00-0.2); Platelet Count 214 x10^3/uL (182-369); Red Blood Count 3.64 x10^6/uL (3.93-5.22); White Blood Count 11.0 x10^3/uL (3.98-10.04)
[2024-11-15 06:17] LABS: Calcium 8.3 mg/dL (8.4-10.2); Carbon Dioxide 24.0 mmol/L (22-30); Creatinine 1 0.77 mg/dL (0.52-1.04); EST GLOMERULAR FILTRATION RATE 78.4 ML/MIN; Glucose 125.0 mg/dL (74-106); Potassium 3.3 mmol/L (3.5-5.1); SGOT/AST 25.0 U/L (14-36); SGPT/ALT 21.0 U/L (0-35); Total Protein 6.1 g/dL (6.3-8.2)
[2024-11-15] MEDS: PATIENT OWN MEDICATION IH SCH ×2 (06:48→22:30)
[2024-11-15] MEDS ORDERED: Macrobid 100MG Capsule PO SCH (08:00)
[2024-11-15] MEDS: Tessalon Perles 100 MG PO PRN (08:44)
[2024-11-15] MEDS: Klor Con PO ONE ×2 (08:44→20:23)
--- NOTE | 2024-11-15 09:05 | PCM.DS ---
Discharge Summary Date of Admission: 11/13/24 18:19 Date of Discharge: 11/15/24 Admitting Physician: NAVIN CHAVEZ MD Primary Care Provider: SRINI DAVID Allergies Allergies No Known Drug Allergies Allergy (Verified 01/15/24 07:13) Hospital Summary - Hospital Course Hospital Course: Ms. Hull is a 79-year-old female with a past medical history of hyperlipidemia, COPD, angina, hypertension, hypothyroidism, and Hodgkins lymphoma treated in 2005 who presented to the emergency department on 11/13/24 with worsening shortness of breath despite having been started three days earlier on amoxicillin, prednisone, and albuterol for presumed pneumonia by her primary care provider. She reported persistent dry, nonproductive cough and progressive dyspnea. On admission, she was mildly tachycardic but otherwise stable. Chest x-ray showed chronic changes with no acute infiltrates or effusion. Laboratory workup revealed mild leukocytosis (WBC 11.3), urinalysis with small leukocyte esterase but no convincing infection, and a negative respiratory viral panel. EKG demonstrated sinus rhythm with a left anterior fascicular block but no acute ischemic changes. In the emergency department she was treated with IV Lasix, IV Solu-Medrol, magnesium sulfate, ceftriaxone, azithromycin, and bronchodilators. Her course was notable for persistent cough without hypoxemia and mild leukocytosis, thought to be related to steroids and airway inflammation. Urine cultures remained negative. On the morning of discharge, potassium was low and was repleted prior to discharge. At the time of discharge, she continues to report cough but is stable on room air, hemodynamically stable, and appropriate for outpatient management. Antibiotics have been narrowed, macrobid and ciprofloxacin discontinued. She will complete a short course of steroids, continue azithromycin, and receive symptomatic management for cough. Discharge Note New Diagnosis: COPD exacerbation New Medications: Tessalon perles, azithromycin, prednisone Follow Up: PCP I spent 35 minutes [id number] with the patient on the day of discharge performing discharge exam, discussing hospital stay and discharge instructions with patient and caregivers, preparation of discharge records, prescriptions & referral forms and addressing any questions/concerns the patient had as documented above. - Vitals & Intake/Output Vital Signs: Vital Signs Temperature 98.0 F 11/15/24 07:40 Pulse Rate 66 11/15/24 07:40 Respiratory Rate 20 11/15/24 07:40 Blood Pressure 103/55 11/15/24 07:40 O2 Sat by Pulse Oximetry 96 11/15/24 07:40 Intake & Output: Intake & Output 11/12/24 11/13/24 11/14/24 11/15/24 11:59 11:59 11:59 11:59 Intake Total 480 780 Output Total 450 Balance 30 780 Weight 71.2 kg 70 kg - Lab Result Diagrams: 11/15/24 05:19 11/15/24 10:00 Lab Results-Last 24 Hrs: Lab Results-Last 24 Hours 11/14/24 11/15/24 11/15/24 Range/Units 05:52 05:19 05:19 WBC 11.0 H (3.98-10.04) x10^3/uL RBC 3.64 L (3.93-5.22) x10^6/uL Hgb 10.8 L (11.2-15.7) g/dL Hct 33.7 L (34.1-44.9) % MCV 92.6 (79.4-94.8) fL MCH 29.7 (25.6-32.2) pg MCHC 32.0 L (32.2-35.5) g/dL RDW 12.9 (11.7-14.4) % Plt Count 214 (182-369) x10^3/uL MPV 11.2 (9.4-12.3) fL Gran % 70.9 (34.0-71.1) % Immature Gran % (Auto) 0.9 H (0.001-0.429) % Nucleat RBC Rel Count 0.0 (0.00-0.2) % Eos # (Auto) 0 L (0.04-0.36) x10^3/uL Immature Gran # (Auto) 0.10 H (0.001-0.031) x10^3u/L Absolute Lymphs (auto) 2.44 (1.18-3.74) x10^3/uL Absolute Monos (auto) 0.62 (0.24-0.86) x10^3/uL Absolute Nucleated RBC 0.00 (0.00-0.012) x10^3u/L Lymphocytes % 22.3 (19.3-51.7) % Monocytes % 5.7 (4.7-12.5) % Eosinophils % 0.0 L (0.7-5.8) % Basophils % 0.2 (0.1-1.2) % Absolute Granulocytes 7.78 H (1.56-6.13) x10^3/uL Basophils # 0.02 (0.01-0.08) x10^3/uL Sodium 139 (135-145) mmol/L Potassium 3.3 L (3.5-5.1) mmol/L Chloride 106 (98-107) mmol/L Carbon Dioxide 24 (22-30) mmol/L Anion Gap 11.5 (5-15) MEQ/L BUN 23 H (7-17) mg/dL Creatinine 0.77 (0.52-1.04) mg/dL Estimated GFR 78.4 ML/MIN Glucose 125 H (74-106) mg/dL Calcium 8.3 L (8.4-10.2) mg/dL Phosphorus 4.5 (2.5-4.5) mg/dL Total Bilirubin 0.40 (0.2-1.3) mg/dL AST 25 (14-36) U/L ALT 21 (0-35) U/L Alkaline Phosphatase 59 (38-126) U/L Serum Total Protein 6.1 L (6.3-8.2) g/dL Albumin 3.8 (3.5-5.0) g/dL Micro Results-Entire Visit: Microbiology 11/13/24 16:47 Urine Culture - Final Urine, Void NO GROWTH 11/13/24 15:52 Blood Culture - Preliminary Blood 11/13/24 15:45 Blood Culture - Preliminary Blood - Radiology Exams Ordered Rad Exams-Entire Visit: Radiology Procedures Category Date Time Status CHEST 1 VIEW (PORTABLE) Stat Exams 11/13/24 15:25 Completed - Procedures and Test Procedures and Tests throughout Hospitalization: Therapy Orders & Screens 11/13/24 16:04 Respiratory Therapy Assessment DAILY Comment: 11/13/24 19:54 Incentive Spirometry UD Comment: Diagnosis: Pneumonia 11/14/24 07:00 Respiratory Therapy Consult ONCE Comment: Reason For Exam: Diagnosis: Pneumonia Discharge Exam General Appearance: no apparent distress Neurologic Exam: alert, oriented x 3, cooperative Eye Exam: PERRL Ears, Nose, Throat Exam: normal ENT inspection Neck Exam: normal inspection Respiratory Exam: normal breath sounds, lungs clear Cardiovascular Exam: regular rate/rhythm, normal heart sounds Gastrointestinal/Abdomen Exam: soft, normal bowel sounds Pelvic Exam: deferred Rectal Exam: deferred Back Exam: normal inspection, vertebral tenderness Extremity Exam: normal inspection Skin Exam: normal color Final Diagnosis/Problem List - Final Discharge Diagnosis/Problem (1) COPD exacerbation Current Visit: Yes Status: Acute Assessment & Plan: Continue azithromycin (per GOLD 2025 guidance for moderate exacerbations with comorbidities). Prednisone 20 mg PO BID 5 days. Continue Tessalon Perles for cough suppression. Continue home inhalers. Encourage pulmonary hygiene: incentive spirometry, ambulation. Monitor for worsening shortness of breath, new sputum production, or fever; return to ED if occurs. Code(s): J44.1 - CHRONIC OBSTRUCTIVE PULMONARY DISEASE W (ACUTE) EXACERBATION (2) HTN (hypertension) Current Visit: Yes Status: Acute Assessment & Plan: Continue home medications without change. Code(s): I10 - ESSENTIAL (PRIMARY) HYPERTENSION (3) Hypothyroid Current Visit: Yes Status: Acute Assessment & Plan: Continue home meds Code(s): E03.9 - HYPOTHYROIDISM, UNSPECIFIED (4) Leukocytosis Current Visit: Yes Status: Acute Assessment & Plan: Monitor clinically for signs of infection. No antibiotics indicated beyond current empiric azithromycin. Outpatient follow-up CBC recommended with PCP. Code(s): D72.829 - ELEVATED WHITE BLOOD CELL COUNT, UNSPECIFIED (5) History of Hodgkin's granuloma Current Visit: Yes Status: Acute Code(s): Z85.71 - PERSONAL HISTORY OF HODGKIN LYMPHOMA (6) UTI (urinary tract infection) Current Visit: Yes Status: Acute Assessment & Plan: Macrobid and ciprofloxacin discontinued. Urine culture negative, no evidence of urinary tract infection. Code(s): N39.0 - URINARY TRACT INFECTION, SITE NOT SPECIFIED (7) Hypokalemia Current Visit: Yes Status: Acute Assessment & Plan: Hypokalemia corrected prior to discharge. Patient to resume home potassium Recommend repeat BMP with PCP within one week to monitor potassium. Follow-up PCP follow-up within one week for reassessment, repeat labs, and review of ongoing respiratory symptoms. Consider pulmonology referral if symptoms persist despite therapy. Code(s): E87.6 - HYPOKALEMIA - Discharge Discharge Date: 11/15/24 Disposition: Home, Self-Care Condition: Stable Prescriptions: New Benzonatate 100 mg PO TID PRN 7 Days #21 cap PRN Reason: Cough Prednisone 20 mg [Deltasone 20 mg] 40 mg PO DAILY 5 Days #10 tablet Guaifenesin 600 mg ER [Mucinex 600MG ER Tabs] 600 mg PO BID 7 Days #14 tablet Azithromycin 250 mg [Zithromax 250 MG TABLET] 250 mg PO DAILY 3 Days #3 tablet Potassium Chloride 20 meq PO DAILY 4 Days #4 tablet Continue Amlodipine Besylate 2.5 mg PO DAILY Omeprazole 40 mg PO HS Nitroglycerin 0.4 mg Tablet [Nitrostat 0.4 MG Tablet] 0.4 mg SL Q5MIN PRN MR X 3 PRN 30 Days #30 PRN Reason: Chest Pain Trazodone HCl 50 mg [Desyrel 50 mg] 100 mg PO HS Ondansetron ODT 4 MG [Zofran Odt 4 mg] 4 mg PO Q6H PRN PRN 4 Days #10 tablet PRN Reason: Vomiting Ropinirole HCl 1 mg PO HS Atorvastatin Calcium 10 mg PO HS Famotidine 20 mg [Pepcid 20 MG] 20 mg PO DAILY Discontinued Nitrofurantoin Macro 100 mg [Macrobid 100MG Capsule] 100 mg PO BIDWM 5 Days #10 cap Ciprofloxacin HCl [Cipro] 500 mg PO 3XW Follow up with: SRINI DAVID MD [Primary Care Provider, [facility]]
[2024-11-15] MEDS ORDERED: NON-FORMULARY ITEM (Amlodipine Besylate [Amlodipine Besylate] 2.5 MG Tablet) PO SCH (10:00)
[2024-11-15] MEDS: POTASSIUM CHLORIDE 20 mEq IN WATER 100ML 20 MEQ/100 ML BAG IV ONE (12:39)
[2024-11-15] MEDS: Acidophilus TABLET PO SCH (12:40)
[2024-11-15] MEDS ORDERED: DESYREL 50 MG PO SCH (15:40)
[2024-11-15 16:24] LABS: 027 TOX PROD PRESUMPTIVE NEGATIVE (NEGATIVE); TOXIGENIC C. DIFF ORG NEGATIVE (NEGATIVE)
[2024-11-15] MEDS: DESYREL 50 MG PO SCH (23:09)
[2024-11-16 05:29] LABS: Hematocrit 33.3 % (34.1-44.9); Hemoglobin 10.8 g/dL (11.2-15.7); Mean Corpuscular Hemoglobin 30.3 pg (25.6-32.2); Mean Corpuscular Hgb Concent. 32.4 g/dL (32.2-35.5); Platelet Count 204 x10^3/uL (182-369); Red Blood Count 3.57 x10^6/uL (3.93-5.22); White Blood Count 8.9 x10^3/uL (3.98-10.04)
[2024-11-16 05:46] LABS: Calcium 8.2 mg/dL (8.4-10.2); Carbon Dioxide 24.0 mmol/L (22-30); Creatinine 1 0.77 mg/dL (0.52-1.04); EST GLOMERULAR FILTRATION RATE 78.4 ML/MIN; Glucose 84.0 mg/dL (74-106); Potassium 3.8 mmol/L (3.5-5.1); SGOT/AST 22.0 U/L (14-36); SGPT/ALT 17.0 U/L (0-35); Total Protein 5.9 g/dL (6.3-8.2)
[2024-11-16 07:10] VITALS: BP 113/64; PULSE 60; RESP 16; TEMP 98.1; O2SAT 98
--- NOTE | 2024-11-16 09:25 | PCM.DS ---
Discharge Summary Date of Admission: 11/13/24 18:19 Date of Discharge: 11/16/24 Admitting Physician: NAVIN CHAVEZ MD Primary Care Provider: SRINI DAVID Allergies Allergies No Known Drug Allergies Allergy (Verified 01/15/24 07:13) Hospital Summary - Hospital Course Hospital Course: Ms. Hull is a 79-year-old female with a history of hyperlipidemia, COPD, angina, hypertension, hypothyroidism, and prior Hodgkins lymphoma who was admitted on 11/13/24 for worsening shortness of breath despite outpatient treatment for presumed pneumonia. Evaluation revealed no focal infiltrates on chest X-ray, mild leukocytosis, negative respiratory viral panel, and EKG showing a left anterior fascicular block without acute ischemic changes. She was treated with IV diuretics, corticosteroids, bronchodilators, magnesium, and broad empiric antibiotics for suspected multifactorial etiology including possible atypical pneumonia, inflammatory airway disease, and cardiovascular contribution. During hospitalization, she remained hemodynamically stable with oxygen saturations maintained above 92% on room air. She experienced persistent weakness, hypokalemia (which was corrected), chest pain with negative troponins, and diarrhea with negative C. difficile testing. By 11/16, she reported improvement in symptoms, denied chest pain, shortness of breath, abdominal pain, nausea, or vomiting, and requested discharge. She was counseled to continue probiotics and Imodium if needed, and a follow-up appointment with her primary care provider was arranged. She was discharged home in stable condition with her daughter, with instructions for ongoing monitoring and continuation of outpatient care. - Vitals & Intake/Output Vital Signs: Vital Signs Temperature 98.1 F 11/16/24 07:09 Pulse Rate 60 11/16/24 07:24 Respiratory Rate 16 11/16/24 07:24 Blood Pressure 113/64 11/16/24 07:09 O2 Sat by Pulse Oximetry 98 11/16/24 07:24 Intake & Output: Intake & Output 11/13/24 11/14/24 11/15/24 11/16/24 11:59 11:59 11:59 11:59 Intake Total 480 1130 1140 Output Total 450 Balance 30 1130 1140 Weight 71.2 kg 70 kg - Lab Result Diagrams: 11/16/24 05:21 11/16/24 05:21 Lab Results-Last 24 Hrs: Lab Results-Last 24 Hours 11/15/24 11/15/24 11/15/24 Range/Units 10:00 15:30 15:38 WBC (3.98-10.04) x10^3/uL RBC (3.93-5.22) x10^6/uL Hgb (11.2-15.7) g/dL Hct (34.1-44.9) % MCV (79.4-94.8) fL MCH (25.6-32.2) pg MCHC (32.2-35.5) g/dL RDW (11.7-14.4) % Plt Count (182-369) x10^3/uL MPV (9.4-12.3) fL Sodium (135-145) mmol/L Potassium 3.1 L (3.5-5.1) mmol/L Chloride (98-107) mmol/L Carbon Dioxide (22-30) mmol/L Anion Gap (5-15) MEQ/L BUN (7-17) mg/dL Creatinine (0.52-1.04) mg/dL Estimated GFR ML/MIN Glucose (74-106) mg/dL Calcium (8.4-10.2) mg/dL Magnesium (1.6-2.3) mg/dL Total Bilirubin (0.2-1.3) mg/dL AST (14-36) U/L ALT (0-35) U/L Alkaline Phosphatase (38-126) U/L Troponin I < 0.012 (0.000-0.033) ng/mL Serum Total Protein (6.3-8.2) g/dL Albumin (3.5-5.0) g/dL C. difficile Screen NEGATIVE (NEGATIVE) C.difficile 027-NAP1-B1 PRESUMPTIVE NEGATIVE (NEGATIVE) 11/15/24 11/15/24 11/15/24 Range/Units 15:38 20:19 20:19 WBC (3.98-10.04) x10^3/uL RBC (3.93-5.22) x10^6/uL Hgb (11.2-15.7) g/dL Hct (34.1-44.9) % MCV (79.4-94.8) fL MCH (25.6-32.2) pg MCHC (32.2-35.5) g/dL RDW (11.7-14.4) % Plt Count (182-369) x10^3/uL MPV (9.4-12.3) fL Sodium (135-145) mmol/L Potassium 4.2 D (3.5-5.1) mmol/L Chloride (98-107) mmol/L Carbon Dioxide (22-30) mmol/L Anion Gap (5-15) MEQ/L BUN (7-17) mg/dL Creatinine (0.52-1.04) mg/dL Estimated GFR ML/MIN Glucose (74-106) mg/dL Calcium (8.4-10.2) mg/dL Magnesium 2.0 (1.6-2.3) mg/dL Total Bilirubin (0.2-1.3) mg/dL AST (14-36) U/L ALT (0-35) U/L Alkaline Phosphatase (38-126) U/L Troponin I < 0.012 (0.000-0.033) ng/mL Serum Total Protein (6.3-8.2) g/dL Albumin (3.5-5.0) g/dL C. difficile Screen (NEGATIVE) C.difficile 027-NAP1-B1 (NEGATIVE) 11/16/24 11/16/24 11/16/24 Range/Units 05:21 05:21 05:21 WBC 8.9 (3.98-10.04) x10^3/uL RBC 3.57 L (3.93-5.22) x10^6/uL Hgb 10.8 L (11.2-15.7) g/dL Hct 33.3 L (34.1-44.9) % MCV 93.3 (79.4-94.8) fL MCH 30.3 (25.6-32.2) pg MCHC 32.4 (32.2-35.5) g/dL RDW 13.2 (11.7-14.4) % Plt Count 204 (182-369) x10^3/uL MPV 11.0 (9.4-12.3) fL Sodium 138 (135-145) mmol/L Potassium 3.8 (3.5-5.1) mmol/L Chloride 108 H (98-107) mmol/L Carbon Dioxide 24 (22-30) mmol/L Anion Gap 9.4 (5-15) MEQ/L BUN 23 H (7-17) mg/dL Creatinine 0.77 (0.52-1.04) mg/dL Estimated GFR 78.4 ML/MIN Glucose 84 (74-106) mg/dL Calcium 8.2 L (8.4-10.2) mg/dL Magnesium 2.1 (1.6-2.3) mg/dL Total Bilirubin 0.50 (0.2-1.3) mg/dL AST 22 (14-36) U/L ALT 17 (0-35) U/L Alkaline Phosphatase 57 (38-126) U/L Troponin I < 0.012 (0.000-0.033) ng/mL Serum Total Protein 5.9 L (6.3-8.2) g/dL Albumin 3.5 (3.5-5.0) g/dL C. difficile Screen (NEGATIVE) C.difficile 027-NAP1-B1 (NEGATIVE) Micro Results-Entire Visit: Microbiology 11/13/24 16:47 Urine Culture - Final Urine, Void NO GROWTH 11/13/24 15:52 Blood Culture - Preliminary Blood 11/13/24 15:45 Blood Culture - Preliminary Blood - Radiology Exams Ordered Rad Exams-Entire Visit: Radiology Procedures Category Date Time Status CHEST 1 VIEW (PORTABLE) Stat Exams 11/15/24 15:48 Taken - Procedures and Test Procedures and Tests throughout Hospitalization: Therapy Orders & Screens 11/13/24 16:04 Respiratory Therapy Assessment DAILY Comment: 11/13/24 19:54 Incentive Spirometry UD Comment: Diagnosis: Pneumonia 11/14/24 07:00 Respiratory Therapy Consult ONCE Comment: Reason For Exam: Diagnosis: Pneumonia 11/15/24 15:25 EKG STAT Comment: Diagnosis: Pneumonia 11/16/24 00:12 Respiratory MDI UD Comment: Diagnosis: Pneumonia Discharge Exam General Appearance: no apparent distress, alert Neurologic Exam: alert, oriented x 3, cooperative, normal mood/affect, nml cerebellar function, sensation nml, No motor deficits Eye Exam: PERRL, EOMI, eyes nml inspection Ears, Nose, Throat Exam: normal ENT inspection, pharynx normal, moist mucous membranes Neck Exam: normal inspection, non-tender, supple, full range of motion Respiratory Exam: normal breath sounds, lungs clear, No respiratory distress Cardiovascular Exam: regular rate/rhythm, normal heart sounds Gastrointestinal/Abdomen Exam: soft, No tenderness, No mass Pelvic Exam: deferred Rectal Exam: deferred Back Exam: normal inspection, normal range of motion, No CVA tenderness, No vertebral tenderness Extremity Exam: normal inspection, normal range of motion Skin Exam: normal color, warm, dry Final Diagnosis/Problem List - Final Discharge Diagnosis/Problem (1) COPD exacerbation Current Visit: Yes Status: Acute Code(s): J44.1 - CHRONIC OBSTRUCTIVE PULMONARY DISEASE W (ACUTE) EXACERBATION (2) HTN (hypertension) Current Visit: Yes Status: Acute Code(s): I10 - ESSENTIAL (PRIMARY) HYPERTENSION (3) Hypothyroid Current Visit: Yes Status: Acute Code(s): E03.9 - HYPOTHYROIDISM, UNSPECIFIED (4) Leukocytosis Current Visit: Yes Status: Acute Code(s): D72.829 - ELEVATED WHITE BLOOD CELL COUNT, UNSPECIFIED (5) History of Hodgkin's granuloma Current Visit: Yes Status: Acute Assessment & Plan: 1) COPD exacerbation Current Visit: Yes Status: Acute Assessment & Plan: -Patient presented with worsening dyspnea, dry cough, and mild tachycardia despite outpatient antibiotics and steroids. -CXR without consolidation or effusion, viral panel negative, and stable oxygenation on room air. -Continue systemic corticosteroids: IV Solu-Medrol transitioned to oral prednisone 40 mg daily 5 days, no taper required unless prolonged course. -Scheduled and PRN bronchodilators: albuterol/ipratropium nebulizers every 46 hours. -Empiric antibiotics per GOLD 2025 guidelines: continue ceftriaxone, azithromycin given age, comorbidities, and moderate exacerbation severity; narrow or discontinue once cultures and trajectory clarify. -Sputum culture -Mucinex -Oxygen therapy if SpO2 < 88%, target 8892%. -Pulmonary hygiene: incentive spirometry, ambulation, chest physiotherapy as tolerated. -Monitor for treatment response; consider pulmonology input if no improvement or progression. 11/16- CBC, CMp reviewed, RA 99%, D/c with antibiotic and steroids sent in yesterday Code(s): J44.1 - CHRONIC OBSTRUCTIVE PULMONARY DISEASE W (ACUTE) EXACERBATION (2) HTN (hypertension) Current Visit: Yes Status: Acute Assessment & Plan: -BP stable continue home meds Code(s): I10 - ESSENTIAL (PRIMARY) HYPERTENSION (3) Hypothyroid Current Visit: Yes Status: Acute Assessment & Plan: -continue home meds Code(s): E03.9 - HYPOTHYROIDISM, UNSPECIFIED (4) Leukocytosis Current Visit: Yes Status: Acute Assessment & Plan: -Mild, possibly secondary to steroids, stress response, or airway inflammation. No fever or sepsis features. -Daily CBC trend. -Monitor for fever, hemodynamic changes, or new source of infection. -Reassess need for continued antibiotics if WBC normalizes and no infection identified. 11/16 - WBC 10.8 Code(s): D72.829 - ELEVATED WHITE BLOOD CELL COUNT, UNSPECIFIED (5) History of Hodgkin's granuloma Current Visit: Yes Status: Acute Assessment & Plan: -Relevant for immune history and chronic cardiopulmonary risk, no acute contribution -No acute intervention required. Code(s): Z85.71 - PERSONAL HISTORY OF HODGKIN LYMPHOMA - Discharge Discharge Date: 11/16/24 Disposition: Home, Self-Care Condition: Stable Prescriptions: New Benzonatate 100 mg PO TID PRN 7 Days #21 cap PRN Reason: Cough Prednisone 20 mg [Deltasone 20 mg] 40 mg PO DAILY 5 Days #10 tablet Guaifenesin 600 mg ER [Mucinex 600MG ER Tabs] 600 mg PO BID 7 Days #14 tablet Azithromycin 250 mg [Zithromax 250 MG TABLET] 250 mg PO DAILY 3 Days #3 tablet Potassium Chloride 20 meq PO DAILY 4 Days #4 tablet Continue Amlodipine Besylate 2.5 mg PO DAILY Omeprazole 40 mg PO HS Nitroglycerin 0.4 mg Tablet [Nitrostat 0.4 MG Tablet] 0.4 mg SL Q5MIN PRN MR X 3 PRN 30 Days #30 PRN Reason: Chest Pain Trazodone HCl 50 mg [Desyrel 50 mg] 100 mg PO HS Ondansetron ODT 4 MG [Zofran Odt 4 mg] 4 mg PO Q6H PRN PRN 4 Days #10 tablet PRN Reason: Vomiting Ropinirole HCl 1 mg PO HS Atorvastatin Calcium 10 mg PO HS Famotidine 20 mg [Pepcid 20 MG] 20 mg PO DAILY Discontinued Nitrofurantoin Macro 100 mg [Macrobid 100MG Capsule] 100 mg PO BIDWM 5 Days #10 cap Ciprofloxacin HCl [Cipro] 500 mg PO 3XW Follow up with: SRINI DAVID MD [Primary Care Provider, [facility]]
[2024-11-16] MEDS ORDERED: Acidophilus TABLET PO SCH (10:00)
--- NOTE | 2024-11-16 13:07 | XRAY ---
CLINICAL HISTORY: sob COMPARISON: No prior studies are available for comparison. TECHNIQUE: A portable X-ray image of the chest was obtained in AP projection. FINDINGS: Pulmonary Parenchyma: There is a 4 mm nodular shadow in the left upper lung zone, which could represent an end-on vessel or a true nodule. Bibasilar reticulation is present, with parahilar and basilar peribronchial thickening/cuffing, more pronounced on the left side. There is no evidence of focal consolidation, pleural effusion, or pleural thickening. Heart and Mediastinum: The heart size and shape are normal. There is no mediastinal widening or masses. No hilar or mediastinal lymphadenopathy is identified. There is prominence of the aortic arch with a calcified plaque. Bony Thorax: The bony thorax appears intact without fractures or deformities. Apparent osteosynthetic material is present in the cervical region (correlate with clinical history). Soft Tissues: The soft tissues overlying the chest wall are unremarkable. There is external medical monitoring material. IMPRESSION: 1. There is a 4 mm nodular shadow in the left upper lung zone, which could represent an end-on vessel or a true nodule. 2. Bibasilar reticulation is present, with parahilar and basilar peribronchial thickening/cuffing, more pronounced on the left side; this could represent bronchitis or be part of chronic obstructive pulmonary disease (COPD). 3. There is no evidence of focal consolidation or collapse. 4. Additional imaging with chest CT, as clinically indicated, is recommended for further characterization. Electronically Signed by: Osmel Sullivan MD. (11/15/2024 17:02:55 EDT)
== END 2024-11-16 10:35 | disposition home or self-care (01) ==
LOC: ED 14:57 → MED SURG 18:19
PROVIDERS: ADMIT Internal Medicine; ATTEND Internal Medicine
DX: J44.1 Chronic obstructive pulmonary disease with (acute) exacerbation (principal); I10 Essential (primary) hypertension; E03.9 Hypothyroidism, unspecified; D72.829 Elevated white blood cell count, unspecified; Z85.71 Personal history of Hodgkin lymphoma; N39.0 Urinary tract infection, site not specified; E87.6 Hypokalemia; E78.5 Hyperlipidemia, unspecified; R07.9 Chest pain, unspecified; R19.7 Diarrhea, unspecified; Z79.899 Other long term (current) drug therapy
CPT/HCPCS: 36415; 71045; 80053; 81001; 83605; 83735; 83880; 84100; 84132; 84484; 85025; 85027; 87040; 87086; 87493; 87637; 93005; 94640; 94760; 96365; 96374; 96375; 99285; Q3014

== ENCOUNTER 2024-11-23 12:20 | Emergency (ER) | payer MEDICARE ==
--- NOTE | 2024-11-23 12:24 | ERPHSYRPT ---
- History of Present Illness Time Seen by Provider: 11/23/24 12:24 Source: patient, family Exam Limitations: no limitations Physician History: This is an overweight 79-year-old white female patient who returns to the emergency department after being seen on 11/13/2024. Patient was admitted at that time and I reviewed the admission and discharge notes on that hospitalization. Patient was admitted on 11/13/2024 and discharged on 11/16/2024. This patient was diagnosed with a pulmonary infiltrate and was treated with antibiotics. She has had a persistent, nonproductive cough for 3 weeks. Patient does have a history of chronic angina and is now complaining of chest pain. She arrives by private vehicle accompanied by her daughter. Patient has a history of hypertension, gastroesophageal reflux disease, chronic angina and hyperlipidemia. Timing/Duration: week(s) (3), worse Severity of Dyspnea-Max: mild (To moderate) Severity of Dyspnea-Current: mild (To moderate) Possible Cause: occasional episodes Modifying Factors: Improves With: activity, coughing Associated Symptoms: cough, chest pain/discomfort, No hemoptysis, No calf pain Allergies/Adverse Reactions: No Known Drug Allergies Allergy (Verified 11/23/24 12:39) Home Medications: Amlodipine Besylate 2.5 mg PO DAILY 06/12/16 [History] Trazodone HCl 50 mg [Desyrel 50 mg] 100 mg PO HS 07/29/23 [History] Atorvastatin Calcium 10 mg PO HS 11/13/24 [History] Famotidine 20 mg [Pepcid 20 MG] 20 mg PO DAILY 11/13/24 [History] Ropinirole HCl 1 mg PO HS 11/13/24 [History] Esomeprazole Magnesium 20 mg PO DAILY 11/23/24 [History] Tiotropium Br/Olodaterol HCl [Stiolto Respimat Inhaler (60)] 2 inh PO QAM 11/23/24 [History] Hx Tetanus, Diphtheria Vaccination/Date Given: No Hx Influenza Vaccination/Date Given: No Hx Pneumococcal Vaccination/Date Given: No Travel Risk - International Travel Have you traveled outside of the country in past 3 weeks: No - Emerging Infectious Disease Are you exhibiting symptoms associated with any current EIDs: No Symptoms: Abdominal Pain, Cough: New Onset, Diarrhea, Fever, Headaches/Body Aches/, Loss of taste or smell, Shortness of Breath, Vomitting Comment: fatigue - Review of Systems Constitutional: No Symptoms Eyes: No Symptoms Ears, Nose, & Throat: No Symptoms Respiratory: Cough, Dyspnea on Exertion (GREGORY) Cardiac: Chest Pain Abdominal/Gastrointestinal: No Symptoms Genitourinary Symptoms: No Symptoms Musculoskeletal: No Symptoms Skin: No Symptoms Neurological: No Symptoms Psychological: No Symptoms Endocrine: No Symptoms Hematologic/Lymphatic: No Symptoms Immunological/Allergic: No Symptoms All Other Systems: Reviewed and Negative - Past Medical History Pertinent Past Medical History: Yes Neurological History: No Pertinent History ENT History: No Pertinent History Cardiac History: Angina, High Cholesterol, Hypertension Respiratory History: Asthma, COPD Endocrine Medical History: Hypothyroidism Musculoskeletal History: Osteoarthritis GI Medical History: GERD, Gallbladder Disease, Hernia History: No Pertinent History Psycho-Social History: Anxiety, Depression Female Reproductive Disorders: No Pertinent History Other Medical History: PMH: GERD, CANCER 2005' (CHEMO/RADIATION) NON-HODGKIN'S LYMPHOMA. PSH: HEART CATH, CHOLECYSTECOMY, HYSTERECTOMY, TUBAL LIGATION, BACK SURGERY (UNSURE OF WHAT WAS DONE), BACK INJECTIONS - Past Surgical History Past Surgical History: Yes Neuro Surgical History: No Pertinent History Cardiac: Cardiac Catheterization Respiratory: No Pertinent History Gastrointestinal: Cholecystectomy Genitourinary: No Pertinent History Musculoskeletal: No Pertinent History Female Surgical History: Hysterectomy, Tubal Ligation Other Surgical History: cvl port placed and removed. PATIENT SERVICE REPRESENTATIVE - DR. FLORES Significant Family History: no pertinent family hx - Social History Smoking Status: Never smoker Exposure to second hand smoke: No - Social Determinants of Health Will the patient participate in the screening: Declined to provide - Nursing Vital Signs Nursing Vital Signs: Initial Vital Signs Temperature 98.1 F 11/23/24 12:25 Pulse Rate 77 11/23/24 12:25 Respiratory Rate 37 H 11/23/24 12:25 Blood Pressure 153/89 11/23/24 12:25 O2 Sat by Pulse Oximetry 99 11/23/24 12:25 Pain Scale Pain Intensity 10 - Physical Exam General Appearance: mild distress, alert, anxiety, obese Eye Exam: PERRL/EOMI Ears, Nose, Throat Exam: hearing grossly normal, normal ENT inspection, normal pharynx Neck Exam: normal inspection, non-tender, supple, full range of motion Respiratory Exam: normal breath sounds, chest tenderness, lungs clear, airway intact, No respiratory distress Cardiovascular/Chest Exam: normal heart sounds, regular rate/rhythm, normal peripheral pulses Abdominal/Gastrointestinal Exam: soft, normal bowel sounds, No tenderness Rectal Exam: not done Extremity Exam: non-tender, normal range of motion, normal inspection, normal capillary refill, no calf tenderness, no pedal edema, pelvis stable Neurologic Exam: alert, oriented x 3, cooperative, sourcing manager II-XII nml as tested, sensation nml Skin Exam: normal color, warm, dry Lymphatic Exam: No adenopathy SpO2 Interpretation: normal O2 Delivery: Room Air - Course Nursing assessment & vital signs reviewed: Yes Ordered Tests: Active Orders 24 hr Category Date Time Status Clay Machine Operator STAT Care 11/23/24 12:52 Active EKG-ER Only STAT Care 11/23/24 12:51 Active IV Insertion STAT Care 11/23/24 12:51 Active Pulse Oximetry (ED) STAT Care 11/23/24 12:51 Active CHEST WITH CONTRAST [CT] Stat Exams 11/23/24 13:52 Completed BLOOD CULTURE Stat Lab 11/23/24 13:11 Received CBC W DIFF Stat Lab 11/23/24 13:08 Completed CMP Stat Lab 11/23/24 13:08 Completed D-DIMER QUANTITATIVE Stat Lab 11/23/24 13:08 Completed Lactic Acid Stat Lab 11/23/24 12:51 Completed MAGNESIUM Stat Lab 11/23/24 13:08 Completed NT PRO BNPII Stat Lab 11/23/24 13:08 Completed TROPONIN Q4H Lab 11/23/24 13:08 Completed TROPONIN Q4H Lab 11/23/24 17:00 Ordered TROPONIN Q4H Lab 11/23/24 21:00 Ordered Medication Summary Discontinued Medications Generic Name Dose Route Start Last Admin Trade Name Javedq PRN Reason Stop Dose Admin Hydrocodone Bitart/Acetaminophen 10 ml 11/23/24 13:53 11/23/24 13:58 Hydrocodone/Acetaminophen 5 Ml Udcup PO 11/23/24 13:54 10 ml STAT STA Administration Hydrocodone Bitart/Acetaminophen Confirm 11/23/24 13:56 Hydrocodone/Acetaminophen 5 Ml Udcup Administered 11/23/24 13:57 Dose 10 ml .ROUTE .STK-MED ONE Sodium Chloride 500 mls @ 500 mls/hr 11/23/24 13:51 11/23/24 15:01 Sodium Chloride 0.9% 500 Ml IV 11/23/24 14:50 Infused .Q1H ONE Infusion Sodium Chloride Confirm 11/23/24 13:56 Sodium Chloride 0.9% 500 Ml Administered 11/23/24 13:57 Dose 500 mls @ ud IV .STK-MED ONE Lab/Rad Data: Laboratory Result Diagrams 11/23/24 13:08 11/23/24 13:08 Laboratory Results 11/23/24 11/23/24 11/23/24 Range/Units 13:08 13:08 13:08 WBC (3.98-10.04) x10^3/uL RBC (3.93-5.22) x10^6/uL Hgb (11.2-15.7) g/dL Hct (34.1-44.9) % MCV (79.4-94.8) fL MCH (25.6-32.2) pg MCHC (32.2-35.5) g/dL RDW (11.7-14.4) % Plt Count (182-369) x10^3/uL MPV (9.4-12.3) fL Gran % (34.0-71.1) % Immature Gran % (Auto) (0.001-0.429) % Nucleat RBC Rel Count (0.00-0.2) % Eos # (Auto) (0.04-0.36) x10^3/uL Immature Gran # (Auto) (0.001-0.031) x10^3u/L Absolute Lymphs (auto) (1.18-3.74) x10^3/uL Absolute Monos (auto) (0.24-0.86) x10^3/uL Absolute Nucleated RBC (0.00-0.012) x10^3u/L Lymphocytes % (19.3-51.7) % Monocytes % (4.7-12.5) % Eosinophils % (0.7-5.8) % Basophils % (0.1-1.2) % Absolute Granulocytes (1.56-6.13) x10^3/uL Basophils # (0.01-0.08) x10^3/uL D-Dimer 0.81 H* (0.0-0.50) mg/L Sodium (135-145) mmol/L Potassium (3.5-5.1) mmol/L Chloride (98-107) mmol/L Carbon Dioxide (22-30) mmol/L Anion Gap (5-15) MEQ/L BUN (7-17) mg/dL Creatinine (0.52-1.04) mg/dL Estimated GFR ML/MIN Glucose (74-106) mg/dL Lactic Acid (0.4-2.0) Calcium (8.4-10.2) mg/dL Magnesium (1.6-2.3) mg/dL Total Bilirubin (0.2-1.3) mg/dL AST (14-36) U/L ALT (0-35) U/L Alkaline Phosphatase (38-126) U/L Troponin I < 0.012 (0.000-0.033) ng/mL NT-Pro-B Natriuret Pep (<300) pg/mL Serum Total Protein (6.3-8.2) g/dL Albumin (3.5-5.0) g/dL Influenza Type A Ag NEGATIVE (NEGATIVE) Influenza Type B Ag NEGATIVE (NEGATIVE) RSV (PCR) NEGATIVE (NEGATIVE) SARS-CoV-2 (PCR) NEGATIVE (NEGATIVE) 11/23/24 11/23/24 11/23/24 Range/Units 13:08 13:08 12:51 WBC 10.9 H (3.98-10.04) x10^3/uL RBC 3.96 (3.93-5.22) x10^6/uL Hgb 11.9 (11.2-15.7) g/dL Hct 36.5 (34.1-44.9) % MCV 92.2 (79.4-94.8) fL MCH 30.1 (25.6-32.2) pg MCHC 32.6 (32.2-35.5) g/dL RDW 12.7 (11.7-14.4) % Plt Count 232 (182-369) x10^3/uL MPV 11.0 (9.4-12.3) fL Gran % 68.9 (34.0-71.1) % Immature Gran % (Auto) 0.5 H (0.001-0.429) % Nucleat RBC Rel Count 0.0 (0.00-0.2) % Eos # (Auto) 0.11 (0.04-0.36) x10^3/uL Immature Gran # (Auto) 0.05 H (0.001-0.031) x10^3u/L Absolute Lymphs (auto) 2.45 (1.18-3.74) x10^3/uL Absolute Monos (auto) 0.70 (0.24-0.86) x10^3/uL Absolute Nucleated RBC 0.00 (0.00-0.012) x10^3u/L Lymphocytes % 22.6 (19.3-51.7) % Monocytes % 6.4 (4.7-12.5) % Eosinophils % 1.0 (0.7-5.8) % Basophils % 0.6 (0.1-1.2) % Absolute Granulocytes 7.49 H (1.56-6.13) x10^3/uL Basophils # 0.06 (0.01-0.08) x10^3/uL D-Dimer (0.0-0.50) mg/L Sodium 137 (135-145) mmol/L Potassium 3.4 L (3.5-5.1) mmol/L Chloride 108 H (98-107) mmol/L Carbon Dioxide 19 L (22-30) mmol/L Anion Gap 13.1 (5-15) MEQ/L BUN 15 (7-17) mg/dL Creatinine 0.88 (0.52-1.04) mg/dL Estimated GFR 66.8 ML/MIN Glucose 115 H (74-106) mg/dL Lactic Acid 1.8 (0.4-2.0) Calcium 8.8 (8.4-10.2) mg/dL Magnesium 2.0 (1.6-2.3) mg/dL Total Bilirubin 0.80 (0.2-1.3) mg/dL AST 28 (14-36) U/L ALT 23 (0-35) U/L Alkaline Phosphatase 83 (38-126) U/L Troponin I (0.000-0.033) ng/mL NT-Pro-B Natriuret Pep 259 (<300) pg/mL Serum Total Protein 6.8 (6.3-8.2) g/dL Albumin 4.1 (3.5-5.0) g/dL Influenza Type A Ag (NEGATIVE) Influenza Type B Ag (NEGATIVE) RSV (PCR) (NEGATIVE) SARS-CoV-2 (PCR) (NEGATIVE) - Progress Progress: improved, re-examined Air Movement: good Progress Note: 11/23/24 13:32 My medical decision making and the assignment of at least moderate complexity of this patient's medical issue today is based on review of the patient's past medical history, reviewed patient's medication list, reviewed patient drug allergy list, history of present illness and physical findings on examination. The workup in this patient includes placement of intravenous line, twelve-lead EKG, CBC, CMP, BNP, troponin level, D-dimer level, chest x-ray if the D-dimer level is normal and CT scan of the chest with contrast if the D-dimer level is elevated. Differential diagnosis includes but is not limited to viral illness, worsening pulmonary infiltrate, myocardial infarction, CHF, COPD, pulmonary embolus 11/23/24 16:30 I interpreted the patient's laboratory data results. Based on laboratory data results there are no acute, emergent medical issues. CT scan of the chest with contrast was interpreted by the radiologist and I reviewed the impression. Depression states pulmonary embolus evaluation limited by respiratory artifact. No obvious pulmonary embolus. Chronic findings present. Remaining CT scan of chest with contrast is negative. I spoke with the patient and her daughter Zhanna by phone. This patient has had significant workup and was admitted into the hospital recently. The patient seems to be fine with a room air oxygen saturation of 99 to 100%. Her workups have been navigated which have included troponin levels and D-dimer levels and now a CT scan of the chest with contrast. There appears to be an anxiety component as well. We will attempt to make an appointment with the structural steel erector for this patient. Blood Culture(s) Obtained: No Antibiotics given: No Counseled pt/family regarding: lab results, diagnosis Medical Desision Making - Independent Historian Additional History obtained from: Family - Diagnostic Testing Diagnostic test were ordered, analyzed, and reviewed by me: Yes Radiological Interpretation: Reviewed by me, Teleradiologist Report - Risk of complications Low Risk: Low risk of morbidity from additional dx testing or treatment - Departure Departure Disposition: Home Clinical Impression: Shortness of breath Condition: Stable Critical Care Time: No Referrals: SRINI DAVID MD [Primary Care Provider, INTERNAL MEDICINE] - Follow up/PCP as directed Additional Instructions: Drink plenty of fluids and advance your diet slowly. Take your medications as prescribed. Follow-up with structural steel erector at scheduled appointment date and time. Call your primary care provider tomorrow, 11/24/2024, to make arrangements for follow-up appointment for further evaluation and management.
[2024-11-23 12:39] VITALS: TEMP 98.1
[2024-11-23 13:22] LABS: BASOPHIL % 0.6 % (0.1-1.2); Basophil (Absolute #) 0.06 x10^3/uL (0.01-0.08); Eosinophil (Absolute #) 0.11 x10^3/uL (0.04-0.36); Hematocrit 36.5 % (34.1-44.9); Hemoglobin 11.9 g/dL (11.2-15.7); IMMATURE GRAN # 0.05 x10^3u/L (0.001-0.031); IMMATURE GRAN % 0.5 % (0.001-0.429); Lymphocyte (Absolute #) 2.45 x10^3/uL (1.18-3.74); Mean Corpuscular Hemoglobin 30.1 pg (25.6-32.2); Mean Corpuscular Hgb Concent. 32.6 g/dL (32.2-35.5); Monocyte (Absolute #) 0.70 x10^3/uL (0.24-0.86); NUCLEATED RBC # 0.00 x10^3u/L (0.00-0.012); NUCLEATED RBC % 0.0 % (0.00-0.2); Platelet Count 232 x10^3/uL (182-369); Red Blood Count 3.96 x10^6/uL (3.93-5.22); White Blood Count 10.9 x10^3/uL (3.98-10.04)
[2024-11-23 13:40] LABS: Calcium 8.8 mg/dL (8.4-10.2); Carbon Dioxide 19.0 mmol/L (22-30); Creatinine 1 0.88 mg/dL (0.52-1.04); EST GLOMERULAR FILTRATION RATE 66.8 ML/MIN; Glucose 115.0 mg/dL (74-106); NT PRO BNPII 259.0 pg/mL (<300); Potassium 3.4 mmol/L (3.5-5.1); SGOT/AST 28.0 U/L (14-36); SGPT/ALT 23.0 U/L (0-35); Total Protein 6.8 g/dL (6.3-8.2)
[2024-11-23 13:56] LABS: INFLUENZA A NEGATIVE (NEGATIVE); INFLUENZA B NEGATIVE (NEGATIVE); RESPIRATORY SYNCTIAL VIRUS NEGATIVE (NEGATIVE); SARS-CoV-2 Xpert Express NEGATIVE (NEGATIVE)
[2024-11-23] MEDS ORDERED: HYDROCODONE-ACETAMIN 2.5-108/5 ML SOLUTION ONE (13:56)
[2024-11-23] MEDS: HYDROCODONE-ACETAMIN 2.5-108/5 ML SOLUTION PO STA (13:58)
--- NOTE | 2024-11-23 15:18 | XRAY ---
Indication: Short of breath. Elevated D-dimer. Chest pain. Multiple contiguous axial images obtained through the chest using 80 cc Isovue 370 contrast and PE protocol. Comparison: None Good opacification pulmonary arteries. However mild respiration artifact, especially lung bases limits evaluation of the more distal lobar and segmental branches. No obvious pulmonary embolus. Heart not enlarged. Aorta is normal in course and caliber again with minimal arteriosclerotic disease. A few tiny left hilar calcified nodes. No pathologic mediastinal/hilar lymphadenopathy. Stable small hiatal hernia. Lungs demonstrates minimal bilateral dependent atelectasis and stable tiny left upper lobe calcified granuloma. No suspicious pulmonary mass/nodule, infiltrate, or effusion. Bony thorax intact again with osteopenia and minimal/mild degenerative changes throughout spine. Limited upper abdomen again demonstrates cholecystectomy clips. Impression: 1. Pulmonary embolus evaluation limited by respiration artifact. No obvious pulmonary embolus. 2. Again chronic findings including arteriosclerotic disease, hiatal hernia, chronic bony findings, and old granulomatous disease. 3. Remaining CT chest with contrast exam is again negative.
[2024-11-23 16:15] VITALS: PULSE 80; RESP 20; O2SAT 98
[2024-11-23 16:56] VITALS: BP 124/77
== END 2024-11-23 16:30 | disposition home or self-care (01) ==
LOC: ED 12:20
DX: R06.02 Shortness of breath (principal); R05.2 Subacute cough; R07.9 Chest pain, unspecified; I10 Essential (primary) hypertension; Z79.899 Other long term (current) drug therapy